=== PATIENT | female | born 1940 | race Two or more races ===

== ENCOUNTER 2020-01-27 15:11 | Inpatient (IN) | payer OTHER ==
[~2020-01-27] VITALS: Ht 157.5 cm; Wt 72.8 kg
[~2020-01-27 15:11] MED LIST: ASPI-231 PO; CITA10TA70 PO; DICY10CA12 PO; DIGO0.1262 PO; ERGO1CAP6 PO; FLUT50SP13; FURO40TA4 PO; METO5TAB2 PO; PANT1INJ3 PO; POTA10TA51 PO; RANI-226 PO; SUCR1TAB PO; TRAM50TA2 PO
[2020-01-27 16:44] LABS: Basophils # (auto) 0.1 10 ^3/uL (0-0.2); Basophils % (auto) 0.8 % (0.0-2.0); Eosinophils # (auto) 0.3 10 ^3/uL (0-0.8); Eosinophils % (auto) 4.3 % (0.0-7.0); Hematocrit 37.2 % (36.0-46.0); Hemoglobin 12.2 g/dL (12.2-16.2); Lymphocytes # (auto) 2.5 10 ^3/uL (0.4-5.4); Lymphocytes % (auto) 34.9 % (10.0-50.0); Mean Corpuscular Hemoglobin 30.5 pg (28.0-32.0); Mean Corpuscular Hgb Conc. 32.7 g/dL (32.0-36.0); Mean Corpuscular Volume 93.2 fL (80.0-100.0); Monocytes # (auto) 0.7 10 ^3/uL (0-1.3); Monocytes % (auto) 9.6 % (0.0-12.0); Neutrophils # (auto) 3.7 10 ^3/uL (1.6-8.6); Neutrophils % (auto) 50.4 % (37.0-80.0); Nucleated Red Blood Cells % 0.1 %; Platelet Count (auto) 233 10^3/uL (140-450); Red Blood Cells 3.99 10^6/uL (4.0-5.20); Red Cell Distribution Width 13.6 % (11.8-14.3); White Blood Cell 7.3 10^3/uL (4.4-10.8)
[2020-01-27 16:56] LABS: Partial Thromboplastin Time 24.8 sec (23.0-31.2)
[2020-01-27 17:01] LABS: Albumin 3.6 g/dL (3.4-5.0); Calcium 8.6 mg/dL (8.5-10.1)
[2020-01-27 17:05] LABS: BUN/Creatinine Ratio 20.5; Bilirubin, Total 0.5 mg/dL (0.2-1.0); Total Protein 6.6 g/dL (6.4-8.2)
[2020-01-27] MEDS ORDERED: PANTOPRAZOLE 40 MG/10 ML VIAL INJ IV ONE (17:45)
[2020-01-27] MEDS ORDERED: NITROGLYCERIN 0.4 MG SL TAB SL PRN (20:00)
[2020-01-27] MEDS ORDERED: MORPHINE SULF INJ 2 MG/ML SYRINGE 1ML IV PRN (20:00)
[2020-01-27] MEDS: SODIUM CHLORIDE 0.9% 1,000 ML IV SCH (21:08)
[2020-01-27] MEDS: ONDANSETRON HCL 4 MG/2 ML VIAL IV PRN (21:18)
[2020-01-27] MEDS: MORPHINE SULF INJ 2 MG/ML SYRINGE 1ML IV PRN (21:18)
[2020-01-27] MEDS: PANTOPRAZOLE 40 MG/10 ML VIAL INJ IV SCH (22:48)
[2020-01-27 23:00] VITALS: BP 102/61
[2020-01-28] MEDS: MORPHINE SULF INJ 2 MG/ML SYRINGE 1ML IV PRN ×4 (01:24→22:21)
[2020-01-28] MEDS ORDERED: CLOP75TA28 PO (02:19)
[2020-01-28] MEDS ORDERED: SERT-274 PO (02:19)
[2020-01-28 05:00] VITALS: BP 113/60
[2020-01-28 06:16] LABS: Basophils # (auto) 0 10 ^3/uL (0-0.2); Basophils % (auto) 0.7 % (0.0-2.0); Eosinophils # (auto) 0.3 10 ^3/uL (0-0.8); Eosinophils % (auto) 4.6 % (0.0-7.0); Hematocrit 36.4 % (36.0-46.0); Hemoglobin 12.2 g/dL (12.2-16.2); Mean Corpuscular Hemoglobin 31.2 pg (28.0-32.0); Mean Corpuscular Hgb Conc. 33.6 g/dL (32.0-36.0); Mean Corpuscular Volume 92.9 fL (80.0-100.0); Monocytes # (auto) 0.6 10 ^3/uL (0-1.3); Monocytes % (auto) 9.3 % (0.0-12.0); Neutrophils # (auto) 3.5 10 ^3/uL (1.6-8.6); Neutrophils % (auto) 54.4 % (37.0-80.0); Nucleated Red Blood Cells % 0.1 %; Platelet Count (auto) 209 10^3/uL (140-450); Red Blood Cells 3.92 10^6/uL (4.0-5.20); Red Cell Distribution Width 13.5 % (11.8-14.3); White Blood Cell 6.5 10^3/uL (4.4-10.8)
[2020-01-28] MEDS: SODIUM CHLORIDE 0.9% 1,000 ML IV SCH ×2 (06:18→15:56)
[2020-01-28 06:32] LABS: Potassium 4.1 mmol/L (3.5-5.1)
[2020-01-28 06:38] LABS: Albumin 3.1 g/dL (3.4-5.0); BUN/Creatinine Ratio 18.9; Bilirubin, Total 0.8 mg/dL (0.2-1.0); Calcium 8.1 mg/dL (8.5-10.1); Total Protein 5.6 g/dL (6.4-8.2)
[2020-01-28 08:00] VITALS: BP 122/60
[2020-01-28] MEDS: PANTOPRAZOLE 40 MG/10 ML VIAL INJ IV SCH ×2 (08:50→21:41)
[2020-01-28 09:00] VITALS: BP 122/60
[2020-01-28] MEDS: ONDANSETRON HCL 4 MG/2 ML VIAL IV PRN ×2 (09:03→15:56)
[2020-01-28 13:00] VITALS: BP 106/54
[2020-01-28 17:00] VITALS: BP 132/74
[2020-01-28] MEDS ORDERED: LISI-648 PO (19:55)
[2020-01-28] MEDS ORDERED: FURO20TA3 PO (19:55)
[2020-01-28] MEDS ORDERED: CHOL20006 PO (19:55)
[2020-01-28] MEDS ORDERED: ROSU1TAB12 PO (19:59)
[2020-01-28] MEDS ORDERED: SERTRALINE HCL 50 MG TAB PO SCH (20:15)
[2020-01-28] MEDS ORDERED: traMADol HCL 50 MG TAB PO PRN (20:15)
[2020-01-28] MEDS: LISINOPRIL 10 MG TAB PO SCH (20:24)
[2020-01-28] MEDS: FUROSEMIDE 20 MG TAB PO SCH (20:24)
[2020-01-28] MEDS: SERTRALINE HCL 50 MG TAB PO SCH (21:09)
[2020-01-28] MEDS: POTASSIUM CHL 10 Meq TABLET PO SCH (21:40)
[2020-01-28] MEDS: GABAPENTIN 100 MG CAP PO SCH (21:40)
[2020-01-28] MEDS: SUCRALFATE 1 GM/10 ML ORAL SUSP GT SCH (21:40)
[2020-01-28] MEDS: CHOLECALCIFEROL (VITD3) 2,000 UNIT CAP PO SCH (21:59)
[2020-01-28] MEDS ORDERED: ATORVASTATIN 20 MG TAB PO SCH (22:00)
[2020-01-28 22:08] VITALS: BP 100/54
[2020-01-29] MEDS: MORPHINE SULF INJ 2 MG/ML SYRINGE 1ML IV PRN (04:29)
[2020-01-29 04:41] VITALS: BP 113/54
[2020-01-29 05:59] LABS: Basophils # (auto) 0 10 ^3/uL (0-0.2); Basophils % (auto) 0.7 % (0.0-2.0); Eosinophils # (auto) 0.3 10 ^3/uL (0-0.8); Eosinophils % (auto) 5.7 % (0.0-7.0); Hematocrit 35.5 % (36.0-46.0); Hemoglobin 11.7 g/dL (12.2-16.2); Lymphocytes # (auto) 1.7 10 ^3/uL (0.4-5.4); Lymphocytes % (auto) 34.3 % (10.0-50.0); Mean Corpuscular Hemoglobin 30.9 pg (28.0-32.0); Mean Corpuscular Volume 93.7 fL (80.0-100.0); Monocytes # (auto) 0.4 10 ^3/uL (0-1.3); Monocytes % (auto) 8.7 % (0.0-12.0); Neutrophils # (auto) 2.5 10 ^3/uL (1.6-8.6); Neutrophils % (auto) 50.6 % (37.0-80.0); Platelet Count (auto) 194 10^3/uL (140-450); Red Blood Cells 3.78 10^6/uL (4.0-5.20); Red Cell Distribution Width 13.6 % (11.8-14.3); White Blood Cell 4.9 10^3/uL (4.4-10.8)
[2020-01-29 06:12] LABS: Partial Thromboplastin Time 26.5 sec (23.0-31.2)
[2020-01-29 06:18] LABS: Potassium 4.3 mmol/L (3.5-5.1)
[2020-01-29] MEDS: SUCRALFATE 1 GM/10 ML ORAL SUSP GT SCH ×3 (06:18→18:13)
[2020-01-29] MEDS: GABAPENTIN 100 MG CAP PO SCH ×2 (06:18→18:13)
[2020-01-29 06:30] LABS: Albumin 2.7 g/dL (3.4-5.0); BUN/Creatinine Ratio 12.8; Bilirubin, Total 0.6 mg/dL (0.2-1.0); Calcium 7.9 mg/dL (8.5-10.1); Total Protein 5.3 g/dL (6.4-8.2)
[2020-01-29 08:00] VITALS: BP 110/45
[2020-01-29] MEDS ORDERED: SODIUM CHLORIDE LOCK 10 ML ONE ×2 (08:43→08:45)
[2020-01-29] MEDS ORDERED: LIDOCAINE VISCOUS 2% 15ML UD ONE (08:43)
[2020-01-29] MEDS ORDERED: diphenhdrAMINE HCL 50 MG/1 ML VL ONE (08:44)
[2020-01-29] MEDS ORDERED: MIDAZOLAM HCL 5 MG/ML-1ML VIAL ONE (08:44)
[2020-01-29] MEDS ORDERED: fentaNYL CITRATE 100 MCG/2 ML VL ONE (08:44)
[2020-01-29 09:00] VITALS: BP 110/45
[2020-01-29] MEDS: CHOLECALCIFEROL (VITD3) 2,000 UNIT CAP PO SCH (10:00)
[2020-01-29] MEDS: LISINOPRIL 10 MG TAB PO SCH (10:00)
[2020-01-29] MEDS: SERTRALINE HCL 50 MG TAB PO SCH (10:00)
[2020-01-29] MEDS: PANTOPRAZOLE 40 MG/10 ML VIAL INJ IV SCH (10:15)
[2020-01-29] MEDS: POTASSIUM CHL 10 Meq TABLET PO SCH (10:15)
[2020-01-29] MEDS: FUROSEMIDE 20 MG TAB PO SCH (10:16)
[2020-01-29 11:44] VITALS: BP 116/59
[2020-01-29] MEDS ORDERED: ALPRAZolam 0.25 MG TAB PO ONE (13:45)
[2020-01-29] MEDS ORDERED: SERT25TA84 PO (15:54)
[2020-01-29] MEDS ORDERED: LISI-646 PO (15:54)
[2020-01-29 16:09] VITALS: BP 116/59
[2020-01-29 16:34] VITALS: BP 110/66
[2020-01-30 10:53] LABS: Hepatitis B Surface Antibody Positive
[2020-01-30 11:30] LABS: Hepatitis A Total Antibody Positive
[2020-01-30 13:26] LABS: Hepatitis B Core Total AB Negative; Hepatitis B Surface Antigen Negative (Negative); Hepatitis C Antibody Negative (Negative)
[2020-01-31] MEDS ORDERED: PANT1INJ3 PO (12:05)
== END 2020-01-29 18:50 | disposition home or self-care (01) | DRG 379 ==
LOC: ER 15:11 → TELE 15:12 → TELE-CENTR 22:10
PROVIDERS: ADMIT Nurse Practitioner Acute Care; ATTEND Internal Medicine
PROC: 0DB88ZX Excision of Small Intestine, Via Natural or Artificial Opening Endoscopic, Diagnostic (ICD-10-PCS; 2020-01-29)
PROC: 0DB68ZX Excision of Stomach, Via Natural or Artificial Opening Endoscopic, Diagnostic (ICD-10-PCS; principal; 2020-01-29 15:00)
DX: K27.4 Chronic or unspecified peptic ulcer, site unspecified, with hemorrhage (principal); K29.71 Gastritis, unspecified, with bleeding; K57.31 Diverticulosis of large intestine without perforation or abscess with bleeding; N18.30 Chronic kidney disease, stage 3 unspecified; E78.5 Hyperlipidemia, unspecified; F32.9 Major depressive disorder, single episode, unspecified; F41.9 Anxiety disorder, unspecified; I12.9 Hypertensive chronic kidney disease with stage 1 through stage 4 chronic kidney disease, or unspecified chronic kidney disease; I25.10 Atherosclerotic heart disease of native coronary artery without angina pectoris; I70.8 Atherosclerosis of other arteries; K44.9 Diaphragmatic hernia without obstruction or gangrene; M10.9 Gout, unspecified; Z82.49 Family history of ischemic heart disease and other diseases of the circulatory system; Z83.3 Family history of diabetes mellitus; Z90.49 Acquired absence of other specified parts of digestive tract; Z95.810 Presence of automatic (implantable) cardiac defibrillator; Z88.2 Allergy status to sulfonamides; Z87.11 Personal history of peptic ulcer disease; Z20.828 Contact with and (suspected) exposure to other viral communicable diseases; E11.42 Type 2 diabetes mellitus with diabetic polyneuropathy
CPT/HCPCS: 36415; 43239; 71045; 74176; 76705; 80053; 83690; 85025; 85610; 85730; 86704; 86706; 86708; 86803; 86850; 86900; 86901; 87340; C9113; G0378; J2250; J2405

== ENCOUNTER 2020-08-07 15:31 | Inpatient (IN) | payer OTHER ==
[~2020-08-07] VITALS: Ht 162.6 cm; Wt 69.5 kg
[~2020-08-07 15:31] MED LIST changes: -ASPI-231 PO; +CHOL20006 PO; -CITA10TA70 PO; -DICY10CA12 PO; -DIGO0.1262 PO; -ERGO1CAP6 PO; -FLUT50SP13; +FURO20TA3 PO; -FURO40TA4 PO; +LISI20TA28 PO; -METO5TAB2 PO; -RANI-226 PO; +ROSU1TAB12 PO; +SERT25TA84 PO; -SUCR1TAB PO
[2020-08-07] MEDS ORDERED: ASPirin 81 mg TAB PO ONE (16:15)
[2020-08-07] MEDS ORDERED: SODIUM CHLORIDE 0.9% 1,000 ML IV ONE (16:15)
[2020-08-07 16:38] LABS: Basophils # (auto) 0.1 10 ^3/uL (0-0.2); Basophils % (auto) 0.6 % (0.0-2.0); Eosinophils # (auto) 0.4 10 ^3/uL (0-0.8); Eosinophils % (auto) 4.6 % (0.0-7.0); Hematocrit 37.7 % (36.0-46.0); Hemoglobin 12.8 g/dL (12.2-16.2); Lymphocytes # (auto) 1.7 10 ^3/uL (0.4-5.4); Lymphocytes % (auto) 18.5 % (10.0-50.0); Mean Corpuscular Hemoglobin 31.2 pg (28.0-32.0); Mean Corpuscular Volume 91.8 fL (80.0-100.0); Monocytes # (auto) 0.9 10 ^3/uL (0-1.3); Monocytes % (auto) 9.3 % (0.0-12.0); Neutrophils # (auto) 6.3 10 ^3/uL (1.6-8.6); Nucleated Red Blood Cells % 0.1 %; Platelet Count (auto) 228 10^3/uL (140-450); Red Cell Distribution Width 13.7 % (11.8-14.3); White Blood Cell 9.4 10^3/uL (4.4-10.8)
[2020-08-07 16:52] LABS: INR 0.97 (0.9-1.15); Partial Thromboplastin Time 25.8 sec (23.0-31.2)
[2020-08-07 17:04] LABS: Albumin 3.4 g/dL (3.4-5.0); Calcium 8.3 mg/dL (8.5-10.1); Magnesium 2.5 mg/dL (1.6-2.6); Potassium 4.3 mmol/L (3.5-5.1)
[2020-08-07 17:10] LABS: BUN/Creatinine Ratio 18.4; Bilirubin, Total 0.4 mg/dL (0.2-1.0); Total Protein 6.8 g/dL (6.4-8.2)
[2020-08-07 19:06] LABS: Urine Bacteria FEW /hpf (None Seen); Urine Blood Negative /uL (Negative); Urine Mucus FEW (None Seen); Urine Specific Gravity 1.015 (1.001-1.035); Urine WBC 4 /hpf (0 - 5)
[2020-08-07] MEDS ORDERED: NITROGLYCERIN 0.4 MG SL TAB SL PRN (21:15)
[2020-08-07] MEDS ORDERED: ACETAMINOPHEN 325 MG TAB PO PRN (21:15)
[2020-08-07] MEDS ORDERED: MORPHINE SULF INJ 2 MG/ML SYRINGE 1ML IV PRN (21:15)
[2020-08-07] MEDS: ENOXAPARIN SOD 40 MG/0.4 ML SYRINGE SC SCH (21:38)
[2020-08-07] MEDS: ATORVASTATIN 20 MG TAB PO SCH (22:20)
[2020-08-07] MEDS ORDERED: ONDANSETRON HCL 4 MG/2 ML VIAL ONE (23:13)
[2020-08-07 23:27] VITALS: BP 148/82
[2020-08-07] MEDS: ONDANSETRON HCL 4 MG/2 ML VIAL IV PRN (23:30)
[2020-08-08] VITALS (7 sets, daily range): BP systolic 99–148; BP diastolic 44–82
[2020-08-08] MEDS: ONDANSETRON HCL 4 MG/2 ML VIAL IV PRN (00:03)
[2020-08-08] MEDS ORDERED: TEMAZEPAM 15 MG CAP ONE (02:07)
[2020-08-08] MEDS: TEMAZEPAM 15 MG CAP PO PRN ×2 (02:09→21:17)
[2020-08-08] MEDS ORDERED: LISI-275 PO (06:11)
[2020-08-08] MEDS ORDERED: OMEP20TA PO (06:14)
[2020-08-08] MEDS: ASPirin 81 mg TAB PO SCH (10:15)
[2020-08-08] MEDS: FUROSEMIDE 20 MG TAB PO SCH (10:15)
[2020-08-08] MEDS: FAMOTIDINE 20 MG TAB PO SCH (10:15)
[2020-08-08] MEDS ORDERED: cefTRIAXone 1GM/50ML D5W 50 ML IV ONE (11:30)
[2020-08-08] MEDS: HYDROcodone-ACET 5/325MG TAB PO PRN ×2 (11:49→16:18)
[2020-08-08] MEDS: PHENAZOPYRIDINE HCL 100 MG TAB PO SCH ×2 (16:00→18:18)
[2020-08-08] MEDS: guaiFENesin-DM 100/10mg/5ml SYR PO SCH ×3 (16:00→23:13)
[2020-08-08] MEDS: ENOXAPARIN SOD 40 MG/0.4 ML SYRINGE SC SCH (18:18)
[2020-08-08] MEDS: ATORVASTATIN 20 MG TAB PO SCH (21:17)
[2020-08-09 05:00] VITALS: BP 107/57
[2020-08-09] MEDS: guaiFENesin-DM 100/10mg/5ml SYR PO SCH ×2 (06:21→11:49)
[2020-08-09 08:00] VITALS: BP 130/78
[2020-08-09] MEDS: FAMOTIDINE 20 MG TAB PO SCH (08:49)
[2020-08-09] MEDS: PHENAZOPYRIDINE HCL 100 MG TAB PO SCH ×2 (08:51→11:49)
[2020-08-09] MEDS: FUROSEMIDE 20 MG TAB PO SCH (08:51)
[2020-08-09] MEDS: ASPirin 81 mg TAB PO SCH (08:51)
[2020-08-09 09:00] VITALS: BP_SYST 104; BP_SYST 150; BP_DIAS 48; BP_DIAS 74
[2020-08-09] MEDS ORDERED: cefTRIAXone 1GM/50ML D5W 50 ML IV SCH (09:00)
[2020-08-09] MEDS ORDERED: NITR-87 PO (11:46)
[2020-08-09] MEDS ORDERED: DEXT1SYP9 PO (11:46)
[2020-08-09] MEDS ORDERED: PHEN-1044 PO (11:46)
[2020-08-09 12:07] VITALS: BP 130/78
[2020-08-09 13:00] VITALS: BP_SYST 134; BP_SYST 86; BP_DIAS 56
== END 2020-08-09 14:43 | disposition home or self-care (01) | DRG 313 ==
LOC: EDUNIT# 15:31 → ER 15:31 → EDBD 15:31 → TELE-WESTW 21:06 → ER 22:37
PROVIDERS: ADMIT Nurse Practitioner; ATTEND Nurse Practitioner
DX: R07.89 Other chest pain (principal); N30.00 Acute cystitis without hematuria; E11.9 Type 2 diabetes mellitus without complications; I10 Essential (primary) hypertension; F32.9 Major depressive disorder, single episode, unspecified; Z20.822 Contact with and (suspected) exposure to COVID-19; M10.9 Gout, unspecified; I08.3 Combined rheumatic disorders of mitral, aortic and tricuspid valves; R10.9 Unspecified abdominal pain; M19.90 Unspecified osteoarthritis, unspecified site; I25.2 Old myocardial infarction; Z82.49 Family history of ischemic heart disease and other diseases of the circulatory system; Z83.3 Family history of diabetes mellitus; Z90.710 Acquired absence of both cervix and uterus; Z95.0 Presence of cardiac pacemaker; Z95.1 Presence of aortocoronary bypass graft; Z95.2 Presence of prosthetic heart valve; Z98.61 Coronary angioplasty status; Z88.2 Allergy status to sulfonamides
CPT/HCPCS: 36415; 71046; 80053; 81001; 83735; 84443; 84484; 85025; 85610; 85730; 87426; 93005; 93306; 96361; 96365; 96375; G0378; J0696; J2405

== ENCOUNTER 2020-09-27 | Emergency (ER) | payer OTHER ==
[~2020-09-27] VITALS: Ht 157.5 cm; Wt 61.2 kg
[~2020-09-27] MED LIST changes: +DEXT1SYP9 PO; -FURO20TA3 PO; +NITR-87 PO; +OMEP20TA PO; +PHEN-1044 PO; -POTA10TA51 PO; -ROSU1TAB12 PO; -SERT25TA84 PO; -TRAM50TA2 PO
[2020-09-27 01:52] LABS: Basophils # (auto) 0.1 10 ^3/uL (0-0.2); Basophils % (auto) 0.5 % (0.0-2.0); Eosinophils # (auto) 0.3 10 ^3/uL (0-0.8); Eosinophils % (auto) 1.8 % (0.0-7.0); Hematocrit 36.9 % (36.0-46.0); Hemoglobin 12.2 g/dL (12.2-16.2); Lymphocytes # (auto) 3.7 10 ^3/uL (0.4-5.4); Lymphocytes % (auto) 24.2 % (10.0-50.0); Mean Corpuscular Hemoglobin 30.5 pg (28.0-32.0); Mean Corpuscular Hgb Conc. 32.9 g/dL (32.0-36.0); Mean Corpuscular Volume 92.8 fL (80.0-100.0); Monocytes # (auto) 1.2 10 ^3/uL (0-1.3); Monocytes % (auto) 7.8 % (0.0-12.0); Neutrophils # (auto) 10.1 10 ^3/uL (1.6-8.6); Neutrophils % (auto) 65.7 % (37.0-80.0); Nucleated Red Blood Cells % 0.1 %; Platelet Count (auto) 223 10^3/uL (140-450); Red Blood Cells 3.98 10^6/uL (4.0-5.20); Red Cell Distribution Width 14.3 % (11.8-14.3); White Blood Cell 15.4 10^3/uL (4.4-10.8)
[2020-09-27] MEDS ORDERED: ALUM & MAG HYDROX-SIMETH LIQ(MAALOX) 30 ML PO ONE (02:00)
[2020-09-27] MEDS ORDERED: LIDOCAINE VISCOUS 2% 15ML UD PO ONE (02:00)
[2020-09-27 02:06] LABS: Albumin 3.4 g/dL (3.4-5.0); Calcium 8.2 mg/dL (8.5-10.1); Potassium 3.9 mmol/L (3.5-5.1)
[2020-09-27 02:10] LABS: BUN/Creatinine Ratio 22.8; Bilirubin, Total 0.4 mg/dL (0.2-1.0); Total Protein 6.4 g/dL (6.4-8.2)
[2020-09-27 02:26] LABS: Urine Bacteria NONE SEEN /hpf (None Seen); Urine Mucus FEW (None Seen); Urine WBC 343 /hpf (0 - 5); Urine WBC Clumps PRESENT /hpf (None Seen)
[2020-09-27 02:30] LABS: Urine Specific Gravity 1.015 (1.001-1.035)
[2020-09-27 02:31] LABS: Urine Blood 4+ /uL (Negative)
[2020-09-27] MEDS ORDERED: HYDROcodone-ACET 5/325MG TAB PO ONE (03:15)
[2020-09-27] MEDS ORDERED: CIPROFLOXACIN 400MG/200ML 200 ML IV ONE (04:00)
[2020-09-27 04:22] VITALS: BP 112/48
== END 2020-09-27 07:31 | disposition home or self-care (01) ==
LOC: ER → EDBD → ER 07:31
DX: N39.0 Urinary tract infection, site not specified (principal); I25.10 Atherosclerotic heart disease of native coronary artery without angina pectoris; I10 Essential (primary) hypertension; I25.2 Old myocardial infarction; K21.9 Gastro-esophageal reflux disease without esophagitis; Z95.1 Presence of aortocoronary bypass graft; Z95.0 Presence of cardiac pacemaker; Z90.710 Acquired absence of both cervix and uterus; Z79.899 Other long term (current) drug therapy; Z88.2 Allergy status to sulfonamides
CPT/HCPCS: 36415; 74176; 80053; 81001; 83690; 85025; 85049; 93005; 96365; 99285; J0744

== ENCOUNTER 2020-10-10 20:52 | Inpatient (IN) | payer OTHER ==
[~2020-10-10] VITALS: Ht 157.5 cm; Wt 71.5 kg
[2020-10-10 21:54] LABS: Basophils # (auto) 0.1 10 ^3/uL (0-0.2); Basophils % (auto) 0.6 % (0.0-2.0); Eosinophils # (auto) 0.5 10 ^3/uL (0-0.8); Eosinophils % (auto) 4.7 % (0.0-7.0); Hematocrit 40.5 % (36.0-46.0); Hemoglobin 13.4 g/dL (12.2-16.2); Lymphocytes % (auto) 26.9 % (10.0-50.0); Mean Corpuscular Hemoglobin 30.2 pg (28.0-32.0); Mean Corpuscular Hgb Conc. 33.1 g/dL (32.0-36.0); Mean Corpuscular Volume 91.2 fL (80.0-100.0); Monocytes % (auto) 8.7 % (0.0-12.0); Neutrophils # (auto) 6.5 10 ^3/uL (1.6-8.6); Neutrophils % (auto) 59.1 % (37.0-80.0); Red Blood Cells 4.44 10^6/uL (4.0-5.20)
[2020-10-10] MEDS ORDERED: ASPirin 81 mg TAB PO ONE (22:00)
[2020-10-10 22:10] LABS: INR 0.94 (0.9-1.15); Partial Thromboplastin Time 24.5 sec (23.0-31.2)
[2020-10-10 22:12] LABS: Albumin 3.7 g/dL (3.4-5.0); Anion Gap 6 (5-15); Blood Urea Nitrogen 29 mg/dL (7-18); Calcium 8.7 mg/dL (8.5-10.1); Carbon Dioxide 22 mmol/L (21-32); Chloride 108 mmol/L (98-107); Glucose 92 mg/dL (74-106); Magnesium 2.3 mg/dL (1.6-2.6); Potassium 4.3 mmol/L (3.5-5.1); Sodium 136 mmol/L (136-145)
[2020-10-10 22:14] LABS: Alanine Aminotransferase 24 U/L (13-56); Aspartate Aminotransferase 15 U/L (15-37); BUN/Creatinine Ratio 29.9; GFR African American 71 mL/min; GFR Non-African American 59 mL/min
[2020-10-10] MEDS ORDERED: ONDANSETRON HCL 4 MG/2 ML VIAL IV PRN (22:15)
[2020-10-10 22:18] LABS: Alkaline Phosphatase 77 U/L (45-117); Bilirubin, Total 0.3 mg/dL (0.2-1.0); Total Protein 7.4 g/dL (6.4-8.2)
[2020-10-10] MEDS ORDERED: MORPHINE SULFATE INJECTION 2 MG/ML SYRG IM ONE (23:00)
[2020-10-10] MEDS ORDERED: cloNIDine HCL 0.1 MG TAB PO ONE (23:00)
[2020-10-11] VITALS (7 sets, daily range): BP systolic 92–101; BP diastolic 39–55
[2020-10-11] MEDS ORDERED: MORPHINE SULFATE INJECTION 2 MG/ML SYRG IV PRN (00:30)
[2020-10-11] MEDS ORDERED: HYDROcodone-ACET 5/325MG TAB PO PRN (00:30)
[2020-10-11] MEDS ORDERED: NITROGLYCERIN 0.4 MG SL TAB SL PRN (00:30)
[2020-10-11] MEDS ORDERED: hydrALAZINE HCL 20 MG/ML VL IV PRN (00:30)
[2020-10-11] MEDS ORDERED: ONDANSETRON HCL 4 MG/2 ML VIAL IV PRN (00:30)
[2020-10-11 02:30] LABS: Urine Bacteria FEW /hpf (None Seen); Urine Blood Negative /uL (Negative); Urine Hyaline Cast FEW /lpf (0 - 2); Urine Mucus FEW (None Seen); Urine Specific Gravity 1.019 (1.001-1.035); Urine WBC 180 /hpf (0 - 5)
[2020-10-11 07:26] LABS: INR 0.99 (0.9-1.15); Partial Thromboplastin Time 25.2 sec (23.0-31.2)
[2020-10-11] MEDS: cefTRIAXone 1GM/50ML D5W 50 ML IV SCH (09:27)
[2020-10-11] MEDS: ZINC SULFATE 220mg CAP or TAB PO SCH (09:28)
[2020-10-11] MEDS: MULTIPLE VITAMIN TAB PO SCH (09:28)
[2020-10-11] MEDS: ASPirin 325 MG TAB PO SCH (09:28)
[2020-10-11] MEDS: FAMOTIDINE 20 MG TAB PO SCH (09:29)
[2020-10-11] MEDS: ASCORBIC ACID 500 MG TAB PO SCH ×2 (09:29→21:58)
[2020-10-11] MEDS: LISINOPRIL 20 MG TAB PO SCH (09:30)
[2020-10-11] MEDS: MORPHINE SULFATE 4 MG/ML SYR/VIAL IV PRN (09:32)
[2020-10-11] MEDS: DOCUSATE SOD 100 MG CAP PO PRN (21:58)
[2020-10-11] MEDS ORDERED: ATORVASTATIN 20 MG TAB PO SCH (22:00)
[2020-10-12] MEDS: ACETAMINOPHEN 325 MG TAB PO PRN (00:20)
[2020-10-12 05:00] VITALS: BP 91/44
[2020-10-12 05:31] LABS: Basophils # (auto) 0 10 ^3/uL (0-0.2); Basophils % (auto) 0.9 % (0.0-2.0); Eosinophils # (auto) 0.4 10 ^3/uL (0-0.8); Eosinophils % (auto) 6.9 % (0.0-7.0); Hematocrit 39.6 % (36.0-46.0); Lymphocytes # (auto) 1.9 10 ^3/uL (0.4-5.4); Lymphocytes % (auto) 33.5 % (10.0-50.0); Mean Corpuscular Hemoglobin 30.3 pg (28.0-32.0); Mean Corpuscular Hgb Conc. 32.9 g/dL (32.0-36.0); Mean Corpuscular Volume 92.1 fL (80.0-100.0); Monocytes # (auto) 0.5 10 ^3/uL (0-1.3); Monocytes % (auto) 9.4 % (0.0-12.0); Neutrophils # (auto) 2.8 10 ^3/uL (1.6-8.6); Neutrophils % (auto) 49.3 % (37.0-80.0); White Blood Cell 5.8 10^3/uL (4.4-10.8)
[2020-10-12 06:04] LABS: BUN/Creatinine Ratio 27.8; Calcium 8.2 mg/dL (8.5-10.1); Magnesium 2.4 mg/dL (1.6-2.6)
[2020-10-12 06:17] LABS: Bilirubin, Total 0.4 mg/dL (0.2-1.0); Total Protein 6.4 g/dL (6.4-8.2)
[2020-10-12 09:00] VITALS: BP 92/57
[2020-10-12] MEDS: ZINC SULFATE 220mg CAP or TAB PO SCH (09:13)
[2020-10-12] MEDS: ASCORBIC ACID 500 MG TAB PO SCH ×2 (09:13→21:40)
[2020-10-12] MEDS: ASPirin 325 MG TAB PO SCH (09:13)
[2020-10-12] MEDS: FAMOTIDINE 20 MG TAB PO SCH (09:13)
[2020-10-12] MEDS: MULTIPLE VITAMIN TAB PO SCH (09:14)
[2020-10-12] MEDS: DOCUSATE SOD 100 MG CAP PO PRN (09:14)
[2020-10-12] MEDS: cefTRIAXone 1GM/50ML D5W 50 ML IV SCH (09:16)
[2020-10-12] MEDS: LISINOPRIL 20 MG TAB PO SCH (10:00)
[2020-10-12] MEDS ORDERED: LACTULOSE 20Gm/30ML SOLN PO PRN (11:30)
[2020-10-12 13:00] VITALS: BP 102/66
[2020-10-12] MEDS ORDERED: FLUCONAZOLE 100 MG TAB PO ONE (13:45)
[2020-10-12] MEDS: metroNIDAZOLE 500 MG TAB PO SCH ×2 (14:02→21:40)
[2020-10-12] MEDS: MORPHINE SULFATE 4 MG/ML SYR/VIAL IV PRN ×2 (14:53→21:55)
[2020-10-12 17:00] VITALS: BP 154/71
[2020-10-12] MEDS: SENNA 8.6 MG TAB PO SCH (21:40)
[2020-10-12] MEDS: WITCH HAZEL-GLYCERIN PAD TOP PRN (21:41)
[2020-10-12 22:00] VITALS: BP 114/56
[2020-10-12] MEDS: TEMAZEPAM 15 MG CAP PO PRN (23:52)
[2020-10-13 05:00] VITALS: BP 99/51
[2020-10-13] MEDS: WITCH HAZEL-GLYCERIN PAD TOP PRN ×2 (05:24→15:30)
[2020-10-13] MEDS: metroNIDAZOLE 500 MG TAB PO SCH ×3 (05:24→21:49)
[2020-10-13 08:59] VITALS: BP 124/59
[2020-10-13] MEDS: ASPirin 325 MG TAB PO SCH (09:52)
[2020-10-13] MEDS: cefTRIAXone 1GM/50ML D5W 50 ML IV SCH (09:52)
[2020-10-13] MEDS: ZINC SULFATE 220mg CAP or TAB PO SCH (09:53)
[2020-10-13] MEDS: ASCORBIC ACID 500 MG TAB PO SCH ×2 (09:53→21:49)
[2020-10-13] MEDS: LISINOPRIL 20 MG TAB PO SCH (09:54)
[2020-10-13] MEDS: MULTIPLE VITAMIN TAB PO SCH (09:54)
[2020-10-13] MEDS: FLUCONAZOLE 100 MG TAB PO SCH (09:54)
[2020-10-13] MEDS: FAMOTIDINE 20 MG TAB PO SCH (09:54)
[2020-10-13] MEDS: MORPHINE SULFATE 4 MG/ML SYR/VIAL IV PRN (09:59)
[2020-10-13 12:27] LABS: Albumin 3.2 g/dL (3.4-5.0); Calcium 8.9 mg/dL (8.5-10.1); Potassium 4.9 mmol/L (3.5-5.1)
[2020-10-13 12:31] LABS: BUN/Creatinine Ratio 28.6; Bilirubin, Total 0.2 mg/dL (0.2-1.0); Total Protein 7.2 g/dL (6.4-8.2)
[2020-10-13 12:52] VITALS: BP 122/70
[2020-10-13 17:00] VITALS: BP 110/63
[2020-10-13 20:00] VITALS: BP 119/58
[2020-10-13] MEDS: TEMAZEPAM 15 MG CAP PO PRN (21:49)
[2020-10-13] MEDS: SENNA 8.6 MG TAB PO SCH (21:49)
[2020-10-13 22:00] VITALS: BP 119/58
[2020-10-14 05:00] VITALS: BP 94/45
[2020-10-14] MEDS: metroNIDAZOLE 500 MG TAB PO SCH ×3 (06:13→21:15)
[2020-10-14 06:54] VITALS: BP 130/61
[2020-10-14] MEDS: MORPHINE SULFATE 4 MG/ML SYR/VIAL IV PRN (06:55)
[2020-10-14 09:00] VITALS: BP 112/59
[2020-10-14] MEDS: ASPirin 325 MG TAB PO SCH (09:39)
[2020-10-14] MEDS: cefTRIAXone 1GM/50ML D5W 50 ML IV SCH (09:39)
[2020-10-14] MEDS: FLUCONAZOLE 100 MG TAB PO SCH (09:39)
[2020-10-14] MEDS: ZINC SULFATE 220mg CAP or TAB PO SCH (09:39)
[2020-10-14] MEDS: MULTIPLE VITAMIN TAB PO SCH (09:39)
[2020-10-14] MEDS: FAMOTIDINE 20 MG TAB PO SCH (09:40)
[2020-10-14] MEDS: ASCORBIC ACID 500 MG TAB PO SCH ×2 (09:40→21:15)
[2020-10-14] MEDS: LISINOPRIL 20 MG TAB PO SCH (09:41)
[2020-10-14 13:00] VITALS: BP 100/53
[2020-10-14] MEDS ORDERED: ERTAPENEM SOD INJ 1 GM in SODIUM CHL 0.9% 50 ML IV ONE (14:00)
[2020-10-14] MEDS: DOCUSATE SOD 100 MG CAP PO PRN (15:37)
[2020-10-14 17:00] VITALS: BP 101/38
[2020-10-14] MEDS: SENNA 8.6 MG TAB PO SCH (21:15)
[2020-10-14] MEDS: TEMAZEPAM 15 MG CAP PO PRN (21:16)
[2020-10-14] MEDS: ACETAMINOPHEN 325 MG TAB PO PRN (21:17)
[2020-10-14 22:00] VITALS: BP 127/51
[2020-10-15 05:00] VITALS: BP 98/56
[2020-10-15] MEDS: MORPHINE SULFATE 4 MG/ML SYR/VIAL IV PRN (05:27)
[2020-10-15] MEDS: metroNIDAZOLE 500 MG TAB PO SCH ×2 (05:28→13:35)
[2020-10-15 09:00] VITALS: BP 93/49
[2020-10-15] MEDS: ASPirin 325 MG TAB PO SCH (09:44)
[2020-10-15] MEDS: FAMOTIDINE 20 MG TAB PO SCH (09:44)
[2020-10-15] MEDS: MULTIPLE VITAMIN TAB PO SCH (09:44)
[2020-10-15] MEDS: ZINC SULFATE 220mg CAP or TAB PO SCH (09:44)
[2020-10-15] MEDS: FLUCONAZOLE 100 MG TAB PO SCH (09:45)
[2020-10-15] MEDS: ASCORBIC ACID 500 MG TAB PO SCH (09:45)
[2020-10-15] MEDS: LISINOPRIL 20 MG TAB PO SCH (09:45)
[2020-10-15] MEDS ORDERED: ERTAPENEM SOD INJ 1 GM in SODIUM CHL 0.9% 50 ML IV SCH (10:00)
[2020-10-15] MEDS ORDERED: HYDROcodone-ACET 5/325MG TAB PO PRN (13:30)
[2020-10-15 13:32] VITALS: BP 105/51
[2020-10-15 15:34] VITALS: BP 105/51
[2020-10-15 17:00] VITALS: BP 128/70
== END 2020-10-15 18:16 | disposition home health service (06) | DRG 758 ==
LOC: ER 20:56 → TELE 10-11 00:19 → TELE-CENTR 10-11 02:45
PROVIDERS: ADMIT Nurse Practitioner Family; ATTEND Internal Medicine
PROC: 05HB33Z Insertion of Infusion Device into Right Basilic Vein, Percutaneous Approach (ICD-10-PCS; principal; 2020-10-14)
PROC: B54MZZA Ultrasonography of Right Upper Extremity Veins, Guidance (ICD-10-PCS; 2020-10-14)
DX: N76.0 Acute vaginitis (principal); N39.0 Urinary tract infection, site not specified; I16.0 Hypertensive urgency; I48.91 Unspecified atrial fibrillation; I70.0 Atherosclerosis of aorta; K59.00 Constipation, unspecified; I11.0 Hypertensive heart disease with heart failure; I25.10 Atherosclerotic heart disease of native coronary artery without angina pectoris; F32.9 Major depressive disorder, single episode, unspecified; K21.9 Gastro-esophageal reflux disease without esophagitis; M19.90 Unspecified osteoarthritis, unspecified site; R74.01 Elevation of levels of liver transaminase levels; R79.89 Other specified abnormal findings of blood chemistry; R94.4 Abnormal results of kidney function studies; D72.829 Elevated white blood cell count, unspecified; I25.2 Old myocardial infarction; Z82.49 Family history of ischemic heart disease and other diseases of the circulatory system; Z83.3 Family history of diabetes mellitus; Z90.710 Acquired absence of both cervix and uterus; Z95.0 Presence of cardiac pacemaker; Z95.1 Presence of aortocoronary bypass graft; Z95.2 Presence of prosthetic heart valve; Z88.2 Allergy status to sulfonamides
CPT/HCPCS: 36415; 71045; 74176; 80053; 81001; 83735; 83880; 84443; 84484; 85025; 85610; 85730; 87070; 87081; 87086; 87088; 87186; 87426; 93005; 96365; 96372; 97110; 97116; 97163; 97530; G0378; J0696; J1335

== ENCOUNTER 2021-01-17 13:09 | Inpatient (IN) | payer OTHER ==
[~2021-01-17] VITALS: Ht 157.5 cm; Wt 68.0 kg
[2021-01-17 14:05] LABS: Basophils # (auto) 0 10 ^3/uL (0-0.2); Basophils % (auto) 0.7 % (0.0-2.0); Eosinophils # (auto) 0.2 10 ^3/uL (0-0.8); Eosinophils % (auto) 3.2 % (0.0-7.0); Hematocrit 36.9 % (36.0-46.0); Hemoglobin 12.2 g/dL (12.2-16.2); Lymphocytes # (auto) 2.1 10 ^3/uL (0.4-5.4); Lymphocytes % (auto) 36.4 % (10.0-50.0); Mean Corpuscular Hemoglobin 30.3 pg (28.0-32.0); Mean Corpuscular Volume 91.8 fL (80.0-100.0); Monocytes # (auto) 0.6 10 ^3/uL (0-1.3); Monocytes % (auto) 9.7 % (0.0-12.0); Neutrophils # (auto) 2.9 10 ^3/uL (1.6-8.6); Nucleated Red Blood Cells % 0.1 %; Red Blood Cells 4.03 10^6/uL (4.0-5.20); Red Cell Distribution Width 13.9 % (11.8-14.3); White Blood Cell 5.8 10^3/uL (4.4-10.8)
[2021-01-17] MEDS ORDERED: ONDANSETRON HCL 4 MG/2 ML VIAL IV ONE (14:15)
[2021-01-17] MEDS ORDERED: FAMOTIDINE 20 MG TAB PO ONE (14:15)
[2021-01-17 14:17] LABS: INR 1.01 (0.9-1.15); Partial Thromboplastin Time 25.8 sec (23.6-33.0)
[2021-01-17 14:18] LABS: Albumin 3.3 g/dL (3.4-5.0); Calcium 9.2 mg/dL (8.5-10.1); Potassium 3.8 mmol/L (3.5-5.1)
[2021-01-17 14:25] LABS: BUN/Creatinine Ratio 14.8; Bilirubin, Total 0.4 mg/dL (0.2-1.0); Total Protein 6.8 g/dL (6.4-8.2)
[2021-01-17] MEDS ORDERED: MORPHINE SULFATE INJECTION 2 MG/ML SYRG IV PRN (16:15)
[2021-01-17] MEDS ORDERED: NITROGLYCERIN 0.4 MG SL TAB SL PRN (16:15)
[2021-01-17] MEDS ORDERED: ONDANSETRON HCL 4 MG/2 ML VIAL IV PRN (16:15)
[2021-01-17 16:19] LABS: Urine Bacteria NONE SEEN /hpf (None Seen); Urine Blood Negative /uL (Negative); Urine Specific Gravity 1.007 (1.001-1.035); Urine WBC 1 /hpf (0 - 5)
[2021-01-17] MEDS: guaiFENesin-DM 100/10mg/5ml SYR PO SCH ×2 (18:46→23:36)
[2021-01-18] MEDS: guaiFENesin-DM 100/10mg/5ml SYR PO SCH ×4 (06:19→23:08)
[2021-01-18] MEDS ORDERED: ADENOSINE 53 MG in GIVE UN-DILUTED 0 ML IV STA (11:04)
[2021-01-18] MEDS: LISINOPRIL 20 MG TAB PO SCH (11:08)
[2021-01-18] MEDS: PANTOPRAZOLE 40 MG/10 ML VIAL INJ IV SCH (11:09)
[2021-01-18 12:57] VITALS: BP 103/66
[2021-01-18] MEDS ORDERED: DEXT1SYP9 GT (15:39)
[2021-01-18] MEDS ORDERED: CEPH250C28 PO (15:39)
[2021-01-18] MEDS ORDERED: ESTR0.1C5 VG (15:39)
[2021-01-18] MEDS ORDERED: CHOLTAB11 PO (15:39)
[2021-01-18] MEDS ORDERED: EST0625T VG (15:39)
[2021-01-18] MEDS ORDERED: TRAM50TA2 PO (15:39)
[2021-01-18] MEDS ORDERED: PHEN-1045 PO (15:39)
[2021-01-18] MEDS ORDERED: NITR0.4S29 SL (15:39)
[2021-01-18] MEDS ORDERED: ASPI-543 PO (15:39)
[2021-01-18] MEDS ORDERED: ALLO100T PO (15:39)
[2021-01-18] MEDS ORDERED: SERT25TA14 PO (15:39)
[2021-01-18 17:00] VITALS: BP 131/70
[2021-01-18] MEDS ORDERED: ACETAMINOPHEN 325 MG TAB PO PRN (20:00)
[2021-01-18] MEDS ORDERED: ZOLPIDEM TARTRATE 5 MG TAB PO PRN (20:00)
[2021-01-18 22:00] VITALS: BP 99/58
[2021-01-18] MEDS: traMADol HCL 50 MG TAB PO PRN (23:08)
[2021-01-19] MEDS: guaiFENesin-DM 100/10mg/5ml SYR PO SCH ×2 (06:10→12:11)
[2021-01-19] MEDS: traMADol HCL 50 MG TAB PO PRN (08:27)
[2021-01-19 09:00] VITALS: BP 92/55
[2021-01-19] MEDS: PANTOPRAZOLE 40 MG/10 ML VIAL INJ IV SCH (09:32)
[2021-01-19] MEDS: LISINOPRIL 20 MG TAB PO SCH (09:32)
[2021-01-19 13:00] VITALS: BP 148/88
[2021-01-19] MEDS ORDERED: OMEP20TA PO (15:37)
== END 2021-01-19 17:06 | disposition home or self-care (01) | DRG 392 ==
LOC: EDBD 13:09 → ER 13:09 → TELE 16:03 → TELE-CENTR 01-18 12:52
PROVIDERS: ADMIT Hospitalist; ATTEND Hospitalist
DX: K21.9 Gastro-esophageal reflux disease without esophagitis (principal); R07.89 Other chest pain; I25.10 Atherosclerotic heart disease of native coronary artery without angina pectoris; E66.9 Obesity, unspecified; E78.5 Hyperlipidemia, unspecified; I11.9 Hypertensive heart disease without heart failure; F32.A Depression, unspecified; Z20.822 Contact with and (suspected) exposure to COVID-19; M19.90 Unspecified osteoarthritis, unspecified site; R51.9 Headache, unspecified; R53.81 Other malaise; I25.2 Old myocardial infarction; Z68.25 Body mass index [BMI] 25.0-25.9, adult; Z95.1 Presence of aortocoronary bypass graft; Z95.2 Presence of prosthetic heart valve; Z83.3 Family history of diabetes mellitus; Z82.49 Family history of ischemic heart disease and other diseases of the circulatory system; Z90.710 Acquired absence of both cervix and uterus
CPT/HCPCS: 36415; 71045; 78452; 80053; 81001; 83880; 84484; 85025; 85379; 85610; 85730; 87426; 93005; 93017; 96374; 96375; 97163; C9113; G0378; J0153; J2405

== ENCOUNTER 2021-02-03 20:42 | Emergency (ER) | payer OTHER ==
[~2021-02-03] VITALS: Ht 165.1 cm; Wt 63.5 kg
[~2021-02-03 20:42] MED LIST changes: +ALLO100T PO; +ASPI-543 PO; +CEPH250C28 PO; -CHOL20006 PO; +CHOLTAB11 PO; +DEXT1SYP9 GT; -DEXT1SYP9 PO; +EST0625T VG; +ESTR0.1C5 VG; -NITR-87 PO; +NITR0.4S29 SL; -PANT1INJ3 PO; -PHEN-1044 PO; +PHEN-1045 PO; +SERT25TA14 PO; +TRAM50TA2 PO
[2021-02-04 00:59] VITALS: BP 115/78
[2021-02-04] MEDS ORDERED: ONDANSETRON ODT 4 MG TAB PO ONE (01:00)
[2021-02-04] MEDS ORDERED: HYDROcodone-ACET 5/325MG TAB PO ONE (01:00)
== END 2021-02-04 02:28 | disposition home or self-care (01) ==
LOC: EDBD 20:42 → EDUNIT# 20:42 → ER 20:45
DX: S02.5XXA Fracture of tooth (traumatic), initial encounter for closed fracture (principal); S13.4XXA Sprain of ligaments of cervical spine, initial encounter; M25.562 Pain in left knee; M25.552 Pain in left hip; R51.9 Headache, unspecified; I10 Essential (primary) hypertension; I25.2 Old myocardial infarction; I25.10 Atherosclerotic heart disease of native coronary artery without angina pectoris; K21.9 Gastro-esophageal reflux disease without esophagitis; Z95.1 Presence of aortocoronary bypass graft; Z90.710 Acquired absence of both cervix and uterus; Z95.0 Presence of cardiac pacemaker; Z79.82 Long term (current) use of aspirin; Z79.899 Other long term (current) drug therapy; Z88.2 Allergy status to sulfonamides; W18.39XA Other fall on same level, initial encounter; Y93.89 Activity, other specified; Y92.89 Other specified places as the place of occurrence of the external cause; Y99.8 Other external cause status
CPT/HCPCS: 70450; 70486; 72125; 72170; 73552; 73562; 99284; Q0162; 93005

== ENCOUNTER 2022-01-14 13:29 | Inpatient (IN) | payer BC, OTHER ==
[~2022-01-14] VITALS: Ht 157.5 cm; Wt 66.1 kg
[2022-01-14] MEDS ORDERED: MORPHINE SULFATE INJ 2 MG/ml SYRG IV ONE (13:45)
[2022-01-14] MEDS ORDERED: ONDANSETRON HCL 4 MG/2 ML VIAL IV ONE (13:45)
[2022-01-14] MEDS ORDERED: ASPirin 325 MG TAB PO ONE (13:45)
[2022-01-14 14:11] LABS: Basophils # (auto) 0.1 10 ^3/uL (0-0.2); Basophils % (auto) 0.7 % (0.0-2.0); Eosinophils # (auto) 0.1 10 ^3/uL (0-0.8); Eosinophils % (auto) 1.9 % (0.0-7.0); Hemoglobin 13.3 g/dL (12.2-16.2); Lymphocytes # (auto) 2.3 10 ^3/uL (0.4-5.4); Lymphocytes % (auto) 31.5 % (10.0-50.0); Mean Corpuscular Hemoglobin 29.2 pg (28.0-32.0); Mean Corpuscular Hgb Conc. 31.5 g/dL (32.0-36.0); Mean Corpuscular Volume 92.5 fL (80.0-100.0); Monocytes # (auto) 0.5 10 ^3/uL (0-1.3); Monocytes % (auto) 7.6 % (0.0-12.0); Neutrophils # (auto) 4.2 10 ^3/uL (1.6-8.6); Neutrophils % (auto) 58.3 % (37.0-80.0); Red Blood Cells 4.54 10^6/uL (4.0-5.20); Red Cell Distribution Width 14.1 % (11.8-14.3); White Blood Cell 7.2 10^3/uL (4.4-10.8)
[2022-01-14 14:27] LABS: INR 1.01 (0.9-1.15); Partial Thromboplastin Time 25.1 sec (24.6-33.4)
[2022-01-14 14:29] LABS: Albumin 3.4 g/dL (3.4-5.0); Potassium 4.8 mmol/L (3.5-5.1)
[2022-01-14 14:32] LABS: BUN/Creatinine Ratio 21.4; Bilirubin, Total 0.5 mg/dL (0.2-1.0); Total Protein 6.6 g/dL (6.4-8.2)
[2022-01-14] MEDS ORDERED: ENOXAPARIN SOD 80 MG/0.8ML SYRINGE SC ONE (15:00)
[2022-01-14] MEDS ORDERED: ALUM & MAG HYDROX-SIMETH LIQ(MAALOX) 30 ML PO ONE (18:15)
[2022-01-14] MEDS ORDERED: LIDOCAINE VISCOUS 2% 15ML UD PO ONE (18:15)
[2022-01-14] MEDS ORDERED: NITROGLYCERIN 0.4 MG SL TAB SL PRN (19:30)
[2022-01-14] MEDS ORDERED: DOCUSATE SOD 100 MG CAP PO PRN (19:30)
[2022-01-14] MEDS ORDERED: ONDANSETRON HCL 4 MG/2 ML VIAL IV PRN (19:30)
[2022-01-14] MEDS ORDERED: MORPHINE SULFATE INJ 2 MG/ml SYRG IV PRN (19:30)
[2022-01-14 20:16] LABS: Urine Bacteria NONE SEEN /hpf (None Seen); Urine Blood Negative /uL (Negative); Urine Hyaline Cast FEW /lpf (0 - 2); Urine Specific Gravity 1.014 (1.001-1.035); Urine WBC 12 /hpf (0 - 5)
[2022-01-14] MEDS ORDERED: DEXTROSE (50%) 50ML SYRG IV PRN (21:15)
[2022-01-15] VITALS (7 sets, daily range): BP systolic 98–117; BP diastolic 46–64
[2022-01-15] MEDS: ACCU-CHEK COMFORT CURVE STRIP VI SCH ×5 (00:32→21:50)
[2022-01-15] MEDS: InsuLIN REG 1unit/0.01ml Soln (100units/ml) SC SCH ×5 (00:32→21:49)
[2022-01-15 07:06] LABS: Calcium 8.5 mg/dL (8.5-10.1); Potassium 4.5 mmol/L (3.5-5.1)
[2022-01-15 07:12] LABS: BUN/Creatinine Ratio 21.2; Basophils # (auto) 0 10 ^3/uL (0-0.2); Basophils % (auto) 0.5 % (0.0-2.0); Eosinophils # (auto) 0.3 10 ^3/uL (0-0.8); Eosinophils % (auto) 3.8 % (0.0-7.0); Hematocrit 40.8 % (36.0-46.0); Lymphocytes # (auto) 2.7 10 ^3/uL (0.4-5.4); Lymphocytes % (auto) 41.6 % (10.0-50.0); Mean Corpuscular Hemoglobin 29.4 pg (28.0-32.0); Mean Corpuscular Hgb Conc. 31.8 g/dL (32.0-36.0); Mean Corpuscular Volume 92.5 fL (80.0-100.0); Monocytes # (auto) 0.7 10 ^3/uL (0-1.3); Monocytes % (auto) 11.4 % (0.0-12.0); Neutrophils # (auto) 2.8 10 ^3/uL (1.6-8.6); Neutrophils % (auto) 42.7 % (37.0-80.0); Nucleated Red Blood Cells % 0.2 %; Red Blood Cells 4.41 10^6/uL (4.0-5.20); White Blood Cell 6.6 10^3/uL (4.4-10.8)
[2022-01-15] MEDS ORDERED: SODIUM CHLORIDE 0.9% 1,000 ML IV ONE ×2 (08:45→16:00)
[2022-01-15] MEDS: ASPirin 81 mg TAB PO SCH (08:59)
[2022-01-15] MEDS: ENOXAPARIN SOD 40 MG/0.4 ML SYRINGE SC SCH (08:59)
[2022-01-15] MEDS: SERTRALINE HCL 50 MG TAB PO SCH (08:59)
[2022-01-15] MEDS: HYDROcodone-ACET 5/325MG TAB PO PRN ×2 (14:30→21:49)
[2022-01-15 15:22] LABS: BUN/Creatinine Ratio 24.1; Potassium 4.6 mmol/L (3.5-5.1)
[2022-01-15] MEDS ORDERED: IOHEXOL 350 MG/ML 100ML IJ ONE (15:53)
[2022-01-15] MEDS ORDERED: ATORVASTATIN 20 MG TAB PO SCH (22:00)
[2022-01-16 05:00] VITALS: BP 114/54
[2022-01-16] MEDS: HYDROcodone-ACET 5/325MG TAB PO PRN ×3 (05:38→16:24)
[2022-01-16 05:50] LABS: Calcium 8.1 mg/dL (8.5-10.1); Potassium 4.4 mmol/L (3.5-5.1)
[2022-01-16 05:52] LABS: BUN/Creatinine Ratio 23.2
[2022-01-16] MEDS: InsuLIN REG 1unit/0.01ml Soln (100units/ml) SC SCH ×3 (06:22→17:00)
[2022-01-16] MEDS: ACCU-CHEK COMFORT CURVE STRIP VI SCH ×3 (06:22→17:00)
[2022-01-16 09:15] VITALS: BP 133/67
[2022-01-16] MEDS: ENOXAPARIN SOD 40 MG/0.4 ML SYRINGE SC SCH (09:25)
[2022-01-16] MEDS: ASPirin 81 mg TAB PO SCH (09:25)
[2022-01-16] MEDS: SERTRALINE HCL 50 MG TAB PO SCH (09:25)
[2022-01-16 12:34] VITALS: BP 132/55
[2022-01-16] MEDS ORDERED: ATORVASTATIN 20 MG TAB PO ONE (16:30)
[2022-01-16 16:34] LABS: Urine Bacteria NONE SEEN /hpf (None Seen); Urine Blood Negative /uL (Negative); Urine Specific Gravity 1.013 (1.001-1.035); Urine WBC 1 /hpf (0 - 5)
[2022-01-16 16:54] VITALS: BP 118/55
[2022-01-16 18:48] VITALS: BP 118/55
== END 2022-01-16 20:35 | disposition home health service (06) | DRG 313 ==
LOC: EDBD 13:29 → ER 13:33 → TELE 19:31 → TELE-WESTW 22:53
PROVIDERS: ADMIT Nurse Practitioner Family; ATTEND Nurse Practitioner Family
DX: R07.9 Chest pain, unspecified (principal); N17.9 Acute kidney failure, unspecified; E11.9 Type 2 diabetes mellitus without complications; E78.5 Hyperlipidemia, unspecified; F32.9 Major depressive disorder, single episode, unspecified; I10 Essential (primary) hypertension; I25.10 Atherosclerotic heart disease of native coronary artery without angina pectoris; F41.9 Anxiety disorder, unspecified; Z20.822 Contact with and (suspected) exposure to COVID-19; J44.9 Chronic obstructive pulmonary disease, unspecified; K21.9 Gastro-esophageal reflux disease without esophagitis; Z79.82 Long term (current) use of aspirin; Z79.899 Other long term (current) drug therapy; Z88.2 Allergy status to sulfonamides; Z80.3 Family history of malignant neoplasm of breast; Z82.49 Family history of ischemic heart disease and other diseases of the circulatory system; Z83.3 Family history of diabetes mellitus; Z86.73 Personal history of transient ischemic attack (TIA), and cerebral infarction without residual deficits; Z88.8 Allergy status to other drugs, medicaments and biological substances; Z90.710 Acquired absence of both cervix and uterus; Z95.1 Presence of aortocoronary bypass graft; Z95.2 Presence of prosthetic heart valve; I25.2 Old myocardial infarction
CPT/HCPCS: 36415; 71045; 71275; 80048; 80053; 80061; 81001; 82962; 83880; 84484; 85025; 85379; 85610; 85730; 87426; 93005; 93306; 93970; 96361; 96372; 96374; 96375; G0378; J2405

== ENCOUNTER 2022-03-18 16:16 | Inpatient (IN) | payer BC ==
[~2022-03-18] VITALS: Ht 160 cm; Wt 63.9 kg
[~2022-03-18 16:16] MED LIST changes: -CEPH250C28 PO; -DEXT1SYP9 GT
[2022-03-18 17:25] LABS: Basophils # (auto) 0 10 ^3/uL (0-0.2); Basophils % (auto) 0.7 % (0.0-2.0); Eosinophils # (auto) 0.1 10 ^3/uL (0-0.8); Eosinophils % (auto) 0.8 % (0.0-7.0); Hematocrit 38.2 % (36.0-46.0); Hemoglobin 12.8 g/dL (12.2-16.2); Lymphocytes # (auto) 0.9 10 ^3/uL (0.4-5.4); Lymphocytes % (auto) 12.8 % (10.0-50.0); Mean Corpuscular Hemoglobin 30.6 pg (28.0-32.0); Mean Corpuscular Hgb Conc. 33.6 g/dL (32.0-36.0); Mean Corpuscular Volume 91.1 fL (80.0-100.0); Monocytes # (auto) 1.2 10 ^3/uL (0-1.3); Monocytes % (auto) 16.6 % (0.0-12.0); Neutrophils # (auto) 4.8 10 ^3/uL (1.6-8.6); Neutrophils % (auto) 69.1 % (37.0-80.0); Nucleated Red Blood Cells % 0.1 %; Red Blood Cells 4.19 10^6/uL (4.0-5.20); Red Cell Distribution Width 14.2 % (11.8-14.3)
[2022-03-18 17:40] LABS: Albumin 3.3 g/dL (3.4-5.0); Calcium 9.1 mg/dL (8.5-10.1); Potassium 3.9 mmol/L (3.5-5.1)
[2022-03-18 17:41] LABS: BUN/Creatinine Ratio 16.3
[2022-03-18 17:44] LABS: Bilirubin, Total 0.3 mg/dL (0.2-1.0); Total Protein 6.7 g/dL (6.4-8.2)
[2022-03-18 20:07] LABS: Urine Bacteria FEW /hpf (None Seen); Urine Blood Negative /uL (Negative); Urine Mucus FEW (None Seen); Urine Specific Gravity 1.014 (1.001-1.035); Urine WBC 1 /hpf (0 - 5)
[2022-03-18] MEDS ORDERED: NITROGLYCERIN 0.4 MG SL TAB SL ONE (21:15)
[2022-03-19] VITALS (7 sets, daily range): BP systolic 90–133; BP diastolic 35–99
[2022-03-19] MEDS ORDERED: ACETAMINOPHEN 500 MG TAB PO PRN (00:45)
[2022-03-19] MEDS ORDERED: ALUM & MAG HYDROX-SIMETH LIQ(MAALOX) 30 ML PO PRN (00:45)
[2022-03-19] MEDS ORDERED: ONDANSETRON HCL 4 MG/2 ML VIAL IV PRN (00:45)
[2022-03-19] MEDS ORDERED: DOCUSATE SOD 100 MG CAP PO PRN (00:45)
[2022-03-19] MEDS ORDERED: ALBUTEROL SULF HFA 90MCG INH 200DOSE IN PRN (00:45)
[2022-03-19] MEDS: SODIUM CHLORIDE 0.9% 1,000 ML IV SCH ×2 (01:27→17:25)
[2022-03-19] MEDS ORDERED: AZITHROMYCIN 500MG/ 250ML 250 ML IV SCH (01:30)
[2022-03-19] MEDS: ENOXAPARIN SOD 60 MG/0.6 ML SYRINGE SC SCH ×2 (02:10→14:03)
[2022-03-19] MEDS: DexAMETHasone SOD PHOS 10MG/1ML VIAL INJ IV SCH ×2 (02:10→09:54)
[2022-03-19] MEDS: traMADol HCL 50 MG TAB PO PRN ×2 (03:33→14:03)
[2022-03-19] MEDS: ZOLPIDEM TARTRATE 5 MG TAB PO PRN ×2 (03:54→22:25)
[2022-03-19] MEDS: DOXYCYCLINE 100MG/250ML 250 ML IV SCH ×2 (04:50→14:03)
[2022-03-19 06:21] LABS: Potassium 3.9 mmol/L (3.5-5.1)
[2022-03-19 06:26] LABS: BUN/Creatinine Ratio 18.2; Calcium 8.8 mg/dL (8.5-10.1)
[2022-03-19 07:21] LABS: Basophils # (auto) 0 10 ^3/uL (0-0.2); Basophils % (auto) 0.6 % (0.0-2.0); Eosinophils # (auto) 0 10 ^3/uL (0-0.8); Eosinophils % (auto) 0.1 % (0.0-7.0); Hemoglobin 12.7 g/dL (12.2-16.2); Lymphocytes # (auto) 0.8 10 ^3/uL (0.4-5.4); Lymphocytes % (auto) 15.5 % (10.0-50.0); Mean Corpuscular Hemoglobin 30.9 pg (28.0-32.0); Mean Corpuscular Hgb Conc. 33.3 g/dL (32.0-36.0); Mean Corpuscular Volume 92.8 fL (80.0-100.0); Monocytes # (auto) 0.4 10 ^3/uL (0-1.3); Monocytes % (auto) 6.7 % (0.0-12.0); Neutrophils # (auto) 4.2 10 ^3/uL (1.6-8.6); Neutrophils % (auto) 77.1 % (37.0-80.0); Red Cell Distribution Width 14.3 % (11.8-14.3); White Blood Cell 5.4 10^3/uL (4.4-10.8)
[2022-03-19] MEDS: CLOPIDOGREL BISULFATE 75 MG TAB PO SCH (09:55)
[2022-03-19] MEDS: PANTOPRAZOLE 40 MG TAB PO SCH (09:55)
[2022-03-19] MEDS: ASCORBIC ACID 1,000 MG TAB PO SCH (09:55)
[2022-03-19] MEDS: ZINC SULFATE 220mg CAP or TAB PO SCH (09:56)
[2022-03-19] MEDS: ASPirin-EC 81 mg tab PO SCH (09:56)
[2022-03-19] MEDS: CHOLECALCIFEROL (VITD3) 2,000 UNIT CAP/TAB PO SCH (09:56)
[2022-03-19] MEDS: SERTRALINE HCL 50 MG TAB PO SCH (09:56)
[2022-03-19] MEDS: CARVEDILOL 3.125 MG TAB PO SCH ×2 (09:57→22:19)
[2022-03-19] MEDS: LISINOPRIL 20 MG TAB PO SCH (09:58)
[2022-03-19] MEDS: CONJ ESTROGENS 0.625MG/GM VAG CRM 30GM PV SCH (10:00)
[2022-03-19] MEDS: ACETAMINOPHEN 325 MG TAB PO PRN ×2 (10:09→22:24)
[2022-03-19] MEDS: ATORVASTATIN 20 MG TAB PO SCH (22:19)
[2022-03-19] MEDS: AMOXICILLIN TRIHYDRATE 250 MG CAP PO SCH (22:19)
[2022-03-20] MEDS: ENOXAPARIN SOD 60 MG/0.6 ML SYRINGE SC SCH (02:00)
[2022-03-20 05:00] VITALS: BP 115/60
[2022-03-20] MEDS: AMOXICILLIN TRIHYDRATE 250 MG CAP PO SCH ×3 (06:00→22:39)
[2022-03-20 09:00] VITALS: BP 105/51
[2022-03-20] MEDS: CHOLECALCIFEROL (VITD3) 2,000 UNIT CAP/TAB PO SCH (09:57)
[2022-03-20] MEDS: SERTRALINE HCL 50 MG TAB PO SCH (09:57)
[2022-03-20] MEDS: ASPirin-EC 81 mg tab PO SCH (09:57)
[2022-03-20] MEDS: ASCORBIC ACID 1,000 MG TAB PO SCH (09:57)
[2022-03-20] MEDS: CLOPIDOGREL BISULFATE 75 MG TAB PO SCH (09:57)
[2022-03-20] MEDS: PANTOPRAZOLE 40 MG TAB PO SCH ×3 (09:57→22:40)
[2022-03-20] MEDS: ZINC SULFATE 220mg CAP or TAB PO SCH (09:58)
[2022-03-20] MEDS: CONJ ESTROGENS 0.625MG/GM VAG CRM 30GM PV SCH (10:00)
[2022-03-20] MEDS: DexAMETHasone SOD PHOS 10MG/1ML VIAL INJ IV SCH (10:00)
[2022-03-20] MEDS: CARVEDILOL 3.125 MG TAB PO SCH ×2 (10:00→22:00)
[2022-03-20] MEDS: LISINOPRIL 20 MG TAB PO SCH (10:00)
[2022-03-20] MEDS: SODIUM CHLORIDE 0.9% 1,000 ML IV SCH (10:05)
[2022-03-20 13:00] VITALS: BP 138/69
[2022-03-20 17:00] VITALS: BP 124/75
[2022-03-20] MEDS: traMADol HCL 50 MG TAB PO PRN (19:17)
[2022-03-20 22:00] VITALS: BP 107/31
[2022-03-20] MEDS: ATORVASTATIN 20 MG TAB PO SCH (22:40)
[2022-03-20] MEDS: ZOLPIDEM TARTRATE 5 MG TAB PO PRN (22:40)
[2022-03-21] MEDS: SODIUM CHLORIDE 0.9% 1,000 ML IV SCH (02:45)
[2022-03-21 05:00] VITALS: BP 102/55
[2022-03-21] MEDS: AMOXICILLIN TRIHYDRATE 250 MG CAP PO SCH ×2 (06:50→14:28)
[2022-03-21] MEDS: DexAMETHasone SOD PHOS 10MG/1ML VIAL INJ IV SCH (08:28)
[2022-03-21] MEDS: ASPirin-EC 81 mg tab PO SCH (08:28)
[2022-03-21] MEDS: ZINC SULFATE 220mg CAP or TAB PO SCH (08:29)
[2022-03-21] MEDS: SERTRALINE HCL 50 MG TAB PO SCH (08:29)
[2022-03-21] MEDS: PANTOPRAZOLE 40 MG TAB PO SCH ×2 (08:29→10:00)
[2022-03-21] MEDS: CLOPIDOGREL BISULFATE 75 MG TAB PO SCH (08:29)
[2022-03-21] MEDS: ASCORBIC ACID 1,000 MG TAB PO SCH (08:29)
[2022-03-21] MEDS: CHOLECALCIFEROL (VITD3) 2,000 UNIT CAP/TAB PO SCH (08:30)
[2022-03-21] MEDS: CARVEDILOL 3.125 MG TAB PO SCH (08:31)
[2022-03-21] MEDS: LISINOPRIL 20 MG TAB PO SCH (08:31)
[2022-03-21 09:27] VITALS: BP 106/50
[2022-03-21] MEDS ORDERED: ENOXAPARIN SOD 40 MG/0.4 ML SYRINGE SC SCH (10:00)
[2022-03-21] MEDS: CONJ ESTROGENS 0.625MG/GM VAG CRM 30GM PV SCH (10:00)
[2022-03-21 12:43] VITALS: BP 136/69
[2022-03-21] MEDS ORDERED: CAR3125T PO (13:37)
[2022-03-21] MEDS ORDERED: CLOP75TA70 PO (13:37)
[2022-03-21] MEDS ORDERED: ATOR20TA50 PO (13:37)
[2022-03-21] MEDS ORDERED: PANT40T PO (13:40)
[2022-03-21 14:42] VITALS: BP 136/69
[2022-03-21] MEDS ORDERED: AMOX250C3 PO (16:02)
[2022-03-21 16:21] VITALS: BP 110/54
== END 2022-03-21 17:14 | disposition home health service (06) | DRG 177 ==
LOC: EDBD 16:16 → ER 16:21 → EAST 03-19 00:51 → TELE-EAST 03-19 11:52
PROVIDERS: ADMIT Hospitalist; ATTEND Internal Medicine
DX: U07.1 COVID-19 (principal); I21.4 Non-ST elevation (NSTEMI) myocardial infarction; J12.82 Pneumonia due to coronavirus disease 2019; N39.0 Urinary tract infection, site not specified; F41.9 Anxiety disorder, unspecified; I11.0 Hypertensive heart disease with heart failure; I50.9 Heart failure, unspecified; I25.10 Atherosclerotic heart disease of native coronary artery without angina pectoris; Z88.2 Allergy status to sulfonamides; Z80.3 Family history of malignant neoplasm of breast; Z82.49 Family history of ischemic heart disease and other diseases of the circulatory system; Z83.3 Family history of diabetes mellitus; Z90.710 Acquired absence of both cervix and uterus; Z95.0 Presence of cardiac pacemaker; Z95.1 Presence of aortocoronary bypass graft; Z98.61 Coronary angioplasty status
CPT/HCPCS: 36415; 71045; 80048; 80053; 81001; 83615; 84484; 85025; 87426; 87804; 93005; 94640; 96365; 96367; G0378; J1100; J3490

== ENCOUNTER 2022-07-02 03:23 | Inpatient (IN) | payer BC ==
[~2022-07-02] VITALS: Ht 157.5 cm; Wt 66.0 kg
[~2022-07-02 03:23] MED LIST changes: +AMOX250C3 PO; +ATOR20TA50 PO; +CAR3125T PO; +CLOP75TA70 PO; +PANT40T PO
[2022-07-02 04:11] LABS: Basophils # (auto) 0 10 ^3/uL (0-0.2); Basophils % (auto) 0.6 % (0.0-2.0); Eosinophils # (auto) 0.4 10 ^3/uL (0-0.8); Eosinophils % (auto) 6.3 % (0.0-7.0); Hematocrit 36.3 % (36.0-46.0); Hemoglobin 12.2 g/dL (12.2-16.2); Lymphocytes # (auto) 2.8 10 ^3/uL (0.4-5.4); Lymphocytes % (auto) 45.4 % (10.0-50.0); Mean Corpuscular Hemoglobin 30.5 pg (28.0-32.0); Mean Corpuscular Hgb Conc. 33.7 g/dL (32.0-36.0); Mean Corpuscular Volume 90.5 fL (80.0-100.0); Monocytes # (auto) 0.6 10 ^3/uL (0-1.3); Neutrophils # (auto) 2.3 10 ^3/uL (1.6-8.6); Neutrophils % (auto) 37.7 % (37.0-80.0); Red Blood Cells 4.01 10^6/uL (4.0-5.20); Red Cell Distribution Width 13.6 % (11.8-14.3); White Blood Cell 6.2 10^3/uL (4.4-10.8)
[2022-07-02 04:30] LABS: Albumin 3.2 g/dL (3.4-5.0); Calcium 8.9 mg/dL (8.5-10.1)
[2022-07-02 04:32] LABS: BUN/Creatinine Ratio 24.1 (10.0-20.0)
[2022-07-02 04:45] LABS: Bilirubin, Total 0.3 mg/dL (0.2-1.0); Total Protein 6.4 g/dL (6.4-8.2)
[2022-07-02] MEDS ORDERED: ENOXAPARIN SOD 80 MG/0.8ML SYRINGE SC ONE (07:30)
[2022-07-02] MEDS ORDERED: ONDANSETRON HCL 4 MG/2 ML VIAL IV PRN (15:45)
[2022-07-02] MEDS ORDERED: NITROGLYCERIN 0.4 MG SL TAB SL PRN (15:45)
[2022-07-02] MEDS ORDERED: MORPHINE SULFATE INJ 2 MG/ml SYRG IV PRN (15:45)
[2022-07-02] MEDS: ACETAMINOPHEN 325 MG TAB PO PRN (21:25)
[2022-07-03] VITALS: BP 105/45
[2022-07-03 00:37] VITALS: BP 105/45
[2022-07-03] MEDS ORDERED: OMEP20TA PO (01:25)
[2022-07-03] MEDS ORDERED: LORA-622 PO (01:42)
[2022-07-03] MEDS: ACETAMINOPHEN 325 MG TAB PO PRN (01:43)
[2022-07-03 05:26] VITALS: BP 131/61
[2022-07-03 08:20] VITALS: BP 138/50
[2022-07-03] MEDS ORDERED: ASPirin-EC 81 mg tab PO SCH (10:00)
[2022-07-03] MEDS ORDERED: PANTOPRAZOLE 40 MG TAB PO SCH (10:00)
[2022-07-03] MEDS ORDERED: LORATADINE 10 MG TAB PO SCH (10:00)
[2022-07-03] MEDS ORDERED: LISINOPRIL 20 MG TAB PO SCH (10:00)
[2022-07-03 13:23] VITALS: BP 139/56
[2022-07-03] MEDS ORDERED: ATORVASTATIN 20 MG TAB PO SCH (22:00)
[2022-07-04 12:01] LABS: Hepatitis C Antibody Negative (Negative)
== END 2022-07-03 17:20 | disposition home health service (06) | DRG 392 ==
LOC: ER 03:23 → EDBD 03:23 → TELE 15:34 → TELE-WESTW 23:26
PROVIDERS: ADMIT Internal Medicine; ATTEND Internal Medicine
DX: K21.9 Gastro-esophageal reflux disease without esophagitis (principal); I50.22 Chronic systolic (congestive) heart failure; I25.10 Atherosclerotic heart disease of native coronary artery without angina pectoris; I27.21 Secondary pulmonary arterial hypertension; E78.5 Hyperlipidemia, unspecified; F32.9 Major depressive disorder, single episode, unspecified; Z20.822 Contact with and (suspected) exposure to COVID-19; I11.0 Hypertensive heart disease with heart failure; F32.A Depression, unspecified; Z80.3 Family history of malignant neoplasm of breast; Z82.49 Family history of ischemic heart disease and other diseases of the circulatory system; Z83.3 Family history of diabetes mellitus; Z90.49 Acquired absence of other specified parts of digestive tract; Z90.710 Acquired absence of both cervix and uterus; Z95.0 Presence of cardiac pacemaker; Z95.1 Presence of aortocoronary bypass graft; Z88.1 Allergy status to other antibiotic agents; Z88.2 Allergy status to sulfonamides
CPT/HCPCS: 36415; 71045; 80053; 83690; 84484; 85025; 86803; 87340; 87426; 93005; 93306; G0378

== ENCOUNTER 2022-08-12 15:09 | Inpatient (IN) | payer BC ==
[~2022-08-12] VITALS: Ht 157.5 cm; Wt 65.2 kg
[~2022-08-12 15:09] MED LIST changes: -ALLO100T PO; -AMOX250C3 PO; -CAR3125T PO; -CHOLTAB11 PO; -CLOP75TA70 PO; -EST0625T VG; -ESTR0.1C5 VG; -LISI20TA28 PO; +LISI20TA56 PO; +LORA-622 PO; -NITR0.4S29 SL; -PANT40T PO; -PHEN-1045 PO; -SERT25TA14 PO; +SERT25TA28 PO; -TRAM50TA2 PO
[2022-08-12 17:34] VITALS: BP 110/62
[2022-08-12 22:00] VITALS: BP 103/56
[2022-08-12] MEDS ORDERED: MORPHINE SULFATE INJ 2 MG/ml SYRG IV PRN (22:00)
[2022-08-12] MEDS ORDERED: ONDANSETRON HCL 4 MG/2 ML VIAL IV PRN (22:00)
[2022-08-12] MEDS ORDERED: NITROGLYCERIN 0.4 MG SL TAB SL PRN (22:00)
[2022-08-12] MEDS: ATORVASTATIN 20 MG TAB PO SCH (22:53)
[2022-08-13 05:00] VITALS: BP 98/53
[2022-08-13 06:45] LABS: Basophils # (auto) 0 10 ^3/uL (0-0.2); Basophils % (auto) 0.8 % (0.0-2.0); Eosinophils # (auto) 0.2 10 ^3/uL (0-0.8); Eosinophils % (auto) 5.8 % (0.0-7.0); Hematocrit 37.5 % (36.0-46.0); Hemoglobin 12.7 g/dL (12.2-16.2); Lymphocytes # (auto) 1.7 10 ^3/uL (0.4-5.4); Mean Corpuscular Hemoglobin 31.1 pg (28.0-32.0); Mean Corpuscular Hgb Conc. 33.8 g/dL (32.0-36.0); Monocytes # (auto) 0.5 10 ^3/uL (0-1.3); Monocytes % (auto) 11.7 % (0.0-12.0); Neutrophils # (auto) 1.8 10 ^3/uL (1.6-8.6); Neutrophils % (auto) 41.7 % (37.0-80.0); Nucleated Red Blood Cells % 0.3 %; Red Blood Cells 4.08 10^6/uL (4.0-5.20); Red Cell Distribution Width 13.3 % (11.8-14.3); White Blood Cell 4.2 10^3/uL (4.4-10.8)
[2022-08-13 07:39] LABS: Potassium 4.3 mmol/L (3.5-5.1)
[2022-08-13 07:47] LABS: BUN/Creatinine Ratio 22.2 (10.0-20.0); Calcium 8.4 mg/dL (8.5-10.1)
[2022-08-13 08:43] VITALS: BP 143/60
[2022-08-13] MEDS: ASPirin-EC 81 mg tab PO SCH (09:12)
[2022-08-13] MEDS: PANTOPRAZOLE 40 MG/10 ML VIAL INJ IV SCH (09:12)
[2022-08-13] MEDS: HYDROcodone-ACET 5/325MG TAB PO PRN (12:16)
[2022-08-13 13:00] VITALS: BP 121/57
[2022-08-13] MEDS: ACETAMINOPHEN 325 MG TAB PO PRN (16:24)
[2022-08-13] MEDS ORDERED: FUROSEMIDE 20 MG/2 ML VIAL IV ONE (16:30)
[2022-08-13] MEDS ORDERED: IOHEXOL 350 MG/ML 100ML IJ ONE (16:54)
[2022-08-13 17:00] VITALS: BP 107/54
[2022-08-13] MEDS: SERTRALINE HCL 50 MG TAB PO SCH (17:59)
[2022-08-13] MEDS: RANOLAZINE ER 500 MG TAB PO SCH (21:48)
[2022-08-13] MEDS: ATORVASTATIN 20 MG TAB PO SCH (21:48)
[2022-08-13] MEDS: CARVEDILOL 3.125 MG TAB PO SCH (21:48)
[2022-08-13] MEDS: ENOXAPARIN SOD 80 MG/0.8ML SYRINGE SC SCH (21:49)
[2022-08-13 22:00] VITALS: BP 113/57
[2022-08-13] MEDS ORDERED: ENOXAPARIN SOD 80 MG/0.8ML SYRINGE SC SCH (22:00)
[2022-08-14] MEDS: HYDROcodone-ACET 5/325MG TAB PO PRN ×3 (00:29→21:53)
[2022-08-14] MEDS: ACETAMINOPHEN 325 MG TAB PO PRN (02:48)
[2022-08-14 04:48] VITALS: BP 144/60
[2022-08-14 06:59] LABS: BUN/Creatinine Ratio 20.2 (10.0-20.0)
[2022-08-14 07:29] LABS: Basophils # (auto) 0 10 ^3/uL (0-0.2); Basophils % (auto) 0.5 % (0.0-2.0); Eosinophils # (auto) 0.3 10 ^3/uL (0-0.8); Eosinophils % (auto) 4.5 % (0.0-7.0); Hematocrit 38.5 % (36.0-46.0); Hemoglobin 12.8 g/dL (12.2-16.2); Lymphocytes # (auto) 2.8 10 ^3/uL (0.4-5.4); Lymphocytes % (auto) 44.4 % (10.0-50.0); Mean Corpuscular Hemoglobin 30.8 pg (28.0-32.0); Mean Corpuscular Hgb Conc. 33.3 g/dL (32.0-36.0); Mean Corpuscular Volume 92.5 fL (80.0-100.0); Monocytes # (auto) 0.5 10 ^3/uL (0-1.3); Monocytes % (auto) 7.3 % (0.0-12.0); Neutrophils # (auto) 2.8 10 ^3/uL (1.6-8.6); Neutrophils % (auto) 43.3 % (37.0-80.0); Nucleated Red Blood Cells % 0.2 %; Red Blood Cells 4.17 10^6/uL (4.0-5.20); Red Cell Distribution Width 13.3 % (11.8-14.3); White Blood Cell 6.4 10^3/uL (4.4-10.8)
[2022-08-14 09:00] VITALS: BP 122/42
[2022-08-14] MEDS ORDERED: PATIENTS OWN MEDICATION (Omeprazole (Gnp Omeprazole) 20 MG) PO SCH (10:00)
[2022-08-14] MEDS: CARVEDILOL 3.125 MG TAB PO SCH ×2 (11:05→21:46)
[2022-08-14] MEDS: LORATADINE 10 MG TAB PO SCH (11:05)
[2022-08-14] MEDS: RANOLAZINE ER 500 MG TAB PO SCH ×2 (11:05→21:45)
[2022-08-14] MEDS: PANTOPRAZOLE 40 MG/10 ML VIAL INJ IV SCH (11:06)
[2022-08-14] MEDS: ASPirin-EC 81 mg tab PO SCH (11:06)
[2022-08-14] MEDS: ENOXAPARIN SOD 80 MG/0.8ML SYRINGE SC SCH (11:06)
[2022-08-14 13:00] VITALS: BP 118/70
[2022-08-14 17:00] VITALS: BP 132/67
[2022-08-14] MEDS: FUROSEMIDE 20 MG TAB PO SCH (17:50)
[2022-08-14] MEDS: SERTRALINE HCL 50 MG TAB PO SCH (17:51)
[2022-08-14] MEDS: ATORVASTATIN 20 MG TAB PO SCH (21:45)
[2022-08-14 22:00] VITALS: BP 142/78
[2022-08-15 05:00] VITALS: BP 126/63
[2022-08-15 05:28] LABS: Basophils # (auto) 0.1 10 ^3/uL (0-0.2); Basophils % (auto) 0.9 % (0.0-2.0); Eosinophils # (auto) 0.3 10 ^3/uL (0-0.8); Eosinophils % (auto) 5.1 % (0.0-7.0); Hematocrit 39.7 % (36.0-46.0); Hemoglobin 13.3 g/dL (12.2-16.2); Lymphocytes % (auto) 47.2 % (10.0-50.0); Mean Corpuscular Hemoglobin 30.8 pg (28.0-32.0); Mean Corpuscular Hgb Conc. 33.4 g/dL (32.0-36.0); Mean Corpuscular Volume 92.3 fL (80.0-100.0); Monocytes # (auto) 0.7 10 ^3/uL (0-1.3); Monocytes % (auto) 11.3 % (0.0-12.0); Neutrophils # (auto) 2.2 10 ^3/uL (1.6-8.6); Neutrophils % (auto) 35.5 % (37.0-80.0); Nucleated Red Blood Cells % 0.1 %; Red Cell Distribution Width 13.2 % (11.8-14.3); White Blood Cell 6.3 10^3/uL (4.4-10.8)
[2022-08-15 05:42] LABS: BUN/Creatinine Ratio 18.7 (10.0-20.0); Calcium 9.2 mg/dL (8.5-10.1); Potassium 4.2 mmol/L (3.5-5.1)
[2022-08-15] MEDS: FUROSEMIDE 20 MG TAB PO SCH (07:05)
[2022-08-15 09:00] VITALS: BP 115/82
[2022-08-15] MEDS: RANOLAZINE ER 500 MG TAB PO SCH (10:23)
[2022-08-15] MEDS: CARVEDILOL 3.125 MG TAB PO SCH (10:23)
[2022-08-15] MEDS: LORATADINE 10 MG TAB PO SCH (10:23)
[2022-08-15] MEDS: ASPirin-EC 81 mg tab PO SCH (10:24)
[2022-08-15] MEDS ORDERED: ISOSORBIDE MONONITRATE ER 60 MG TAB PO ONE (11:00)
[2022-08-15] MEDS ORDERED: ISOS1TAB28 PO (11:51)
[2022-08-15] MEDS ORDERED: POTA8TAB15 PO (11:51)
[2022-08-15] MEDS ORDERED: RANO500T PO (11:51)
[2022-08-15] MEDS ORDERED: CAR3125T PO (11:51)
[2022-08-15] MEDS ORDERED: FURO40TA4 PO (11:51)
[2022-08-15 12:14] VITALS: BP 120/79
[2022-08-15 14:36] VITALS: BP 115/82
[2022-08-15] MEDS ORDERED: CARVEDILOL 3.125 MG TAB PO SCH (22:00)
[2022-08-16] MEDS ORDERED: ISOSORBIDE MONONITRATE ER 60 MG TAB PO SCH (10:00)
== END 2022-08-15 16:29 | disposition home or self-care (01) | DRG 311 ==
LOC: TELE-EAST 17:01
PROVIDERS: ADMIT Internal Medicine; ATTEND Internal Medicine
DX: I24.9 Acute ischemic heart disease, unspecified (principal); I69.354 Hemiplegia and hemiparesis following cerebral infarction affecting left non-dominant side; J98.11 Atelectasis; I25.10 Atherosclerotic heart disease of native coronary artery without angina pectoris; R79.89 Other specified abnormal findings of blood chemistry; E78.5 Hyperlipidemia, unspecified; R09.89 Other specified symptoms and signs involving the circulatory and respiratory systems; R73.03 Prediabetes; I11.9 Hypertensive heart disease without heart failure; F41.9 Anxiety disorder, unspecified; J44.9 Chronic obstructive pulmonary disease, unspecified; K21.9 Gastro-esophageal reflux disease without esophagitis; Z80.3 Family history of malignant neoplasm of breast; Z82.49 Family history of ischemic heart disease and other diseases of the circulatory system; Z83.3 Family history of diabetes mellitus; Z95.1 Presence of aortocoronary bypass graft; Z95.0 Presence of cardiac pacemaker; Z79.82 Long term (current) use of aspirin; I25.2 Old myocardial infarction; Z95.3 Presence of xenogenic heart valve; Z95.5 Presence of coronary angioplasty implant and graft; Z88.2 Allergy status to sulfonamides
CPT/HCPCS: 36415; 71045; 71275; 80048; 80061; 83036; 83880; 84443; 84484; 85025; 85379; 93005; 97110; 97163; 97530; C9113; G0378

== ENCOUNTER 2023-02-28 14:32 | Inpatient (IN) | payer OTHER, BC ==
[~2023-02-28] VITALS: Ht 157.5 cm; Wt 65.4 kg
[~2023-02-28 14:32] MED LIST changes: +CAR3125T PO; +FURO40TA4 PO; +ISOS1TAB28 PO; -LISI20TA56 PO; +POTA8TAB15 PO; +RANO500T PO
[2023-02-28 16:08] LABS: Basophils # (auto) 0.1 10 ^3/uL (0-0.2); Basophils % (auto) 0.7 % (0.0-2.0); Eosinophils # (auto) 0.2 10 ^3/uL (0-0.8); Eosinophils % (auto) 2.3 % (0.0-7.0); Hematocrit 41.4 % (36.0-46.0); Hemoglobin 13.5 g/dL (12.2-16.2); Lymphocytes # (auto) 2.8 10 ^3/uL (0.4-5.4); Lymphocytes % (auto) 38.5 % (10.0-50.0); Mean Corpuscular Hemoglobin 29.7 pg (28.0-32.0); Mean Corpuscular Hgb Conc. 32.6 g/dL (32.0-36.0); Mean Corpuscular Volume 91.3 fL (80.0-100.0); Monocytes # (auto) 0.5 10 ^3/uL (0-1.3); Monocytes % (auto) 7.4 % (0.0-12.0); Neutrophils # (auto) 3.7 10 ^3/uL (1.6-8.6); Neutrophils % (auto) 51.1 % (37.0-80.0); Nucleated Red Blood Cells % 0.1 %; Red Blood Cells 4.53 10^6/uL (4.0-5.20); White Blood Cell 7.3 10^3/uL (4.4-10.8)
[2023-02-28 16:31] LABS: Alanine Aminotransferase 16 U/L (7-40); Alkaline Phosphatase 55 U/L (46-116); Anion Gap 7 (5-15); Aspartate Aminotransferase 18 U/L (13-40); BUN/Creatinine Ratio 14.6 (10.0-20.0); Bilirubin, Total 0.5 mg/dL (0.2-1.0); Blood Urea Nitrogen 13 mg/dL (9-23); Carbon Dioxide 26 mmol/L (20-30); Chloride 107 mmol/L (98-107); Glucose 95 mg/dL (74-106); Potassium 4.4 mmol/L (3.5-5.1); Sodium 140 mmol/L (136-145); Total Protein 6.3 g/dL (5.7-8.2)
[2023-02-28 16:53] LABS: Partial Thromboplastin Time 26.5 SEC (24.5-34.5); Prothrombin Time 10.5 sec (9.3-11.8)
[2023-02-28] MEDS ORDERED: ACETAMINOPHEN 500 MG TAB PO ONE (17:00)
[2023-02-28] MEDS ORDERED: IOHEXOL 350 MG/ML 100ML IJ ONE (17:07)
[2023-02-28 18:18] LABS: Urine Bacteria NONE SEEN /hpf (None Seen); Urine Blood Negative /uL (Negative); Urine Clarity Clear (Clear); Urine Color Yellow (Yellow); Urine Protein, UAD Negative (Negative); Urine Specific Gravity 1.015 (1.001-1.035); Urine Urobilinogen Normal (Negative); Urine WBC 4 /hpf (0 - 5)
[2023-02-28] MEDS ORDERED: CEPHALEXIN 250 MG CAP PO ONE (19:45)
[2023-02-28 19:56] VITALS: PULSE 73; RESP 20; O2SAT 97
[2023-02-28] MEDS ORDERED: hydrALAZINE HCL 10 MG TAB PO PRN (20:15)
[2023-02-28] MEDS ORDERED: MORPHINE SULFATE INJ 2 MG/ml SYRG IV PRN (20:15)
[2023-02-28] MEDS ORDERED: ACETAMINOPHEN 325 MG TAB PO PRN (20:15)
[2023-02-28] MEDS ORDERED: ONDANSETRON HCL 4 MG/2 ML VIAL IV PRN (20:15)
[2023-03-01] VITALS (9 sets, daily range): BP systolic 116–156; BP diastolic 61–80; PULSE 68–76; RESP 16–20; TEMP 97.7–98.4; O2SAT 94–100
[2023-03-01] MEDS ORDERED: FAMOTIDINE 20 MG TAB PO ONE (02:00)
[2023-03-01] MEDS: ENOXAPARIN SOD 60 MG/0.6 ML SYRINGE SC SCH ×3 (02:29→22:02)
[2023-03-01] MEDS: ATORVASTATIN 20 MG TAB PO SCH ×2 (02:30→22:02)
[2023-03-01] MEDS: HYDROcodone-ACET 5/325MG TAB PO PRN ×3 (02:56→17:53)
[2023-03-01] MEDS: FAMOTIDINE 20 MG TAB PO SCH (08:51)
[2023-03-01 08:56] LABS: Chloride 109 mmol/L (98-107); Potassium 3.9 mmol/L (3.5-5.1); Sodium 140 mmol/L (136-145)
[2023-03-01 08:57] LABS: Anion Gap 5 (5-15); Calcium 9.4 mg/dL (8.5-10.1); Carbon Dioxide 26 mmol/L (20-30)
[2023-03-01 09:02] LABS: BUN/Creatinine Ratio 12.7 (10.0-20.0); Blood Urea Nitrogen 10 mg/dL (9-23); Glucose 97 mg/dL (74-106); Triglycerides 207 mg/dL (< 150)
[2023-03-01 09:03] LABS: LDL Cholesterol 150 mg/dL (< 100)
[2023-03-01 09:04] LABS: Cholesterol 222 mg/dL (< 200); HDL Cholesterol 43 mg/dL (40-59)
[2023-03-01] MEDS ORDERED: cefTRIAXone 1GM/50ML D5W 50 ML IV SCH (10:00)
[2023-03-01] MEDS ORDERED: DOCUSATE SOD 100 MG CAP PO PRN (16:45)
[2023-03-01] MEDS ORDERED: MELATONIN 5 MG TAB PO ONE (22:00)
[2023-03-02] VITALS (7 sets, daily range): BP systolic 97–168; BP diastolic 36–82; PULSE 70–75; RESP 18–73; TEMP 97.5–98.6; O2SAT 94–100
[2023-03-02] MEDS: NITROGLYCERIN 0.4 MG SL TAB SL PRN ×3 (05:23→05:33)
[2023-03-02] MEDS: ENOXAPARIN SOD 60 MG/0.6 ML SYRINGE SC SCH ×2 (10:36→21:51)
[2023-03-02] MEDS: FAMOTIDINE 20 MG TAB PO SCH (10:36)
[2023-03-02] MEDS: HYDROcodone-ACET 5/325MG TAB PO PRN (10:44)
[2023-03-02] MEDS ORDERED: ASPI-123 PO (11:02)
[2023-03-02] MEDS ORDERED: SERT-376 PO (11:03)
[2023-03-02] MEDS ORDERED: CETI10TA2 PO (11:04)
[2023-03-02] MEDS ORDERED: NITR0.4S29 SL (11:11)
[2023-03-02] MEDS ORDERED: [UNRECOGNIZED DRUG - CODE] EX (11:11)
[2023-03-02] MEDS ORDERED: HYDR-4902 PO (11:11)
[2023-03-02] MEDS ORDERED: TRAZ-227 PO (11:11)
[2023-03-02] MEDS ORDERED: DOCU-94 PO (11:11)
[2023-03-02] MEDS ORDERED: LORA-1105 PO (11:11)
[2023-03-02] MEDS ORDERED: LIDO4PAD EX (11:17)
[2023-03-02] MEDS ORDERED: LORazepam 0.5 MG TAB PO PRN (13:00)
[2023-03-02] MEDS: NITROGLYCERIN 2% OINT 1GM PKG TD SCH ×2 (16:22→21:47)
[2023-03-02] MEDS: ATORVASTATIN 20 MG TAB PO SCH (21:49)
[2023-03-02 23:43] LABS: Basophils # (auto) 0 10 ^3/uL (0-0.2); Basophils % (auto) 0.7 % (0.0-2.0); Eosinophils # (auto) 0.2 10 ^3/uL (0-0.8); Eosinophils % (auto) 2.7 % (0.0-7.0); Hematocrit 40.2 % (36.0-46.0); Hemoglobin 13.1 g/dL (12.2-16.2); Lymphocytes # (auto) 2.6 10 ^3/uL (0.4-5.4); Lymphocytes % (auto) 41.1 % (10.0-50.0); Mean Corpuscular Hemoglobin 29.8 pg (28.0-32.0); Mean Corpuscular Hgb Conc. 32.6 g/dL (32.0-36.0); Mean Corpuscular Volume 91.6 fL (80.0-100.0); Monocytes # (auto) 0.5 10 ^3/uL (0-1.3); Monocytes % (auto) 8.8 % (0.0-12.0); Neutrophils # (auto) 2.9 10 ^3/uL (1.6-8.6); Neutrophils % (auto) 46.7 % (37.0-80.0); Nucleated Red Blood Cells % 0.1 %; Red Blood Cells 4.39 10^6/uL (4.0-5.20); Red Cell Distribution Width 14.3 % (11.8-14.3); White Blood Cell 6.2 10^3/uL (4.4-10.8)
[2023-03-02 23:53] LABS: Chloride 107 mmol/L (98-107); Potassium 3.7 mmol/L (3.5-5.1); Sodium 140 mmol/L (136-145)
[2023-03-02 23:54] LABS: Anion Gap 5 (5-15); Calcium 8.9 mg/dL (8.7-10.4); Carbon Dioxide 28 mmol/L (20-30)
[2023-03-03] VITALS (12 sets, daily range): BP systolic 110–159; BP diastolic 67–89; PULSE 68–79; RESP 12–18; TEMP 97.4–99.1; O2SAT 93–99
[2023-03-03] LABS: BUN/Creatinine Ratio 10.7 (10.0-20.0); Blood Urea Nitrogen 11 mg/dL (9-23); Glucose 125 mg/dL (74-106)
[2023-03-03 04:37] LABS: INR 1.05 (0.9-1.15)
[2023-03-03] MEDS: NITROGLYCERIN 2% OINT 1GM PKG TD SCH ×2 (06:08→14:00)
[2023-03-03] MEDS: FAMOTIDINE 20 MG TAB PO SCH (09:38)
[2023-03-03] MEDS: ENOXAPARIN SOD 60 MG/0.6 ML SYRINGE SC SCH (09:39)
[2023-03-03] MEDS ORDERED: HEPARIN SODIUM (PORCINE) 5000 UNITS/ML 1ML VIAL ONE (14:28)
[2023-03-03] MEDS ORDERED: ANGIOMAX 250 MG VIAL IV ONE (14:28)
[2023-03-03] MEDS ORDERED: SODIUM CHL 0.9% 0 ML ONE (14:29)
[2023-03-03] MEDS ORDERED: LIDOCAINE 2%HCL (LOCAL ANESTH.) INJ 20ML MDV ONE (14:29)
[2023-03-03] MEDS ORDERED: fentaNYL CITRATE 100 MCG/2 ML VL ONE (14:29)
[2023-03-03] MEDS ORDERED: IODIXANOL 320MG/ML 100ML BTL IV ONE (14:29)
[2023-03-03] MEDS ORDERED: MIDAZOLAM HCL 2MG/2ML 2ml VIAL (1mg/ml) ONE (14:29)
[2023-03-03] MEDS ORDERED: VERAPAMIL 2.5MG/ML INJ 2ML VIAL IV ONE (14:29)
[2023-03-03] MEDS ORDERED: ASPI-325 PO (18:23)
[2023-03-03] MEDS ORDERED: ATOR40TA52 PO (18:23)
[2023-03-03] MEDS ORDERED: RANO500T3 PO (18:36)
[2023-03-03] MEDS ORDERED: APIX5TAB PO (18:36)
== END 2023-03-03 20:19 | disposition hospice, home (50) | DRG 287 ==
LOC: EDBD 14:32 → ER 14:32 → TELE 20:15 → TELE-EAST 03-01 01:51
PROVIDERS: ADMIT Family Medicine; ATTEND Family Medicine
PROC: 4A023N7 Measurement of Cardiac Sampling and Pressure, Left Heart, Percutaneous Approach (ICD-10-PCS; principal; 2023-03-03)
PROC: B211YZZ Fluoroscopy of Multiple Coronary Arteries using Other Contrast (ICD-10-PCS; 2023-03-03)
PROC: B215YZZ Fluoroscopy of Left Heart using Other Contrast (ICD-10-PCS; 2023-03-03)
PROC: B21FYZZ Fluoroscopy of Other Bypass Graft using Other Contrast (ICD-10-PCS; 2023-03-03)
PROC: B218YZZ Fluoroscopy of Left Internal Mammary Bypass Graft using Other Contrast (ICD-10-PCS; 2023-03-03)
DX: I25.119 Atherosclerotic heart disease of native coronary artery with unspecified angina pectoris (principal); N39.0 Urinary tract infection, site not specified; F03.94 Unspecified dementia, unspecified severity, with anxiety; I82.412 Acute embolism and thrombosis of left femoral vein; I50.22 Chronic systolic (congestive) heart failure; I08.2 Rheumatic disorders of both aortic and tricuspid valves; F41.0 Panic disorder [episodic paroxysmal anxiety]; I11.0 Hypertensive heart disease with heart failure; J44.9 Chronic obstructive pulmonary disease, unspecified; K21.9 Gastro-esophageal reflux disease without esophagitis; K59.00 Constipation, unspecified; I25.2 Old myocardial infarction; Z95.1 Presence of aortocoronary bypass graft; Z86.73 Personal history of transient ischemic attack (TIA), and cerebral infarction without residual deficits; Z95.0 Presence of cardiac pacemaker; Z98.61 Coronary angioplasty status
CPT/HCPCS: 36415; 70450; 71045; 71275; 80048; 80053; 80061; 81001; 83690; 83880; 84484; 85025; 85379; 85610; 85730; 87040; 93005; 93306; 93459; 93970; 97110; 97116; 97163; 97530; 99152; 99153; G0378; J0696; J2250; Q9967

== ENCOUNTER 2023-11-04 16:26 | Inpatient (IN) | payer OTHER, MEDICAID ==
[~2023-11-04] VITALS: Ht 162.6 cm; Wt 65.1 kg
[~2023-11-04 16:26] MED LIST changes: +APIX5TAB PO; +ASPI-325 PO; -ASPI-543 PO; -ATOR20TA50 PO; +ATOR40TA52 PO; -CAR3125T PO; +CARV-214 PO; +CETI10TA2 PO; +DOCU-94 PO; +HYDR-4902 PO; +LIDO4PAD EX; +LORA-1105 PO; -LORA-622 PO; +NITR-52 PO; +NITR0.4S29 SL; -RANO500T PO; +RANO500T3 PO; +SERT-376 PO; -SERT25TA28 PO; +TRAZ-227 PO
[2023-11-04 17:00] VITALS: PULSE 70; RESP 10; O2SAT 92
[2023-11-04] MEDS: ONDANSETRON HCL 4 MG/2 ML VIAL IV ONE (17:00)
[2023-11-04] MEDS: SODIUM CHLORIDE 0.9% 500 ML IVB ONE (17:18)
[2023-11-04] MEDS: HYDROmorphone HCL 2 MG/ML VL/or syr IV ONE (17:22)
[2023-11-04 17:27] LABS: Basophils # (auto) 0 10 ^3/uL (0-0.2); Basophils % (auto) 0.3 % (0.0-2.0); Eosinophils # (auto) 0.3 10 ^3/uL (0-0.8); Eosinophils % (auto) 2.6 % (0.0-7.0); Hematocrit 40.3 % (36.0-46.0); Hemoglobin 13.2 g/dL (12.2-16.2); Lymphocytes # (auto) 2.2 10 ^3/uL (0.4-5.4); Lymphocytes % (auto) 21.6 % (10.0-50.0); Mean Corpuscular Hemoglobin 29.7 pg (28.0-32.0); Mean Corpuscular Hgb Conc. 32.7 g/dL (32.0-36.0); Mean Corpuscular Volume 90.9 fL (80.0-100.0); Monocytes % (auto) 9.5 % (0.0-12.0); Neutrophils # (auto) 6.8 10 ^3/uL (1.6-8.6); Nucleated Red Blood Cells % 0.1 %; Red Blood Cells 4.43 10^6/uL (4.0-5.20); Red Cell Distribution Width 14.3 % (11.8-14.3); White Blood Cell 10.3 10^3/uL (4.4-10.8)
[2023-11-04 17:48] LABS: Alanine Aminotransferase 14 U/L (7-40); Albumin 3.9 g/dL (3.2-4.8); Alkaline Phosphatase 83 U/L (46-116); Anion Gap 6 (5-15); Aspartate Aminotransferase 13 U/L (13-40); BUN/Creatinine Ratio 15.3 (10.0-20.0); Bilirubin, Total 0.5 mg/dL (0.2-1.0); Blood Urea Nitrogen 18 mg/dL (9-23); Calcium 9.1 mg/dL (8.7-10.4); Carbon Dioxide 27 mmol/L (20-30); Chloride 108 mmol/L (98-107); Glucose 100 mg/dL (74-106); Lipase 19 U/L (12-53); Potassium 4.4 mmol/L (3.5-5.1); Sodium 141 mmol/L (136-145)
[2023-11-04 17:49] LABS: Total Protein 6.5 g/dL (5.7-8.2)
[2023-11-04 17:57] LABS: Urine Bacteria FEW /hpf (None Seen); Urine Blood 1+ /uL (Negative); Urine Clarity Turbid (Clear); Urine Color Dark-Yellow (Yellow); Urine Hyaline Cast MANY /lpf (0 - 2); Urine Protein, UAD 1+ (Negative); Urine Specific Gravity 1.007 (1.001-1.035); Urine Urobilinogen Normal (Negative); Urine WBC 662 /hpf (0 - 5); Urine WBC Clumps PRESENT /hpf (None Seen); Urine pH 5.5 (5.0-9.0)
[2023-11-04] MEDS: SODIUM CHLORIDE 0.9% 1,000 ML IV ONE (18:30)
[2023-11-04] MEDS: PHENAZOPYRIDINE HCL 100 MG TAB PO ONE (18:41)
[2023-11-04] MEDS: NITROFURANTOIN 100 mg CAP PO ONE (18:41)
[2023-11-04] MEDS: cefTRIAXone 1GM/50ML D5W 50 ML IV ONE (18:41)
[2023-11-04] MEDS ORDERED: DOCUSATE SOD 100 MG CAP PO PRN (18:45)
[2023-11-04] MEDS: LACTATED RINGER'S 1,000 ML IV ONE (19:00)
[2023-11-04 19:40] VITALS: O2SAT 95
[2023-11-04] MEDS ORDERED: hydrALAZINE HCL 20 MG/ML VL IV PRN (19:45)
[2023-11-04] MEDS: HYDROcodone-ACET 5/325MG TAB PO PRN (21:07)
[2023-11-04] MEDS: SODIUM CHLOR 0.9% PF (SALINE LOCK) 10ML VIAL/SYR IV SCH (22:08)
[2023-11-04 22:58] VITALS: BP 142/79; PULSE 79; RESP 18; TEMP 97.6; O2SAT 98
[2023-11-04 23:06] VITALS: BP 142/79; PULSE 78; RESP 18; TEMP 97.6; O2SAT 98
[2023-11-05] VITALS (9 sets, daily range): BP systolic 93–129; BP diastolic 45–69; PULSE 64–80; RESP 16–20; TEMP 97.5–99; O2SAT 94–99
[2023-11-05] MEDS: ACETAMINOPHEN 325 MG TAB PO PRN (10:19)
[2023-11-05] MEDS: cefTRIAXone 1GM/50ML D5W 50 ML IV SCH (10:22)
[2023-11-05] MEDS: ENOXAPARIN SOD 40 MG/0.4 ML SYRINGE SC SCH (10:22)
[2023-11-05] MEDS: ASPirin 81 mg TAB PO ONE (13:36)
[2023-11-05] MEDS: RANOLAZINE ER 500 MG TAB PO SCH (21:21)
[2023-11-05] MEDS: ATORVASTATIN 20 MG TAB PO SCH (21:22)
[2023-11-05] MEDS: CARVEDILOL 3.125 MG TAB PO SCH (21:23)
[2023-11-05] MEDS: MELATONIN 5 MG TAB PO ONE (22:26)
[2023-11-06] VITALS (9 sets, daily range): BP systolic 95–147; BP diastolic 49–68; PULSE 66–79; RESP 18–20; TEMP 96.6–98.5; O2SAT 96–100
[2023-11-06] MEDS: ASPirin 81 mg TAB PO SCH (10:25)
[2023-11-06] MEDS: LORazepam 0.5 MG TAB PO SCH (12:45)
[2023-11-06] MEDS: ONDANSETRON HCL 4 MG/2 ML VIAL IV PRN (21:52)
[2023-11-06] MEDS ORDERED: MELATONIN 5 MG TAB PO ONE (22:00)
[2023-11-07] VITALS (12 sets, daily range): BP systolic 100–151; BP diastolic 49–79; PULSE 68–78; RESP 16–20; TEMP 36.8; O2SAT 97–100
[2023-11-07] MEDS ORDERED: CALCIUM CARB 500 MG CHEW TAB PO PRN (00:45)
[2023-11-07 09:51] LABS: COVID19 ANTIGEN SOFIA FIA NEGATIVE (NEGATIVE)
[2023-11-07 11:14] LABS: Basophils # (auto) 0 10 ^3/uL (0-0.2); Basophils % (auto) 0.4 % (0.0-2.0); Eosinophils # (auto) 0.2 10 ^3/uL (0-0.8); Eosinophils % (auto) 1.8 % (0.0-7.0); Hematocrit 36.7 % (36.0-46.0); Hemoglobin 12.2 g/dL (12.2-16.2); Lymphocytes # (auto) 1.9 10 ^3/uL (0.4-5.4); Mean Corpuscular Hemoglobin 30.3 pg (28.0-32.0); Mean Corpuscular Hgb Conc. 33.3 g/dL (32.0-36.0); Monocytes # (auto) 0.7 10 ^3/uL (0-1.3); Neutrophils # (auto) 6.3 10 ^3/uL (1.6-8.6); Neutrophils % (auto) 68.8 % (37.0-80.0); Nucleated Red Blood Cells % 0.2 %; Red Blood Cells 4.03 10^6/uL (4.0-5.20); Red Cell Distribution Width 14.2 % (11.8-14.3); White Blood Cell 9.2 10^3/uL (4.4-10.8)
[2023-11-07 11:21] LABS: Anion Gap 2 (5-15); Carbon Dioxide 31 mmol/L (20-30); Chloride 107 mmol/L (98-107); Potassium 4.1 mmol/L (3.5-5.1); Sodium 140 mmol/L (136-145)
[2023-11-07 11:27] LABS: BUN/Creatinine Ratio 14.3 (10.0-20.0); Blood Urea Nitrogen 12 mg/dL (9-23); Glucose 103 mg/dL (74-106)
[2023-11-08 01:00] VITALS: BP 141/71; PULSE 64; RESP 17; TEMP 97.8; O2SAT 97
[2023-11-08 05:00] VITALS: BP 122/62; PULSE 70; RESP 17; TEMP 97.6; O2SAT 98
[2023-11-08 07:30] VITALS: PULSE 70; RESP 16; O2SAT 100
[2023-11-08 08:00] VITALS: PULSE 70
[2023-11-08 08:50] VITALS: BP 127/57; PULSE 70; RESP 20; TEMP 97.6; O2SAT 98
[2023-11-08 12:52] VITALS: BP 125/62; PULSE 70; RESP 20; TEMP 97.9; O2SAT 93
== END 2023-11-08 19:10 | DRG 871 ==
LOC: EDBD 16:26 → ER 16:26 → OVERFLOW 18:39 → EAST 22:52 → TELE-EAST 23:34 → TELE-WESTW 11-07 03:50
PROVIDERS: ADMIT Internal Medicine; ATTEND Family Medicine
DX: A41.9 Sepsis, unspecified organism (principal); I21.A1 Myocardial infarction type 2; I50.23 Acute on chronic systolic (congestive) heart failure; N30.00 Acute cystitis without hematuria; I13.0 Hypertensive heart and chronic kidney disease with heart failure and stage 1 through stage 4 chronic kidney disease, or unspecified chronic kidney disease; Z20.822 Contact with and (suspected) exposure to COVID-19; E86.0 Dehydration; E78.00 Pure hypercholesterolemia, unspecified; K21.9 Gastro-esophageal reflux disease without esophagitis; I25.10 Atherosclerotic heart disease of native coronary artery without angina pectoris; N18.9 Chronic kidney disease, unspecified; Z86.73 Personal history of transient ischemic attack (TIA), and cerebral infarction without residual deficits; Z98.61 Coronary angioplasty status; Z95.1 Presence of aortocoronary bypass graft; Z90.49 Acquired absence of other specified parts of digestive tract; Z95.2 Presence of prosthetic heart valve; Z95.0 Presence of cardiac pacemaker; Z90.710 Acquired absence of both cervix and uterus; Z83.3 Family history of diabetes mellitus; Z82.49 Family history of ischemic heart disease and other diseases of the circulatory system; Z80.3 Family history of malignant neoplasm of breast; Z86.718 Personal history of other venous thrombosis and embolism
CPT/HCPCS: 36415; 70450; 71045; 80048; 80053; 81001; 83605; 83690; 83735; 84484; 85025; 87040; 87086; 87088; 87186; 87426; 93005; 93306; 97110; 97163; G0378; J2405

== ENCOUNTER 2023-12-30 11:58 | Inpatient (IN) | payer MEDICAID, OTHER ==
[~2023-12-30] VITALS: Ht 160 cm; Wt 63.9 kg
[~2023-12-30 11:58] MED LIST changes: +FENT25DI2 TD; +LORA2CON PO; +MIRT1TAB38 PO; +OMEP1CAP70 PO; +POTA8TAB38 PO
[2023-12-30 12:15] VITALS: PULSE 97; RESP 14; O2SAT 98
[2023-12-30 13:18] LABS: Basophils # (auto) 0 10 ^3/uL (0-0.2); Basophils % (auto) 0.5 % (0.0-2.0); Eosinophils # (auto) 0.2 10 ^3/uL (0-0.8); Eosinophils % (auto) 3.3 % (0.0-7.0); Hematocrit 35.8 % (36.0-46.0); Hemoglobin 12.2 g/dL (12.2-16.2); Lymphocytes # (auto) 1.9 10 ^3/uL (0.4-5.4); Lymphocytes % (auto) 34.3 % (10.0-50.0); Mean Corpuscular Hemoglobin 30.7 pg (28.0-32.0); Mean Corpuscular Hgb Conc. 33.9 g/dL (32.0-36.0); Mean Corpuscular Volume 90.4 fL (80.0-100.0); Monocytes # (auto) 0.5 10 ^3/uL (0-1.3); Monocytes % (auto) 8.1 % (0.0-12.0); Neutrophils % (auto) 53.8 % (37.0-80.0); Nucleated Red Blood Cells % 0.1 %; Platelet Count (auto) 261 10^3/uL (140-450); Red Blood Cells 3.96 10^6/uL (4.0-5.20); Red Cell Distribution Width 14.3 % (11.8-14.3); White Blood Cell 5.6 10^3/uL (4.4-10.8)
[2023-12-30 13:27] LABS: Chloride 109 mmol/L (98-107); Potassium 4.2 mmol/L (3.5-5.1); Sodium 140 mmol/L (136-145)
[2023-12-30 13:28] LABS: Anion Gap 7 (5-15); Carbon Dioxide 24 mmol/L (20-31)
[2023-12-30 13:33] LABS: BUN/Creatinine Ratio 16.7 (10.0-20.0); Blood Urea Nitrogen 17 mg/dL (9-23); Glucose 118 mg/dL (74-106)
[2023-12-30 16:30] LABS: Urine Bacteria None Seen /hpf (None Seen)
[2023-12-30 16:54] LABS: Urine Blood Negative /uL (Negative); Urine Clarity Clear (Clear); Urine Color Light-Yellow (Yellow); Urine Hyaline Cast MOD /lpf (0 - 2); Urine Protein, UAD Negative (Negative); Urine Specific Gravity 1.009 (1.001-1.035); Urine Urobilinogen Normal (Negative); Urine WBC <1 /hpf (0 - 5); Urine pH 5.5 (5.0-9.0)
[2023-12-30] MEDS ORDERED: ONDANSETRON HCL 4 MG/2 ML VIAL IV PRN (17:15)
[2023-12-30 18:12] LABS: COVID19 ANTIGEN SOFIA FIA NEGATIVE (NEGATIVE)
[2023-12-30] MEDS: HYDROcodone-ACET 5/325MG TAB PO PRN (18:36)
[2023-12-30 19:53] VITALS: PULSE 90
[2023-12-30 20:03] VITALS: BP 136/56; PULSE 70; RESP 17; TEMP 97.7; O2SAT 100
[2023-12-30 20:51] VITALS: BP 136/56; PULSE 70; RESP 17; TEMP 97.7; O2SAT 100
[2023-12-30] MEDS: NITROGLYCERIN 0.4 MG SL TAB SL PRN (21:41)
[2023-12-30 22:00] VITALS: BP 102/65; PULSE 70; RESP 17; TEMP 98; O2SAT 100
[2023-12-30] MEDS ORDERED: traZODone HCL 50 MG TAB PO PRN (22:00)
[2023-12-30] MEDS: ATORVASTATIN 20 MG TAB PO SCH (22:26)
[2023-12-30] MEDS: CARVEDILOL 3.125 MG TAB PO SCH (22:31)
[2023-12-31] VITALS (8 sets, daily range): BP systolic 95–148; BP diastolic 52–77; PULSE 64–80; RESP 16–18; TEMP 97.3–98.1; O2SAT 94–100
[2023-12-31 08:01] LABS: Basophils # (auto) 0 10 ^3/uL (0-0.2); Basophils % (auto) 0.7 % (0.0-2.0); Eosinophils # (auto) 0.3 10 ^3/uL (0-0.8); Eosinophils % (auto) 5.1 % (0.0-7.0); Hematocrit 36.8 % (36.0-46.0); Hemoglobin 12.3 g/dL (12.2-16.2); Lymphocytes # (auto) 2.1 10 ^3/uL (0.4-5.4); Lymphocytes % (auto) 34.4 % (10.0-50.0); Mean Corpuscular Hemoglobin 30.4 pg (28.0-32.0); Mean Corpuscular Hgb Conc. 33.4 g/dL (32.0-36.0); Mean Corpuscular Volume 91.1 fL (80.0-100.0); Monocytes # (auto) 0.7 10 ^3/uL (0-1.3); Monocytes % (auto) 11.8 % (0.0-12.0); Neutrophils # (auto) 2.9 10 ^3/uL (1.6-8.6); Nucleated Red Blood Cells % 0.1 %; Platelet Count (auto) 244 10^3/uL (140-450); Red Blood Cells 4.04 10^6/uL (4.0-5.20); Red Cell Distribution Width 14.4 % (11.8-14.3)
[2023-12-31 08:42] LABS: Chloride 108 mmol/L (98-107); Potassium 3.9 mmol/L (3.5-5.1); Sodium 140 mmol/L (136-145)
[2023-12-31 08:44] LABS: Anion Gap 7 (5-15); Carbon Dioxide 25 mmol/L (20-31)
[2023-12-31 08:49] LABS: BUN/Creatinine Ratio 14.6 (10.0-20.0); Blood Urea Nitrogen 14 mg/dL (9-23); Glucose 104 mg/dL (74-106)
[2023-12-31 09:03] LABS: Magnesium 1.9 mg/dL (1.6-2.6)
[2023-12-31] MEDS: SERTRALINE HCL 50 MG TAB PO SCH (10:23)
[2023-12-31] MEDS: ASPirin-EC 81 mg tab PO SCH (10:23)
[2024-01-01] VITALS (8 sets, daily range): BP systolic 93–131; BP diastolic 49–74; PULSE 55–81; RESP 16–18; TEMP 97.6–98; O2SAT 93–100
[2024-01-01 09:05] LABS: Hepatitis B Surface Antigen Negative (Negative)
[2024-01-01 09:27] LABS: Hepatitis C Antibody Negative (Negative)
[2024-01-01 12:55] LABS: Rapid Influenza A Negative (Negative); Rapid Influenza B Negative (Negative)
[2024-01-01] MEDS: MORPHINE SULFATE INJ 2 MG/ml SYRG IV PRN (12:59)
[2024-01-01] MEDS: ZINC SULFATE 220mg CAP or TAB PO ONE (16:32)
[2024-01-01] MEDS: CHOLECALCIFEROL (VITD3) 1,000UNIT=25mCg TAB PO ONE (16:32)
[2024-01-02] VITALS (8 sets, daily range): BP systolic 112–128; BP diastolic 60–74; PULSE 70–82; RESP 16–18; TEMP 97.8–98.8; O2SAT 96–97
[2024-01-02] MEDS: ASCORBIC ACID 500 MG TAB PO SCH (00:14)
[2024-01-02] MEDS: CHOLECALCIFEROL (VITD3) 1,000UNIT=25mCg TAB PO SCH (09:53)
[2024-01-02] MEDS: ZINC SULFATE 220mg CAP or TAB PO SCH (09:54)
[2024-01-02] MEDS: PANTOPRAZOLE 40 MG/10 ML VIAL INJ IV ONE (14:29)
[2024-01-02] MEDS: PANTOPRAZOLE 40 MG/10 ML VIAL INJ IV SCH (21:11)
[2024-01-03 01:00] VITALS: BP 147/62; PULSE 68; RESP 16; TEMP 97.6; O2SAT 98
[2024-01-03 05:00] VITALS: BP 112/58; PULSE 68; RESP 20; TEMP 97.2; O2SAT 96
[2024-01-03 08:00] VITALS: PULSE 72; PULSE 76; RESP 17; O2SAT 96
[2024-01-03 09:30] VITALS: BP 129/60; PULSE 72; RESP 17; TEMP 97.3; O2SAT 96
[2024-01-03 13:00] VITALS: BP 128/61; PULSE 75; RESP 16; TEMP 97.4; O2SAT 98
== END 2024-01-03 15:42 | disposition hospice, home (50) | DRG 291 ==
LOC: EDBD 11:58 → ER 12:07 → OVERFLOW 17:35 → TELE 18:06 → TELE-WESTW 19:53
PROVIDERS: ADMIT Registered Nurse General Practice; ATTEND Family Medicine
DX: I11.0 Hypertensive heart disease with heart failure (principal); I50.21 Acute systolic (congestive) heart failure; J96.21 Acute and chronic respiratory failure with hypoxia; J44.1 Chronic obstructive pulmonary disease with (acute) exacerbation; F32.A Depression, unspecified; K21.9 Gastro-esophageal reflux disease without esophagitis; F41.9 Anxiety disorder, unspecified; I36.1 Nonrheumatic tricuspid (valve) insufficiency; I16.0 Hypertensive urgency; Z66 Do not resuscitate; I25.10 Atherosclerotic heart disease of native coronary artery without angina pectoris; E86.0 Dehydration; Z20.822 Contact with and (suspected) exposure to COVID-19; I45.10 Unspecified right bundle-branch block; E78.00 Pure hypercholesterolemia, unspecified; Z99.81 Dependence on supplemental oxygen; Z51.5 Encounter for palliative care; Z95.1 Presence of aortocoronary bypass graft; Z79.01 Long term (current) use of anticoagulants; I25.2 Old myocardial infarction; Z88.2 Allergy status to sulfonamides; Z79.899 Other long term (current) drug therapy; Z90.710 Acquired absence of both cervix and uterus; Z86.73 Personal history of transient ischemic attack (TIA), and cerebral infarction without residual deficits; Z90.49 Acquired absence of other specified parts of digestive tract; Z80.3 Family history of malignant neoplasm of breast; Z82.49 Family history of ischemic heart disease and other diseases of the circulatory system; Z83.3 Family history of diabetes mellitus; Z86.718 Personal history of other venous thrombosis and embolism; Z95.2 Presence of prosthetic heart valve; Z95.0 Presence of cardiac pacemaker; Z86.16 Personal history of COVID-19
CPT/HCPCS: 36415; 71045; 73030; 80048; 80061; 81001; 83036; 83735; 84443; 84484; 85025; 86803; 87340; 87426; 87804; 93005; 97110; 97116; 97163; 97530; 99291; G0378; J2470

== ENCOUNTER 2024-05-26 06:51 | Emergency (ER) | payer OTHER, MEDICAID ==
[~2024-05-26] VITALS: Ht 154.9 cm; Wt 72.7 kg
[~2024-05-26 06:51] MED LIST changes: -LORA-1105 PO; -NITR-52 PO; -OMEP20TA PO; -POTA8TAB15 PO
--- NOTE | 2024-05-26 07:03 | ECG ---
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
[2024-05-26 07:42] VITALS: PULSE 71; RESP 18; TEMP 98.8; O2SAT 97
--- NOTE | 2024-05-26 08:02 | ED.PDOC ---
History of Present Illness HPI Comments 83-year-old female brought in by EMS presents with a chief complaint of chest wall pain x 3 days. Patient reports that she was out shopping 3 days ago when she had a ground level fall and landed face down on the cement. Patient denies LOC, denies head or neck pain, denies N/V, reports chest wall pain increases on palpation. Chief Complaint: Chest Wall Injury Time Seen by MD: 07:48 Primary Care Provider: DENIES Reviewed Notes: Medications, Allergies Allergies: Coded Allergies: Sulfa Antibiotics (Verified Allergy, Unknown, 09/27/20) Home Meds Active Scripts Apixaban Base (ELIQUIS) 5 Mg Tab, 5 MG PO BID, #60 TAB 0 Refills Prov:XENIA DIALLO MD 03/03/23 Atorvastatin Calcium (ATORVASTATIN CALCIUM) 40 Mg Tab, 1 TAB PO DAILY, #30 TAB 1 Refill Prov:XENIA DIALLO MD 03/03/23 Aspirin (Aspirin Low Dose) 81 Mg Tab, 81 MG PO DAILY, #30 TAB 1 Refill Prov:XENIA DIALLO MD 03/03/23 Furosemide (Furosemide) 40 Mg Tab, 1 TAB PO DAILY, #90 TAB 3 Refills Prov:SOPHY LOWRY MD 08/15/22 Isosorbide Mononitrate (Isosorbide Mononitrate Er) 30 Mg Tab, 1 TAB PO DAILY, #90 TAB 1 Refill Prov:SOPHY LOWRY MD 08/15/22 Carvedilol (COREG) 3.125 Mg Tab, 3.125 MG PO BID, #90 TAB Prov:SOPHY LOWRY MD 08/15/22 Reported Medications Ranolazine (Ranolazine ER) 500 Mg Tab, 1 TAB PO BID for 30 Days, #60 01/01/24 Fentanyl (Fentanyl) 25 Mcg/Hr Dis, 1 PATCH TD Q72HR for 15 Days, #5 01/01/24 Lorazepam (Lorazepam Intensol) 2 Mg/Ml Con, 0.25 ML PO Q6HR PRN for ANXIETY for 15 Days, #15 01/01/24 Mirtazapine (Mirtazapine Oral Disintegrating Tablet) 15 Mg Tab, 1 TAB PO DAILY PRN for POOR APPETITE for 30 Days, #30 10/7/24 Potassium Chloride (Klor-Con 8) 8 Meq Tab, 1 TAB PO BID for 30 Days, #60 01/01/24 Omeprazole (Omeprazole Dr) 20 Mg Cap, 1 CAP PO DAILY for 60 Days, #60 01/01/24 Lidocaine (Lidocaine) 4 % Pad, 4 % EX Q12H, PAD 03/02/23 Trazodone Hcl (Trazodone Hcl) 50 Mg Tab, 50 MG PO BIDPRN, MG 03/02/23 Nitroglycerin (NTROSTAT SUBLINGUAL) 0.4 Mg Sl, 0.4 MG SL PRN for CHEST PAIN, TAB *MAY REPEAT EVERY 5 MINUTES X 3 TOTAL IF NO RELIEF, INITIATE ANALGESIC THERAPY. NOTIFY PHYSICIAN *Do not crush. 03/02/23 Hydrocodone-Acetaminophen (Hydrocodone Bitartrate/AC 5-325 mg) 1 Tab Tab, 1 TAB PO Q6H PRN for PAIN, TAB 03/02/23 Docusate Sodium (Colace) 100 Mg Cap, 100 MG PO DAILY, CAP 03/02/23 Cetirizine Hcl (Kls Aller-Aditya) 10 Mg Tab, 10 MG PO DAILY, TAB 03/02/23 Sertraline HCl (Sertraline Hydrochloride) 50 Mg Tab, 50 MG PO DAILY, TAB 03/02/23 Information Source: Patient Mode of Arrival: Ambulatory Severity: Moderate Timing: Days Duration: Since onset Prehospital treatment: None Past Medical History PAST MEDICAL HISTORY: Arthritis, CAD, CVA, Depression, GERD, HTN, GA, UTI'S Surgical History: CABG, Cholecystectomy, Hysterectomy, Pacemaker, PTCA 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 SPOT WASHER History: No Pertinent OIL SPOT WASHER History Family History Family History: Reviewed,noncontributory to illness Social History Smoker: Non-Smoker Alcohol: Denies ETOH Use Drugs: Denies Drug Use Lives In: Home Constitutional: denies: chills, diaphoresis, fatigue, fever, malaise, sweats, weakness, others EENTM: denies: blurred vision, double vision, ear bleeding, ear discharge, ear drainage, ear pain, ear ringing, eye pain, eye redness, hearing loss, mouth pain, mouth swelling, nasal discharge, nose bleeding, nose congestion, nose pain, photophobia, tearing, throat pain, throat swelling, voice changes, others Respiratory: denies: cough, hemoptysis, orthopnea, SOB at rest, shortness of breath, SOB with excertion, stridor, wheezing, others Cardiovascular: denies: chest pain, dizzy spells, diaphoresis, Dyspnea on exertion, edema, irregular heart beat, left arm pain, lightheadedness, palpitations, PND, syncope, others Gastrointestinal: denies: abdomen distended, abdominal pain, blood streaked bowels, constipated, diarrhea, dysphagia, difficulty swallowing, hematemesis, melena, nausea, poor appetite, poor fluid intake, rectal bleeding, rectal pain, vomiting, others Genitourinary: denies: abnormal vagina bleeding, burning, dyspareunia, dysuria, flank pain, frequency, hematuria, incontinence, pain, , vagina discharge, urgency, others Neurological: denies: dizziness, fainting, headache, left sided numbness, left sided weakness, numbness, paresthesia, pre-existing deficit, right sided numbnes s, right sided weakness, seizure, speech problems, tingling, tremors, weakness, others Musculoskeletal: reports: muscle pain; denies: back pain, gout, joint pain, joint swelling, muscle stiffness, neck pain, others Integumetry: reports: bruises; denies: change in color, change in hair/nails, dryness, laceration, lesions, lumps, rash, wounds, others Allergic/Immunocompromised: denies: Difficulty Healing, Frequent Infections, Hives, Itching, others Hematologic/Lymphatic: denies: anemia, blood clots, easy bleeding, easy bruising, swollen glands, others Endocrine: denies: excessive hunger, excessive sweating, excessive thirst, excessive urination, flushing, intolerance to cold, intolerance to heat, unexplained weight gain, unexplained weight loss, others Psychiatric: denies: anxiety, bipolar disorder, depression, hopeless, panic disorder, schizophrenia, sleepless, suicidal, others All Other Systems: Reviewed and Negative Physical Exam General Appearance: Mild Distress, Normal HEENT: Normal ENT Inspection, Pharynx Normal, TMs Normal Neck: Full Range of Motion, Non-Tender, Normal, Normal Inspection Respiratory: Chest Non-Tender, Lungs Clear, No Accessory Muscle Use, No Respiratory Distress, Normal Breath Sounds Cardiovascular: No Edema, No JVD, No Murmur, No Gallop, Normal Peripheral Pulses, Regular Rate/Rhythm, Other (Patient has ecchymosis to the left lower breast, and tenderness to palpation to the lower rib shabazz anteriorly) Breast Exam: Deferred Gastrointestinal: No Organomegaly, Non Tender, No Pulsatile Mass, Normal Bowel Sounds, Soft Genitalia: Deferred Pelvic: Deferred Rectal: Deferred Extremities: No calf tenderness, Normal capillary refill, Normal inspection, Normal range of motion, No pedal edema, Tender (Nontender CT and L-spine) Musculoskeletal : Apperance: Normal Neurologic: Alert, Normal Affect, Normal Mood, No Sensory Deficits, Other (LEFT SIDED CVA DEFICITS) Cerebellar Function: Normal Reflexes: Normal Skin: Bruises (LEFT BREAST), Dry, Warm Lymphatic: No Adenopathy Was a procedure done? Was a procedure done?: No Differential Dx Considerations may include: RIB FRACTURES, RIB CONTUSION, SKIN BRUISING, INTRACRANIAL HEMORRHAGE, SPINAL FRACTURES, NECK FRACTURE, HIP FRACTURES X-Ray, Labs, Meds, VS Vital Signs Date Time Temp Pulse Resp B/P (MAP) Pulse Ox O2 Delivery O2 Flow Rate FiO2 05/26/24 07:42 71 18 97 Room Air* 0 21 05/26/24 07:42 98.8 71 18 120/66 (84) 97 98.8 05/26/24 07:39 70 05/26/24 06:55 83 05/26/24 06:53 98.9 103 16 150/89 (109) [address] [place] [address] Ph: [phone] DIAGNOSTIC IMAGING Diagnostic Imaging Report : [id number] Signed PATIENT: SHARA RAMIREZ ACCT: [id number] UNIT: [id number] : 1940 LOC: ER ROOM / BED: / AGE / SEX: 83 / F ADM STATUS: REG ER SERVICE [id number] ORDERING PHYSICIAN: AKIKO DREW MD PROCEDURE(s): HWOCT - HEAD WITHOUT CONTRAST REASON: ro head bleed ORDER NUMBER(s): [id number], ACCESSION NUMBER(s): [id number] EXAM: CT HEAD WITHOUT CONTRAST HISTORY: ro head bleed COMPARISON: CT STROKE CTH on DOS: 11/06/23, CT HEAD WITHOUT CONTRAST on DOS: 05/14/23, CT HEAD WITHOUT CONTRAST on DOS: 02/28/23 TECHNIQUE: Noncontrast axial CT images of the head were performed. Sagittal and coronal reformatted images were obtained. This CT exam was performed using 1 or more of the following dose reduction techniques: Automated exposure control, adjustment of the mA and/or kv according to patient size, or the use of iterative reconstruction techniques. Radiation Dose : Head: CT Dose: CTDI volume is 52.29 mGy. Dose-length product is 1030.66 mGy*cm FINDINGS: There is mild global brain atrophy. There is moderate to severe decreased attenuation in the periventricular and bicerebral white matter. There is an old splinter shaped infarct of the right cerebellum. There is an old lacunar infarct of the left thalamus. No intracranial hemorrhage, mass, midline shift, hy drocephalus, or evidence of acute large vessel infarct. There is near complete opacification of the right sphenoid sinus, with surrounding bony remodeling. There is mild mucosal thickening of the right maxillary sinus. There are postoperative changes of partial left mastoidectomy. There is a small amount of fluid in the right mastoid air cells. The bilateral middle ear spaces are clear. There are postoperative changes of Left cataract extraction surgery. No cranial fracture or scalp edema. IMPRESSION: 1. Global brain atrophy and chronic ischemic changes without evidence of acute intracranial process. 2. Chronic severe right sphenoid sinus disease; mild right maxillary sinus disease. 3. Postoperative changes of partial left mastoidectomy and left cataract extraction. 4. Fluid in the right mastoid air cells may be due to sterile fluid or mastoiditis. ATED BY: SARAI YAP MD DICTATED DATE/TIME: 05/26/24825 SIGNED BY: SARAI YAP MD SIGNED DATE/TIME: 05/26/24825 CC: [place] [id number] Ph: [phone] DIAGNOSTIC IMAGING Diagnostic Imaging Report : [id number] Signed PATIENT: SHARA RAMIREZ ACCT: [id number] UNIT: [id number] : 1940 LOC: ER ROOM / BED: / AGE / SEX: 83 / F ADM STATUS: REG ER SERVICE [id number] ORDERING PHYSICIAN: AKIKO DREW MD PROCEDURE(s): CXR2 - CHEST TWO VIEWS ROUTINE REASON: ro rib fracture ORDER NUMBER(s): [id number], ACCESSION NUMBER(s): [id number] EXAM: XY CHEST TWO VIEWS ROUTINE HISTORY: ro rib fracture COMPARISON: None TECHNIQUE: Frontal and lateral views of the chest were performed. FINDINGS: No pneumothorax, pulmonary edema, pleural effusions, or consolidative infiltrates. The heart is not enlarged. Postoperative changes of median sternotomy and left chest pacemaker are re-identified. There is likely a moderate sized retrocardiac hiatal hernia. There is a midthoracic chronic appearing compression fracture. IMPRESSION: 1. No acute intrathoracic process. 2. Postoperative changes of the heart. 3. Probable moderate size hiatal hernia. ATED BY: SARAI YAP MD DICTATED DATE/TIME: 05/26/24827 SIGNED BY: SARAI YAP MD SIGNED DATE/TIME: 05/26/24827 CC: 83-year-old female presents here status post fall. Patient states she was walking target the concrete was uneven and she fell forward onto her chest and hit the front of her head. No evidence of trauma visually on her face. She does have evidence of ecchymosis to her left breast and she has some tenderness to the right ribs. Chest x-ray has been done with no evidence of rib fracture, no hemothorax no pneumothorax, no clavicular or sternal fractures. It does demonstrate probable moderate-sized hiatal hernia. I did perform a CT scan of the brain given her head trauma and she is on Eliquis. No evidence of intracranial hemorrhage. At this time I will be discharging her home. Advised her to follow up with the PCP in 2-3 days and return to the ER if symptoms worsen or persist. Time of 1ST Reevaluation: 08:18 Reevaluation 1ST: Unchanged Patient Education/Counseling: Diagnosis, Treatment, Prognosis Family Education/Counseling: Diagnosis, Treatment, Prognosis Departure 1 Departure Time of Disposition: 08:41 Impression: Primary Impression: Chest wall contusion Qualified Codes: S20.212A - Contusion of left front wall of thorax, initial encounter Additional Impressions: Blunt head trauma Qualified Codes: S09.8XXA - Other specified injuries of head, initial encounter Anticoagulated Disposition: HOME / SELF CARE / HOMELESS Condition: Fair Additional Instructions: Follow up with the primary care physician in 2-3 days. Return to the ER if symptoms worsen or persist. Discharged With: Self Critical Care Note Critical Care Time?: No Stability Stability form required: No Heart Score Heart Score: Heart Score Response (Comments) Value History N/A 0 EKG N/A 0 Age N/A 0 Risk Factors N/A 0 Troponin N/A 0 Total 0 I personally scribed for AKIKO DREW MD ([email or web address]) on 05/26/24 at 08:02. Electronically submitted by Steve Perdomo ([email or web address]). I personally scribed for AKIKO DREW MD ([email or web address]) on 05/26/24 at 08:43. Electronically submitted by Steve Perdomo ([email or web address]). AKIKO DREW MD May 26, 2024 08:02
--- NOTE | 2024-05-26 08:28 | DVH ---
EXAM: CT HEAD WITHOUT CONTRAST HISTORY: ro head bleed COMPARISON: CT STROKE CTH on DOS: 11/06/23, CT HEAD WITHOUT CONTRAST on DOS: 05/14/23, CT HEAD WITHOUT CONTRAST on DOS: 02/28/23 TECHNIQUE: Noncontrast axial CT images of the head were performed. Sagittal and coronal reformatted images were obtained. This CT exam was performed using 1 or more of the following dose reduction techniques: Au tomated exposure control, adjustment of the mA and/or kv according to patient size, or the use of ite rative reconstruction techniques. Radiation Dose : Head: CT Dose: CTDI volume is 52.29 mGy. Dose-length product is 1030.66 mGy*cm FINDINGS: There is mild global brain atrophy. There is moderate to severe decreased attenuation in the perivent ricular and bicerebral white matter. There is an old splinter shaped infarct of the right cerebellum. There is an old lacunar infarct of the left thalamus. No intracranial hemorrhage, mass, midline shif t, hydrocephalus, or evidence of acute large vessel infarct. There is near complete opacification of the right sphenoid sinus, with surrounding bony remodeling. There is mild mucosal thickening of the right maxillary sinus. There are postoperative changes of partial left mastoidectomy. There is a sm all amount of fluid in the right mastoid air cells. The bilateral middle ear spaces are clear. There are postoperative changes of Left cataract extraction surgery. No cranial fracture or scalp edema. IMPRESSION: 1. Global brain atrophy and chronic ischemic changes without evidence of acute intracranial process. 2. Chronic severe right sphenoid sinus disease; mild right maxillary sinus disease. 3. Postoperative changes of partial left mastoidectomy and left cataract extraction. 4. Fluid in the right mastoid air cells may be due to sterile fluid or mastoiditis.
--- NOTE | 2024-05-26 08:31 | DVH ---
EXAM: XY CHEST TWO VIEWS ROUTINE HISTORY: ro rib fracture COMPARISON: None TECHNIQUE: Frontal and lateral views of the chest were performed. FINDINGS: No pneumothorax, pulmonary edema, pleural effusions, or consolidative infiltrates. The heart is not enlarged. Postoperative changes of median sternotomy and left chest pacemaker are re-identified. Ther e is likely a moderate sized retrocardiac hiatal hernia. There is a midthoracic chronic appearing com pression fracture. IMPRESSION: 1. No acute intrathoracic process. 2. Postoperative changes of the heart. 3. Probable moderate size hiatal hernia.
[2024-05-26 09:00] VITALS: BP 102/69; PULSE 63; RESP 18; O2SAT 97
--- NOTE | 2024-05-26 18:38 | ECG ---
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
== END 2024-05-26 09:11 | disposition home or self-care (01) ==
LOC: EDBD 06:51 → ER 06:51
DX: S20.212A Contusion of left front wall of thorax, initial encounter (principal); S09.8XXA Other specified injuries of head, initial encounter; I10 Essential (primary) hypertension; F32.A Depression, unspecified; I25.10 Atherosclerotic heart disease of native coronary artery without angina pectoris; K21.9 Gastro-esophageal reflux disease without esophagitis; M19.90 Unspecified osteoarthritis, unspecified site; Z79.82 Long term (current) use of aspirin; Z79.899 Other long term (current) drug therapy; Z87.440 Personal history of urinary (tract) infections; Z90.49 Acquired absence of other specified parts of digestive tract; Z90.710 Acquired absence of both cervix and uterus; Z95.0 Presence of cardiac pacemaker; Z95.1 Presence of aortocoronary bypass graft; Z88.2 Allergy status to sulfonamides; W18.39XA Other fall on same level, initial encounter; Y93.01 Activity, walking, marching and hiking; Y92.89 Other specified places as the place of occurrence of the external cause; Y99.8 Other external cause status
CPT/HCPCS: 70450; 71046; 93005

== ENCOUNTER 2024-06-28 17:23 | Emergency (ER) | payer MEDICAID ==
[~2024-06-28] VITALS: Ht 160 cm; Wt 59.0 kg
[2024-06-28] MEDS: LIDOCAINE 1% HCL (LOCAL ANESTH.) INJ 20ML MDV ONE (17:35)
[2024-06-28] MEDS: LIDOCAINE 1% HCL (LOCAL ANESTH.) INJ 20ML MDV ID ONE (17:45)
[2024-06-28] MEDS: HYDROcodone-ACET 5/325MG TAB PO ONE (18:26)
--- NOTE | 2024-06-28 19:11 | ED.PDOC ---
Kayode. trauma (HPI) HPI Comments 83y F who presents to the ED via EMS for chief complaint of fall injury. Pt states she had mechanical trip and fall. Pt states she did not lose consciousness but states she had a small laceration to the L eyelid after fall with noted bleeding after fall. Pt called EMS who arrived on scene and noted pt has stable vitals with noted laceration and applied bandage to wound and brought pt to the ED. Pt in the ED,is otherwise alert and oriented x 4 and able to answer all questions. Pt otherwise not on blood thinners at this time. Pt otherwise denies any other symptoms at this time. Chief Complaint: Fall Injury Time Seen by MD: 19:09 Primary Care Provider: DENIES Reviewed notes: Nurses Notes, Machine Package Sealer Notes, Medications, Allergies Allergies: Coded Allergies: Sulfa Antibiotics (Verified Allergy, Unknown, 09/27/20) Home Meds Active Scripts Apixaban Base (ELIQUIS) 5 Mg Tab, 5 MG PO BID, #60 TAB 0 Refills Prov:XENIA DIALLO MD 03/03/23 Atorvastatin Calcium (ATORVASTATIN CALCIUM) 40 Mg Tab, 1 TAB PO DAILY, #30 TAB 1 Refill Prov:XENIA DIALLO MD 03/03/23 Aspirin (Aspirin Low Dose) 81 Mg Tab, 81 MG PO DAILY, #30 TAB 1 Refill Prov:XENIA DIALLO MD 03/03/23 Furosemide (Furosemide) 40 Mg Tab, 1 TAB PO DAILY, #90 TAB 3 Refills Prov:SOPHY LOWRY MD 08/15/22 Isosorbide Mononitrate (Isosorbide Mononitrate Er) 30 Mg Tab, 1 TAB PO DAILY, #90 TAB 1 Refill Prov:SOPHY LOWRY MD 08/15/22 Carvedilol (COREG) 3.125 Mg Tab, 3.125 MG PO BID, #90 TAB Prov:SOPHY LOWRY MD 08/15/22 Reported Medications Ranolazine (Ranolazine ER) 500 Mg Tab, 1 TAB PO BID for 30 Days, #60 01/01/24 Fentanyl (Fentanyl) 25 Mcg/Hr Dis, 1 PATCH TD Q72HR for 15 Days, #5 01/01/24 Lorazepam (Lorazepam Intensol) 2 Mg/Ml Con, 0.25 ML PO Q6HR PRN for ANXIETY for 15 Days, #15 01/01/24 Mirtazapine (Mirtazapine Oral Disintegrating Tablet) 15 Mg Tab, 1 TAB PO DAILY PRN for POOR APPETITE for 30 Days, #30 01/01/24 Potassium Chloride (Klor-Con 8) 8 Meq Tab, 1 TAB PO BID for 30 Days, #60 01/01/24 Omeprazole (Omeprazole Dr) 20 Mg Cap, 1 CAP PO DAILY for 60 Days, #60 01/01/24 Lidocaine (Lidocaine) 4 % Pad, 4 % EX Q12H, PAD 03/02/23 Trazodone Hcl (Trazodone Hcl) 50 Mg Tab, 50 MG PO BIDPRN, MG 03/02/23 Nitroglycerin (NTROSTAT SUBLINGUAL) 0.4 Mg Sl, 0.4 MG SL PRN for CHEST PAIN, TAB *MAY REPEAT EVERY 5 MINUTES X 3 TOTAL IF NO RELIEF, INITIATE ANALGESIC THERAPY. NOTIFY PHYSICIAN *Do not crush. 03/02/23 Hydrocodone-Acetaminophen (Hydrocodone Bitartrate/AC 5-325 mg) 1 Tab Tab, 1 TAB PO Q6H PRN for PAIN, TAB 03/02/23 Docusate Sodium (Colace) 100 Mg Cap, 100 MG PO DAILY, CAP 03/02/23 Cetirizine Hcl (Kls Aller-Aditya) 10 Mg Tab, 10 MG PO DAILY, TAB 03/02/23 Sertraline HCl (Sertraline Hydrochloride) 50 Mg Tab, 50 MG PO DAILY, TAB 03/02/23 Information Source: Patient, Emergency Med Personnel Mode of Arrival: EMS Severity: Moderate Timing: Minutes Duration: Since onset Prehospital treatment: None Location: Head Location of laceration: Face Mechanism: Blunt trauma, Fall Associated signs and symtoms: Headache Past Medical History PAST MEDICAL HISTORY: Arthritis, CAD, CVA, Depression, GERD, HTN, MT, UTI'S Surgical History: CABG, Cholecystectomy, Hysterectomy, Pacemaker, 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 Family History Family History: Reviewed,noncontributory to illness Social History Smoker: Non-Smoker Alcohol: Denies ETOH Use Drugs: Denies Drug Use Lives In: Home Constitutional: denies: chills, diaphoresis, fatigue, fever, malaise, sweats, weakness, others EENTM: reports: others (Generalized frontal head pain); denies: blurred vision, double vision, ear bleeding, ear discharge, ear drainage, ear pain, ear ringing, eye pain, eye redness, hearing loss, mouth pain, mouth swelling, nasal discharge, nose bleeding, nose congestion, nose pain, photophobia, tearing, throat pain, throat swelling, voice changes Respiratory: denies: cough, hemoptysis, orthopnea, SOB at rest, shortness of breath, SOB with excertion, stridor, wheezing, others Cardiovascular: denies: chest pain, dizzy spells, diaphoresis, Dyspnea on exertion, edema, irregular heart beat, left arm pain, lightheadedness, pa lpitations, PND, syncope, others Gastrointestinal: denies: abdomen distended, abdominal pain, blood streaked bowels, constipated, diarrhea, dysphagia, difficulty swallowing, hematemesis, melena, nausea, poor appetite, poor fluid intake, rectal bleeding, rectal pain, vomiting, others Genitourinary: denies: abnormal vagina bleeding, burning, dyspareunia, dysuria, flank pain, frequency, hematuria, incontinence, pain, , vagina discharge, urgency, others Neurological: denies: dizziness, fainting, headache, left sided numbness, left sided weakness, numbness, paresthesia, pre-existing deficit, right sided numbness, right sided weakness, seizure, speech problems, tingling, tremors, weakness, others Musculoskeletal: denies: back pain, gout, joint pain, joint swelling, muscle pain, muscle stiffness, neck pain, others Integumetry: reports: laceration (L eyebrow); denies: bruises, change in color, change in hair/nails, dryness, lesions, lumps, rash, wounds, others Allergic/Immunocompromised: denies: Difficulty Healing, Frequent Infections, Hives, Itching, others Hematologic/Lymphatic: denies: anemia, blood clots, easy bleeding, easy bruising, swollen glands, others Endocrine: denies: excessive hunger, excessive sweating, excessive thirst, excessive urination, flushing, intolerance to cold, intolerance to heat, unexplained weight gain, unexplained weight loss, others Psychiatric: denies: anxiety, bipolar disorder, depression, hopeless, panic disorder, schizophrenia, sleepless, suicidal, others All Other Systems: Reviewed and Negative Physical Exam General Appearance: Moderate Distress (Amof-lo-dgtllzmu distress due to anxiety more than pain related concerns.), Normal HEENT: Pharynx Normal, TMs Normal, Other (Patient displays a 3 cm horizontal laceration to the superior aspect of the left eyebrow. No skull depressions or deformities. Active bleed or appreciated. Patient has some ecchymosis that has developed underneath the left lower eyelid.) Neck: Full Range of Motion, Non-Tender, Normal, Normal Inspection Respiratory: Chest Non-Tender, Lungs Clear, No Accessory Muscle Use, No Respiratory Distress, Normal Breath Sounds Cardiovascular: No Edema, No JVD, No Murmur, No Gallop, Normal Peripheral Pulses, Regular Rate/Rhythm Breast Exam: Deferred Gastrointestinal: No Organomegaly, Non Tender, No Pulsatile Mass, Normal Bowel Sounds, Soft Genitalia: Deferred Pelvic: Deferred Rectal: Deferred Extremities: No calf tenderness, Normal capillary refill, Normal inspection, Normal range of motion, Non-tender, No pedal edema Neurologic: Alert, No Motor Deficits, Normal Affect, Normal Mood, No Sensory Deficits Cerebellar Function: NOT DONE Reflexes: NOT DONE Skin: Normal Color, Warm Lymphatic: No Adenopathy Was a procedure done? Was a procedure done?: Yes Sedation Sedation?: No Other Procedure Notes 4 cc of 1% lidocaine was utilized for local anesthesia of the superior left eyebrow laceration that is approximately 3 cm. Sterile field was placed. Copious irrigation performed. Six 5-0 Ethilon sutures were placed in a simple interrupted fashion to close the wound. Minimal blood loss. Patient tolerated procedure well. Clean dressing applied. Differential Diagnosis Multiple Trauma: Closed Head Injury, Abrasions, Contusion, Hematoma, Laceration Neck Injury: Cervical Sprain, Cervical Strain X-Ray, Labs, Meds, VS Vital Signs Date Time Temp Pulse Resp B/P (MAP) Pulse Ox O2 Delivery O2 Flow Rate FiO2 06/28/24 18:29 Room Air* 0 21 06/28/24 17:30 98.9 100 22 165/95 (118) 95 98.9 06/28/24 17:23 82 Current Medications Medications (Trade) Dose Ordered Sig/Adrian Route Start Time Stop Time Status Last Admin Acetaminophen/ Hydrocodone Bitart ([place] 5/325MG Tab) 1 tab ONCE ONCE PO 06/28/24 18:00 06/28/24 18:01 DC 06/28/24 18:[address] [address] Ph: [phone] DIAGNOSTIC IMAGING Diagnostic Imaging Report : [id number] Signed PATIENT: SHARA RAMIREZ ACCT: [id number] UNIT: [id number] : 1940 LOC: ER ROOM / BED: / AGE / SEX: 83 / F ADM STATUS: REG ER SERVICE 55 ORDERING PHYSICIAN: RAZ MCDANIEL PAC PROCEDURE(s): HWOCT - HEAD WITHOUT CONTRAST REASON: Left-sided frontal trauma ORDER NUMBER(s): [id number], ACCESSION NUMBER(s): [id number] CT HEAD WITHOUT CONTRAST INDICATION: Left-sided frontal trauma EXAM DATE: 06/28/2024 06:47 PM COMPARISON: CT HEAD WITHOUT CONTRAST on DOS: 05/26/24, CT STROKE CTH on DOS: , CT HEAD WITHOUT CONTRAST on DOS: 05/14/23 RADIATION DOSE: CTDIvol: mGy, DLP: mGy*cm PROCEDURE: CT scans of the head were obtained from the vertex to the skull base. Sagittal and coronal reconstructions were provided. All CT scans at this medical facility are performed using dose modulation techniques as appropriate to a performed exam including the following: Automated exposure control was utilized; adjustment of the MA and/or KV according to patient size; and use of iterative reconstruction technique. FINDINGS: There is soft tissue hematoma adjacent to the left nasal bone and left frontal bone. No fractures are appreciated. There is sinus disease involving the right sphenoid air cell. The mastoid air cells are very poorly developed in this patient patient May have right mastoid sinus disease. Internal auditory canals and middle ears are unremarkable. Orbits appear to be intact visualized calvarium is intact there are calcifications in the vertebral arteries bilaterally. Is very mild cortical atro phy and there is white matter disease which is accentuated in the anterior and posterior watershed bilaterally but is also distributed through the centrum semiovale bilaterally. There is a slight midline shift to the right having of approximately 2.7 mm involving the posterior septum pellucidum Midline structures are generally unremarkable hippocampal structures are symmetric. The atrophic changes are most pronounced in the cerebellum. . IMPRESSION: Mild atrophic changes which are more pronounced in the cerebellum there is generalized white matter disease that is accentuated in the anterior and posterior watershed. No acute stroke or old stroke are appreciated I would recommend a follow-up MRI examination.There is a subcutaneous hematoma adjacent 2 the left frontal bone. No fractures are seen There may be right mastoid sinus disease and there is right sphenoid sinus disease Follow-up MRI examination is suggested ATED BY: JAMAL DAVIES MD DICTATED DATE/TIME: 06/28/241912 SIGNED BY: JAMAL DAVIES MD SIGNED DATE/TIME: 06/28/241912 CC: X-Ray, Labs, Meds, VS Comment All studies performed the ED were evaluated by me personally. CT of the head was unremarkable for any acute intracranial process. No subarachnoid hemorrhage or subdural hematoma. No skull fracture. There was some white matter changes that may require additional evaluation. Advised patient to follow up with the primary care provider for discussions related to a possible MRI to evaluate those concerns. Advise utilizing antibiotics as directed until completion. Patient will return to ED or primary care provider in eight days for re- evaluation and probable suture removal. Time of 1ST Reevaluation: 19:30 Reevaluation 1ST: Improved Consultation: PCP Patient Education/Counseling: Diagnosis, Treatment Family Education/Counseling: Diagnosis, Treatment, No Family Present Departure 1 Departure Time of Disposition: 19:30 Impression: Primary Impression: Fall from ground level Additional Impressions: Head trauma Facial laceration Disposition: HOME / SELF CARE / HOMELESS Condition: Stable Additional Instructions: Advised patient utilize antibiotics as directed until completion as well as pain medication as needed. Patient should return to ED or primary care provider in approximately eight days for re-evaluation and probable suture removal. e-Prescriptions Acetaminophen (Acetaminophen) 500 Mg Tab 500 MG PO Q4HP PRN, #30 TAB Prov: RAZ MCDANIEL PAC 06/28/24 Ibuprofen Micronized (Ibuprofen) 600 Mg Tab 600 MG PO Q6HP PRN, #20 TAB Prov: RAZ MCDANIEL PAC 06/28/24 Cephalexin (KEFLEX CAPSULE) 250 Mg Cp 1 CAP PO QID for 7 Days, #28 CAP Prov: RAZ MCDANIEL PAC 06/28/24 Discharged With: Self, Relative Critical Care Note Critical Care Time?: No Stability Stability form required: No Heart Score Heart Score: Heart Score Response (Comments) Value History N/A 0 EKG N/A 0 Age N/A 0 Risk Factors N/A 0 Troponin N/A 0 Total 0 I personally scribed for RAZ MCDANIEL PAC ([email or web address]) on 06/28/24 at 19:11. Electronically submitted by Terry Waters ([email or web address]). I personally scribed for RAZ MCDANIEL PAC (Wavii) on 06/28/24 at 19:22. Electronically submitted by Terry Waters ([email or web address]). RAZ MCDANIEL PAC Jun 28, 2024 19:11
--- NOTE | 2024-06-28 19:15 | DVH ---
CT HEAD WITHOUT CONTRAST INDICATION: Left-sided frontal trauma EXAM DATE: 06/28/2024 06:47 PM COMPARISON: CT HEAD WITHOUT CONTRAST on DOS: 05/26/24, CT STROKE CTH on DOS: 11/06/23, CT HEAD WITHOUT C ONTRAST on DOS: 05/14/23 RADIATION DOSE: CTDIvol: mGy, DLP: mGy*cm PROCEDURE: CT scans of the head were obtained from the vertex to the skull base. Sagittal and coronal reconstructions were provided. All CT scans at this medical facility are performed using dose modulation techniques as appropriate t o a performed exam including the following: Automated exposure control was utilized; adjustment of th e MA and/or KV according to patient size; and use of iterative reconstruction technique. FINDINGS: There is soft tissue hematoma adjacent to the left nasal bone and left frontal bone. No fra ctures are appreciated. There is sinus disease involving the right sphenoid air cell. The mastoid air cells are very poorly developed in this patient patient May have right mastoid sinus disease. Internal auditory canals and middle ears are unremarkable. Orbits appear to be intact visualized calvarium is intact there are calcifications in the vertebral a rteries bilaterally. Is very mild cortical atrophy and there is white matter disease which is accentu ated in the anterior and posterior watershed bilaterally but is also distributed through the centrum semiovale bilaterally. There is a slight midline shift to the right having of approximately 2.7 mm in volving the posterior septum pellucidum Midline structures are generally unremarkable hippocampal structures are symmetric. The atrophic preciado ges are most pronounced in the cerebellum. . IMPRESSION: Mild atrophic changes which are more pronounced in the cerebellum there is generalized white matter d isease that is accentuated in the anterior and posterior watershed. No acute stroke or old stroke ar e appreciated I would recommend a follow-up MRI examination.There is a subcutaneous hematoma adjacent 2 the left frontal bone. No fractures are seen There may be right mastoid sinus disease and there i s right sphenoid sinus disease Follow-up MRI examination is suggested
[2024-06-28] MEDS ORDERED: IBUP1TAB5 PO (19:32)
[2024-06-28] MEDS ORDERED: CEPH250C PO (19:32)
[2024-06-28] MEDS ORDERED: ACET500T58 PO (19:32)
[2024-06-28 20:35] VITALS: BP 121/74; PULSE 78; RESP 16; TEMP 98.1; O2SAT 96
--- NOTE | 2024-07-01 07:18 | ECG ---
[facility] Test Date: 2024-06-28 Test Time: 17:23:01 Pat Name: SHARA RAMIREZ Department: ED Room: Gender: F Clothing Man: tanya : 1940 Requested By: KEVIN VARGAS Order Number: [id number] Reading MD: Measurements Intervals [place] Rate: 82 P: -46 OK: 164 QRS: -73 QRSD: 161 T: 78 QT: 435 QTc: 508 Interpretive Statements Sinus or ectopic atrial rhythm RBBB and LAFB Probable left ventricular hypertrophy Abnormal T, consider ischemia, lateral leads Please click the below link to view image of tracing.
== END 2024-06-28 20:36 | disposition home or self-care (01) ==
LOC: EDBD 17:23 → ER 17:25
DX: S01.112A Laceration without foreign body of left eyelid and periocular area, initial encounter (principal); I10 Essential (primary) hypertension; F32.A Depression, unspecified; I25.10 Atherosclerotic heart disease of native coronary artery without angina pectoris; R51.9 Headache, unspecified; Z79.82 Long term (current) use of aspirin; Z79.899 Other long term (current) drug therapy; Z87.440 Personal history of urinary (tract) infections; Z90.49 Acquired absence of other specified parts of digestive tract; Z90.710 Acquired absence of both cervix and uterus; Z95.0 Presence of cardiac pacemaker; Z95.1 Presence of aortocoronary bypass graft; Z88.2 Allergy status to sulfonamides; W01.0XXA Fall on same level from slipping, tripping and stumbling without subsequent striking against object, initial encounter; Y93.89 Activity, other specified; Y92.89 Other specified places as the place of occurrence of the external cause; Y99.8 Other external cause status
CPT/HCPCS: 12013; 70450; 93005; 99284; J2003

== ENCOUNTER → 2024-11-12 | Outpatient (CLI) | payer MEDICAID ==
[~2024-11-12] MED LIST changes: +ACET500T58 PO; +CEPH250C PO; +IBUP1TAB5 PO
[2024-11-12 11:37] LABS: Hematocrit 37.3 % (36.0-46.0); Hemoglobin 12.5 g/dL (12.2-16.2); Mean Corpuscular Hemoglobin 29.6 pg (28.0-32.0); Mean Corpuscular Volume 88.4 fL (80.0-100.0); Nucleated Red Blood Cells % 0.0 %
[2024-11-12 11:39] LABS: Alanine Aminotransferase 21 U/L (7-40); Albumin 4.3 g/dL (3.2-4.8); Alkaline Phosphatase 94 U/L (46-116); Calcium 9.2 mg/dL (8.7-10.4); Carbon Dioxide 28 mmol/L (20-31); Chloride 105 mmol/L (98-107); Glucose 89 mg/dL (74-106); Potassium 3.9 mmol/L (3.5-5.1); Sodium 143 mmol/L (136-145)
[2024-11-12 11:40] LABS: Anion Gap 10 (5-15); BUN/Creatinine Ratio 7.2 (10.0-20.0); Bilirubin, Direct < 0.1 mg/dL (<0.3); Bilirubin, Total 0.4 mg/dL (0.2-1.0); Blood Urea Nitrogen 8 mg/dL (9-23); Cholesterol 267 mg/dL (< 200); HDL Cholesterol 54 mg/dL (40-59); Total Protein 6.7 g/dL (5.7-8.2); Triglycerides 191 mg/dL (< 150)
== END | disposition home or self-care (01) ==
LOC: LAB 10:46
PROVIDERS: ATTEND Specialist
DX: I11.0 Hypertensive heart disease with heart failure (principal); E11.9 Type 2 diabetes mellitus without complications; E03.9 Hypothyroidism, unspecified; E78.5 Hyperlipidemia, unspecified; D64.9 Anemia, unspecified; R68.89 Other general symptoms and signs; I50.9 Heart failure, unspecified
CPT/HCPCS: 36415; 80053; 80061; 82248; 84443; 85025

== ENCOUNTER 2024-11-17 15:15 | Inpatient (IN) | payer MEDICAID ==
[~2024-11-17] VITALS: Ht 165.1 cm; Wt 61.1 kg
--- NOTE | 2024-11-17 16:22 | ED.PDOC ---
History of Present Illness HPI Comments 83 y.o female with PMHx of [place], CVA, CAD, GERD, CHF, and depression, presents to the ED via EMS for a chief complaint of generalized weakness. Per triage nurse, patient became lethargic today with a blood pressure in the 80's systolic in field. Per son on scene, he suspected patient might have taken too much of her Morphine prescription at home today causing her to be lethargic and hypotensive. Patient is alert and oriented x 3 and denies any pain. IV fluids are currently running with a BP of 90/50's. Upon ED arrival, BP did increae to 115 systolic. Chief Complaint: General Weakness Time Seen by MD: 16:11 Primary Care Provider: DENIES Reviewed Notes: Nurses Notes, Box Puller Notes, Medications, Allergies Allergies: Coded Allergies: Sulfa Antibiotics (Verified Allergy, Unknown, 09/27/20) Home Meds Active Scripts Acetaminophen (Acetaminophen) 500 Mg Tab, 500 MG PO Q4HP PRN, #30 TAB Prov:RAZ MCDANIEL PAC 06/28/24 Ibuprofen Micronized (Ibuprofen) 600 Mg Tab, 600 MG PO Q6HP PRN, #20 TAB Prov:RAZ MCDANIEL PAC 06/28/24 Cephalexin (KEFLEX CAPSULE) 250 Mg Cp, 1 CAP PO QID for 7 Days, #28 CAP Prov:RAZ MCDANIEL PAC 06/28/24 Apixaban Base (ELIQUIS) 5 Mg Tab, 5 MG PO BID, #60 TAB 0 Refills Prov:XENIA DIALLO MD 03/03/23 Atorvastatin Calcium (ATORVASTATIN CALCIUM) 40 Mg Tab, 1 TAB PO DAILY, #30 TAB 1 Refill Prov:XENIA DIALLO MD 03/03/23 Aspirin (Aspirin Low Dose) 81 Mg Tab, 81 MG PO DAILY, #30 TAB 1 Refill Prov:XENIA DIALLO MD 03/03/23 Furosemide (Furosemide) 40 Mg Tab, 1 TAB PO DAILY, #90 TAB 3 Refills Prov:SOPHY LOWRY MD 08/15/22 Isosorbide Mononitrate (Isosorbide Mononitrate Er) 30 Mg Tab, 1 TAB PO DAILY, #90 TAB 1 Refill Prov:SOPHY LOWRY MD 08/15/22 Carvedilol (COREG) 3.125 Mg Tab, 3.125 MG PO BID, #90 TAB Prov:SOPHY LOWRY MD 08/15/22 Reported Medications Ranolazine (Ranolazine ER) 500 Mg Tab, 1 TAB PO BID for 30 Days, #60 01/01/24 Fentanyl (Fentanyl) 25 Mcg/Hr Dis, 1 PATCH TD Q72HR for 15 Days, #5 01/01/24 Lorazepam (Lorazepam Intensol) 2 Mg/Ml Con, 0.25 ML PO Q6HR PRN for ANXIETY for 15 Days, #15 01/01/24 Mirtazapine (Mirtazapine Oral Disintegrating Tablet) 15 Mg Tab, 1 TAB PO DAILY PRN for POOR APPETITE for 30 Days, #30 01/01/24 Potassium Chloride (Klor-Con 8) 8 Meq Tab, 1 TAB PO BID for 30 Days, #60 01/01/24 Omeprazole (Omeprazole Dr) 20 Mg Cap, 1 CAP PO DAILY for 60 Days, #60 01/01/24 Lidocaine (Lidocaine) 4 % Pad, 4 % EX Q12H, PAD 03/02/23 Trazodone Hcl (Trazodone Hcl) 50 Mg Tab, 50 MG PO BIDPRN, MG 03/02/23 Nitroglycerin (NTROSTAT SUBLINGUAL) 0.4 Mg Sl, 0.4 MG SL PRN for CHEST PAIN, TAB *MAY REPEAT EVERY 5 MINUTES X 3 TOTAL IF NO RELIEF, INITIATE ANALGESIC THERAPY. NOTIFY PHYSICIAN *Do not crush. 03/02/23 Hydrocodone-Acetaminophen (Hydrocodone Bitartrate/AC 5-325 mg) 1 Tab Tab, 1 TAB PO Q6H PRN for PAIN, TAB 03/02/23 Docusate Sodium (Colace) 100 Mg Cap, 100 MG PO DAILY, CAP 03/02/23 Cetirizine Hcl (Kls Aller-Aditya) 10 Mg Tab, 10 MG PO DAILY, TAB 03/02/23 Sertraline HCl (Sertraline Hydrochloride) 50 Mg Tab, 50 MG PO DAILY, TAB 03/02/23 Information Source: Patient, Emergency Med Personnel Mode of Arrival: EMS Severity: Moderate Timing: Hours Duration: Since onset Past Medical History PAST MEDICAL HISTORY: Arthritis, CAD, CVA, Depression, GERD, HTN, [place], UTI'S Surgical History: CABG, Cholecystectomy, Hysterectomy, Pacemaker, PTCA CENTRAL SUPPLY MANAGER History: No Pertinent CENTRAL SUPPLY MANAGER History Family History Family History: Reviewed,noncontributory to illness Social History Smoker: Non-Smoker Alcohol: Denies ETOH Use Drugs: Denies Drug Use Lives In: Home Constitutional: reports: weakness; denies: chills, diaphoresis, fatigue, fever, malaise, sweats, others EENTM: denies: blurred vision, double vision, ear bleeding, ear discharge, ear drainage, ear pain, ear ringing, eye pain, eye redness, hearing loss, mouth pain, mouth swelling, nasal discharge, nose bleeding, nose congestion, nose pain, photophobia, tearing, throat pain, throat swelling, voice changes, others Respiratory: denies: cough, hemoptysis, orthopnea, SOB at rest, shortness of breath, SOB with excertion, stridor, wheezing, others Cardiovascular: denies: chest pain, dizzy spells, diaphoresis, Dyspnea on ex ertion, edema, irregular heart beat, left arm pain, lightheadedness, palpitations, PND, syncope, others Gastrointestinal: denies: abdomen distended, abdominal pain, blood streaked bowels, constipated, diarrhea, dysphagia, difficulty swallowing, hematemesis, melena, nausea, poor appetite, poor fluid intake, rectal bleeding, rectal pain, vomiting, others Genitourinary: denies: abnormal vagina bleeding, burning, dyspareunia, dysuria, flank pain, frequency, hematuria, incontinence, pain, , vagina discharge, urgency, others Neurological: denies: dizziness, fainting, headache, left sided numbness, left sided weakness, numbness, paresthesia, pre-existing deficit, right sided numbness, right sided weakness, seizure, speech problems, tingling, tremors, weakness, others Musculoskeletal: denies: back pain, gout, joint pain, joint swelling, muscle pain, muscle stiffness, neck pain, others Integumetry: denies: bruises, change in color, change in hair/nails, dryness, laceration, lesions, lumps, rash, wounds, others Allergic/Immunocompromised: denies: Difficulty Healing, Frequent Infections, Hives, Itching, others Hematologic/Lymphatic: denies: anemia, blood clots, easy bleeding, easy bruising, swollen glands, others Endocrine: denies: excessive hunger, excessive sweating, excessive thirst, excessive urination, flushing, intolerance to cold, intolerance to heat, unexplained weight gain, unexplained weight loss, others Psychiatric: denies: anxiety, bipolar disorder, depression, hopeless, panic disorder, schizophrenia, sleepless, suicidal, others All Other Systems: Reviewed and Negative Physical Exam General Appearance: Other (lethargic appearing ) HEENT: Normal ENT Inspection Neck: Normal Inspection Respiratory: No Accessory Muscle Use, No Respiratory Distress Cardiovascular: Normal Peripheral Pulses, Regular Rate/Rhythm Breast Exam: Deferred Gastrointestinal: NOT DONE Genitalia: Deferred Pelvic: Deferred Rectal: Deferred Extremities: Normal inspection Musculoskeletal : Apperance: Normal Neurologic: Alert (alert and oriented x 3- lethargic ) Cerebellar Function: Unable to Test Reflexes: NOT DONE Skin: Dry Lymphatic: NOT DONE Was a procedure done? Was a procedure done?: No Differential Dx Considerations may include: Accidental medication overdose, Dehydration, Hypotension, Viral syndrome, electrolyte imbalance X-Ray, Labs, Meds, VS Vital Signs Date Time Temp Pulse Resp B/P (MAP) Pulse Ox O2 Delivery O2 Flow Rate FiO2 11/17/24 15:49 98.9 103 15 117/74 98 98.9 11/17/24 15:18 87 Lab Test 11/17/24 16:45 Range/Units White Blood Count 13.8 #H 4.4-10.8 10^3/uL Red Blood Count 3.41 L 4.0-5.20 10^6/uL Hemoglobin 10.0 #L 12.2-16.2 g/dL Hematocrit 30.2 #L 36.0-46.0 % Mean Corpuscular Volume 88.5 80.0-100.0 fL Mean Corpuscular Hemoglobin 29.2 28.0-32.0 pg Mean Corpuscular Hemoglobin Concent 33.0 32.0-36.0 g/dL Red Cell Distribution Width 16.2 H 11.8-14.3 % Platelet Count 262 140-450 10^3/uL Mean Platelet Volume 8.5 6.9-10.8 fL Neutrophils (%) (Auto) 78.9 37.0-80.0 % Lymphocytes (%) (Auto) 13.9 10.0-50.0 % Monocytes (%) (Auto) 6.3 0.0-12.0 % Eosinophils (%) (Auto) 0.7 0.0-7.0 % Basophils (%) (Auto) 0.2 0.0-2.0 % Neutrophils # (Auto) 10.9 H 1.6-8.6 10 ^3/uL Lymphocytes # (Auto) 1.9 0.4-5.4 10 ^3/uL Monocytes # (Auto) 0.9 0-1.3 10 ^3/uL Eosinophils # (Auto) 0.1 0-0.8 10 ^3/uL Basophils # (Auto) 0 0-0.2 10 ^3/uL Nucleated Red Blood Cells 0.0 % Prothrombin Time 11.4 9.3-11.8 sec Prothrombin Time INR 1.08 0.9-1.15 Activated Partial Thromboplast Time 29.7 24.5-34.5 SEC D-Dimer, Quantitative 1.80 H 0.0-0.49 mg/L FEU Sodium Level 145 136-145 mmol/L Potassium Level 3.7 3.5-5.1 mmol/L Chloride Level 112 H 98-107 mmol/L Carbon Dioxide Level 23 20-31 mmol/L Anion Gap 10 5-15 Blood Urea Nitrogen 12 9-23 mg/dL Creatinine 1.00 0.550-1.02 mg/dL Glomerular Filtration Rate Calc 55 >90 mL/min BUN/Creatinine Ratio 12.0 10.0-20.0 Serum Glucose 114 H 74-106 mg/dL Calcium Level 7.6 L 8.7-10.4 mg/dL Magnesium Level 1.8 1.6-2.6 mg/dL Total Bilirubin 0.4 0.2-1.0 mg/dL Aspartate Amino Transferase (AST) 12 L 13-40 U/L Alanine Aminotransferase (ALT) 11 7-40 U/L Alkaline Phosphatase 59 46-116 U/L Troponin I High Sensitivity 48 *H </=34 ng/L Total Protein 4.9 L 5.7-8.2 g/dL Albumin 3.2 3.2-4.8 g/dL X-Ray, Labs, Meds, VS Comment This 83-year-old female presents to emergency room secondary to weakness. Per family, she became increasingly sedated after taking her home narcotics for her chronic pain. Here, however, she had had multiple abnormalities including an elevated troponin and elevated D-dimer. Unfortunately, GFR is 55. As such, CT angio was not were. V/Q scan was ordered. She is asked to provided with a spirin pending admission. I am concerned the patient may have a life- threatening cardiac or pulmonary ailment. Time of 1ST Reevaluation: 16:19 Reevaluation 1ST: Unchanged Time of 2ND Reevaluation: 17:36 Reevaluation 2ND: Unchanged Patient Education/Counseling: Diagnosis, Treatment, Prognosis Family Education/Counseling: No Family Present SEPSIS Sepsis Screen Date sepsis recognized/suspect: Nov 17, 2024 Time Sepsis recognized/suspect: 1520 Recent Procedure: No On Antibiotic Therapy: No Respiratory Rate >20: No Heart Rate >90: No Temp<36 C (96.8 F) or >38.3 C: No SBP <90 or MAP <65 mmHG: No New Acute Mental Status Change: No Is the patient on CPAP, BIPAP,: No Physician Orders Electrocardigram (11/17/24 15:29) Urinalysis (11/17/24 16:34) Sodium Chloride 0.9% (11/17/24 16:45) Troponin-I Hs (11/17/24 17:34) Vital Signs Date Time Temp Pulse Resp B/P (MAP) Pulse Ox O2 Delivery O2 Flow Rate FiO2 11/17/24 15:49 98.9 103 15 117/74 98 98.9 11/17/24 15:18 87 Laboratory Tests Test 11/17/24 16:45 White Blood Count 13.8 10^3/uL (4.4-10.8) #H Departure 1 Departure Time of Disposition: 17:34 Impression: Primary Impression: ACS (acute coronary syndrome) Additional Impressions: NSTEMI (non-ST elevated myocardial infarction) Elevated d-dimer Disposition: 09 ADMITTED INPATIENT Admit to: Tele Condition: Serious Critical Care Note Critical Care Time?: Yes (35 min-critical care time only) Stability Stability form required: No I personally scribed for MONTSE COLEMAN MD ([email or web address]) on 11/17/24 at 16:22. Electronically submitted by Radha Shafer ([email or web address]). I personally scribed for MONTSE COLEMAN MD ([email or web address]) on 11/17/24 at 16:24. Electronically submitted by Radha Shafer ([email or web address]). MONTSE COLEMAN MD Nov 17, 2024 16:22
[2024-11-17] MEDS: SODIUM CHLORIDE 0.9% 500 ML IV ONE (16:45)
[2024-11-17 16:58] LABS: Hematocrit 30.2 % (36.0-46.0); Hemoglobin 10.0 g/dL (12.2-16.2); Mean Corpuscular Hemoglobin 29.2 pg (28.0-32.0); Mean Corpuscular Volume 88.5 fL (80.0-100.0); Nucleated Red Blood Cells % 0.0 %
[2024-11-17 17:08] LABS: Alanine Aminotransferase 11 U/L (7-40); Albumin 3.2 g/dL (3.2-4.8); Alkaline Phosphatase 59 U/L (46-116); Anion Gap 10 (5-15); BUN/Creatinine Ratio 12.0 (10.0-20.0); Blood Urea Nitrogen 12 mg/dL (9-23); Carbon Dioxide 23 mmol/L (20-31); Magnesium 1.8 mg/dL (1.6-2.6); Potassium 3.7 mmol/L (3.5-5.1); Sodium 145 mmol/L (136-145)
[2024-11-17 17:09] LABS: Bilirubin, Total 0.4 mg/dL (0.2-1.0)
[2024-11-17 17:13] LABS: INR 1.08 (0.9-1.15); Partial Thromboplastin Time 29.7 SEC (24.5-34.5); Prothrombin Time 11.4 sec (9.3-11.8)
[2024-11-17 17:17] LABS: Calcium 7.6 mg/dL (8.7-10.4); Chloride 112 mmol/L (98-107); Glucose 114 mg/dL (74-106); Total Protein 4.9 g/dL (5.7-8.2)
--- NOTE | 2024-11-17 19:30 | DVHHP2 ---
Admitting Diagnosis: Generalized weakness History of Present Illness 83 y.o female with PMHx of [place], CVA, CAD, GERD, CHF, and depression, presents to the ED via EMS for a chief complaint of generalized weakness. Per triage nurse, patient became lethargic today with a blood pressure in the 80's systolic in field. Per son on scene, he suspected patient might have taken too much of her Morphine prescription at home today causing her to be lethargic and hypotensive. Patient is alert and oriented x 3 and denies any pain. IV fluids are currently running with a BP of 90/50's. Upon ED arrival, BP did increae to 115 systolic. PAST MEDICAL HISTORY: Arthritis, CAD, CVA, Depression, GERD, HTN, [place], UTI'S Surgical History: CABG, Cholecystectomy, Hysterectomy, Pacemaker, PTCA POLE CUTTER History: No Pertinent POLE CUTTER History Family History Family History: Reviewed,noncontributory to illness Social History Smoker: Non-Smoker Alcohol: Denies ETOH Use Drugs: Denies Drug Use Lives In: Home Patient Family History: FH: arthritis G8 MOTHER FH: breast cancer 19 CHILD FH: cancer G8 MOTHER Family history: Cardiovascular disease G8 MOTHER G8 SISTER Family history: Diabetes mellitus G8 MOTHER G8 SISTER Family history: Hypertension G8 MOTHER GI bleeding G8 FATHER Tumor 19 CHILD Allergies: Coded Allergies: Sulfa Antibiotics (Verified Allergy, Unknown, 09/27/20) Home Meds Active Scripts Acetaminophen (Acetaminophen) 500 Mg Tab, 500 MG PO Q4HP PRN, #30 TAB Prov:RAZ MCDANIEL PAC 06/28/24 Ibuprofen Micronized (Ibuprofen) 600 Mg Tab, 600 MG PO Q6HP PRN, #20 TAB Prov:RAZ MCDANIEL PAC 06/28/24 Cephalexin (KEFLEX CAPSULE) 250 Mg Cp, 1 CAP PO QID for 7 Days, #28 CAP Prov:RAZ MCDANIEL PAC 06/28/24 Apixaban Base (ELIQUIS) 5 Mg Tab, 5 MG PO BID, #60 TAB 0 Refills Prov:XENIA DIALLO MD 03/03/23 Atorvastatin Calcium (ATORVASTATIN CALCIUM) 40 Mg Tab, 1 TAB PO DAILY, #30 TAB 1 Refill Prov:XENIA DIALLO MD 03/03/23 Aspirin (Aspirin Low Dose) 81 Mg Tab, 81 MG PO DAILY, #30 TAB 1 Refill Prov:XENIA DIALLO MD 03/03/23 Furosemide (Furosemide) 40 Mg Tab, 1 TAB PO DAILY, #90 TAB 3 Refills Prov:SOPHY LOWRY MD 08/15/22 Isosorbide Mononitrate (Isosorbide Mononitrate Er) 30 Mg Tab, 1 TAB PO DAILY, #90 TAB 1 Refill Prov:SOPHY LOWRY MD 08/15/22 Carvedilol (COREG) 3.125 Mg Tab, 3.125 MG PO BID, #90 TAB Prov:SOPHY LOWRY MD 08/15/22 Reported Medications Ranolazine (Ranolazine ER) 500 Mg Tab, 1 TAB PO BID for 30 Days, #60 01/01/24 Fentanyl (Fentanyl) 25 Mcg/Hr Dis, 1 PATCH TD Q72HR for 15 Days, #5 01/01/24 Lorazepam (Lorazepam Intensol) 2 Mg/Ml Con, 0.25 ML PO Q6HR PRN for ANXIETY for 15 Days, #15 01/01/24 Mirtazapine (Mirtazapine Oral Disintegrating Tablet) 15 Mg Tab, 1 TAB PO DAILY PRN for POOR APPETITE for 30 Days, #30 01/01/24 Potassium Chloride (Klor-Con 8) 8 Meq Tab, 1 TAB PO BID for 30 Days, #60 01/01/24 Omeprazole (Omeprazole Dr) 20 Mg Cap, 1 CAP PO DAILY for 60 Days, #60 01/01/24 Lidocaine (Lidocaine) 4 % Pad, 4 % EX Q12H, PAD 03/02/23 Trazodone Hcl (Trazodone Hcl) 50 Mg Tab, 50 MG PO BIDPRN, MG 03/02/23 Nitroglycerin (NTROSTAT SUBLINGUAL) 0.4 Mg Sl, 0.4 MG SL PRN for CHEST PAIN, TAB *MAY REPEAT EVERY 5 MINUTES X 3 TOTAL IF NO RELIEF, INITIATE ANALGESIC THERAPY. NOTIFY PHYSICIAN *Do not crush. 03/02/23 Hydrocodone-Acetaminophen (Hydrocodone Bitartrate/AC 5-325 mg) 1 Tab Tab, 1 TAB PO Q6H PRN for PAIN, TAB 03/02/23 Docusate Sodium (Colace) 100 Mg Cap, 100 MG PO DAILY, CAP 03/02/23 Cetirizine Hcl (Kls Aller-Aditya) 10 Mg Tab, 10 MG PO DAILY, TAB 03/02/23 Sertraline HCl (Sertraline Hydrochloride) 50 Mg Tab, 50 MG PO DAILY, TAB 03/02/23 Current Medications Current Medications Medications (Trade) Dose Ordered Sig/Adrian Route PRN Reason Start Time Stop Time Status Last Admin Ceftriaxone Sodium 50 ml @ 100 mls/hr DAILY@09 IV 11/17/24 21:15 UNV Azithromycin 250 ml @ 125 mls/hr DAILY IV 11/17/24 21:15 UNV Sodium Chloride (Saline Lock Ns) 10 ml Q8HR IV 11/17/24 22:00 UNV Docusate Sodium (Colace Capsule) 100 mg BIDPRN PRN PO FOR CONSTIPATION 11/17/24 21:15 UNV Acetaminophen (Tylenol Tablet) 650 mg Q6HP PRN PO PAIN SCALE 1-3 OR TEMP>100.4 11/17/24 21:15 UNV Acetaminophen/ Hydrocodone Bitart ([place] 5/325MG Tab) 1 tab Q4HP PRN PO MODERATE PAIN (4-6 PAIN SCALE) 11/17/24 21:15 UNV Hydromorphone HCl (Dilaudid Injection) 0.5 mg Q4HP PRN IV SEVERE PAIN (7-10 PAIN SCALE) 11/17/24 21:15 UNV Ondansetron HCl (Zofran) 4 mg Q4HP PRN IV NAUSEA / VOMITING 11/17/24 21:15 UNV Enoxaparin Sodium (Lovenox) 40 mg DAILY SC 11/18/24 10:00 UNV Vital Signs Vital Signs Date Time Temp Pulse Resp B/P (MAP) Pulse Ox O2 Delivery O2 Flow Rate FiO2 11/17/24 19:30 70 12 118/80 (93) 93 11/17/24 17:30 98.4 98.4 Physical Exam Generally-83 years old woman, well nourished well developed. No apparent distress HEENT-atraumatic and normocephalic Heart-regular rate and rhythm Lungs decreased breath sounds Abdomen soft nontender nondistended Musculoskeletal-no edema cyanosis Neuro-awake alert, follow commands, no focal deficits SEPSIS Sepsis Screen Date sepsis recognized/suspect: Nov 17, 2024 Time Sepsis recognized/suspect: 1519 Recent Procedure: No On Antibiotic Therapy: No Respiratory Rate >20: No Heart Rate >90: No Temp<36 C (96.8 F) or >38.3 C: No SBP <90 or MAP <65 mmHG: No New Acute Mental Status Change: No Is the patient on CPAP, BIPAP,: No Physician Orders Electrocardigram (11/17/24 15:29) Nm Vq Scan (11/17/24 17:36) Ct Angio Chest Contrast (11/17/24 21:07) Ceftriaxone 1gm/50ml D5w (Rocephin) (11/17/24 21:15) Azithromycin 500mg/ 250ml (Zithromax 50 (11/17/24 21:15) Respiratory Culture W/ Gs (11/17/24 21:07) C-Reactive Protein (11/17/24 21:07) Erythrocyte Sedimentation Rate (11/17/24 21:07) Echo 2d Mode Cardiac Dop (11/17/24 21:07) * Cardiology Consult (11/17/24 21:07) Review Orders With Adm.Md (11/17/24 21:07) Encourage Activity As Tolerate (11/17/24 21:07) Sodium Chloride Lock (Saline Lock Ns) (11/17/24 22:00) Docusate Sodium Capsule (Colace Capsule) (11/17/24 21:15) Acetaminophen Tablet (Tylenol Tablet) (11/17/24 21:15) Notify Md Of Changes From Base (11/17/24 21:07) Advance Directive (11/17/24 21:07) Patient Condition (11/17/24 21:07) Allergies (11/17/24 21:07) Hydrocodone-Acet 5/325mg Tab ([place] 5/32 (11/17/24 21:15) Hydromorphone Injection (Dilaudid Inject (11/17/24 21:15) Ondansetron Hcl (Zofran) (11/17/24 21:15) Enoxaparin Sodium (Lovenox) (11/18/24 10:00) Sodium Chloride 0.9% (11/17/24 21:15) Admit (11/17/24 21:07) Code Status (11/17/24 21:07) Vital Signs .PER UNIT PROTOCOL (11/17/24 21:07) Apixaban (Eliquis) (11/17/24 22:00) Aspirin Enteric Coated Tablet (Ecotrin E (11/18/24 10:00) Carvedilol Tablet (Coreg Tablet) (11/17/24 22:00) Docusate Sodium Capsule (Colace Capsule) (11/18/24 10:00) Furosemide Tablet (Lasix Tablet) (11/18/24 10:00) Ranolazine (Ranexa Er) (11/17/24 22:00) Sertraline Hcl (Zoloft) (11/18/24 10:00) Trazodone Hcl (Desyrel) (11/17/24 22:00) (Nf) Atorvastatin Calcium (11/18/24 10:00) (Nf) Isosorbide Mononitrate (Isosorbide (11/18/24 10:00) (Nf) Mirtazapine (Mirtazapine Oral Disin (11/17/24 21:15) Vital Signs Date Time Temp Pulse Resp B/P (MAP) Pulse Ox O2 Delivery O2 Flow Rate FiO2 11/17/24 19:30 70 12 118/80 (93) 93 11/17/24 17:30 98.4 70 19 121/64 (83) 96 98.4 11/17/24 15:49 98.9 103 15 117/74 98 98.9 11/17/24 15:18 87 Laboratory Tests Test 11/17/24 16:45 White Blood Count 13.8 10^3/uL (4.4-10.8) #H Results Labs Test 11/17/24 20:24 11/17/24 17:38 11/17/24 16:45 Range/Units Urine Color Yellow Yellow Urine Clarity Clear Clear Urine pH 5.5 5.0-9.0 Urine Specific [place] 1.010 1.001-1.035 Urine Protein Negative Negative Urine Ketones Negative Negative Urine Blood Negative Negative /uL Urine Nitrite Negative Negative Urine Bilirubin Negative Negative Urine Urobilinogen Normal Negative mg/dL Urine Leukocyte Esterase 1+ Negative /uL Urine RBC 1 0 - 4 /hpf Urine Microscopic WBC 8 H 0-5 /HPF Urine Squamous Epithelial Cells Few <5 /hpf Urine Bacteria Few H None Seen /hpf Urine Glucose Normal Normal mg/dL Troponin I High Sensitivity 50 *H </=34 ng/L White Blood Count 13.8 #H 4.4-10.8 10^3/uL Red Blood Count 3.41 L 4.0-5.20 10^6/uL Hemoglobin 10.0 #L 12.2-16.2 g/dL Hematocrit 30.2 #L 36.0-46.0 % Mean Corpuscular Volume 88.5 80.0-100.0 fL Mean Corpuscular Hemoglobin 29.2 28.0-32.0 pg Mean Corpuscular Hemoglobin Concent 33.0 32.0-36.0 g/dL Red Cell Distribution Width 16.2 H 11.8-14.3 % Platelet Count 262 140-450 10^3/uL Mean Platelet Volume 8.5 6.9-10.8 fL Neutrophils (%) (Auto) 78.9 37.0-80.0 % Lymphocytes (%) (Auto) 13.9 10.0-50.0 % Monocytes (%) (Auto) 6.3 0.0-12.0 % Eosinophils (%) (Auto) 0.7 0.0-7.0 % Basophils (%) (Auto) 0.2 0.0-2.0 % Neutrophils # (Auto) 10.9 H 1.6-8.6 10 ^3/uL Lymphocytes # (Auto) 1.9 0.4-5.4 10 ^3/uL Monocytes # (Auto) 0.9 0-1.3 10 ^3/uL Eosinophils # (Auto) 0.1 0-0.8 10 ^3/uL Basophils # (Auto) 0 0-0.2 10 ^3/uL Nucleated Red Blood Cells 0.0 % Prothrombin Time 11.4 9.3-11.8 sec Prothrombin Time INR 1.08 0.9-1.15 Activated Partial Thromboplast Time 29.7 24.5-34.5 SEC D-Dimer, Quantitative 1.80 H 0.0-0.49 mg/L FEU Sodium Level 145 136-145 mmol/L Potassium Level 3.7 3.5-5.1 mmol/L Chloride Level 112 H 98-107 mmol/L Carbon Dioxide Level 23 20-31 mmol/L Anion Gap 10 5-15 Blood Urea Nitrogen 12 9-23 mg/dL Creatinine 1.00 0.550-1.02 mg/dL Glomerular Filtration Rate Calc 55 >90 mL/min BUN/Creatinine Ratio 12.0 10.0-20.0 Serum Glucose 114 H 74-106 mg/dL Calcium Level 7.6 L 8.7-10.4 mg/dL Magnesium Level 1.8 1.6-2.6 mg/dL Total Bilirubin 0.4 0.2-1.0 mg/dL Aspartate Amino Transferase (AST) 12 L 13-40 U/L Alanine Aminotransferase (ALT) 11 7-40 U/L Alkaline Phosphatase 59 46-116 U/L Total Protein 4.9 L 5.7-8.2 g/dL Albumin 3.2 3.2-4.8 g/dL Primary Diagnosis Elevated troponin rule out ACS Elevated WBC rule out infection Plan Elevated WBC check UA and chest x-ray for possible sepsis Check lactic acid Elevated D-dimer CTA chest to rule out PE Ceftriaxone, azithromycin for possible pneumonia Check blood culture and sputum culture Elevated troponin. Check echocardiogram of the heart rule out ACS Cardiology consult Cardiac diet Resume home meds Full code Eliquis for DVT prophylaxis No GI prophylaxis needed Plan discussed with: Patient Problems List: (1) Elevated troponin (2) Elevated d-dimer Status: Acute Date of Service: Nov 17, 2024 Billing Provider: REANNA LÓPEZ MD Common Visit Codes: [id number] INP/OBS CARE (HIGH) REANNA LÓPEZ MD Nov 17, 2024 19:30
[2024-11-17 20:35] LABS: Urine Protein, UAD Negative (Negative)
[2024-11-17] MEDS ORDERED: ONDANSETRON HCL 4 MG/2 ML VIAL IV PRN (21:15)
[2024-11-17] MEDS ORDERED: DOCUSATE SOD 100 MG CAP PO PRN (21:15)
[2024-11-17] MEDS ORDERED: HYDROmorphone HCL 2 MG/ML VL/or syr IV PRN (21:15)
[2024-11-17] MEDS ORDERED: MIRTAZAPINE PO PRN (21:15)
[2024-11-17] MEDS: IOHEXOL 350 MG/ML 100ML IJ ONE (21:19)
--- NOTE | 2024-11-17 21:56 | DVH ---
Procedure: CT CT ANGIO CHEST CONTRAST Study Date and Requested Time: 10/26 09:13 PM History: elevated d-dimer r/o PE Comparison: XY CHEST TWO VIEWS ROUTINE on DOS: 05/26/24, XY CHEST PORTABLE on DOS: 12/30/23, XY CHEST PO RTABLE on DOS: 11/04/23 Dose: CTDI: 15.33 mGy DLP: 439.62 mGycm Technique: Multiplanar images of the chest are obtained with contrast. 3-D MIP image postprocessing w as performed and images were used for interpretation and reporting. Findings: Thyroid gland is unremarkable. Left-sided approach dual lead pacemaker terminating within right atriu m and right ventricle. No evidence of filling defect within the pulmonary arteries to suggest pulmonary embolism. No evidenc e of aortic aneurysm or dissection. Vitf-[id number] atherosclerotic calcification of the aorta. Ground-glass opacities of the right upper lobe. Bilateral lower lobe , lingula and right middle lobe atelectasis Moderate cardiomegaly. Reflux of contrast into the IVC and hepatic veins. Mediastinal lymphadenopathy. Minimal body wall edema. 1.6 cm right renal cysts. Status post cholecystectomy. Significant distention of the stomach. Otherw ise, Partial view of the upper abdomen is unremarkable. Moderate chronic appearing loss of inferior v ertebral body height of T8 Impression: No evidence of pulmonary embolism, aortic aneurysm, or dissection. Ground-glass opacities of the right upper lobe represent infectious/ inflammatory process. Mediastinal lymphadenopathy which may be reactive/neoplastic. Moderate cardiomegaly with reflux of contrast into the IVC and hepatic veins consistent with right he art dysfunction.
[2024-11-17] MEDS: SODIUM CHLORIDE 0.9% 1,000 ML IV ONE (22:00)
--- NOTE | 2024-11-17 22:03 | DVH ---
EXAM: CT HEAD WITHOUT CONTRAST INDICATION: DROOPING LEFT EYE / UNEVEN SMILE TECHNIQUE: CT of the head without intravenous contrast. Radiation Dose Information: CT Dose: CTDI volume is 51.78 mGy. Dose-length product is 830.22 mGy*cm The dose indicators for CT are the volume Computed Tomography (CT) Dose Index (CTDIvol) and the Dose Length Product (DLP), and are measured in units of mGy and mGy-cm, respectively. These indicators are not patient dose, but values generated from the CT scanner acquisition factors. The report includes radiation exposure data for exposures received during this examination. COMPARISON: CT HEAD WITHOUT CONTRAST on DOS: 06/28/24, CT HEAD WITHOUT CONTRAST on DOS: 05/26/24, CT STRO KE CTH on DOS: 11/06/23 FINDINGS: There is no evidence of acute intracranial hemorrhage, extra-axial collection, mass effect, midline s hift, herniation or hydrocephalus. The ventricles, sulci and cisterns are age appropriate. The villalpando-white differentiation is intact. Patchy periventricular and subcortical white matter hypoattenuation is nonspecific but may be related to small vessel ischemic disease. The visualized paranasal sinuses and mastoid air cells are clear. The surrounding soft tissues and osseous structures are unremarkable. IMPRESSION: 1. No acute intracranial abnormality.
[2024-11-17] MEDS: SODIUM CHLOR 0.9% PF (SALINE LOCK) 10ML VIAL/SYR IV SCH (22:17)
[2024-11-17] MEDS: CARVEDILOL 3.125 MG TAB PO SCH (22:32)
[2024-11-17] MEDS: APIXABAN 5 MG TAB PO SCH (22:33)
[2024-11-17] MEDS: RANOLAZINE ER 500 MG TAB PO SCH (22:33)
[2024-11-17] MEDS: AZITHROMYCIN 500MG/ 250ML 250 ML IV ONE (22:53)
[2024-11-17 22:55] VITALS: PULSE 82; RESP 18; O2SAT 96
[2024-11-18] VITALS (9 sets, daily range): BP systolic 101–136; BP diastolic 50–80; PULSE 70–97; RESP 16–18; TEMP 97.8–98.4; O2SAT 92–96
[2024-11-18 06:28] LABS: Hematocrit 30.1 % (36.0-46.0); Hemoglobin 10.0 g/dL (12.2-16.2); Mean Corpuscular Hemoglobin 29.5 pg (28.0-32.0); Mean Corpuscular Volume 88.7 fL (80.0-100.0); Nucleated Red Blood Cells % 0.1 %
[2024-11-18 06:47] LABS: Albumin 3.3 g/dL (3.2-4.8); Alkaline Phosphatase 59 U/L (46-116); Anion Gap 9 (5-15); BUN/Creatinine Ratio 11.5 (10.0-20.0); Blood Urea Nitrogen 10 mg/dL (9-23); Carbon Dioxide 24 mmol/L (20-31); Potassium 3.6 mmol/L (3.5-5.1); Sodium 142 mmol/L (136-145)
[2024-11-18 06:49] LABS: Alanine Aminotransferase < 9 U/L (7-40); Bilirubin, Total 0.2 mg/dL (0.2-1.0); Calcium 7.7 mg/dL (8.7-10.4); Chloride 109 mmol/L (98-107); Glucose 73 mg/dL (74-106); Total Protein 5.1 g/dL (5.7-8.2)
[2024-11-18] MEDS: DOCUSATE SOD 100 MG CAP PO SCH (08:50)
[2024-11-18] MEDS: ATORVASTATIN 20 MG TAB PO SCH (08:51)
[2024-11-18] MEDS: ASPirin-EC 81 mg tab PO SCH (08:51)
[2024-11-18] MEDS: SERTRALINE HCL 50 MG TAB PO SCH (08:53)
[2024-11-18] MEDS: FUROSEMIDE 40 MG TAB PO SCH (08:53)
[2024-11-18] MEDS: ISOSORBIDE MONONITRATE ER 60 MG TAB PO SCH (08:54)
--- NOTE | 2024-11-18 09:17 | ECG ---
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
[2024-11-18] MEDS ORDERED: ENOXAPARIN SOD 40 MG/0.4 ML SYRINGE SC SCH ×2 (10:00)
--- NOTE | 2024-11-18 11:59 | DVHPN2 ---
Subjective The patient seen and examined at bedside. The patient has stress test today. Reviewed: Care Plan, H&P, Labs, Medications, Previous Orders, Radiology Changes from previous H/P or p: No Changes Objective Vitals Vital Signs Date Time Temp Pulse Resp B/P (MAP) Pulse Ox O2 Delivery O2 Flow Rate FiO2 11/18/24 09:54 74 128/77 11/18/24 09:00 98.1 16 96 98.1 11/18/24 08:00 Room Air* 0 21 Intake/Output Intake and Output 11/18/24 07:00 Intake Total 250 ml Balance 250 ml Intake Oral 0 ml IV Total 250 ml General Appearance: Alert, Oriented X3, Cooperative, No acute distress HEENT: Atraumatic, PERRLA, EOMI, Mucous membr. moist/pink Neck: Supple Lungs: Clear to auscultation, Normal air movement Cardiovascular: Regular rate, Normal S1, Normal S2, No murmurs, Gallops, Rubs Abdomen: Normal bowel sounds, Soft, No tenderness Neuro: Cranial nerves 3-12 NL Psych/Mental Status: Mental status NL Medications Current Medications Medications Dose Ordered Sig/Adrian Route Start Time Stop Time Status Last Admin Dose Admin Ceftriaxone Sodium 50 ml @ 100 mls/hr DAILY@09 IV 11/17/24 21:15 11/18/24 08:50 100 MLS/HR Azithromycin 250 ml @ 125 mls/hr Q24H IV 11/19/24 21:00 Sodium Chloride 10 ml Q8HR IV 11/17/24 22:00 11/18/24 06:11 10 ML Docusate Sodium 100 mg BIDPRN PRN PO 11/17/24 21:15 Acetaminophen 650 mg Q6HP PRN PO 11/17/24 21:15 Acetaminophen/ Hydrocodone Bitart 1 tab Q4HP PRN PO 11/17/24 21:15 Hydromorphone HCl 0.5 mg Q4HP PRN IV 11/17/24 21:15 Ondansetron HCl 4 mg Q4HP PRN IV 11/17/24 21:15 Apixaban 5 mg BID PO 11/17/24 22:00 11/18/24 08:51 5 MG Aspirin 81 mg DAILY PO 11/18/24 10:00 11/18/24 08:51 81 MG Carvedilol 3.125 mg BID PO 11/17/24 22:00 11/18/24 08:54 3.125 MG Docusate Sodium 100 mg DAILY PO 11/18/24 10:00 11/18/24 08:50 100 MG Furosemide 40 mg DAILY PO 11/18/24 10:00 11/18/24 08:53 40 MG Ranolazine 500 mg BID PO 11/17/24 22:00 11/18/24 08:52 500 MG Sertraline HCl 50 mg DAILY PO 11/18/24 10:00 11/18/24 08:53 50 MG Trazodone HCl 50 mg BIDPRN PO 11/17/24 22:00 11/17/24 22:33 50 MG Atorvastatin Calcium 40 mg DAILY PO 11/18/24 10:00 11/18/24 08:51 40 MG Isosorbide Mononitrate 30 mg DAILY PO 11/18/24 10:00 11/18/24 08:54 30 MG Patient Own Medication 1 tab DAILY PRN PO 11/17/24 21:15 Enoxaparin Sodium 40 mg DAILY SC 11/18/24 10:00 Hold Laboratory Results Laboratory Tests 11/18/24 04:52 Chemistry Test 11/17/24 16:45 11/18/24 04:52 Albumin 3.2 g/dL (3.2-4.8) 3.3 g/dL (3.2-4.8) Calcium Level 7.6 mg/dL (8.7-10.4) L 7.7 mg/dL (8.7-10.4) L Magnesium Level 1.8 mg/dL (1.6-2.6) Total Protein 4.9 g/dL (5.7-8.2) L 5.1 g/dL (5.7-8.2) L Coagulation Test 11/17/24 16:45 Prothrombin Time 11.4 sec (9.3-11.8) Prothrombin Time INR 1.08 (0.9-1.15) Activated Partial Thromboplast Time 29.7 SEC (24.5-34.5) D-Dimer, Quantitative 1.80 mg/L FEU (0.0-0.49) H LFT Test 11/17/24 16:45 11/18/24 04:52 Alanine Aminotransferase (ALT) 11 U/L (7-40) < 9 U/L (7-40) Alkaline Phosphatase 59 U/L (46-116) 59 U/L (46-116) Aspartate Amino Transferase (AST) 12 U/L (13-40) L 13 U/L (13-40) Total Bilirubin 0.4 mg/dL (0.2-1.0) 0.2 mg/dL (0.2-1.0) Urinalysis Test 11/17/24 20:24 Urine Color Yellow (Yellow) Urine Clarity Clear (Clear) Urine pH 5.5 (5.0-9.0) Urine Specific [place] 1.010 (1.001-1.035) Urine Protein Negative (Negative) Urine Ketones Negative (Negative) Urine Blood Negative /uL (Negative) Urine Nitrite Negative (Negative) Urine Bilirubin Negative (Negative) Urine Urobilinogen Normal mg/dL (Negative) Urine Leukocyte Esterase 1+ /uL (Negative) Urine RBC 1 /hpf (0 - 4) Urine Microscopic WBC 8 /HPF (0-5) H Urine Squamous Epithelial Cells Few /hpf (<5) Urine Bacteria Few /hpf (None Seen) H Urine Glucose Normal mg/dL (Normal) Labs and/or images reviewed: Labs reviewed by me Assessment/Plan Assessment/Plan History of [place], CVA, CAD, GERD, CHF, Depression, Elevated troponin rule out ACS Elevated WBC rule out infection Plan Continue current management. Continue with Aspirin Continue with lasix Continue IV antibiotic waiting for Web Editor to see the patient. Full code Eliquis for DVT prophylaxis Plan discussed with: Patient Date of Service: Nov 18, 2024 Billing Provider: RUT MAZARIEGOS MD Common Visit Codes: [id number] INP/OBS CARE(HIGH) RUT MAZARIEGOS MD Nov 18, 2024 11:59
[2024-11-18] MEDS: HYDROcodone-ACET 5/325MG TAB PO PRN (18:04)
--- NOTE | 2024-11-18 18:53 | DVHINCON2 ---
Date of service: Nov 18, 2024 History of Present Illness HPI Patient is a 83-year-old female was brought to the hospital for generalized weakness/lethargic feeling. It seems that blood pressure in the field was 80s. There is question if patient took too much medications. Patient herself is poor historian and did not know where she is. As per son (at bedside) there is question about if the patient took too much of morphine and antihypertensive medications. Cardiology is involved for cardiac aspects of care. Patient is known to our practice from outside and before. Patient does have history of noncompliance with followups. Last visit in the office was in July 2024 which itself was a follow-up after few years of missing followups. Home Meds Active Scripts Acetaminophen (Acetaminophen) 500 Mg Tab, 500 MG PO Q4HP PRN, #30 TAB Prov:RAZ MCDANIEL PAC 06/28/24 Ibuprofen Micronized (Ibuprofen) 600 Mg Tab, 600 MG PO Q6HP PRN, #20 TAB Prov:RAZ MCDANIEL PAC 06/28/24 Cephalexin (KEFLEX CAPSULE) 250 Mg Cp, 1 CAP PO QID for 7 Days, #28 CAP Prov:RAZ MCDANIEL PAC 06/28/24 Apixaban Base (ELIQUIS) 5 Mg Tab, 5 MG PO BID, #60 TAB 0 Refills Prov:XENIA DIALOL MD 03/03/23 Atorvastatin Calcium (ATORVASTATIN CALCIUM) 40 Mg Tab, 1 TAB PO DAILY, #30 TAB 1 Refill Prov:XENIA DIALLO MD 03/03/23 Aspirin (Aspirin Low Dose) 81 Mg Tab, 81 MG PO DAILY, #30 TAB 1 Refill Prov:XENIA DIALLO MD 03/03/23 Furosemide (Furosemide) 40 Mg Tab, 1 TAB PO DAILY, #90 TAB 3 Refills Prov:SOPHY LOWRY MD 08/15/22 Isosorbide Mononitrate (Isosorbide Mononitrate Er) 30 Mg Tab, 1 TAB PO DAILY, #90 TAB 1 Refill Prov:SOPHY LOWRY MD 08/15/22 Carvedilol (COREG) 3.125 Mg Tab, 3.125 MG PO BID, #90 TAB Prov:SOPHY LOWRY MD 08/15/22 Reported Medications Ranolazine (Ranolazine ER) 500 Mg Tab, 1 TAB PO BID for 30 Days, #60 01/01/24 Fentanyl (Fentanyl) 25 Mcg/Hr Dis, 1 PATCH TD Q72HR for 15 Days, #5 01/01/24 Lorazepam (Lorazepam Intensol) 2 Mg/Ml Con, 0.25 ML PO Q6HR PRN for ANXIETY for 15 Days, #15 01/01/24 Mirtazapine (Mirtazapine Oral Disintegrating Tablet) 15 Mg Tab, 1 TAB PO DAILY PRN for POOR APPETITE for 30 Days, #30 01/01/24 Potassium Chloride (Klor-Con 8) 8 Meq Tab, 1 TAB PO BID for 30 Days, #60 01/01/24 Omeprazole (Omeprazole Dr) 20 Mg Cap, 1 CAP PO DAILY for 60 Days, #60 01/01/24 Lidocaine (Lidocaine) 4 % Pad, 4 % EX Q12H, PAD 03/02/23 Trazodone Hcl (Trazodone Hcl) 50 Mg Tab, 50 MG PO BIDPRN, MG 03/02/23 Nitroglycerin (NTROSTAT SUBLINGUAL) 0.4 Mg Sl, 0.4 MG SL PRN for CHEST PAIN, TAB *MAY REPEAT EVERY 5 MINUTES X 3 TOTAL IF NO RELIEF, INITIATE ANALGESIC THERAPY. NOTIFY PHYSICIAN *Do not crush. 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 She is known to have chronically elevated troponin. She is noncompliant with followups. Pacemaker (Medtronic) is slowly running out of battery. In July 2024 there was 6 months battery life left. Patient Family History: FH: arthritis G8 MOTHER FH: breast cancer 19 CHILD FH: cancer G8 MOTHER Family history: Cardiovascular disease G8 MOTHER G8 SISTER Family history: Diabetes mellitus G8 MOTHER G8 SISTER Family history: Hypertension G8 MOTHER GI bleeding G8 FATHER Tumor 19 CHILD Smoker: No Hx (Negative) Lives with: With family Review of Systems Constitutional: Weakness Ears, Nose, & Throat: No symptom reported All Other Systems Fourteen point review of system was performed. Relevant findings as per above and as per HPI. Otherwise negative H&P Exam Vital Signs Vital Signs Date Time Temp Pulse Resp B/P (MAP) Pulse Ox O2 Delivery O2 Flow Rate FiO2 11/18/24 17:00 98.0 73 16 135/69 (91) 96 98.0 11/18/24 08:00 Room Air* 0 21 General Appeara: Cachetic Head Exam: Normal inspection Eye Exam: bilateral eye PERRL Mouth: Normal Inspection Pulmonary/Respiratory: Rhonci Cardiovascular/Chest: Normal inspection, Regular rate, Systolic murmur Peripheral Pulses: 2+ carotid (R), 2+ carotid (L) Abdominal Exam: Normal bowel sounds, Soft Labs/Xrays Labs Test 11/18/24 04:52 11/17/24 20:24 11/17/24 17:38 11/17/24 16:45 Range/Units White Blood Count 10.1 # 4.4-10.8 10^3/uL Red Blood Count 3.39 L 4.0-5.20 10^6/uL Hemoglobin 10.0 L 12.2-16.2 g/dL Hematocrit 30.1 L 36.0-46.0 % Mean Corpuscular Volume 88.7 80.0-100.0 fL Mean Corpuscular Hemoglobin 29.5 28.0-32.0 pg Mean Corpuscular Hemoglobin Concent 33.2 32.0-36.0 g/dL Red Cell Distribution Width 16.4 H 11.8-14.3 % Platelet Count 250 140-450 10^3/uL Mean Platelet Volume 9.0 6.9-10.8 fL Neutrophils (%) (Auto) 61.3 37.0-80.0 % Lymphocytes (%) (Auto) 25.7 10.0-50.0 % Monocytes (%) (Auto) 9.3 0.0-12.0 % Eosinophils (%) (Auto) 3.4 0.0-7.0 % Basophils (%) (Auto) 0.3 0.0-2.0 % Neutrophils # (Auto) 6.2 1.6-8.6 10 ^3/uL Lymphocytes # (Auto) 2.6 0.4-5.4 10 ^3/uL Monocytes # (Auto) 0.9 0-1.3 10 ^3/uL Eosinophils # (Auto) 0.3 0-0.8 10 ^3/uL Basophils # (Auto) 0 0-0.2 10 ^3/uL Nucleated Red Blood Cells 0.1 % Sodium Level 142 136-145 mmol/L Potassium Level 3.6 3.5-5.1 mmol/L Chloride Level 109 H 98-107 mmol/L Carbon Dioxide Level 24 20-31 mmol/L Anion Gap 9 5-15 Blood Urea Nitrogen 10 9-23 mg/dL Creatinine 0.87 0.550-1.02 mg/dL Glomerular Filtration Rate Calc 65 >90 mL/min BUN/Creatinine Ratio 11.5 10.0-20.0 Serum Glucose 73 L 74-106 mg/dL Calcium Level 7.7 L 8.7-10.4 mg/dL Total Bilirubin 0.2 0.2-1.0 mg/dL Aspartate Amino Transferase (AST) 13 13-40 U/L Alanine Aminotransferase (ALT) < 9 7-40 U/L Alkaline Phosphatase 59 46-116 U/L Total Protein 5.1 L 5.7-8.2 g/dL Albumin 3.3 3.2-4.8 g/dL Urine Color Yellow Yellow Urine Clarity Clear Clear Urine pH 5.5 5.0-9.0 Urine Specific [place] 1.010 1.001-1.035 Urine Protein Negative Negative Urine Ketones Negative Negative Urine Blood Negative Negative /uL Urine Nitrite Negative Negative Urine Bilirubin Negative Negative Urine Urobilinogen Normal Negative mg/dL Urine Leukocyte Esterase 1+ Negative /uL Urine RBC 1 0 - 4 /hpf Urine Microscopic WBC 8 H 0-5 /HPF Urine Squamous Epithelial Cells Few <5 /hpf Urine Bacteria Few H None Seen /hpf Urine Glucose Normal Normal mg/dL Troponin I High Sensitivity 50 *H </=34 ng/L C-Reactive Protein High Sensitivity 7.54 H <1.0 mg/dL Erythrocyte Sedimentation Rate 8 0-20 mm/hr Prothrombin Time 11.4 9.3-11.8 sec Prothrombin Time INR 1.08 0.9-1.15 Activated Partial Thromboplast Time 29.7 24.5-34.5 SEC D-Dimer, Quantitative 1.80 H 0.0-0.49 mg/L FEU Magnesium Level 1.8 1.6-2.6 mg/dL Assessment/Plan Plan Patient is a 83-year-old female was brought to the hospital for generalized weak ness/lethargic feeling. It seems that blood pressure in the field was 80s. There is question if patient took too much medications. Patient herself is poor historian and did not know where she is. As per son (at bedside) there is question about if the patient took too much of morphine and antihypertensive medications. Cardiology is involved for cardiac aspects of care. Patient is known to our practice from outside and before. Patient does have history of noncompliance with followups. Last visit in the office was in July 2024 which itself was a follow-up after few years of missing followups. Not in acute distress. Somewhat confused. No JVD. Mucosa is pink and wet. No carotid bruit. Lungs are clear to auscultation. Cardiac: Regular, no thrill/gallop. Abdomen is soft. Extremities do not reveal edema. 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 She is known to have chronically elevated troponin. She is noncompliant with followups. Pacemaker (Medtronic) is slowly running out of battery. In July 2024 there was 6 months battery life left. Echocardiogram of November 14, 2024 revealed ejection fraction of 60%, mild concentric left ventricular hypertrophy and moderate pulmonary insufficiency. Nuclear stress test of April 2022 did not reveal any ischemia/scar Left heart catheterization of February 2023 revealed [employer] of left main, patent SVG to LAD, ostial LCX with 80% lesion and patent PERALES to obtuse marginal territory WBC: 13.8 - 10.1 Hemoglobin: 10.0 - 10.0 D-dimer: 1.8 Creatinine: 1.0 - 0.87 Potassium: 3.7 - 3.6 Troponin (high sensitive): 48 - 50 CRP: 7.54 CT angio of the lungs: Impression: No evidence of pulmonary embolism, aortic aneurysm, or dissection. Ground-glass opacities of the right upper lobe represent infectious/ inflammatory process. Mediastinal lymphadenopathy which may be reactive/neoplastic. Moderate cardiomegaly with reflux of contrast into the IVC and hepatic veins consistent with right heart dysfunction. CT of the head revealed: IMPRESSION: 1. No acute intracranial abnormality. Tele reveals sinus rhythm Patient is a 83-year-old female who presented with generalized weakness and hypotension. There is question if the patient received too much medication and presentation could have been secondary to over medication. She did have leukocytosis on admission and component of pneumonia/UTI/sepsis could have contributed to the clinical picture. D-dimer was elevated but pulmonary emboli was ruled out. She is found to have mediastinal lymphadenopathy. She does have minimally/flat elevated troponin. She is known to have chronic elevated troponin. Presentation is not considered ACS. Increased troponin is considered to reflect demand physiology. Hypotension Encephalopathy, possibly metabolic versus septic Sepsis Rule out pneumonia UTI Hypotension Polypharmacy Mediastinal lymphadenopathy Abnormal D-dimer Coronary artery disease, status post CABG History of CVA with left hemiparesis Depression/anxiety Dementia Valvular heart disease and status post TAVR Cardiac suggestion for management: Managed on telemetry Follow-up electrolytes and kidney function tests and correct abnormalities Keep potassium above 4 and magnesium above 2 Request for interrogation of the pacemaker (Medtronic) Request/consider pulmonary consultation for the findings of the CT scan (mediastinal lymphadenopathy/pneumonia) Avoid polypharmacy Management of sepsis/pneumonia/UTI as per primary team Patient was counseled to be compliant with medications and followups Further evaluation and management depends on the above and clinical course Thank you for consultation A total of 75 minutes was spent reviewing the patient record, examining the patient, making a diagnostic and therapeutic plan, discussing this plan with medical personnel, following up on diagnostic studies and following the patient for clinical stability excluding any and all procedures. At least 50% of this time was spent in direct, [id number] contact. Thank you for allowing me to participate in this patient's care. Further recommendations will depend on patient's clinical course. Please do not hesitate to contact me if you have any questions or concerns. This medical document was created using electronic medical record system with [employer] computerized dictation system. Although this document has been carefully reviewed, there may still be some phonetic and typographical errors. These areas are purely typographical due to the imperfection of the software programs, and do not reflect any compromise in the patient's medical care. Plan discussed with: Patient, Son (at bedside), Other (nurse) RAZ WONG MD Nov 18, 2024 18:53
[2024-11-19] VITALS (8 sets, daily range): BP systolic 104–151; BP diastolic 44–81; PULSE 68–79; RESP 16–18; TEMP 97.7–98.3; O2SAT 93–96
[2024-11-19 06:08] LABS: Hematocrit 31.1 % (36.0-46.0); Hemoglobin 10.5 g/dL (12.2-16.2); Mean Corpuscular Hemoglobin 29.6 pg (28.0-32.0); Mean Corpuscular Volume 87.6 fL (80.0-100.0); Nucleated Red Blood Cells % 0.0 %
[2024-11-19 06:32] LABS: Alkaline Phosphatase 62 U/L (46-116); Anion Gap 10 (5-15); BUN/Creatinine Ratio 9.6 (10.0-20.0); Carbon Dioxide 24 mmol/L (20-31); Chloride 106 mmol/L (98-107); Potassium 3.5 mmol/L (3.5-5.1); Sodium 140 mmol/L (136-145)
[2024-11-19 06:33] LABS: Albumin 3.4 g/dL (3.2-4.8); Bilirubin, Total 0.5 mg/dL (0.2-1.0)
[2024-11-19 06:34] LABS: Blood Urea Nitrogen 8 mg/dL (9-23); Glucose 111 mg/dL (74-106)
[2024-11-19 06:35] LABS: Alanine Aminotransferase < 9 U/L (7-40); Calcium 8.2 mg/dL (8.7-10.4); Total Protein 5.4 g/dL (5.7-8.2)
--- NOTE | 2024-11-19 07:48 | DVHPN2 ---
Progress Note - Dictate Date Seen: Nov 19, 2024 Medical Necessity Reason Pt with a Central, PICC or Fol: No vital signs Vital Sign Date Time Temp Pulse Resp B/P (MAP) Pulse Ox O2 Delivery O2 Flow Rate FiO2 11/19/24 05:00 97.7 70 18 112/44 (66) 95 97.7 11/18/24 20:00 Room Air* 0 21 Total Intake and Output 11/18/24 11/18/24 11/19/24 15:00 23:00 07:00 Intake Total 50 ml 550 ml 820 ml Balance 50 ml 550 ml 820 ml medications Current Medications Medications Dose Ordered Sig/Adrian Route Start Time Stop Time Status Last Admin Dose Admin Ceftriaxone Sodium 50 ml @ 100 mls/hr DAILY@09 IV 11/17/24 21:15 11/18/24 08:50 100 MLS/HR Azithromycin 250 ml @ 125 mls/hr Q24H IV 11/19/24 21:00 Sodium Chloride 10 ml Q8HR IV 11/17/24 22:00 11/19/24 06:39 10 ML Docusate Sodium 100 mg BIDPRN PRN PO 11/17/24 21:15 Acetaminophen 650 mg Q6HP PRN PO 11/17/24 21:15 Acetaminophen/ Hydrocodone Bitart 1 tab Q4HP PRN PO 11/17/24 21:15 11/18/24 18:04 1 TAB Hydromorphone HCl 0.5 mg Q4HP PRN IV 11/17/24 21:15 Ondansetron HCl 4 mg Q4HP PRN IV 11/17/24 21:15 Apixaban 5 mg BID PO 11/17/24 22:00 11/18/24 21:24 5 MG Aspirin 81 mg DAILY PO 11/18/24 10:00 11/18/24 08:51 81 MG Carvedilol 3.125 mg BID PO 11/17/24 22:00 11/18/24 21:26 3.125 MG Docusate Sodium 100 mg DAILY PO 11/18/24 10:00 11/18/24 08:50 100 MG Furosemide 40 mg DAILY PO 11/18/24 10:00 11/18/24 08:53 40 MG Ranolazine 500 mg BID PO 11/17/24 22:00 11/18/24 21:25 500 MG Sertraline HCl 50 mg DAILY PO 11/18/24 10:00 11/18/24 08:53 50 MG Trazodone HCl 50 mg BIDPRN PO 11/17/24 22:00 11/18/24 21:24 50 MG Atorvastatin Calcium 40 mg DAILY PO 11/18/24 10:00 11/18/24 08:51 40 MG Isosorbide Mononitrate 30 mg DAILY PO 11/18/24 10:00 11/18/24 08:54 30 MG Patient Own Medication 1 tab DAILY PRN PO 11/17/24 21:15 Enoxaparin Sodium 40 mg DAILY SC 11/18/24 10:00 Hold laboratory and microbiology Laboratory Tests 11/19/24 05:14 Test 11/19/24 05:14 Range/Units Serum Glucose 111 H 74-106 mg/dL Assessment/Plan Patient is a 83-year-old female was brought to the hospital for generalized weakness/lethargic feeling. It seems that blood pressure in the field was 80s. There is question if patient took too much medications. Patient herself is poor historian and did not know where she is. As per son (at bedside) there is question about if the patient took too much of morphine and antihypertensive medications. Cardiology is involved for cardiac aspects of care. Patient is known to our practice from outside and before. Patient does have history of noncompliance with followups. Last visit in the office was in July 2024 which itself was a follow-up after few years of missing followups. Not in acute distress. Somewhat confused. No JVD. Mucosa is pink and wet. No carotid bruit. Lungs are clear to auscultation. Cardiac: Regular, no thrill/gallop. Abdomen is soft. Extremities do not reveal edema. 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 She is known to have chronically elevated troponin. She is noncompliant with followups. Pacemaker (Medtronic) is slowly running out of battery. In July 2024 there was 6 months battery life left. Echocardiogram of November 14, 2024 revealed ejection fraction of 60%, mild concentric left ventricular hypertrophy and moderate pulmonary insufficiency. Nuclear stress test of April 2022 did not reveal any ischemia/scar Left heart catheterization of February 2023 revealed [employer] SAL[employer] CONSULTANT of left main, patent SVG to LAD, ostial LCX with 80% lesion and patent PERALES to obtuse marginal territory WBC: 13.8 - 10.1 - 10.6 Hemoglobin: 10.0 - 10.0 - 10.5 D-dimer: 1.8 Creatinine: 1.0 - 0.87 - 0.83 Potassium: 3.7 - 3.6 - 3.5 Troponin (high sensitive): 48 - 50 CRP: 7.54 CT angio of the lungs: Impression: No evidence of pulmonary embolism, aortic aneurysm, or dissection. Ground-glass opacities of the right upper lobe represent infectious/ inflammatory process. Mediastinal lymphadenopathy which may be reactive/neoplastic. Moderate cardiomegaly with reflux of contrast into the IVC and hepatic veins consistent with right heart dysfunction. CT of the head revealed: IMPRESSION: 1. No acute intracranial abnormality. Tele reveals sinus rhythm Patient is a 83-year-old female who presented with generalized weakness and hypotension. There is question if the patient received too much medication and presentation could have been secondary to over medication. She did have leukocytosis on admission and component of pneumonia/UTI/sepsis could have contributed to the clinical picture. D-dimer was elevated but pulmonary emboli was ruled out. She is found to have mediastinal lymphadenopathy. She does have minimally/flat elevated troponin. She is known to have chronic elevated troponin. Presentation is not considered ACS. Increased troponin is considered to reflect demand physiology. Hypotension Encephalopathy, possibly metabolic versus septic Sepsis Rule out pneumonia UTI Hypotension Polypharmacy Mediastinal lymphadenopathy Abnormal D-dimer Coronary artery disease, status post CABG History of CVA with left hemiparesis Depression/anxiety Dementia Valvular heart disease and status post TAVR Cardiac suggestion for management: Manage on telemetry Follow-up electrolytes and kidney function tests and correct abnormalities Keep potassium above 4 and magnesium above 2 Awaiting interrogation of the pacemaker (Medtronic) Request/consider pulmonary consultation for the findings of the CT scan (mediastinal lymphadenopathy/pneumonia) Avoid polypharmacy Management of sepsis/pneumonia/UTI as per primary team Patient was counseled to be compliant with medications and followups Further evaluation and management depends on the above and clinical course A total of 55 minutes was spent reviewing the patient record, examining the patient, making a diagnostic and therapeutic plan, discussing this plan with medical personnel, following up on diagnostic studies and following the patient for clinical stability excluding any and all procedures. At least 50% of this time was spent in direct, [id number] contact. Thank you for allowing me to participate in this patient's care. Further recommendations will depend on patient's clinical course. Please do not hesitate to contact me if you have any questions or concerns. This medical document was created using electronic medical record system with [employer] computerized dictation system. Although this document has been carefully reviewed, there may still be some phonetic and typographical errors. These areas are purely typographical due to the imperfection of the software programs, and do not reflect any compromise in the patient's medical care. Plan discussed with: Patient, Other (nurse) RAZ WONG MD Nov 19, 2024 07:48
[2024-11-19] MEDS: PANTOPRAZOLE 40 MG/10 ML VIAL INJ IV SCH (08:40)
--- NOTE | 2024-11-19 11:49 | DVHPN2 ---
Subjective The patient seen and examined at bedside. The patientstress done and negative for ischemia. Reviewed: Care Plan, H&P, Labs, Medications, Previous Orders, Radiology Changes from previous H/P or p: No Changes Objective Vitals Vital Signs Date Time Temp Pulse Resp B/P (MAP) Pulse Ox O2 Delivery O2 Flow Rate FiO2 11/19/24 09:42 70 132/74 11/19/24 09:00 98.3 16 94 98.3 11/19/24 08:00 Room Air* 0 21 Intake/Output Intake and Output 11/19/24 07:00 Intake Total 1420 ml Balance 1420 ml Intake Oral 1370 ml IV Total 50 ml # Voids 5 General Appearance: Alert, Oriented X3, Cooperative, No acute distress HEENT: Atraumatic, PERRLA, EOMI, Mucous membr. moist/pink Neck: Supple Lungs: Clear to auscultation, Normal air movement Cardiovascular: Regular rate, Normal S1, Normal S2, No murmurs, Gallops, Rubs Abdomen: Normal bowel sounds, Soft, No tenderness Neuro: Cranial nerves 3-12 NL Psych/Mental Status: Mental status NL Medications Current Medications Medications Dose Ordered Sig/Adrian Route Start Time Stop Time Status Last Admin Dose Admin Ceftriaxone Sodium 50 ml @ 100 mls/hr DAILY@09 IV 11/17/24 21:15 11/19/24 08:40 100 MLS/HR Azithromycin 250 ml @ 125 mls/hr Q24H IV 11/19/24 21:00 Sodium Chloride 10 ml Q8HR IV 11/17/24 22:00 11/19/24 06:39 10 ML Docusate Sodium 100 mg BIDPRN PRN PO 11/17/24 21:15 Acetaminophen 650 mg Q6HP PRN PO 11/17/24 21:15 Acetaminophen/ Hydrocodone Bitart 1 tab Q4HP PRN PO 11/17/24 21:15 11/19/24 08:42 1 TAB Hydromorphone HCl 0.5 mg Q4HP PRN IV 11/17/24 21:15 Ondansetron HCl 4 mg Q4HP PRN IV 11/17/24 21:15 Apixaban 5 mg BID PO 11/17/24 22:00 11/19/24 08:41 5 MG Aspirin 81 mg DAILY PO 11/18/24 10:00 11/19/24 08:40 81 MG Carvedilol 3.125 mg BID PO 11/17/24 22:00 11/19/24 08:42 3.125 MG Docusate Sodium 100 mg DAILY PO 11/18/24 10:00 11/19/24 08:40 100 MG Furosemide 40 mg DAILY PO 11/18/24 10:00 11/19/24 08:41 40 MG Ranolazine 500 mg BID PO 11/17/24 22:00 11/19/24 08:40 500 MG Sertraline HCl 50 mg DAILY PO 11/18/24 10:00 11/19/24 08:41 50 MG Trazodone HCl 50 mg BIDPRN PO 11/17/24 22:00 11/19/24 08:40 50 MG Atorvastatin Calcium 40 mg DAILY PO 11/18/24 10:00 11/19/24 08:42 40 MG Isosorbide Mononitrate 30 mg DAILY PO 11/18/24 10:00 11/19/24 08:41 30 MG Patient Own Medication 1 tab DAILY PRN PO 11/17/24 21:15 Enoxaparin Sodium 40 mg DAILY SC 11/18/24 10:00 Hold Pantoprazole Sodium 40 mg DAILY IV 11/19/24 10:00 11/19/24 08:40 40 MG Laboratory Results Laboratory Tests 11/19/24 05:14 Chemistry Test 11/19/24 05:14 Albumin 3.4 g/dL (3.2-4.8) Calcium Level 8.2 mg/dL (8.7-10.4) L Total Protein 5.4 g/dL (5.7-8.2) L LFT Test 11/19/24 05:14 Alanine Aminotransferase (ALT) < 9 U/L (7-40) Alkaline Phosphatase 62 U/L (46-116) Aspartate Amino Transferase (AST) 12 U/L (13-40) L Total Bilirubin 0.5 mg/dL (0.2-1.0) Urinalysis Test 11/17/24 20:24 Urine Color Yellow (Yellow) Urine Clarity Clear (Clear) Urine pH 5.5 (5.0-9.0) Urine Specific [place] 1.010 (1.001-1.035) Urine Protein Negative (Negative) Urine Ketones Negative (Negative) Urine Blood Negative /uL (Negative) Urine Nitrite Negative (Negative) Urine Bilirubin Negative (Negative) Urine Urobilinogen Normal mg/dL (Negative) Urine Leukocyte Esterase 1+ /uL (Negative) Urine RBC 1 /hpf (0 - 4) Urine Microscopic WBC 8 /HPF (0-5) H Urine Squamous Epithelial Cells Few /hpf (<5) Urine Bacteria Few /hpf (None Seen) H Urine Glucose Normal mg/dL (Normal) Microbiology Microbiology Date/Time Source Procedure Growth Status 11/17/24 21:33 Blood Blood Culture - Preliminary NO GROWTH AFTER 24 HOURS OF INCUBATION. Resulted Labs and/or images reviewed: Labs reviewed by me Assessment/Plan Assessment/Plan COPD exacerbation History of [place], CVA, CAD, GERD, CHF, Depression, Elevated troponin rule out ACS Elevated WBC rule out infection Plan Continue current management. Continue with Aspirin Continue with lasix Continue IV antibiotic waiting for Customer Service Engineer to see the patient. Full code Eliquis for DVT prophylaxis Plan discussed with: Patient My Orders Orders - RUT MAZARIEGOS MD Procedure Category Date Status Time Pantoprazole PHA 11/19/24 In Process (Protonix) 10:00 Date of Service: Nov 19, 2024 Billing Provider: RUT MAZARIEGOS MD Common Visit Codes: [id number] INP/OBS CARE(HIGH) RUT MAZARIEGOS MD Nov 19, 2024 11:49
[2024-11-19] MEDS: APIXABAN 2.5 MG TAB PO SCH (21:33)
[2024-11-19] MEDS: AZITHROMYCIN 500MG/ 250ML 250 ML IV SCH (21:33)
[2024-11-20] VITALS (8 sets, daily range): BP systolic 97–148; BP diastolic 51–81; PULSE 70–83; RESP 18–19; TEMP 97.2–98.2; O2SAT 95–98
[2024-11-20 06:00] LABS: Hematocrit 31.3 % (36.0-46.0); Hemoglobin 10.6 g/dL (12.2-16.2); Mean Corpuscular Hemoglobin 29.3 pg (28.0-32.0); Mean Corpuscular Volume 86.7 fL (80.0-100.0); Nucleated Red Blood Cells % 0.0 %
[2024-11-20 06:16] LABS: Albumin 3.3 g/dL (3.2-4.8); Alkaline Phosphatase 63 U/L (46-116); Anion Gap 9 (5-15); BUN/Creatinine Ratio 11.8 (10.0-20.0); Blood Urea Nitrogen 10 mg/dL (9-23); Carbon Dioxide 26 mmol/L (20-31); Chloride 106 mmol/L (98-107); Glucose 100 mg/dL (74-106); Potassium 3.7 mmol/L (3.5-5.1); Sodium 141 mmol/L (136-145)
[2024-11-20 06:17] LABS: Bilirubin, Total 0.4 mg/dL (0.2-1.0)
[2024-11-20 06:18] LABS: Alanine Aminotransferase 9 U/L (7-40); Calcium 8.3 mg/dL (8.7-10.4); Total Protein 5.7 g/dL (5.7-8.2)
--- NOTE | 2024-11-20 08:41 | DVHPN2 ---
Progress Note - Dictate Date Seen: Nov 20, 2024 Medical Necessity Reason Pt with a Central, PICC or Fol: No vital signs Vital Sign Date Time Temp Pulse Resp B/P (MAP) Pulse Ox O2 Delivery O2 Flow Rate FiO2 11/20/24 05:00 97.7 72 18 142/81 (101) 96 97.7 11/19/24 20:00 Room Air* 0 21 Total Intake and Output 11/19/24 11/19/24 11/20/24 15:00 23:00 07:00 Intake Total 50 ml 450 ml 750 ml Balance 50 ml 450 ml 750 ml medications Current Medications Medications Dose Ordered Sig/Adrian Route Start Time Stop Time Status Last Admin Dose Admin Ceftriaxone Sodium 50 ml @ 100 mls/hr DAILY@09 IV 11/17/24 21:15 11/19/24 08:40 100 MLS/HR Azithromycin 250 ml @ 125 mls/hr Q24H IV 11/19/24 21:00 11/19/24 21:33 125 MLS/HR Sodium Chloride 10 ml Q8HR IV 11/17/24 22:00 11/20/24 06:11 10 ML Docusate Sodium 100 mg BIDPRN PRN PO 11/17/24 21:15 Acetaminophen 650 mg Q6HP PRN PO 11/17/24 21:15 Acetaminophen/ Hydrocodone Bitart 1 tab Q4HP PRN PO 11/17/24 21:15 11/19/24 23:52 1 TAB Hydromorphone HCl 0.5 mg Q4HP PRN IV 11/17/24 21:15 Ondansetron HCl 4 mg Q4HP PRN IV 11/17/24 21:15 Aspirin 81 mg DAILY PO 11/18/24 10:00 11/19/24 08:40 81 MG Carvedilol 3.125 mg BID PO 11/17/24 22:00 11/19/24 08:42 3.125 MG Docusate Sodium 100 mg DAILY PO 11/18/24 10:00 11/19/24 08:40 100 MG Furosemide 40 mg DAILY PO 11/18/24 10:00 11/19/24 08:41 40 MG Ranolazine 500 mg BID PO 11/17/24 22:00 11/19/24 21:33 500 MG Sertraline HCl 50 mg DAILY PO 11/18/24 10:00 11/19/24 08:41 50 MG Trazodone HCl 50 mg BIDPRN PO 11/17/24 22:00 11/19/24 21:33 50 MG Atorvastatin Calcium 40 mg DAILY PO 11/18/24 10:00 11/19/24 08:42 40 MG Isosorbide Mononitrate 30 mg DAILY PO 11/18/24 10:00 11/19/24 08:41 30 MG Patient Own Medication 1 tab DAILY PRN PO 11/17/24 21:15 Enoxaparin Sodium 40 mg DAILY SC 11/18/24 10:00 Hold Pantoprazole Sodium 40 mg DAILY IV 11/19/24 10:00 11/19/24 08:40 40 MG Apixaban 2.5 mg BID PO 11/19/24 22:00 11/19/24 21:33 2.5 MG laboratory and microbiology Laboratory Tests 11/20/24 05:33 Test 11/20/24 05:33 Range/Units Serum Glucose 100 74-106 mg/dL Assessment/Plan Patient is a 83-year-old female was brought to the hospital for generalized weakness/lethargic feeling. It seems that blood pressure in the field was 80s. There is question if patient took too much medications. Patient herself is poor historian and did not know where she is. As per son (at bedside) there is question about if the patient took too much of morphine and antihypertensive medications. Cardiology is involved for cardiac aspects of care. Patient is known to our practice from outside and before. Patient does have history of noncompliance with followups. Last visit in the office was in July 2024 which itself was a follow-up after few years of missing followups. Not in acute distress. Somewhat confused. No JVD. Mucosa is pink and wet. No carotid bruit. Lungs are clear to auscultation. Cardiac: Regular, no thrill/gallop. Abdomen is soft. Extremities do not reveal edema. 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 She is known to have chronically elevated troponin. She is noncompliant with followups. Pacemaker (Medtronic) is slowly running out of battery. In July 2024 there was 6 months battery life left. Echocardiogram of November 14, 2024 revealed ejection fraction of 60%, mild concentric left ventricular hypertrophy and moderate pulmonary insufficiency. Nuclear stress test of April 2022 did not reveal any ischemia/scar Left heart catheterization of February 2023 revealed DIVING JUDGE of left main, patent SVG to LAD, ostial LCX with 80% lesion and patent PERALES to obtuse marginal territory WBC: 13.8 - 10.1 - 10.6 - 8.8 Hemoglobin: 10.0 - 10.0 - 10.5 - 10.6 D-dimer: 1.8 Creatinine: 1.0 - 0.87 - 0.83 - 0.85 Potassium: 3.7 - 3.6 - 3.5 - 3.7 Troponin (high sensitive): 48 - 50 CRP: 7.54 CT angio of the lungs: Impression: No evidence of pulmonary embolism, aortic aneurysm, or dissection. Ground-glass opacities of the right upper lobe represent infectious/ inflammatory process. Mediastinal lymphadenopathy which may be reactive/neoplastic. Moderate cardiomegaly with reflux of contrast into the IVC and hepatic veins consistent with right heart dysfunction. CT of the head revealed: IMPRESSION: 1. No acute intracranial abnormality. Tele reveals sinus rhythm Medtronic pacemaker interrogation: Battery voltage: 2.85 volts; Remaining longevity: 3 months; AAIR/DDDR: 70/120; Lead impedance: Atrial 380/RV 361 Ohms; Sensitivity: Atrial 0.3/RV 0.9 mV; AT/AF: 0%; /VS: 9.1%; AP/VS: 90.8%; Normal functioning pacemaker Patient is a 83-year-old female who presented with generalized weakness and hypotension. There is question if the patient received too much medication and presentation could have been secondary to over medication. She did have leukocytosis on admission and component of pneumonia/UTI/sepsis could have contributed to the clinical picture. D-dimer was elevated but pulmonary emboli was ruled out. She is found to have mediastinal lymphadenopathy. She does have minimally/flat elevated troponin. She is known to have chronic elevated troponin. Presentation is not considered ACS. Increased troponin is considered to reflect demand physiology. Hypotension Encephalopathy, possibly metabolic versus septic Sepsis Rule out pneumonia UTI Hypotension Polypharmacy Mediastinal lymphadenopathy Abnormal D-dimer Coronary artery disease, status post CABG History of CVA with left hemiparesis Depression/anxiety Dementia Valvular heart disease and status post TAVR Cardiac suggestion for management: Manage on telemetry Follow-up electrolytes and kidney function tests and correct abnormalities Keep potassium above 4 and magnesium above 2 Request/consider pulmonary consultation for the findings of the CT scan (mediastinal lymphadenopathy/pneumonia) Avoid polypharmacy Management of sepsis/pneumonia/UTI as per primary team Patient was counseled to be compliant with medications and followups Cardiac herrera, is stable and can be followed as outpatient Further evaluation and management depends on the above and clinical course A total of 55 minutes was spent reviewing the patient record, examining the patient, making a diagnostic and therapeutic plan, discussing this plan with medical personnel, following up on diagnostic studies and following the patient for clinical stability excluding any and all procedures. At least 50% of this time was spent in direct, [id number] contact. Thank you for allowing me to participate in this patient's care. Further recommendations will depend on patient's clinical course. Please do not hesitate to contact me if you have any questions or concerns. This medical document was created using electronic medical record system with [employer] computerized dictation system. Although this document has been carefully reviewed, there may still be some phonetic and typographical errors. These areas are purely typographical due to the imperfection of the software programs, and do not reflect any compromise in the patient's medical care. Plan discussed with: Other (nurse) RAZ WONG MD Nov 20, 2024 08:41
--- NOTE | 2024-11-20 09:16 | DVHNC2 ---
Procedure - Medtronic pacemaker interrogation: Battery voltage: 2.85 volts Remaining longevity: 3 months AAIR/DDDR: 70/120 Lead impedance: Atrial 380/RV 361 Ohms Sensitivity: Atrial 0.3/RV 0.9 mV AT/AF: 0% /VS: 9.1% AP/VS: 90.8% Normal functioning pacemaker RAZ WONG MD Nov 20, 2024 09:16
--- NOTE | 2024-11-20 12:02 | DVHPN2 ---
Subjective The patient seen and examined at bedside. Reviewed: Care Plan, H&P, Labs, Medications, Previous Orders, Radiology Changes from previous H/P or p: No Changes Objective Vitals Vital Signs Date Time Temp Pulse Resp B/P (MAP) Pulse Ox O2 Delivery O2 Flow Rate FiO2 11/20/24 10:00 73 124/69 11/20/24 09:00 98.2 18 96 98.2 11/20/24 08:00 Room Air* 0 21 Intake/Output Intake and Output 11/20/24 07:00 Intake Total 1250 ml Balance 1250 ml Intake Oral 950 ml IV Total 300 ml # Voids 4 # Bowel Movements 1 General Appearance: Alert, Oriented X3, Cooperative, No acute distress HEENT: Atraumatic, PERRLA, EOMI, Mucous membr. moist/pink Neck: Supple Lungs: Clear to auscultation, Normal air movement Cardiovascular: Regular rate, Normal S1, Normal S2, No murmurs, Gallops, Rubs Abdomen: Normal bowel sounds, Soft, No tenderness Neuro: Cranial nerves 3-12 NL Psych/Mental Status: Mental status NL Medications Current Medications Medications Dose Ordered Sig/Adrian Route Start Time Stop Time Status Last Admin Dose Admin Ceftriaxone Sodium 50 ml @ 100 mls/hr DAILY@09 IV 11/17/24 21:15 11/20/24 09:15 100 MLS/HR Azithromycin 250 ml @ 125 mls/hr Q24H IV 11/19/24 21:00 11/19/24 21:33 125 MLS/HR Sodium Chloride 10 ml Q8HR IV 11/17/24 22:00 11/20/24 06:11 10 ML Docusate Sodium 100 mg BIDPRN PRN PO 11/17/24 21:15 Acetaminophen 650 mg Q6HP PRN PO 11/17/24 21:15 Acetaminophen/ Hydrocodone Bitart 1 tab Q4HP PRN PO 11/17/24 21:15 11/19/24 23:52 1 TAB Hydromorphone HCl 0.5 mg Q4HP PRN IV 11/17/24 21:15 Ondansetron HCl 4 mg Q4HP PRN IV 11/17/24 21:15 Aspirin 81 mg DAILY PO 11/18/24 10:00 11/20/24 09:32 81 MG Carvedilol 3.125 mg BID PO 11/17/24 22:00 11/20/24 10:00 3.125 MG Docusate Sodium 100 mg DAILY PO 11/18/24 10:00 11/20/24 09:30 100 MG Furosemide 40 mg DAILY PO 11/18/24 10:00 11/20/24 09:34 40 MG Ranolazine 500 mg BID PO 11/17/24 22:00 11/20/24 09:28 500 MG Sertraline HCl 50 mg DAILY PO 11/18/24 10:00 11/20/24 09:33 50 MG Trazodone HCl 50 mg BIDPRN PO 11/17/24 22:00 11/20/24 09:33 50 MG Atorvastatin Calcium 40 mg DAILY PO 11/18/24 10:00 11/20/24 09:32 40 MG Isosorbide Mononitrate 30 mg DAILY PO 11/18/24 10:00 11/20/24 09:30 30 MG Patient Own Medication 1 tab DAILY PRN PO 11/17/24 21:15 Enoxaparin Sodium 40 mg DAILY SC 11/18/24 10:00 Hold Pantoprazole Sodium 40 mg DAILY IV 11/19/24 10:00 11/20/24 09:19 40 MG Apixaban 2.5 mg BID PO 11/19/24 22:00 11/20/24 09:33 2.5 MG Laboratory Results Laboratory Tests 11/20/24 05:33 Chemistry Test 11/20/24 05:33 Albumin 3.3 g/dL (3.2-4.8) Calcium Level 8.3 mg/dL (8.7-10.4) L Total Protein 5.7 g/dL (5.7-8.2) LFT Test 11/20/24 05:33 Alanine Aminotransferase (ALT) 9 U/L (7-40) Alkaline Phosphatase 63 U/L (46-116) Aspartate Amino Transferase (AST) 10 U/L (13-40) L Total Bilirubin 0.4 mg/dL (0.2-1.0) Urinalysis Test 11/17/24 20:24 Urine Color Yellow (Yellow) Urine Clarity Clear (Clear) Urine pH 5.5 (5.0-9.0) Urine Specific [place] 1.010 (1.001-1.035) Urine Protein Negative (Negative) Urine Ketones Negative (Negative) Urine Blood Negative /uL (Negative) Urine Nitrite Negative (Negative) Urine Bilirubin Negative (Negative) Urine Urobilinogen Normal mg/dL (Negative) Urine Leukocyte Esterase 1+ /uL (Negative) Urine RBC 1 /hpf (0 - 4) Urine Microscopic WBC 8 /HPF (0-5) H Urine Squamous Epithelial Cells Few /hpf (<5) Urine Bacteria Few /hpf (None Seen) H Urine Glucose Normal mg/dL (Normal) Microbiology Microbiology Date/Time Source Procedure Growth Status 11/17/24 21:33 Blood Blood Culture - Preliminary NO GROWTH AFTER 48 HOURS OF INCUBATION. Resulted Labs and/or images reviewed: Labs reviewed by me Assessment/Plan Assessment/Plan COPD exacerbation History of [place], CVA, CAD, GERD, CHF, Depression, Elevated troponin rule out ACS Elevated WBC rule out infection Plan Continue current management. Continue with Aspirin Continue with lasix Continue IV antibiotic Pacemaker interrogation is normal. Full code Eliquis for DVT prophylaxis *Clarify note: the patient only has pacemaker interrogation. No cardiac cath. Plan discussed with: Patient Date of Service: Nov 20, 2024 Billing Provider: RUT MAZARIEGOS MD Common Visit Codes: [id number] INP/OBS CARE(HIGH) RUT MAZARIEGOS MD Nov 20, 2024 12:02
[2024-11-20] MEDS: ACETAMINOPHEN 325 MG TAB PO PRN (15:26)
[2024-11-21] VITALS (7 sets, daily range): BP systolic 116–168; BP diastolic 51–80; PULSE 71–78; RESP 16–18; TEMP 97.9–98.8; O2SAT 94–97
[2024-11-21 06:59] LABS: Hematocrit 31.3 % (36.0-46.0); Hemoglobin 10.6 g/dL (12.2-16.2); Mean Corpuscular Hemoglobin 29.4 pg (28.0-32.0); Mean Corpuscular Volume 87.0 fL (80.0-100.0); Nucleated Red Blood Cells % 0.1 %
[2024-11-21 07:17] LABS: Albumin 3.4 g/dL (3.2-4.8); Alkaline Phosphatase 63 U/L (46-116); Anion Gap 8 (5-15); BUN/Creatinine Ratio 11.5 (10.0-20.0); Bilirubin, Total 0.3 mg/dL (0.2-1.0); Blood Urea Nitrogen 10 mg/dL (9-23); Carbon Dioxide 26 mmol/L (20-31); Glucose 97 mg/dL (74-106); Potassium 3.7 mmol/L (3.5-5.1); Sodium 141 mmol/L (136-145); Total Protein 5.8 g/dL (5.7-8.2)
[2024-11-21 07:18] LABS: Alanine Aminotransferase < 9 U/L (7-40); Calcium 8.5 mg/dL (8.7-10.4); Chloride 107 mmol/L (98-107)
--- NOTE | 2024-11-21 08:03 | DVHPN2 ---
Progress Note - Dictate Date Seen: Nov 21, 2024 Medical Necessity Reason Pt with a Central, PICC or Fol: No vital signs Vital Sign Date Time Temp Pulse Resp B/P (MAP) Pulse Ox O2 Delivery O2 Flow Rate FiO2 11/21/24 01:00 98.0 72 18 116/54 (74) 94 98.0 11/20/24 20:00 Room Air* 0 21 Total Intake and Output 11/20/24 11/20/24 11/21/24 15:00 23:00 07:00 Intake Total 50 ml 550 ml 550 ml Balance 50 ml 550 ml 550 ml medications Current Medications Medications Dose Ordered Sig/Adrian Route Start Time Stop Time Status Last Admin Dose Admin Ceftriaxone Sodium 50 ml @ 100 mls/hr DAILY@09 IV 11/17/24 21:15 11/20/24 09:15 100 MLS/HR Azithromycin 250 ml @ 125 mls/hr Q24H IV 11/19/24 21:00 11/20/24 21:46 125 MLS/HR Sodium Chloride 10 ml Q8HR IV 11/17/24 22:00 11/21/24 06:35 10 ML Docusate Sodium 100 mg BIDPRN PRN PO 11/17/24 21:15 Acetaminophen 650 mg Q6HP PRN PO 11/17/24 21:15 11/20/24 22:51 650 MG Acetaminophen/ Hydrocodone Bitart 1 tab Q4HP PRN PO 11/17/24 21:15 11/21/24 01:02 1 TAB Hydromorphone HCl 0.5 mg Q4HP PRN IV 11/17/24 21:15 Ondansetron HCl 4 mg Q4HP PRN IV 11/17/24 21:15 Aspirin 81 mg DAILY PO 11/18/24 10:00 11/20/24 09:32 81 MG Carvedilol 3.125 mg BID PO 11/17/24 22:00 11/20/24 21:46 3.125 MG Docusate Sodium 100 mg DAILY PO 11/18/24 10:00 11/20/24 09:30 100 MG Furosemide 40 mg DAILY PO 11/18/24 10:00 11/20/24 09:34 40 MG Ranolazine 500 mg BID PO 11/17/24 22:00 11/20/24 21:45 500 MG Sertraline HCl 50 mg DAILY PO 11/18/24 10:00 11/20/24 09:33 50 MG Trazodone HCl 50 mg BIDPRN PO 11/17/24 22:00 11/20/24 21:45 50 MG Atorvastatin Calcium 40 mg DAILY PO 11/18/24 10:00 11/20/24 09:32 40 MG Isosorbide Mononitrate 30 mg DAILY PO 11/18/24 10:00 11/20/24 09:30 30 MG Patient Own Medication 1 tab DAILY PRN PO 11/17/24 21:15 Enoxaparin Sodium 40 mg DAILY SC 11/18/24 10:00 Hold Pantoprazole Sodium 40 mg DAILY IV 11/19/24 10:00 11/20/24 09:19 40 MG Apixaban 2.5 mg BID PO 11/19/24 22:00 11/20/24 21:45 2.5 MG laboratory and microbiology Laboratory Tests 11/21/24 05:49 Test 11/21/24 05:49 Range/Units Serum Glucose 97 74-106 mg/dL Assessment/Plan Patient is a 83-year-old female was brought to the hospital for generalized weakness/lethargic feeling. It seems that blood pressure in the field was 80s. There is question if patient took too much medications. Patient herself is poor historian and did not know where she is. As per son (at bedside) there is question about if the patient took too much of morphine and antihypertensive medications. Cardiology is involved for cardiac aspects of care. Patient is known to our practice from outside and before. Patient does have history of noncompliance with followups. Last visit in the office was in July 2024 which itself was a follow-up after few years of missing followups. Not in acute distress. Somewhat confused. No JVD. Mucosa is pink and wet. No carotid bruit. Lungs are clear to auscultation. Cardiac: Regular, no thrill/gallop. Abdomen is soft. Extremities do not reveal edema. 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 She is known to have chronically elevated troponin. She is noncompliant with followups. Pacemaker (Medtronic) is slowly running out of battery. In July 2024 there was 6 months battery life left. Echocardiogram of November 14, 2024 revealed ejection fraction of 60%, mild concentric left ventricular hypertrophy and moderate pulmonary insufficiency. Nuclear stress test of April 2022 did not reveal any ischemia/scar Left heart catheterization of February 2023 revealed PALLIATIVE SENIOR NP of left main, patent SVG to LAD, ostial LCX with 80% lesion and patent PERALES to obtuse marginal territory WBC: 13.8 - 10.1 - 10.6 - 8.8 - 6.7 Hemoglobin: 10.0 - 10.0 - 10.5 - 10.6 - 10.6 D-dimer: 1.8 Creatinine: 1.0 - 0.87 - 0.83 - 0.85 - 0.85 Potassium: 3.7 - 3.6 - 3.5 - 3.7 - 3.7 Troponin (high sensitive): 48 - 50 CRP: 7.54 CT angio of the lungs: Impression: No evidence of pulmonary embolism, aortic aneurysm, or dissection. Ground-glass opacities of the right upper lobe represent infectious/ inflammatory process. Mediastinal lymphadenopathy which may be reactive/neoplastic. Moderate cardiomegaly with reflux of contrast into the IVC and hepatic veins consistent with right heart dysfunction. CT of the head revealed: IMPRESSION: 1. No acute intracranial abnormality. Tele reveals sinus rhythm Medtronic pacemaker interrogation: Battery voltage: 2.85 volts; Remaining longevity: 3 months; AAIR/DDDR: 70/120; Lead impedance: Atrial 380/RV 361 Ohms; Sensitivity: Atrial 0.3/RV 0.9 mV; AT/AF: 0%; /VS: 9.1%; AP/VS: 90.8%; Normal functioning pacemaker Patient is a 83-year-old female who presented with generalized weakness and hypotension. There is question if the patient received too much medication and presentation could have been secondary to over medication. She did have leukocytosis on admission and component of pneumonia/UTI/sepsis could have contributed to the clinical picture. D-dimer was elevated but pulmonary emboli was ruled out. She is found to have mediastinal lymphadenopathy. She does have minimally/flat elevated troponin. She is known to have chronic elevated troponin. Presentation is not considered ACS. Increased troponin is considered to reflect demand physiology. Hypotension Encephalopathy, possibly metabolic versus septic Sepsis Rule out pneumonia UTI Hypotension Polypharmacy Mediastinal lymphadenopathy Abnormal D-dimer Coronary artery disease, status post CABG History of CVA with left hemiparesis Depression/anxiety Dementia Valvular heart disease and status post TAVR Cardiac suggestion for management: Manage on telemetry Follow-up electrolytes and kidney function tests and correct abnormalities Keep potassium above 4 and magnesium above 2 Request/consider pulmonary consultation for the findings of the CT scan (mediastinal lymphadenopathy/pneumonia) Avoid polypharmacy Management of sepsis/pneumonia/UTI as per primary team Patient was counseled to be compliant with medications and followups Cardiac herrera, is stable and can be followed as outpatient Further evaluation and management depends on the above and clinical course A total of 55 minutes was spent reviewing the patient record, examining the patient, making a diagnostic and therapeutic plan, discussing this plan with medical personnel, following up on diagnostic studies and following the patient for clinical stability excluding any and all procedures. At least 50% of this time was spent in direct, [id number] contact. Thank you for allowing me to participate in this patient's care. Further recommendations will depend on patient's clinical course. Please do not hesitate to contact me if you have any questions or concerns. This medical document was created using electronic medical record system with [employer] computerized dictation system. Although this document has been carefully reviewed, there may still be some phonetic and typographical errors. These areas are purely typographical due to the imperfection of the software programs, and do not reflect any compromise in the patient's medical care. Plan discussed with: Other (nurse) RAZ WONG MD Nov 21, 2024 08:03
--- NOTE | 2024-11-21 12:54 | DVHPN2 ---
Subjective The patient seen and examined at bedside. The patient complained of dizziness and having trouble get out of bed. Reviewed: Care Plan, H&P, Labs, Medications, Previous Orders, Radiology Changes from previous H/P or p: No Changes Objective Vitals Vital Signs Date Time Temp Pulse Resp B/P (MAP) Pulse Ox O2 Delivery O2 Flow Rate FiO2 11/21/24 09:07 161/81 11/21/24 09:06 74 11/21/24 09:00 97.9 16 97 97.9 11/21/24 08:00 Room Air* 0 21 Intake/Output Intake and Output 11/21/24 07:00 Intake Total 1150 ml Balance 1150 ml Intake Oral 850 ml IV Total 300 ml # Voids 4 General Appearance: Alert, Oriented X3, Cooperative, No acute distress HEENT: Atraumatic, PERRLA, EOMI, Mucous membr. moist/pink Neck: Supple Lungs: Clear to auscultation, Normal air movement Cardiovascular: Regular rate, Normal S1, Normal S2, No murmurs, Gallops, Rubs Abdomen: Normal bowel sounds, Soft, No tenderness Neuro: Cranial nerves 3-12 NL Psych/Mental Status: Mental status NL Medications Current Medications Medications Dose Ordered Sig/Adrian Route Start Time Stop Time Status Last Admin Dose Admin Ceftriaxone Sodium 50 ml @ 100 mls/hr DAILY@09 IV 11/17/24 21:15 11/21/24 08:58 100 MLS/HR Azithromycin 250 ml @ 125 mls/hr Q24H IV 11/19/24 21:00 11/20/24 21:46 125 MLS/HR Sodium Chloride 10 ml Q8HR IV 11/17/24 22:00 11/21/24 06:35 10 ML Docusate Sodium 100 mg BIDPRN PRN PO 11/17/24 21:15 Acetaminophen 650 mg Q6HP PRN PO 11/17/24 21:15 11/20/24 22:51 650 MG Acetaminophen/ Hydrocodone Bitart 1 tab Q4HP PRN PO 11/17/24 21:15 11/21/24 01:02 1 TAB Hydromorphone HCl 0.5 mg Q4HP PRN IV 11/17/24 21:15 Ondansetron HCl 4 mg Q4HP PRN IV 11/17/24 21:15 Aspirin 81 mg DAILY PO 11/18/24 10:00 11/21/24 09:03 81 MG Carvedilol 3.125 mg BID PO 11/17/24 22:00 11/21/24 09:06 3.125 MG Docusate Sodium 100 mg DAILY PO 11/18/24 10:00 11/21/24 08:59 100 MG Furosemide 40 mg DAILY PO 11/18/24 10:00 11/21/24 09:07 40 MG Ranolazine 500 mg BID PO 11/17/24 22:00 11/21/24 08:58 500 MG Sertraline HCl 50 mg DAILY PO 11/18/24 10:00 11/21/24 09:05 50 MG Trazodone HCl 50 mg BIDPRN PO 11/17/24 22:00 11/21/24 09:05 50 MG Atorvastatin Calcium 40 mg DAILY PO 11/18/24 10:00 11/21/24 09:05 40 MG Isosorbide Mononitrate 30 mg DAILY PO 11/18/24 10:00 11/21/24 09:03 30 MG Patient Own Medication 1 tab DAILY PRN PO 11/17/24 21:15 Enoxaparin Sodium 40 mg DAILY SC 11/18/24 10:00 Hold Pantoprazole Sodium 40 mg DAILY IV 11/19/24 10:00 11/21/24 09:16 40 MG Apixaban 2.5 mg BID PO 11/19/24 22:00 11/21/24 09:06 2.5 MG Laboratory Results Laboratory Tests 11/21/24 05:49 Chemistry Test 11/21/24 05:49 Albumin 3.4 g/dL (3.2-4.8) Calcium Level 8.5 mg/dL (8.7-10.4) L Total Protein 5.8 g/dL (5.7-8.2) LFT Test 11/21/24 05:49 Alanine Aminotransferase (ALT) < 9 U/L (7-40) Alkaline Phosphatase 63 U/L (46-116) Aspartate Amino Transferase (AST) 12 U/L (13-40) L Total Bilirubin 0.3 mg/dL (0.2-1.0) Urinalysis Test 11/17/24 20:24 Urine Color Yellow (Yellow) Urine Clarity Clear (Clear) Urine pH 5.5 (5.0-9.0) Urine Specific [place] 1.010 (1.001-1.035) Urine Protein Negative (Negative) Urine Ketones Negative (Negative) Urine Blood Negative /uL (Negative) Urine Nitrite Negative (Negative) Urine Bilirubin Negative (Negative) Urine Urobilinogen Normal mg/dL (Negative) Urine Leukocyte Esterase 1+ /uL (Negative) Urine RBC 1 /hpf (0 - 4) Urine Microscopic WBC 8 /HPF (0-5) H Urine Squamous Epithelial Cells Few /hpf (<5) Urine Bacteria Few /hpf (None Seen) H Urine Glucose Normal mg/dL (Normal) Microbiology Microbiology Date/Time Source Procedure Growth Status 11/17/24 21:33 Blood Blood Culture - Preliminary NO GROWTH AFTER 72 HOURS OF INCUBATION. Resulted Labs and/or images reviewed: Labs reviewed by me Assessment/Plan Assessment/Plan COPD exacerbation History of [place], CVA, CAD, GERD, CHF, Depression, Elevated troponin rule out ACS Elevated WBC rule out infection Plan Continue current management. Continue with Aspirin Continue with lasix Continue IV antibiotic Pacemaker interrogation is normal. Full code Eliquis for DVT prophylaxis Encouraged the patient to be out of bed and ambulate. Discharge planning *Clarify note: the patient only has pacemaker interrogation. No cardiac cath. Plan discussed with: Patient Date of Service: Nov 21, 2024 Billing Provider: RUT MAZARIEGOS MD Common Visit Codes: [id number] INP/OBS CARE(HIGH) RUT MAZARIEGOS MD Nov 21, 2024 12:54
[2024-11-22 01:00] VITALS: BP 121/67; PULSE 75; RESP 18; O2SAT 98
[2024-11-22 05:00] VITALS: BP 138/58; PULSE 71; RESP 18; O2SAT 96
[2024-11-22 06:58] LABS: Albumin 3.6 g/dL (3.2-4.8); Alkaline Phosphatase 66 U/L (46-116); Anion Gap 9 (5-15); BUN/Creatinine Ratio 12.0 (10.0-20.0); Blood Urea Nitrogen 11 mg/dL (9-23); Calcium 8.9 mg/dL (8.7-10.4); Carbon Dioxide 27 mmol/L (20-31); Chloride 105 mmol/L (98-107); Glucose 103 mg/dL (74-106); Hematocrit 32.1 % (36.0-46.0); Hemoglobin 10.9 g/dL (12.2-16.2); Mean Corpuscular Hemoglobin 29.3 pg (28.0-32.0); Mean Corpuscular Volume 86.4 fL (80.0-100.0); Nucleated Red Blood Cells % 0.0 %; Potassium 4.1 mmol/L (3.5-5.1); Sodium 141 mmol/L (136-145); Total Protein 6.1 g/dL (5.7-8.2)
[2024-11-22 07:08] LABS: Alanine Aminotransferase 9 U/L (7-40); Bilirubin, Total 0.3 mg/dL (0.2-1.0)
--- NOTE | 2024-11-22 07:56 | DVHPN2 ---
Progress Note - Dictate Date Seen: Nov 22, 2024 Medical Necessity Reason Pt with a Central, PICC or Fol: No vital signs Vital Sign Date Time Temp Pulse Resp B/P (MAP) Pulse Ox O2 Delivery O2 Flow Rate FiO2 11/22/24 05:00 71 18 138/58 (84) 96 11/21/24 20:00 Room Air* 0 21 11/21/24 17:00 98.8 98.8 Total Intake and Output 11/21/24 11/21/24 11/22/24 15:00 23:00 07:00 Intake Total 50 ml 770 ml 300 ml Balance 50 ml 770 ml 300 ml medications Current Medications Medications Dose Ordered Sig/Adrian Route Start Time Stop Time Status Last Admin Dose Admin Ceftriaxone Sodium 50 ml @ 100 mls/hr DAILY@09 IV 11/17/24 21:15 11/21/24 08:58 100 MLS/HR Azithromycin 250 ml @ 125 mls/hr Q24H IV 11/19/24 21:00 11/21/24 20:47 125 MLS/HR Sodium Chloride 10 ml Q8HR IV 11/17/24 22:00 11/22/24 05:32 10 ML Docusate Sodium 100 mg BIDPRN PRN PO 11/17/24 21:15 Acetaminophen 650 mg Q6HP PRN PO 11/17/24 21:15 11/20/24 22:51 650 MG Acetaminophen/ Hydrocodone Bitart 1 tab Q4HP PRN PO 11/17/24 21:15 11/21/24 20:45 1 TAB Hydromorphone HCl 0.5 mg Q4HP PRN IV 11/17/24 21:15 Ondansetron HCl 4 mg Q4HP PRN IV 11/17/24 21:15 Aspirin 81 mg DAILY PO 11/18/24 10:00 11/21/24 09:03 81 MG Carvedilol 3.125 mg BID PO 11/17/24 22:00 11/21/24 22:00 3.125 MG Docusate Sodium 100 mg DAILY PO 11/18/24 10:00 11/21/24 08:59 100 MG Furosemide 40 mg DAILY PO 11/18/24 10:00 11/21/24 09:07 40 MG Ranolazine 500 mg BID PO 11/17/24 22:00 11/21/24 22:00 500 MG Sertraline HCl 50 mg DAILY PO 11/18/24 10:00 11/21/24 09:05 50 MG Trazodone HCl 50 mg BIDPRN PO 11/17/24 22:00 11/21/24 22:00 50 MG Atorvastatin Calcium 40 mg DAILY PO 11/18/24 10:00 11/21/24 09:05 40 MG Isosorbide Mononitrate 30 mg DAILY PO 11/18/24 10:00 11/21/24 09:03 30 MG Patient Own Medication 1 tab DAILY PRN PO 11/17/24 21:15 Enoxaparin Sodium 40 mg DAILY SC 11/18/24 10:00 Hold Pantoprazole Sodium 40 mg DAILY IV 11/19/24 10:00 11/21/24 09:16 40 MG Apixaban 2.5 mg BID PO 11/19/24 22:00 11/21/24 22:00 2.5 MG laboratory and microbiology Laboratory Tests 11/22/24 06:02 Test 11/22/24 06:02 Range/Units Serum Glucose 103 74-106 mg/dL Assessment/Plan Patient is a 83-year-old female was brought to the hospital for generalized weakness/lethargic feeling. It seems that blood pressure in the field was 80s. There is question if patient took too much medications. Patient herself is poor historian and did not know where she is. As per son (at bedside) there is question about if the patient took too much of morphine and antihypertensive medications. Cardiology is involved for cardiac aspects of care. Patient is known to our practice from outside and before. Patient does have history of noncompliance with followups. Last visit in the office was in July 2024 which itself was a follow-up after few years of missing followups. Not in acute distress. Somewhat confused. No JVD. Mucosa is pink and wet. No carotid bruit. Lungs are clear to auscultation. Cardiac: Regular, no thrill/gallop. Abdomen is soft. Extremities do not reveal edema. 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 She is known to have chronically elevated troponin. She is noncompliant with followups. Pacemaker (Medtronic) is slowly running out of battery. In July 2024 there was 6 months battery life left. Echocardiogram of November 14, 2024 revealed ejection fraction of 60%, mild concentric left ventricular hypertrophy and moderate pulmonary insufficiency. Nuclear stress test of April 2022 did not reveal any ischemia/scar Left heart catheterization of February 2023 revealed COMPUTING ARCHITECT of left main, patent SVG to LAD, ostial LCX with 80% lesion and patent PERALES to obtuse marginal territory WBC: 13.8 - 10.1 - 10.6 - 8.8 - 6.7 - 5.7 Hemoglobin: 10.0 - 10.0 - 10.5 - 10.6 - 10.6 - 10.9 D-dimer: 1.8 Creatinine: 1.0 - 0.87 - 0.83 - 0.85 - 0.87 - 0.92 Potassium: 3.7 - 3.6 - 3.5 - 3.7 - 3.7 - 4.1 Troponin (high sensitive): 48 - 50 CRP: 7.54 CT angio of the lungs: Impression: No evidence of pulmonary embolism, aortic aneurysm, or dissection. Ground-glass opacities of the right upper lobe represent infectious/ inflammatory process. Mediastinal lymphadenopathy which may be reactive/neoplastic. Moderate cardiomegaly with reflux of contrast into the IVC and hepatic veins consistent with right heart dysfunction. CT of the head revealed: IMPRESSION: 1. No acute intracranial abnormality. Tele reveals sinus rhythm Medtronic pacemaker interrogation: Battery voltage: 2.85 volts; Remaining longevity: 3 months; AAIR/DDDR: 70/120; Lead impedance: Atrial 380/RV 361 Ohms; Sensitivity: Atrial 0.3/RV 0.9 mV; AT/AF: 0%; /VS: 9.1%; AP/VS: 90.8%; Normal functioning pacemaker Patient is a 83-year-old female who presented with generalized weakness and hypotension. There is question if the patient received too much medication and presentation could have been secondary to over medication. She did have leukocytosis on admission and component of pneumonia/UTI/sepsis could have contributed to the clinical picture. D-dimer was elevated but pulmonary emboli was ruled out. She is found to have mediastinal lymphadenopathy. She does have minimally/flat elevated troponin. She is known to have chronic elevated troponin. Presentation is not considered ACS. Increased troponin is considered to reflect demand physiology. Hypotension Encephalopathy, possibly metabolic versus septic Sepsis Rule out pneumonia UTI Hypotension Polypharmacy Mediastinal lymphadenopathy Abnormal D-dimer Coronary artery disease, status post CABG History of CVA with left hemiparesis Depression/anxiety Dementia Valvular heart disease and status post TAVR Cardiac suggestion for management: Manage on telemetry Follow-up electrolytes and kidney function tests and correct abnormalities Keep potassium above 4 and magnesium above 2 Request/consider pulmonary consultation for the findings of the CT scan (mediastinal lymphadenopathy/pneumonia) Avoid polypharmacy Management of sepsis/pneumonia/UTI as per primary team Patient was counseled to be compliant with medications and followups Cardiac herrera, is stable and can be followed as outpatient Further evaluation and management depends on the above and clinical course A total of 55 minutes was spent reviewing the patient record, examining the patient, making a diagnostic and therapeutic plan, discussing this plan with medical personnel, following up on diagnostic studies and following the patient for clinical stability excluding any and all procedures. At least 50% of this time was spent in direct, [id number] contact. Thank you for allowing me to participate in this patient's care. Further recommendations will depend on patient's clinical course. Please do not hesitate to contact me if you have any questions or concerns. This medical document was created using electronic medical record system with [employer] computerized dictation system. Although this document has been carefully reviewed, there may still be some phonetic and typographical errors. These areas are purely typographical due to the imperfection of the software programs, and do not reflect any compromise in the patient's medical care. Plan discussed with: Other (nurse) RAZ WONG MD Nov 22, 2024 07:56
[2024-11-22 08:00] VITALS: PULSE 70
[2024-11-22 08:30] VITALS: BP 165/71; PULSE 69; RESP 16; O2SAT 96
--- NOTE | 2024-11-22 12:24 | DVHPN2 ---
Subjective The patient seen and examined at bedside. The patient complained of dizziness and having trouble get out of bed. Reviewed: Care Plan, H&P, Labs, Medications, Previous Orders, Radiology Objective Vitals Vital Signs Date Time Temp Pulse Resp B/P (MAP) Pulse Ox O2 Delivery O2 Flow Rate FiO2 11/22/24 09:18 165/71 11/22/24 09:17 70 11/22/24 08:00 Room Air* 0 21 11/22/24 05:00 18 96 11/21/24 17:00 98.8 98.8 Intake/Output Intake and Output 11/22/24 07:00 Intake Total 1120 ml Balance 1120 ml Intake Oral 820 ml IV Total 300 ml # Voids 3 General Appearance: Alert, Oriented X3, Cooperative, No acute distress HEENT: Atraumatic, PERRLA, EOMI, Mucous membr. moist/pink Neck: Supple Lungs: Clear to auscultation, Normal air movement Cardiovascular: Regular rate, Normal S1, Normal S2, No murmurs, Gallops, Rubs Abdomen: Normal bowel sounds, Soft, No tenderness Neuro: Cranial nerves 3-12 NL Psych/Mental Status: Mental status NL Medications Current Medications Medications Dose Ordered Sig/Adrian Route Start Time Stop Time Status Last Admin Dose Admin Ceftriaxone Sodium 50 ml @ 100 mls/hr DAILY@09 IV 11/17/24 21:15 11/22/24 09:09 100 MLS/HR Azithromycin 250 ml @ 125 mls/hr Q24H IV 11/19/24 21:00 11/21/24 20:47 125 MLS/HR Sodium Chloride 10 ml Q8HR IV 11/17/24 22:00 11/22/24 05:32 10 ML Docusate Sodium 100 mg BIDPRN PRN PO 11/17/24 21:15 Acetaminophen 650 mg Q6HP PRN PO 11/17/24 21:15 11/20/24 22:51 650 MG Acetaminophen/ Hydrocodone Bitart 1 tab Q4HP PRN PO 11/17/24 21:15 11/22/24 09:16 1 TAB Hydromorphone HCl 0.5 mg Q4HP PRN IV 11/17/24 21:15 Ondansetron HCl 4 mg Q4HP PRN IV 11/17/24 21:15 Aspirin 81 mg DAILY PO 11/18/24 10:00 11/22/24 09:18 81 MG Carvedilol 3.125 mg BID PO 11/17/24 22:00 11/22/24 09:17 3.125 MG Docusate Sodium 100 mg DAILY PO 11/18/24 10:00 11/22/24 09:18 100 MG Furosemide 40 mg DAILY PO 11/18/24 10:00 11/22/24 09:18 40 MG Ranolazine 500 mg BID PO 11/17/24 22:00 11/22/24 09:18 500 MG Sertraline HCl 50 mg DAILY PO 11/18/24 10:00 11/22/24 09:16 50 MG Trazodone HCl 50 mg BIDPRN PO 11/17/24 22:00 11/22/24 09:15 50 MG Atorvastatin Calcium 40 mg DAILY PO 11/18/24 10:00 11/22/24 09:10 40 MG Isosorbide Mononitrate 30 mg DAILY PO 11/18/24 10:00 11/22/24 09:15 30 MG Patient Own Medication 1 tab DAILY PRN PO 11/17/24 21:15 Enoxaparin Sodium 40 mg DAILY SC 11/18/24 10:00 Hold Pantoprazole Sodium 40 mg DAILY IV 11/19/24 10:00 11/22/24 09:09 40 MG Apixaban 2.5 mg BID PO 11/19/24 22:00 11/22/24 09:17 2.5 MG Laboratory Results Laboratory Tests 11/22/24 06:02 Chemistry Test 11/22/24 06:02 Albumin 3.6 g/dL (3.2-4.8) Calcium Level 8.9 mg/dL (8.7-10.4) Total Protein 6.1 g/dL (5.7-8.2) LFT Test 11/22/24 06:02 Alanine Aminotransferase (ALT) 9 U/L (7-40) Alkaline Phosphatase 66 U/L (46-116) Aspartate Amino Transferase (AST) 13 U/L (13-40) Total Bilirubin 0.3 mg/dL (0.2-1.0) Urinalysis Test 11/17/24 20:24 Urine Color Yellow (Yellow) Urine Clarity Clear (Clear) Urine pH 5.5 (5.0-9.0) Urine Specific [place] 1.010 (1.001-1.035) Urine Protein Negative (Negative) Urine Ketones Negative (Negative) Urine Blood Negative /uL (Negative) Urine Nitrite Negative (Negative) Urine Bilirubin Negative (Negative) Urine Urobilinogen Normal mg/dL (Negative) Urine Leukocyte Esterase 1+ /uL (Negative) Urine RBC 1 /hpf (0 - 4) Urine Microscopic WBC 8 /HPF (0-5) H Urine Squamous Epithelial Cells Few /hpf (<5) Urine Bacteria Few /hpf (None Seen) H Urine Glucose Normal mg/dL (Normal) Microbiology Microbiology Date/Time Source Procedure Growth Status 11/17/24 21:33 Blood Blood Culture - Preliminary NO GROWTH AFTER 72 HOURS OF INCUBATION. Resulted Assessment/Plan Assessment/Plan COPD exacerbation History of [place], CVA, CAD, GERD, CHF, Depression, Elevated troponin rule out ACS Elevated WBC rule out infection Plan Continue current management. Continue with Aspirin Continue with lasix Continue IV antibiotic Pacemaker interrogation is normal. Full code Eliquis for DVT prophylaxis Encouraged the patient to be out of bed and ambulate. Discharge planning *Clarify note: the patient only has pacemaker interrogation. No cardiac cath. My Orders Orders - RUT MAZARIEGOS MD Procedure Category Date Status Time Electrocardigram EKG 11/21/24 Logged 20:05 RUT MAZARIEGOS MD Nov 22, 2024 12:24
[2024-11-22 12:30] VITALS: BP 114/54; PULSE 66; RESP 14; O2SAT 96
--- NOTE | 2024-11-22 14:44 | DVHDS2 ---
Discharge Summary Date of Admission Nov 17, 2024 at 21:07 Date of Discharge: Nov 22, 2024 Admitting Diagnosis COPD exacerbation History of NH, CVA, CAD, GERD, CHF, Depression, Elevated troponin rule out ACS Elevated WBC rule out infection Labs/Diagnostic Data: Laboratory Results Test 11/22/24 06:02 11/17/24 20:24 11/17/24 17:38 11/17/24 16:45 White Blood Count 5.7 10^3/uL (4.4-10.8) Red Blood Count 3.71 10^6/uL (4.0-5.20) Hemoglobin 10.9 g/dL (12.2-16.2) Hematocrit 32.1 % (36.0-46.0) Mean Corpuscular Volume 86.4 fL (80.0-100.0) Mean Corpuscular Hemoglobin 29.3 pg (28.0-32.0) Mean Corpuscular Hemoglobin Concent 33.9 g/dL (32.0-36.0) Red Cell Distribution Width 15.9 % (11.8-14.3) Platelet Count 331 10^3/uL (140-450) Mean Platelet Volume 9.0 fL (6.9-10.8) Neutrophils (%) (Auto) 46.3 % (37.0-80.0) Lymphocytes (%) (Auto) 32.1 % (10.0-50.0) Monocytes (%) (Auto) 11.5 % (0.0-12.0) Eosinophils (%) (Auto) 9.3 % (0.0-7.0) Basophils (%) (Auto) 0.8 % (0.0-2.0) Neutrophils # (Auto) 2.7 10 ^3/uL (1.6-8.6) Lymphocytes # (Auto) 1.8 10 ^3/uL (0.4-5.4) Monocytes # (Auto) 0.7 10 ^3/uL (0-1.3) Eosinophils # (Auto) 0.5 10 ^3/uL (0-0.8) Basophils # (Auto) 0 10 ^3/uL (0-0.2) Nucleated Red Blood Cells 0.0 % Sodium Level 141 mmol/L (136-145) Potassium Level 4.1 mmol/L (3.5-5.1) Chloride Level 105 mmol/L (98-107) Carbon Dioxide Level 27 mmol/L (20-31) Anion Gap 9 (5-15) Blood Urea Nitrogen 11 mg/dL (9-23) Creatinine 0.92 mg/dL (0.550-1.02) Glomerular Filtration Rate Calc 61 mL/min (>90) BUN/Creatinine Ratio 12.0 (10.0-20.0) Serum Glucose 103 mg/dL (74-106) Calcium Level 8.9 mg/dL (8.7-10.4) Total Bilirubin 0.3 mg/dL (0.2-1.0) Aspartate Amino Transferase (AST) 13 U/L (13-40) Alanine Aminotransferase (ALT) 9 U/L (7-40) Alkaline Phosphatase 66 U/L (46-116) Total Protein 6.1 g/dL (5.7-8.2) Albumin 3.6 g/dL (3.2-4.8) Urine Color Yellow (Yellow) Urine Clarity Clear (Clear) Urine pH 5.5 (5.0-9.0) Urine Specific [place] 1.010 (1.001-1.035) Urine Protein Negative (Negative) Urine Ketones Negative (Negative) Urine Blood Negative /uL (Negative) Urine Nitrite Negative (Negative) Urine Bilirubin Negative (Negative) Urine Urobilinogen Normal mg/dL (Negative) Urine Leukocyte Esterase 1+ /uL (Negative) Urine RBC 1 /hpf (0 - 4) Urine Microscopic WBC 8 /HPF (0-5) Urine Squamous Epithelial Cells Few /hpf (<5) Urine Bacteria Few /hpf (None Seen) Urine Glucose Normal mg/dL (Normal) Troponin I High Sensitivity 50 ng/L (</=34) C-Reactive Protein High Sensitivity 7.54 mg/dL (<1.0) Erythrocyte Sedimentation Rate 8 mm/hr (0-20) Prothrombin Time 11.4 sec (9.3-11.8) Prothrombin Time INR 1.08 (0.9-1.15) Activated Partial Thromboplast Time 29.7 SEC (24.5-34.5) D-Dimer, Quantitative 1.80 mg/L FEU (0.0-0.49) Magnesium Level 1.8 mg/dL (1.6-2.6) Other Laboratory Tests 11/22/24 06:02 Brief Hx & Hospital Course: 83 y.o female with PMHx of NH, CVA, CAD, GERD, CHF, and depression, presents to the ED via EMS for a chief complaint of generalized weakness. Per triage nurse, patient became lethargic today with a blood pressure in the 80's systolic in field. Per son on scene, he suspected patient might have taken too much of her Morphine prescription at home today causing her to be lethargic and hypotensive. Patient is alert and oriented x 3 and denies any pain. IV fluids are currently running with a BP of 90/50's. Upon ED arrival, BP did increae to 115 systolic. The patient was admitted. Special Warfare Boat Operator was consulted. Recommend outpatient follow up. Recommended to keep her electrolytes stable with potassium above 4. The patient's chest x-ray showed lymphadenopathy probable reactive due to pneumonia. The patient was put on IV antibiotic with Rocephin and Zithromax. The patient subsequently doing better. Patient worked with physical therapy. Still complaint of dizziness on and off but no fever or chill. Blood pressure stable. I am going to discharge the patient home. Advised the patient to follow up with primary care physician 1-2 weeks. Follow up with rn lpn cna per schedule. Activity as tolerated. Diet per home diet. Recommend follow up CT scan of the chest in six months regarding to the lymphadenopathy to see if his a reactive lymphadenopathy versus other. Physical exam: HEENT: Normocephalic atraumatic pupils equal react to light and accommodation. Extraocular muscles intact, conjunctiva pink, oropharynx moist, no thrush, no exudate. Lymphatic: No lymphadenopathy Cardiovascular exam: S1, S2 was heard. No murmurs, rubs, gallops Lung: Clear on auscultation bilaterally, no wheeze, rale, rhonchi. GI: Abdominal soft, nondistended, nontenderness, positive bowel sounds. Extremity: No crepitus, cyanosis, edema. Pedal pulses present bilateral. Full range of motion. Skin: Normal turgor, no rash. Psych: Alert, oriented x3. Neurology: No focal deficits, cranial nerve II to XII grossly intact. This medical document was created using an electronic medical record system with [employer] direct computerized dictation system. Although this document has been carefully reviewed, there may still be some phonetic and typographical errors. These areas are purely typographical due to imperfections of the software programs, and do not reflect any compromise in the patient's medical care. Condition at Discharge: Stable Final Diagnosis/Problems List COPD exacerbation History of NH, CVA, CAD, GERD, CHF, Depression, Elevated troponin rule out ACS Elevated WBC rule out infection Discharge Disposition: Home Discharge Instruct/Medications Scheduled Apixaban Base (Eliquis), 5 MG PO BID Aspirin (Aspirin Low Dose), 81 MG PO DAILY Atorvastatin Calcium (Atorvastatin Calcium), 1 TAB PO DAILY Azithromycin (Zithromax Tablet), 250 MG PO DAILY Carvedilol (Coreg), 3.125 MG PO BID Cetirizine Hcl (Kls Aller-Aditya), 10 MG PO DAILY, (Reported) Docusate Sodium (Colace), 100 MG PO DAILY, (Reported) Fentanyl (Fentanyl), 1 PATCH TD Q72HR, (Reported) Furosemide (Furosemide), 1 TAB PO DAILY Isosorbide Mononitrate (Isosorbide Mononitrate Er), 1 TAB PO DAILY Lidocaine (Lidocaine), 4 % EX Q12H, (Reported) Nitroglycerin (Ntrostat Sublingual), 0.4 MG SL PRN, (Reported) Omeprazole (Omeprazole Dr), 1 CAP PO DAILY, (Reported) Potassium Chloride (Klor-Con 8), 1 TAB PO BID, (Reported) Ranolazine (Ranolazine ER), 1 TAB PO BID, (Reported) Sertraline HCl (Sertraline Hydrochloride), 50 MG PO DAILY, (Reported) Trazodone Hcl (Trazodone Hcl), 50 MG PO BIDPRN, (Reported) Scheduled PRN Acetaminophen (Acetaminophen), 500 MG PO Q4HP PRN Hydrocodone-Acetaminophen (Hydrocodone Bitartrate/AC 5-325 mg), 1 TAB PO Q6H PRN for PAIN, (Reported) Ibuprofen Micronized (Ibuprofen), 600 MG PO Q6HP PRN Lorazepam (Lorazepam Intensol), 0.25 ML PO Q6HR PRN for ANXIETY, (Reported) Mirtazapine (Mirtazapine Oral Disintegrating Tablet), 1 TAB PO DAILY PRN for POOR APPETITE, (Reported) Discontinued Medications Cephalexin (Keflex Capsule), 1 CAP PO QID Discharge Statement: "Patient was advised to return to the ER or call 911 if any headaches, dizziness, shortness of breath, chest pain, abdominal pain, bleeding, fevers, or worsening of medical condition. Patient was counseled about treatment plan, medications, possible side effects, patientverbalized understanding. All questions were answered to the best of my ability. This discharge took greater then 30 minutes in planning, reviewing documentation, counseling the patient, and discussing with other team members." ASSESSMENT ASSESSMENT Assessment Date of Service: Nov 22, 2024 Billing Provider: RUT MAZARIEGOS MD Common Visit Codes: 16391-CYW/OBS DISCH DAY >30min RUT MAZARIEGOS MD Nov 22, 2024 14:44
[2024-11-22] MEDS ORDERED: AZIT-185 PO (14:48)
[2024-11-22 15:50] VITALS: BP 152/75; PULSE 70; RESP 17; TEMP 37.1; O2SAT 97
== END 2024-11-22 19:05 | disposition home or self-care (01) | DRG 640 ==
LOC: EDBD 15:15 → ER 15:15 → OVERFLOW 21:07 → TELE-WESTW 23:42
PROVIDERS: ADMIT Internal Medicine; ATTEND Internal Medicine
PROC: 4B02XSZ Measurement of Cardiac Pacemaker, External Approach (ICD-10-PCS; principal; 2024-11-20)
DX: E86.0 Dehydration (principal); G92.9 Unspecified toxic encephalopathy; I69.354 Hemiplegia and hemiparesis following cerebral infarction affecting left non-dominant side; N39.0 Urinary tract infection, site not specified; J44.1 Chronic obstructive pulmonary disease with (acute) exacerbation; J44.0 Chronic obstructive pulmonary disease with (acute) lower respiratory infection; I25.10 Atherosclerotic heart disease of native coronary artery without angina pectoris; F03.90 Unspecified dementia, unspecified severity, without behavioral disturbance, psychotic disturbance, mood disturbance, and anxiety; F32.A Depression, unspecified; F41.9 Anxiety disorder, unspecified; I11.0 Hypertensive heart disease with heart failure; I50.9 Heart failure, unspecified; K21.9 Gastro-esophageal reflux disease without esophagitis; M81.0 Age-related osteoporosis without current pathological fracture; E78.5 Hyperlipidemia, unspecified; R59.1 Generalized enlarged lymph nodes; Z88.2 Allergy status to sulfonamides; Z95.0 Presence of cardiac pacemaker; Z95.1 Presence of aortocoronary bypass graft; Z90.49 Acquired absence of other specified parts of digestive tract; Z90.710 Acquired absence of both cervix and uterus; Z80.3 Family history of malignant neoplasm of breast; Z82.49 Family history of ischemic heart disease and other diseases of the circulatory system; Z83.3 Family history of diabetes mellitus; Z91.199 Patient's noncompliance with other medical treatment and regimen due to unspecified reason; Z79.01 Long term (current) use of anticoagulants; Z79.899 Other long term (current) drug therapy; Z95.2 Presence of prosthetic heart valve
CPT/HCPCS: 36415; 70450; 71275; 80053; 81001; 83735; 84484; 85025; 85379; 85610; 85652; 85730; 86141; 87040; 93005; 96365; 97110; 97116; 97530; 99291; G0378; J2470

== ENCOUNTER 2024-12-18 14:40 | Inpatient (IN) | payer MEDICAID ==
[~2024-12-18] VITALS: Ht 162.6 cm; Wt 61.6 kg
[~2024-12-18 14:40] MED LIST changes: +AZIT-185 PO; -CEPH250C PO
--- NOTE | 2024-12-18 15:03 | ED.PDOC ---
SOB-HPI HPI Comments Discharge diagnosis from 11/22/2024 COPD exacerbation History of FL, CVA, CAD, GERD, CHF, Depression, Elevated troponin rule out ACS Elevated WBC rule out infection HPI: 83 year old female presents to the ED via EMS with a chief complaint of shortness of breath onset today (12/18/24). Per EMS, patient was ambulatory on scene with cane, with no respiratory distress, O2 sat was 96% on RA. Patient states she began experiencing shortness of breath, as well as dizziness, states she needs "breathing medication." Denies chest pain, fever, chills, cough, con gestion, nausea, vomiting, diarrhea, headache. No other symptoms or modifying factors present at this time. Initial Vitals BP: 105/68 HR: 81 RR: 22 O2 Sat: 96% Temp: 98.4 F Past Medical history: arthritis, CAD, CVA, Depression, GERD, HTN, FL, frequent U TI's Past Surgical history: CABG, cholecystectomy, hysterectomy, pacemaker, PTCA Medications: Plavix, Lasix Social History: Denies smoking, ETOH, and drug use. Allergies: NKDA HPI: Poor Historian. REVIEW OF SYSTEMS: CONSTITUTIONAL: Denies acute: fever, diaphoresis, chills, generalized weakness. HEAD: Denies acute: headache, photophobia Eyes: Denies acute: Double vision, vision loss, eye pain, eye discharge. EARS: Denies acute: tinnitus, hearing loss, ear discharge, ear pain, THROAT: Denies acute: sore throat, swelling, difficulty swallowing , pain with swallowing, change in voice. NECK: Denies acute: neck pain, neck swelling, stiff neck. HEART: Denies acute : chest pain, palpitations, LUNGS: Denies acute: wheezing, cough, hemoptysis ABDOMEN: Denies acute: abdominal pain, Nausea, Vomiting, diarrhea, melena , hematemesis, hematochezia SKIN: Denies acute: rash, redness, lesions, itchiness. EXTREMITIES: Denies acute: calf pain, numbness, tingling, weakness, denies pain in extremity. Denies acute: Low back pain. Neuro: Denies acute: focal neurological deficit, motor or sensory focal neurological deficit, tremors, seizure like activity, confusion, change in mental status, loss of bowel or bladder function, cauda equina like symptoms. : Denies acute: dysuria, hematuria, flank pain, increase in urinary frequency. PSYCH: Denies acute: hallucination, suicidal ideation, homicidal ideation. FEMALE: Denies acute: abnormal vaginal bleeding, foul odor, unusual discharge. PHYSICAL EXAM: General: -----mild---acute distress, awake and alert. Head: normocephalic, atraumatic. Neck: supple, trachea is midline, no swelling. Throat: Normal phonation. Eyes:, no erythema, no purulent discharge, no proptosis, no icterus. Heart: regular rate, regular rhythm, no significant murmur appreciated. Lungs: no apparent respiratory distress, Able to speak in full sentences. No wheezing, no rhonchi, no crackles. No stridors Clear to auscultation bilaterally. Abdomen: non tender to palpation, non distended, soft, no guarding, no rebound, + bowel sounds. Neuro: Awake, Alert, oriented to name, self, situation, follows commands GCS=15. Speech is normal. Skin: no petechia, no purpura, no cyanosis, non-pale, not jaundice. Lower extremities: --no - Pitting edema no deformity, no focal swelling, no calf TTP. Makes eye contact. moves all four extremities. Face: no apparent facial droop. Ambulating in the ED with a cane. ED COURSE: DISCLAIMER: This medical document was created using an electronic medical record system with voice recognition software and computerized dictation system. Although this document has been carefully reviewed, there might still be some phonetic and typographical errors. Occasional wrong-word or "sound-alike" substitutions may have occurred due to the inherent limitations of voice recognition software. These areas are purely typographical due to imperfections of the software programs and do not reflect any compromise in the patient's medical care. Please read the chart carefully and recognize, using context, where these substitutions have occurred. 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 Was a procedure done?: No X-Ray, Labs, Meds, VS Vital Signs Date Time Temp Pulse Resp B/P (MAP) Pulse Ox O2 Delivery O2 Flow Rate FiO2 12/18/24 17:59 70 18 98 Room Air* 0 12/18/24 17:43 98.2 70 18 147/93 (111) 98 98.2 12/18/24 17:43 147/93 12/18/24 15:51 94 Room Air* 0 12/18/24 15:51 18 95 Room Air* 0 12/18/24 14:48 81 12/18/24 14:40 98.4 81 22 105/68 96 98.4 Lab Test 12/18/24 16:27 12/18/24 15:29 12/18/24 15:28 Range/Units Troponin I High Sensitivity 110 *H 114 *H </=34 ng/L Blood Gas Specimen Type Arterial Blood Gas Sample Site Right radial Blood Gas Patient Temperature 37.0 Arterial Blood Date Drawn [id number] Arterial Blood pH 7.447 7.350-7.450 Arterial Blood Partial Pressure CO2 30.6 L 32.0-45.0 mmHg Arterial Blood Partial Pressure O2 82.2 L 83.0-108.0 mmHg Arterial Blood HCO3 20.6 L 21.0-28.0 mmol/L Arterial Blood Oxygen Saturation 96.4 94.0-98.0 % Arterial Blood Base Excess -2.3 L -2.0-3.0 mmol/L Arterial Blood Oxyhemoglobin 95.9 94.0-98.0 % Arterial Blood Carboxyhemoglobin 0.2 L 0.5-1.5 % Arterial Blood Methemoglobin 0.3 0.0-1.5 % Antonio Test Modified Blood Gas Total Hemoglobin 13.40 12.0-16.0 g/dL Blood Gas Modality Room air FiO2 % 21.0 White Blood Count 8.4 4.4-10.8 10^3/uL Red Blood Count 4.38 4.0-5.20 10^6/uL Hemoglobin 12.6 12.2-16.2 g/dL Hematocrit 38.5 36.0-46.0 % Mean Corpuscular Volume 88.0 80.0-100.0 fL Mean Corpuscular Hemoglobin 28.8 28.0-32.0 pg Mean Corpuscular Hemoglobin Concent 32.7 32.0-36.0 g/dL Red Cell Distribution Width 15.5 H 11.8-14.3 % Platelet Count 301 140-450 10^3/uL Mean Platelet Volume 8.9 6.9-10.8 fL Neutrophils (%) (Auto) 48.5 37.0-80.0 % Lymphocytes (%) (Auto) 37.0 10.0-50.0 % Monocytes (%) (Auto) 10.7 0.0-12.0 % Eosinophils (%) (Auto) 3.1 0.0-7.0 % Basophils (%) (Auto) 0.7 0.0-2.0 % Neutrophils # (Auto) 4.1 1.6-8.6 10 ^3/uL Lymphocytes # (Auto) 3.1 0.4-5.4 10 ^3/uL Monocytes # (Auto) 0.9 0-1.3 10 ^3/uL Eosinophils # (Auto) 0.3 0-0.8 10 ^3/uL Basophils # (Auto) 0.1 0-0.2 10 ^3/uL Nucleated Red Blood Cells 0.0 % D-Dimer, Quantitative 1.12 H 0.0-0.49 mg/L FEU Sodium Level 140 136-145 mmol/L Potassium Level 4.2 3.5-5.1 mmol/L Chloride Level 105 98-107 mmol/L Carbon Dioxide Level 24 20-31 mmol/L Anion Gap 11 5-15 Blood Urea Nitrogen 9 9-23 mg/dL Creatinine 1.12 H 0.550-1.02 mg/dL Glomerular Filtration Rate Calc 48 >90 mL/min BUN/Creatinine Ratio 8.0 L 10.0-20.0 Serum Glucose 107 H 74-106 mg/dL Calcium Level 8.9 8.7-10.4 mg/dL B-Type Natriuretic Peptide 104.37 0-100 pg/mL Current Medications Medications (Trade) Dose Ordered Sig/Adrian Route Start Time Stop Time Status Last Admin Albuterol (Ventolin Medneb) 2.5 mg ONCE ONCE NEB 12/18/24 15:45 12/18/24 15:46 DC 12/18/24 15:55 Ipratropium Meraux (Atrovent Medneb) 1 mg ONCE ONCE NEB 12/18/24 15:45 12/18/24 15:46 DC 12/18/24 15:54 Methylprednisolone Sodium Succinate (Solu Medrol) 125 mg ONCE ONCE IV 12/18/24 15:45 12/18/24 15:46 DC 12/18/24 17:34 Furosemide (Lasix Injection) 40 mg ONCE ONCE IV 12/18/24 15:45 12/18/24 15:46 DC 12/18/24 17:43 Aspirin (Ecotrin Enteric Coated Tablet) 325 mg ONCE ONCE PO 12/18/24 16:30 12/18/24 16:48 DC 12/18/24 17:34 [place] [address] Ph: [phone] DIAGNOSTIC IMAGING Diagnostic Imaging Report : [id number] Signed PATIENT: SHARA RAMIREZ ACCT: [id number] UNIT: [id number] : 1940 LOC: ER ROOM / BED: / AGE / SEX: 83 / F ADM STATUS: REG ER SERVICE 1457 ORDERING PHYSICIAN: BARBIE MORENO DO PROCEDURE(s): CXRP - CHEST PORTABLE REASON: SOB ORDER NUMBER(s): [id number], ACCESSION NUMBER(s): [id number] XY CHEST PORTABLE, HISTORY: SOB COMPARISON: CT CT ANGIO CHEST CONTRAST on DOS: 11/17/24, XY CHEST TWO VIEWS ROUTINE on DOS: 05/26/24, XY CHEST PORTABLE on DOS: 12/30/[address] ANGIO CHEST CONTRAST on DOS: 11/17/24, XY CHEST TWO VIEWS ROUTINE on DOS: 05/26/24, XY CHEST PORTABLE on DOS: 12/30/23 TECHNICAL DATA: 1 view of the chest was obtained. FINDINGS: Lines and tubes: A cardiac pacer is noted. Cardiomediastinal silhouette: normal Pulmonary vasculature: normal Lung expansion: low Lung airspace: normal Lung interstitium: normal Pleura: normal Pneumothorax: no Bones: Unremarkable Other: no IMPRESSION: No acute intrathoracic abnormality. ATED BY: BENJAMIN SNYDER MD DICTATED DATE/TIME: 12/18/24 1531 SIGNED BY: BENJAMIN SNYDER MD SIGNED DATE/TIME: 12/18/24 153 CC: Time of 1ST Reevaluation: 15:30 Reevaluation 1ST: Unchanged Patient Education/Counseling: Diagnosis, Treatment Family Education/Counseling: No Family Present Departure 1 Departure Time of Disposition: 15:31 Impression: Primary Impression: Dyspnea Additional Impressions: Dizziness Elevated troponin Disposition: ADMITTED INPATIENT Admit to: [facility] Condition: Guarded Discharged With: Self Critical Care Note Critical Care Time?: No I personally scribed for BARBIE MORENO DO ([email or web address]) on 12/18/24 at 15:03. Electronically submitted by Jacqueline Vasquez ([email or web address]). I personally scribed for BARBIE MORENO DO ([email or web address]) on 12/18/24 at 15:28. Electronically submitted by Jacqueline Vasquez ([email or web address]). I personally scribed for BARBIE MORENO DO ([email or web address]) on 12/18/24 at 15:36. Jenelle ctronically submitted by Jacqueline Vasquez ([email or web address]). BARBIE MORENO DO Dec 18, 2024 15:03
--- NOTE | 2024-12-18 15:16 | ECG ---
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
--- NOTE | 2024-12-18 15:34 | DVH ---
XY CHEST PORTABLE, HISTORY: SOB COMPARISON: CT CT ANGIO CHEST CONTRAST on DOS: 11/17/24, XY CHEST TWO VIEWS ROUTINE on DOS: 05/26/24, XY CHEST PORTABLE on DOS: 12/30/[address] ANGIO CHEST CONTRAST on DOS: 11/17/24, XY CHEST TWO VIEWS ROUTINE on DOS: 05/26/24, XY CHEST FERNANDO BLE on DOS: 12/30/23 TECHNICAL DATA: 1 view of the chest was obtained. FINDINGS: Lines and tubes: A cardiac pacer is noted. Cardiomediastinal silhouette: normal Pulmonary vasculature: normal Lung expansion: low Lung airspace: normal Lung interstitium: normal Pleura: normal Pneumothorax: no Bones: Unremarkable Other: no IMPRESSION: No acute intrathoracic abnormality.
[2024-12-18 15:43] LABS: Hematocrit 38.5 % (36.0-46.0); Hemoglobin 12.6 g/dL (12.2-16.2); Mean Corpuscular Hemoglobin 28.8 pg (28.0-32.0); Mean Corpuscular Volume 88.0 fL (80.0-100.0); Nucleated Red Blood Cells % 0.0 %
[2024-12-18 15:49] LABS: Base Excess -2.3 mmol/L (-2.0-3.0)
[2024-12-18 15:50] LABS: Chloride 105 mmol/L (98-107); Potassium 4.2 mmol/L (3.5-5.1); Sodium 140 mmol/L (136-145)
[2024-12-18 15:51] LABS: Anion Gap 11 (5-15); Calcium 8.9 mg/dL (8.7-10.4); Carbon Dioxide 24 mmol/L (20-31)
[2024-12-18] MEDS: IPRATROPIUM BROM 0.5 MG/2.5ML INH SOL NEB ONE (15:54)
[2024-12-18] MEDS: ALBUTEROL SULF 2.5 MG/0.5ML(0.5%) NEB SOLN NEB ONE (15:55)
[2024-12-18 15:56] LABS: BUN/Creatinine Ratio 8.0 (10.0-20.0); Blood Urea Nitrogen 9 mg/dL (9-23)
[2024-12-18 16:08] LABS: Glucose 107 mg/dL (74-106)
[2024-12-18] MEDS: methylPREDNISolone SOD SUCC 125 MG/2 ML VL IV ONE (17:34)
[2024-12-18] MEDS: ASPirin-EC 325mg tab PO ONE (17:34)
[2024-12-18] MEDS: FUROSEMIDE 40 MG/4 ML VIAL IV ONE (17:43)
[2024-12-18 17:59] VITALS: PULSE 70; RESP 18; O2SAT 98
[2024-12-18 21:10] VITALS: PULSE 75
[2024-12-18 23:33] LABS: Magnesium 2.2 mg/dL (1.6-2.6); Triglycerides 362.0 mg/dL (< 150)
[2024-12-18 23:33] LABS: INR 1.0 (0.9-1.15); Partial Thromboplastin Time 25.9 SEC (24.5-34.5); Prothrombin Time 10.6 sec (9.3-11.8)
[2024-12-18 23:34] LABS: HDL Cholesterol 47.0 mg/dL (40-59)
[2024-12-18 23:35] LABS: Cholesterol 259.0 mg/dL (< 200)
[2024-12-18 23:46] LABS: Lipase 36.0 U/L (12-53)
[2024-12-19] VITALS (16 sets, daily range): BP systolic 113–155; BP diastolic 54–86; PULSE 70–87; RESP 16–19; TEMP 96.5–98.1; O2SAT 95–100
[2024-12-19] MEDS ORDERED: NITROGLYCERIN 0.4 MG SL TAB SL PRN (00:30)
[2024-12-19] MEDS ORDERED: MORPHINE SULFATE INJ 2 MG/ml SYRG IV PRN ×2 (00:30)
[2024-12-19] MEDS ORDERED: ONDANSETRON HCL 4 MG/2 ML VIAL IV PRN (00:30)
[2024-12-19 00:40] LABS: Urine Protein, UAD Negative (Negative)
[2024-12-19] MEDS: SODIUM CHLORIDE 0.9% 1,000 ML IV SCH (00:53)
--- NOTE | 2024-12-19 01:11 | DVHHPRES ---
History of Present Illness Resident Creating Document: LUH SANDOVAL RESIDENT History of Present Illness This is in 83-year-old female with past medical history of hypertension, diabetes, open heart surgery (unsure about the surgical procedure), stroke, presented to the ER with chief complain of chest pain and dizziness. Pain is pressure-like, retrosternal, rating 8/10, radiating to the back, worsens with exertion. Her pain is associated with shortness of breath since 1 week which also worsens with exertion. She is also complaining of dizziness, which started 2 months back, dizziness is described as feeling of everything around her spinning, worsens with changing positions. She also has multiple other complaints including abdominal pain, nausea, vomiting, constipation, pain in her right arm and shoulder. Her right arm and shoulder pain has been worsening since last 1 week, pain is reproducible with palpation. Her abdominal pain has been intermittent for the past few months, burning, associated with nausea. She also complained of burning micturition and dysuria, since last 1 week. Reports recently being treated for UTI with Cephalexin 250 mg for 7 days. Previous hospitalization: 5 months ago for chest pain PMHx: Hypertension, diabetes mellitus, stroke (20 years ago); previous records indicate [place] with CABG, stent, history of pacemaker implantation, CHF, COPD PSHx: Open heart surgery (unsure about the procedure) Social history: Denies smoking, alcohol, recreational drug use. Lives in house with son. Full code. Next of kin son, daughter Home medication: Unsure about her home medications Allergic history: Sulfa antibiotics Patient was examined at bedside today. She has multiple complaints. Labs show elevated troponins and D-dimer, she is admitted for further evaluation and management. Review of Systems Constitutional: Yes: Chills, Weakness, Malaise Eyes: Vision change ENT: Throat pain Respiratory: Shortness of breath, SOB with excertion, Pleuritic Pain Cardiovascular: Chest Pain, Lt Headedness Gastrointestinal: Nausea, Vomiting, Abdominal Pain, Constipation Genitourinary: Dysuria, Incontinence Musculoskeletal: neck pain, shoulder pain, arm pain, back pain Neurological: Weakness Allergies: Coded Allergies: Sulfa Antibiotics (Verified Allergy, Unknown, 09/27/20) Exam Vital Signs Vital Signs Date Time Temp Pulse Resp B/P (MAP) Pulse Ox O2 Delivery O2 Flow Rate FiO2 12/18/24 22:55 70 14 110/47 (68) 95 12/18/24 21:10 97.9 97.9 12/18/24 17:59 Room Air* 0 21 Exam General: Patient alert and oriented in person, place and time. Patient following commands. HEENT: Bilateral cataract. Normocephalic, atraumatic, moist mucous membranes Respiratory/pulmonary: Clear lungs bilaterally, vesicular murmurs present in almost all lung chery, no associated crackles or wheezes. Cardiovascular: S1, S2 heard without murmur. Abdomen: Tenderness in epigastrium and lower abdomen on deep palpation. Extremities: There is no peripheral edema present at the lower extremities. Skin: No rashes or pruritus, there is no sacral edema present at this time. Neurological: Intact cranial nerves with no focal neurologic deficits Labs/Xrays Labs Test 12/19/24 00:00 12/18/24 19:05 12/18/24 16:27 12/18/24 15:29 Range/Units Urine Color Light-yellow Yellow Urine Clarity Clear Clear Urine pH 5.5 5.0-9.0 Urine Specific [place] 1.010 1.001-1.035 Urine Protein Negative Negative Urine Ketones Negative Negative Urine Blood Negative Negative /uL Urine Nitrite Negative Negative Urine Bilirubin Negative Negative Urine Urobilinogen Normal Negative mg/dL Urine Leukocyte Esterase Negative Negative /uL Urine RBC None seen 0 - 4 /hpf Urine Microscopic WBC < 1 0-5 /HPF Urine Squamous Epithelial Cells None seen <5 /hpf Urine Bacteria None seen None Seen /hpf Urine Hyaline Casts Few 0 - 2 /lpf Urine Mucus Few None Seen Urine Glucose Normal Normal mg/dL Prothrombin Time 10.6 9.3-11.8 sec Prothrombin Time INR 1.00 0.9-1.15 Activated Partial Thromboplast Time 25.9 24.5-34.5 SEC Hemoglobin A1c 5.5 <5.7 % A1C Troponin I High Sensitivity 106 *H </=34 ng/L Vitamin B12 Level 497 211-911 pg/mL Vitamin D 25-Hydroxy 34.7 30.0-100 ng/mL Phosphorus Level 3.4 2.4-5.1 mg/dL Magnesium Level 2.2 1.6-2.6 mg/dL C-Reactive Protein High Sensitivity 0.32 <1.0 mg/dL Triglycerides Level 362 H < 150 mg/dL Cholesterol Level 259 H < 200 mg/dL LDL Cholesterol 170 H < 100 mg/dL HDL Cholesterol 47 40-59 mg/dL Lipase 36 12-53 U/L Blood Gas Specimen Type Arterial Blood Gas Sample Site Right radial Blood Gas Patient Temperature 37.0 Arterial Blood Date Drawn [id number] Arterial Blood pH 7.447 7.350-7.450 Arterial Blood Partial Pressure CO2 30.6 L 32.0-45.0 mmHg Arterial Blood Partial Pressure O2 82.2 L 83.0-108.0 mmHg Arterial Blood HCO3 20.6 L 21.0-28.0 mmol/L Arterial Blood Oxygen Saturation 96.4 94.0-98.0 % Arterial Blood Base Excess -2.3 L -2.0-3.0 mmol/L Arterial Blood Oxyhemoglobin 95.9 94.0-98.0 % Arterial Blood Carboxyhemoglobin 0.2 L 0.5-1.5 % Arterial Blood Methemoglobin 0.3 0.0-1.5 % Antonio Test Modified Blood Gas Total Hemoglobin 13.40 12.0-16.0 g/dL Blood Gas Modality Room air FiO2 % 21.0 Test 12/18/24 15:28 Range/Units White Blood Count 8.4 4.4-10.8 10^3/uL Red Blood Count 4.38 4.0-5.20 10^6/uL Hemoglobin 12.6 12.2-16.2 g/dL Hematocrit 38.5 36.0-46.0 % Mean Corpuscular Volume 88.0 80.0-100.0 fL Mean Corpuscular Hemoglobin 28.8 28.0-32.0 pg Mean Corpuscular Hemoglobin Concent 32.7 32.0-36.0 g/dL Red Cell Distribution Width 15.5 H 11.8-14.3 % Platelet Count 301 140-450 10^3/uL Mean Platelet Volume 8.9 6.9-10.8 fL Neutrophils (%) (Auto) 48.5 37.0-80.0 % Lymphocytes (%) (Auto) 37.0 10.0-50.0 % Monocytes (%) (Auto) 10.7 0.0-12.0 % Eosinophils (%) (Auto) 3.1 0.0-7.0 % Basophils (%) (Auto) 0.7 0.0-2.0 % Neutrophils # (Auto) 4.1 1.6-8.6 10 ^3/uL Lymphocytes # (Auto) 3.1 0.4-5.4 10 ^3/uL Monocytes # (Auto) 0.9 0-1.3 10 ^3/uL Eosinophils # (Auto) 0.3 0-0.8 10 ^3/uL Basophils # (Auto) 0.1 0-0.2 10 ^3/uL Nucleated Red Blood Cells 0.0 % D-Dimer, Quantitative 1.12 H 0.0-0.49 mg/L FEU Sodium Level 140 136-145 mmol/L Potassium Level 4.2 3.5-5.1 mmol/L Chloride Level 105 98-107 mmol/L Carbon Dioxide Level 24 20-31 mmol/L Anion Gap 11 5-15 Blood Urea Nitrogen 9 9-23 mg/dL Creatinine 1.12 H 0.550-1.02 mg/dL Glomerular Filtration Rate Calc 48 >90 mL/min BUN/Creatinine Ratio 8.0 L 10.0-20.0 Serum Glucose 107 H 74-106 mg/dL Calcium Level 8.9 8.7-10.4 mg/dL B-Type Natriuretic Peptide 104.37 0-100 pg/mL Thyroid Stimulating Hormone (TSH) 3.04 0.55-4.78 uIU/mL SEPSIS Sepsis Screen Date sepsis recognized/suspect: Dec 18, 2024 Time Sepsis recognized/suspect: 2109 Recent Procedure: No On Antibiotic Therapy: No Respiratory Rate >20: No Heart Rate >90: No Temp<36 C (96.8 F) or >38.3 C: No SBP <90 or MAP <65 mmHG: No New Acute Mental Status Change: No Is the patient on CPAP, BIPAP,: No Physician Orders Drug Screen (12/18/24 22:56) Allergies (12/19/24 00:28) Code Status (12/19/24 00:28) Sodium Chloride 0.9% (12/19/24 00:30) Acetaminophen Tablet (Tylenol Tablet) (12/19/24 00:30) Ondansetron Hcl (Zofran) (12/19/24 00:30) Condition: Serious (12/19/24 00:28) Morphine Sulfate Injection (12/19/24 00:30) Nitroglycerin Sublingual (Ntrostat Subli (12/19/24 00:30) Morphine Sulfate Injection (12/19/24 00:30) Oxygen By Nasal Cannula (12/19/24 00:28) Notify Md Of Changes From Base (12/19/24 00:) Respiratory Technician For 24 Hours (12/19/24 00:28) Emergency Dysrhythmia Protocol (12/19/24 00:) Rhythm Strips Once Every Shift (12/19/24 00:28) Stat Ekg For Chest Pain (12/19/24:) Admit (12/19/24:) Oxygen By Nasal Cannula (12/19/24:) Stat Ekg For Chest Pain (12/19/24:) Notify Md Of Changes From Base (12/19/24) Respiratory Technician For 24 Hours (12/19/24:) Emergency Dysrhythmia Protocol (12/19/24:) Rhythm Strips Once Every Shift (12/19/24 00:28) Bilat Lower Dvt (12/19/24 00:45) Ct Angio Chest Contrast (12/19/24 00:45) Npo (Nothing By Mouth) Diet (12/19/24 Breakfast) Enoxaparin Sodium (Lovenox) (12/19/24 01:00) Enoxaparin Sodium (Lovenox) (12/20/24 10:00) Vital Signs Date Time Temp Pulse Resp B/P (MAP) Pulse Ox O2 Delivery O2 Flow Rate FiO2 12/18/24 22:55 70 14 110/47 (68) 95 12/18/24 21:10 75 12/18/24 21:10 97.9 75 12 130/71 (90) 95 97.9 12/18/24 20:00 75 12/18/24 19:58 98.6 78 16 137/98 (111) 96 98.6 12/18/24 17:59 70 18 98 Room Air* 0 21 12/18/24 17:43 98.2 70 18 147/93 (111) 98 98.2 12/18/24 17:43 147/93 Laboratory Tests Test 12/18/24 15:28 White Blood Count 8.4 10^3/uL (4.4-10.8) Medications Medications Dose Ordered Sig/Adrian Route Start Time Stop Time Status Last Admin Dose Admin Albuterol 2.5 mg ONCE ONCE NEB 12/18/24 15:45 12/18/24 15:46 DC 12/18/24 15:55 2.5 MG Aspirin 325 mg ONCE ONCE PO 12/18/24 16:30 12/18/24 16:48 DC 12/18/24 17:34 325 MG Furosemide 40 mg ONCE ONCE IV 12/18/24 15:45 12/18/24 15:46 DC 12/18/24 17:43 40 MG Ipratropium [place] 1 mg ONCE ONCE NEB 12/18/24 15:45 12/18/24 15:46 DC 12/18/24 15:54 1 MG Methylprednisolone Sodium Succinate 125 mg ONCE ONCE IV 12/18/24 15:45 12/18/24 15:46 DC 12/18/24 17:34 125 MG Assessment/Plan Assessment/Plan Chest pain, rule out ACS NSTEMI probable type II Presyncope Pacemaker in place History of CAD with [place] S/p CABG and coronary stenting EKG shows left bundle branch block, LVH with IVCD, prolonged QTC Monitor EKG, serial troponin Monitor on telemetry for life-threatening arrhythmias Pain Management with morphine, nitroglycerin as needed P.o. aspirin 81 mg daily, atorvastatin 40 mg COPD exacerbation Medneb with Ipratropium, albuterol IV prednisone 40 mg daily IV ceftriaxone 1gm, Azithromycin 500 mg daily UTI, possible Symptomatic for UTI; U/A negative likely d/t recent Antibiotic use IV ceftriaxone 1 gm daily Rule out pulmonary embolism Rule out DVT Elevated D-dimer Ordered CT angiography chest, Doppler bilateral lower limbs Gastritis, possible GERD without alarm features Hiatal hernia Pantoprazole 40 mg p.o. daily Avoid food related triggers like alcohol, caffeine, fatty /spicy foods, smoking Elevate head end of the bed, avoid late-night meals Follow with GI as outpatient History of stroke (20 years ago) without residual deficit History of depression DIET: NPO DVT PROPHYLAXIS: Lovenox GI PROPHYLAXIS: Protonix CODE STATUS: Goals of care discussed with patient at bedside for more than 37 minutes. Full code DISPOSITION: Telemetry Patient's status and plan discussed with the patient. Case discussed with Dr. Martin. Plan discussed with: Patient, Other (nurses) My Orders Orders - LUH SANDOVAL RESIDENT Procedure Category Date Status Time Drug Screen LAB 12/18/24 In Process 22:56 Allergies OMAR 9/25/25 In Process 00:28 Code Status CODE 12/19/24 Transmitted 00:28 Sodium Chloride 0.9% PHA 12/19/24 In Process 00:30 Acetaminophen Tablet PHA 12/19/24 In Process (Tylenol Tablet) 00:30 Ondansetron Hcl PHA 12/19/24 In Process (Zofran) 00:30 Condition: Serious OMAR 12/19/24 In Process 00:28 Morphine Sulfate PHA 12/19/24 In Process Injection 00:30 Nitroglycerin PHA 12/19/24 In Process Sublingual (Ntrostat 00:30 Morphine Sulfate PHA 12/19/24 In Process Injection 00:30 Oxygen By Nasal RT 12/19/24 Transmitted Cannula 00:28 Notify Md Of Changes OMAR 12/19/24 In Process From Base 00:28 Respiratory Technician For OMAR 12/19/24 In Process 24 Hours 00:28 Emergency Dysrhythmia OMAR 12/19/24 In Process Protocol 00:28 Rhythm Strips Once OMAR 12/19/24 In Process Every Shift 00:28 Stat Ekg For Chest OMAR 12/19/24 In Process Pain 00:28 Admit ADMIT 12/19/24 Transmitted 00:28 Oxygen By Nasal RT 12/19/24 Transmitted Cannula 00:28 Stat Ekg For Chest OMAR 12/19/24 In Process Pain 00:28 Notify Md Of Changes OMAR 12/19/24 In Process From Base 00:28 Respiratory Technician For OMAR 12/19/24 In Process 24 Hours 00:28 Emergency Dysrhythmia OMAR 12/19/24 In Process Protocol 00:28 Rhythm Strips Once OMAR 12/19/24 In Process Every Shift 00:28 Bilat Lower Dvt US 12/19/24 Logged 00:[address] 12/19/24 Logged Contrast 00:45 Npo (Nothing By DIET 12/19/24 Transmitted Mouth) Diet Breakfast Enoxaparin Sodium PHA 12/19/24 In Process (Lovenox) 01:00 Enoxaparin Sodium PHA 12/20/24 In Process (Lovenox) 10:00 Date of Service: Dec 19, 2024 Billing Provider: JOCELYNN MARTIN MD Common Visit Codes: 96403-[id number] INP/OBS CARE (HIGH) Secondary Visit Codes: [id number] CARE PLAN 30 MINUTES LUH SANDOVAL RESIDENT Dec 19, 2024 01:11 UCHE HEATH RESIDENT Dec 19, 2024 08:21
--- NOTE | 2024-12-19 01:36 | DVH ---
CTA Chest with intravenous contrast INDICATION: Shortness of breaths COMPARISON: XY CHEST PORTABLE on DOS: 12/18/24, CT CT ANGIO CHEST CONTRAST on DOS: 11/17/24, XY CHEST T WO VIEWS ROUTINE on DOS: 05/26/24, XY CHEST PORTABLE on DOS: 12/30/23, XY CHEST PORTABLE on DOS: 11/04/23 TECHNIQUE: Multidetector spiral CTA of the chest was performed of the chest with intravenous contrast . PULMONARY ANGIOGRAPHY PROTOCOL was utilized using a bolus-tracking technique centered on the main p ulmonary artery. Axial, coronal and sagittal multiplanar and MIP reformats were performed. Radiation dose : 1. Chest: CTDI volume is 5.92 mGy. Dose-length product is 378.07 mGy*cm The dose indicators for CT are the volume computed tomography (CT) dose index (CTDIvol) and the dose length product (DLP), and are measured in units of mGy and mGy-cm, respectively. These indicators are not patient dose, but values generated from the CT scanner acquisition factors. The report includes radiation exposure data for exposures received during this examination. Findings: Pulmonary artery: No pulmonary embolism Lower neck: Normal thyroid. Lungs: No focal consolidation, pleural effusion or pneumothorax. Heart/Vascular Structures: Heart appears mildly enlarged No pericardial effusion. Coronary calcificat ions. Lymph Nodes: No adenopathy Pleura: No pleural effusion or significant pneumothorax. Musculoskeletal: No acute osseous abnormality. Soft tissues: Normal. Upper abdomen: Moderate hiatal hernia. IMPRESSION: No pulmonary embolism. No acute thoracic finding.
--- NOTE | 2024-12-19 01:52 | DVH ---
Bilateral lower extremity venous duplex Clinical History: Shortness of breaths Comparison: US BILAT LOWER DVT on DOS: 03/13/23, US BILAT LOWER DVT on DOS: 03/01/23, BI LOWER DVT on DOS: 01/15/22, BLDVT on DOS: 01/15/22 Technique: Duplex Doppler evaluation of the deep venous systems of both lower extremities from the common femora l veins to the popliteal veins including color Doppler and spectral/pulsed waveform analysis was perf ormed. Findings: RIGHT SIDE: The common femoral vein demonstrates appropriate compressibility and waveform variability. There is compressibility/patency of the great saphenous vein at the proximal thigh. The femoral vein demonstrates appropriate compressibility and waveform variability. The deep femoral vein demonstrates appropriate compressibility and waveform variability. The popliteal vein demonstrates appropriate compressibility and waveform variability. There is normal compressibility at the tibioperoneal trunk. LEFT SIDE: The common femoral vein demonstrates appropriate compressibility and waveform variability. There is compressibility/patency of the great saphenous vein at the proximal thigh. The femoral vein demonstrates appropriate compressibility and waveform variability. The deep femoral vein demonstrates appropriate compressibility and waveform variability. The popliteal vein demonstrates appropriate compressibility and waveform variability. There is normal compressibility at the tibioperoneal trunk. Impression: 1. No right or left femoropopliteal venous thrombosis.
[2024-12-19 02:17] LABS: Benzodiazephine Screen, Urine Neg (NEGATIVE)
[2024-12-19 02:18] LABS: Amphetamine Screen, Urine Neg (NEGATIVE); Barbiturate Scree,Urine Neg (NEGATIVE); Cannabinoid Screen, Urine Neg (NEGATIVE); Cocaine Screen, Urine Neg (NEGATIVE); Opiate Scree,Urine Neg (NEGATIVE); Phencyclidine Screen, Urine Neg (NEGATIVE)
[2024-12-19] MEDS: methylPREDNISolone SOD SUCC 40 MG/ML VL IV ONE (04:11)
[2024-12-19] MEDS: ATORVASTATIN 20 MG TAB PO ONE (04:12)
[2024-12-19] MEDS: AZITHROMYCIN 250 MG TAB PO ONE (04:12)
[2024-12-19] MEDS: ENOXAPARIN SOD 40 MG/0.4 ML SYRINGE SC ONE (04:12)
[2024-12-19] MEDS: PANTOPRAZOLE 40 MG TAB PO SCH (06:00)
[2024-12-19 07:04] LABS: Hematocrit 34.2 % (36.0-46.0); Hemoglobin 11.3 g/dL (12.2-16.2); Mean Corpuscular Hemoglobin 29.0 pg (28.0-32.0); Mean Corpuscular Volume 87.4 fL (80.0-100.0); Nucleated Red Blood Cells % 0.1 %
[2024-12-19 07:25] LABS: Alanine Aminotransferase 10 U/L (7-40); Albumin 4.1 g/dL (3.2-4.8); Alkaline Phosphatase 75 U/L (46-116); Anion Gap 11 (5-15); BUN/Creatinine Ratio 10.5 (10.0-20.0); Blood Urea Nitrogen 11 mg/dL (9-23); Calcium 8.7 mg/dL (8.7-10.4); Carbon Dioxide 23 mmol/L (20-31)
[2024-12-19] MEDS: LEVALBUTEROL HCL 1.25 MG/3 ML NEB NEB SCH (07:27)
[2024-12-19] MEDS: IPRATROPIUM BROM 0.5 MG/2.5ML INH SOL NEB SCH (07:27)
[2024-12-19 07:28] LABS: Total Protein 6.9 g/dL (5.7-8.2)
[2024-12-19 07:30] LABS: Bilirubin, Total 0.3 mg/dL (0.2-1.0); Chloride 106 mmol/L (98-107); Glucose 138 mg/dL (74-106); Potassium 4.2 mmol/L (3.5-5.1); Sodium 140 mmol/L (136-145)
[2024-12-19 07:31] LABS: Bilirubin, Direct < 0.1 mg/dL (<0.3)
--- NOTE | 2024-12-19 14:12 | DVHPNRES ---
Progress Note Date Seen: Dec 19, 2024 Resident Creating Document: JARRELL OLVERA RESIDENT Medical Necessity Reason Pt with a Central, PICC or Fol: No Subjective Review of Systems This is in 83-year-old female with past medical history of hypertension, diabetes, open heart surgery (unsure about the surgical procedure), stroke, presented to the ER with chief complain of chest pain and dizziness. Pain is pressure-like, retrosternal, rating 8/10, radiating to the back, worsens with exertion. Her pain is associated with shortness of breath since 1 week which also worsens with exertion. She is also complaining of dizziness, which started 2 months back, dizziness is described as feeling of everything around her spinning, worsens with changing positions. She also has multiple other complaints including abdominal pain, nausea, vomiting, constipation, pain in her right arm and shoulder. Her right arm and shoulder pain has been worsening since last 1 week, pain is reproducible with palpation. Her abdominal pain has been intermittent for the past few months, burning, associated with nausea. She also complained of burning micturition and dysuria, since last 1 week. Reports recently being treated for UTI with Cephalexin 250 mg for 7 days. Previous hospitalization: 5 months ago for chest pain PMHx: Hypertension, diabetes mellitus, stroke (20 years ago); previous records indicate [place] with CABG, stent, history of pacemaker implantation, CHF, COPD PSHx: Open heart surgery (unsure about the procedure) Social history: Denies smoking, alcohol, recreational drug use. Lives in house with son. Full code. Next of kin son, daughter Home medication: Unsure about her home medications Allergic history: Sulfa antibiotics Objective vital signs Vital Sign Date Time Temp Pulse Resp B/P (MAP) Pulse Ox O2 Delivery O2 Flow Rate FiO2 12/19/24 13:00 96.5 87 18 155/86 (109) 100 96.5 12/19/24 11:51 Room Air 0.0 12/19/24 11:51 21 Total Intake and Output 12/18/24 12/18/24 12/19/24 15:00 23:00 07:00 Intake Total 0 ml Output Total 350 ml Balance -350 ml medications Current Medications Medications Dose Ordered Sig/Adrian Route Start Time Stop Time Status Last Admin Dose Admin Sodium Chloride 1,000 ml @ 120 mls/hr Q8H20M IV 12/19/24 00:30 12/19/24 00:53 120 MLS/HR Acetaminophen 325 mg Q4HP PRN PO 12/19/24 00:30 Ondansetron HCl 4 mg Q4HP PRN IV 12/19/24 00:30 Morphine Sulfate 2 mg Q4HPRN PRN IV 12/19/24 00:30 Enoxaparin Sodium 40 mg DAILY SC 12/20/24 10:00 Nitroglycerin 0.4 mg Q5MINP PRN SL 12/19/24 00:30 Morphine Sulfate 2 mg Q30M PRN IV 12/19/24 00:30 Pantoprazole Sodium 40 mg DAILY@0600 PO 12/19/24 06:00 Aspirin 81 mg DAILY PO 12/19/24 10:00 12/19/24 10:09 81 MG Atorvastatin Calcium 40 mg HS PO 12/19/24 22:00 Ipratropium Oto 0.5 mg Q6HR NEB 12/19/24 06:00 12/19/24 11:51 0.5 MG Levalbuterol HCl 0.625 mg Q6HR NEB 12/19/24 06:00 12/19/24 11:52 0.625 MG Examination General: Alert, oriented HEENT: Bilateral cataract. Normocephalic, atraumatic, moist mucous membranes Respiratory/pulmonary: CTAB, no wheezing or rhonchi Cardiovascular: S1, S2 heard without murmur. Abdomen: No tenderness, bowel sounds positive,. Extremities: No leg edema Skin: No rashes or pruritus, there is no sacral edema present at this time. Neurological: Intact cranial nerves with no focal neurologic deficits laboratory and microbiology Laboratory Tests 12/19/24 06:12 Test 12/19/24 06:12 Range/Units Serum Glucose 138 H 74-106 mg/dL Problem List/Assessment/Plan Problem List/Assessment/Plan Assessment and plan #Chest pain likely due to costochondral, rule out ACS # costochondritis #NSTEMI probable type II Presyncope #Pacemaker in place #History of CAD with [place] S/p CABG and coronary stenting #Valvular heart disease and status post TAVR # hyperlipidemia EKG shows left bundle branch block, LVH with IVCD, prolonged QTC -mildly elevated troponin I 114> 110> 106 -aspirin 81 mg po daily, -ordered cardiology consult for further evaluation and care -ordered pacemaker interrogation #COPD exacerbation -continue nebulization as patient #Dysuria UTI -urinalysis negative for UTI #Rule out pulmonary embolism #Rule out DVT -Elevated D-dimer - CT angiography chest-negative for pulmonary embolism - Doppler bilateral lower limbs-negative for DVT #GERD without alarm features #Hiatal hernia -Pantoprazole 40 mg p.o. daily -Avoid food related triggers like alcohol, caffeine, fatty /spicy foods, smoking -Elevate head end of the bed, avoid late-night meals -Follow with GI as outpatient #History of stroke (20 years ago) without residual deficit -continue current conservative management #History of depression -continue current home meds Goals of care, Code status full code ; discussed with >15 minutes PUD prophylaxis: Pantoprazole DVT prophylaxis: Lovenox Plan discussed with Dr. Boyce , nursing staff, Total time spent on patient evaluation, chart review, assessment and plan, discussion discussion >35 minutes Plan discussed with: Patient, Son, Other (RN) My Orders My Orders Orders - JARRELL OLVERA Procedure Category Date Status Time Cardiac DIET 12/19/24 Transmitted Diet-2gna,Lofat,Lochol Lunch Discontinue Thacker OMAR 12/19/24 In Process Catheter 11:07 JARRELL OLVERA Dec 19, 2024 14:12
[2024-12-19] MEDS: ACETAMINOPHEN 325 MG TAB PO PRN (20:45)
[2024-12-19] MEDS: ATORVASTATIN 20 MG TAB PO SCH (21:04)
[2024-12-19] MEDS: MORPHINE SULFATE INJ 2 MG/ml SYRG IV PRN (23:34)
[2024-12-20] VITALS (10 sets, daily range): BP systolic 130–151; BP diastolic 62–87; PULSE 72–82; RESP 16–18; TEMP 97.4–97.9; O2SAT 94–100
--- NOTE | 2024-12-20 07:26 | DVHINCON2 ---
Date of service: Dec 20, 2024 History of Present Illness HPI Patient is a 83-year-old female who presented with 1 day of shortness of breaths/cough/pleuritic chest pain. She is poor historian. She also mentions dizziness/vertigo for around 2 months. She also had some dysuria for 1 week. She denies any angina type of chest discomfort. Cardiology is involved for cardiac aspects of care. Patient is known to our practice from outside and before. Home Meds Active Scripts Azithromycin (ZITHROMAX TABLET) 250 Mg Tb, 250 MG PO DAILY, #6 TAB take 2 tabs the first day, then 1 tab PO daily until finish Prov:RUT MAZARIEGOS MD 11/22/24 Acetaminophen (Acetaminophen) 500 Mg Tab, 500 MG PO Q4HP PRN, #30 TAB Prov:RAZ MCDANIEL PAC 06/28/24 Ibuprofen Micronized (Ibuprofen) 600 Mg Tab, 600 MG PO Q6HP PRN, #20 TAB Prov:RAZ MCDANIEL PAC 06/28/24 Apixaban Base (ELIQUIS) 5 Mg Tab, 5 MG PO BID, #60 TAB 0 Refills Prov:XENIA DIALLO MD 03/03/23 Atorvastatin Calcium (ATORVASTATIN CALCIUM) 40 Mg Tab, 1 TAB PO DAILY, #30 TAB 1 Refill Prov:XENIA DIALLO MD 03/03/23 Aspirin (Aspirin Low Dose) 81 Mg Tab, 81 MG PO DAILY, #30 TAB 1 Refill Prov:XENIA DIALLO MD 03/03/23 Furosemide (Furosemide) 40 Mg Tab, 1 TAB PO DAILY, #90 TAB 3 Refills Prov:SOPHY LOWRY MD 08/15/22 Isosorbide Mononitrate (Isosorbide Mononitrate Er) 30 Mg Tab, 1 TAB PO DAILY, #90 TAB 1 Refill Prov:SOPHY LOWRY MD 08/15/22 Carvedilol (COREG) 3.125 Mg Tab, 3.125 MG PO BID, #90 TAB Prov:SOPHY LOWRY MD 08/15/22 Reported Medications Ranolazine (Ranolazine ER) 500 Mg Tab, 1 TAB PO BID for 30 Days, #60 01/01/24 Fentanyl (Fentanyl) 25 Mcg/Hr Dis, 1 PATCH TD Q72HR for 15 Days, #5 01/01/24 Lorazepam (Lorazepam Intensol) 2 Mg/Ml Con, 0.25 ML PO Q6HR PRN for ANXIETY for 15 Days, #15 01/01/24 Mirtazapine (Mirtazapine Oral Disintegrating Tablet) 15 Mg Tab, 1 TAB PO DAILY PRN for POOR APPETITE for 30 Days, #30 01/01/24 Potassium Chloride (Klor-Con 8) 8 Meq Tab, 1 TAB PO BID for 30 Days, #60 01/01/24 Omeprazole (Omeprazole Dr) 20 Mg Cap, 1 CAP PO DAILY for 60 Days, #60 01/01/24 Lidocaine (Lidocaine) 4 % Pad, 4 % EX Q12H, PAD 03/02/23 Trazodone Hcl (Trazodone Hcl) 50 Mg Tab, 50 MG PO BIDPRN, MG 03/02/23 Nitroglycerin (NTROSTAT SUBLINGUAL) 0.4 Mg Sl, 0.4 MG SL PRN for CHEST PAIN, TAB *MAY REPEAT EVERY 5 MINUTES X 3 TOTAL IF NO RELIEF, INITIATE ANALGESIC THERAPY. NOTIFY PHYSICIAN *Do not crush. 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 She is known to have chronically elevated troponin. She is noncompliant with followups. Pacemaker (Medtronic) is slowly running out of battery. In October 2024, remaining longevity was 3 months. Patient Family History: FH: arthritis G8 MOTHER FH: breast cancer 19 CHILD FH: cancer G8 MOTHER Family history: Cardiovascular disease G8 MOTHER G8 SISTER Family history: Diabetes mellitus G8 MOTHER G8 SISTER Family history: Hypertension G8 MOTHER GI bleeding G8 FATHER Tumor 19 CHILD Alocohol: None Lives with: With family Review of Systems Constitutional: No symptom reported Pulmonary/Respiratory: Dyspnea, Cough Cardiovascular: Chest Pain All Other Systems 14 point review of system was performed. Relevant findings as per above and as per HPI. Otherwise negative. H&P Exam Vital Signs Vital Signs Date Time Temp Pulse Resp B/P (MAP) Pulse Ox O2 Delivery O2 Flow Rate FiO2 12/20/24 05:00 97.8 77 18 130/62 (84) 94 97.8 12/19/24 23:32 Room Air 0.0 12/19/24 23:32 21 General Appeara: Well developed Eye Exam: bilateral eye PERRL Mouth: Normal Inspection Pulmonary/Respiratory: Rhonci Cardiovascular/Chest: Normal Rhythm, Systolic murmur Peripheral Pulses: 2+ carotid (R), 2+ carotid (L), 2+ femoral (R), 2+ femoral (L), 2+ dorsalis pedis (R), 2+ dorsalis pedis (L), 2+ Radial (R), 2+ Radial (L) Abdominal Exam: Normal bowel sounds, Soft, No hepatospenomegaly Neuro/Mental St: Alert, Oriented Appearance: Appropriate appearance Eye contact/ Speech: Cooperative Labs/Xrays Labs Test 12/19/24 06:12 12/19/24 00:00 12/18/24 19:05 12/18/24 16:27 Range/Units White Blood Count 6.7 4.4-10.8 10^3/uL Red Blood Count 3.91 L 4.0-5.20 10^6/uL Hemoglobin 11.3 L 12.2-16.2 g/dL Hematocrit 34.2 #L 36.0-46.0 % Mean Corpuscular Volume 87.4 80.0-100.0 fL Mean Corpuscular Hemoglobin 29.0 28.0-32.0 pg Mean Corpuscular Hemoglobin Concent 33.2 32.0-36.0 g/dL Red Cell Distribution Width 15.3 H 11.8-14.3 % Platelet Count 262 140-450 10^3/uL Mean Platelet Volume 9.4 6.9-10.8 fL Neutrophils (%) (Auto) 78.9 37.0-80.0 % Lymphocytes (%) (Auto) 18.6 10.0-50.0 % Monocytes (%) (Auto) 2.4 0.0-12.0 % Eosinophils (%) (Auto) 0.0 0.0-7.0 % Basophils (%) (Auto) 0.1 0.0-2.0 % Neutrophils # (Auto) 5.3 1.6-8.6 10 ^3/uL Lymphocytes # (Auto) 1.3 0.4-5.4 10 ^3/uL Monocytes # (Auto) 0.2 0-1.3 10 ^3/uL Eosinophils # (Auto) 0 0-0.8 10 ^3/uL Basophils # (Auto) 0 0-0.2 10 ^3/uL Nucleated Red Blood Cells 0.1 % Sodium Level 140 136-145 mmol/L Potassium Level 4.2 3.5-5.1 mmol/L Chloride Level 106 98-107 mmol/L Carbon Dioxide Level 23 20-31 mmol/L Anion Gap 11 5-15 Blood Urea Nitrogen 11 9-23 mg/dL Creatinine 1.05 H 0.550-1.02 mg/dL Glomerular Filtration Rate Calc 52 >90 mL/min BUN/Creatinine Ratio 10.5 10.0-20.0 Serum Glucose 138 H 74-106 mg/dL Calcium Level 8.7 8.7-10.4 mg/dL Total Bilirubin 0.3 0.2-1.0 mg/dL Direct Bilirubin < 0.1 <0.3 mg/dL Aspartate Amino Transferase (AST) 15 13-40 U/L Alanine Aminotransferase (ALT) 10 7-40 U/L Alkaline Phosphatase 75 46-116 U/L Total Protein 6.9 5.7-8.2 g/dL Albumin 4.1 3.2-4.8 g/dL Urine Color Light-yellow Yellow Urine Clarity Clear Clear Urine pH 5.5 5.0-9.0 Urine Specific [place] 1.010 1.001-1.035 Urine Protein Negative Negative Urine Ketones Negative Negative Urine Blood Negative Negative /uL Urine Nitrite Negative Negative Urine Bilirubin Negative Negative Urine Urobilinogen Normal Negative mg/dL Urine Leukocyte Esterase Negative Negative /uL Urine RBC None seen 0 - 4 /hpf Urine Microscopic WBC < 1 0-5 /HPF Urine Squamous Epithelial Cells None seen <5 /hpf Urine Bacteria None seen None Seen /hpf Urine Hyaline Casts Few 0 - 2 /lpf Urine Mucus Few None Seen Urine Glucose Normal Normal mg/dL Urine Opiates Screen Neg NEGATIVE Urine Fentanyl Screen Neg NEGATIVE Urine Barbiturates Screen Neg NEGATIVE Urine Phencyclidine Screen Neg NEGATIVE Urine Amphetamines Screen Neg NEGATIVE Urine Benzodiazepines Screen Neg NEGATIVE Urine Cocaine Screen Neg NEGATIVE Urine Cannabinoids Screen Neg NEGATIVE Prothrombin Time 10.6 9.3-11.8 sec Prothrombin Time INR 1.00 0.9-1.15 Activated Partial Thromboplast Time 25.9 24.5-34.5 SEC Hemoglobin A1c 5.5 <5.7 % A1C Troponin I High Sensitivity 106 *H </=34 ng/L Vitamin B12 Level 497 211-911 pg/mL Vitamin D 25-Hydroxy 34.7 30.0-100 ng/mL Phosphorus Level 3.4 2.4-5.1 mg/dL Magnesium Level 2.2 1.6-2.6 mg/dL C-Reactive Protein High Sensitivity 0.32 <1.0 mg/dL Triglycerides Level 362 H < 150 mg/dL Cholesterol Level 259 H < 200 mg/dL LDL Cholesterol 170 H < 100 mg/dL HDL Cholesterol 47 40-59 mg/dL Lipase 36 12-53 U/L Test 12/18/24 15:29 12/18/24 15:28 Range/Units Blood Gas Specimen Type Arterial Blood Gas Sample Site Right radial Blood Gas Patient Temperature 37.0 Arterial Blood Date Drawn [id number] Arterial Blood pH 7.447 7.350-7.450 Arterial Blood Partial Pressure CO2 30.6 L 32.0-45.0 mmHg Arterial Blood Partial Pressure O2 82.2 L 83.0-108.0 mmHg Arterial Blood HCO3 20.6 L 21.0-28.0 mmol/L Arterial Blood Oxygen Saturation 96.4 94.0-98.0 % Arterial Blood Base Excess -2.3 L -2.0-3.0 mmol/L Arterial Blood Oxyhemoglobin 95.9 94.0-98.0 % Arterial Blood Carboxyhemoglobin 0.2 L 0.5-1.5 % Arterial Blood Methemoglobin 0.3 0.0-1.5 % Antonio Test Modified Blood Gas Total Hemoglobin 13.40 12.0-16.0 g/dL Blood Gas Modality Room air FiO2 % 21.0 D-Dimer, Quantitative 1.12 H 0.0-0.49 mg/L FEU B-Type Natriuretic Peptide 104.37 0-100 pg/mL Thyroid Stimulating Hormone (TSH) 3.04 0.55-4.78 uIU/mL Assessment/Plan Plan Patient is a 83-year-old female who presented with 1 day of shortness of breaths/cough/pleuritic chest pain. She is poor historian. She also mentions dizziness/vertigo for around 2 months. She also had some dysuria for 1 week. She denies any angina type of chest discomfort. Cardiology is involved for cardiac aspects of care. Patient is known to our practice from outside and before. Patient does have history of noncompliance with followups. Not in acute distress. Lying flat in bed. No JVD. Mucosa is pink and wet. No carotid bruit. Lungs are clear to auscultation. Cardiac: Regular, no thrill/gallop. Abdomen is soft. Extremities do not reveal edema. 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 She is known to have chronically elevated troponin. She is noncompliant with followups. Pacemaker (Medtronic) is slowly running out of battery. In October 2024, re maining longevity was 3 months. Echocardiogram of November 14, 2024 revealed ejection fraction of 60%, mild concentric left ventricular hypertrophy and moderate pulmonary insufficiency. Nuclear stress test of April 2022 did not reveal any ischemia/scar Left heart catheterization of February 2023 revealed BARBER [employer]GER of left main, patent SVG to LAD, ostial LCX with 80% lesion and patent PERALES to obtuse marginal territory D-dimer: 1.12 BNP: 104.32 Creatinine: 1.12 - 1.05 Potassium: 4.2 - 4.2 Troponin (high sensitive): 114 - 110 - 106 TSH: 3.04 LDL: 170 Urine drug screen: Nonrevealing Chest x-ray revealed: Venous Doppler of lower extremities revealed: CT angio of the lungs: EKG revealed atrial paced, ventricular sensed. Right bundle branch block Tele reveals sinus rhythm Patient is a 83-year-old female who presented with shortness of breath and pleuritic chest pain. Complains of cough also. Does have baseline history of COPD. Minimally elevated and flat number of troponin is present. She is known to have chronic elevated troponin. Presentation is not considered ACS. Increased troponin is considered to reflect demand physiology. D-dimer was elevated but pulmonary emboli was ruled out. COPD exacerbation Rule out pneumonia UTI Hypotension Polypharmacy Abnormal D-dimer Coronary artery disease, status post CABG History of CVA with left hemiparesis Depression/anxiety Dementia Hyperlipidemia Valvular heart disease and status post TAVR Cardiac suggestion for management: Manage on telemetry Follow-up electrolytes and kidney function tests and correct abnormalities Keep potassium above 4 and magnesium above 2 Management of COPD exacerbation as per primary team/Pulmonary Consider interrogation of the Medtronic pacemaker Further evaluation and management depends on the above and clinical course Thank you for consultation A total of 75 minutes was spent reviewing the patient record, examining the patient, making a diagnostic and therapeutic plan, discussing this plan with medical personnel, following up on diagnostic studies and following the patient for clinical stability excluding any and all procedures. At least 50% of this time was spent in direct, [id number] contact. Thank you for allowing me to participate in this patient's care. Further recommendations will depend on patient's clinical course. Please do not hesitate to contact me if you have any questions or concerns. This medical document was created using electronic medical record system with [employer] computerized dictation system. Although this document has been carefully reviewed, there may still be some phonetic and typographical errors. These ar eas are purely typographical due to the imperfection of the software programs, and do not reflect any compromise in the patient's medical care. Plan discussed with: Patient, Other (nurse) RAZ WONG MD Dec 20, 2024 07:26
[2024-12-20] MEDS: IOHEXOL 300 MG/ML 100ML BOTTLE IJ ONE (08:16)
[2024-12-20] MEDS ORDERED: methylPREDNISolone SOD SUCC 40 MG/ML VL IV SCH (09:00)
[2024-12-20] MEDS ORDERED: AZITHROMYCIN 250 MG TAB PO SCH (09:00)
[2024-12-20] MEDS: RANOLAZINE ER 500 MG TAB PO SCH (09:40)
[2024-12-20] MEDS: ENOXAPARIN SOD 40 MG/0.4 ML SYRINGE SC SCH (09:41)
[2024-12-20] MEDS: ISOSORBIDE MONONITRATE ER 60 MG TAB PO SCH (09:41)
[2024-12-20] MEDS: CARVEDILOL 3.125 MG TAB PO SCH (09:41)
--- NOTE | 2024-12-20 12:59 | DVHDSRES ---
Discharge Summary Date of Admission Resident Creating Document: JARRELL OLVERA RESIDENT Dec 19, 2024 at 00:28 Date of Discharge: Dec 20, 2024 Admitting Diagnosis Acute chest pain, rule out acute coronary syndrome Dysuria Dizziness Labs/Diagnostic Data: Laboratory Results Test 12/19/24 06:12 12/19/24 00:00 12/18/24 19:05 12/18/24 16:27 White Blood Count 6.7 10^3/uL (4.4-10.8) Red Blood Count 3.91 10^6/uL (4.0-5.20) Hemoglobin 11.3 g/dL (12.2-16.2) Hematocrit 34.2 % (36.0-46.0) Mean Corpuscular Volume 87.4 fL (80.0-100.0) Mean Corpuscular Hemoglobin 29.0 pg (28.0-32.0) Mean Corpuscular Hemoglobin Concent 33.2 g/dL (32.0-36.0) Red Cell Distribution Width 15.3 % (11.8-14.3) Platelet Count 262 10^3/uL (140-450) Mean Platelet Volume 9.4 fL (6.9-10.8) Neutrophils (%) (Auto) 78.9 % (37.0-80.0) Lymphocytes (%) (Auto) 18.6 % (10.0-50.0) Monocytes (%) (Auto) 2.4 % (0.0-12.0) Eosinophils (%) (Auto) 0.0 % (0.0-7.0) Basophils (%) (Auto) 0.1 % (0.0-2.0) Neutrophils # (Auto) 5.3 10 ^3/uL (1.6-8.6) Lymphocytes # (Auto) 1.3 10 ^3/uL (0.4-5.4) Monocytes # (Auto) 0.2 10 ^3/uL (0-1.3) Eosinophils # (Auto) 0 10 ^3/uL (0-0.8) Basophils # (Auto) 0 10 ^3/uL (0-0.2) Nucleated Red Blood Cells 0.1 % Sodium Level 140 mmol/L (136-145) Potassium Level 4.2 mmol/L (3.5-5.1) Chloride Level 106 mmol/L (98-107) Carbon Dioxide Level 23 mmol/L (20-31) Anion Gap 11 (5-15) Blood Urea Nitrogen 11 mg/dL (9-23) Creatinine 1.05 mg/dL (0.550-1.02) Glomerular Filtration Rate Calc 52 mL/min (>90) BUN/Creatinine Ratio 10.5 (10.0-20.0) Serum Glucose 138 mg/dL (74-106) Calcium Level 8.7 mg/dL (8.7-10.4) Total Bilirubin 0.3 mg/dL (0.2-1.0) Direct Bilirubin < 0.1 mg/dL (<0.3) Aspartate Amino Transferase (AST) 15 U/L (13-40) Alanine Aminotransferase (ALT) 10 U/L (7-40) Alkaline Phosphatase 75 U/L (46-116) Total Protein 6.9 g/dL (5.7-8.2) Albumin 4.1 g/dL (3.2-4.8) Urine Color Light-yellow (Yellow) Urine Clarity Clear (Clear) Urine pH 5.5 (5.0-9.0) Urine Specific [place] 1.010 (1.001-1.035) Urine Protein Negative (Negative) Urine Ketones Negative (Negative) Urine Blood Negative /uL (Negative) Urine Nitrite Negative (Negative) Urine Bilirubin Negative (Negative) Urine Urobilinogen Normal mg/dL (Negative) Urine Leukocyte Esterase Negative /uL (Negative) Urine RBC None seen /hpf (0 - 4) Urine Microscopic WBC < 1 /HPF (0-5) Urine Squamous Epithelial Cells None seen /hpf (<5) Urine Bacteria None seen /hpf (None Seen) Urine Hyaline Casts Few /lpf (0 - 2) Urine Mucus Few (None Seen) Urine Glucose Normal mg/dL (Normal) Urine Opiates Screen Neg (NEGATIVE) Urine Fentanyl Screen Neg (NEGATIVE) Urine Barbiturates Screen Neg (NEGATIVE) Urine Phencyclidine Screen Neg (NEGATIVE) Urine Amphetamines Screen Neg (NEGATIVE) Urine Benzodiazepines Screen Neg (NEGATIVE) Urine Cocaine Screen Neg (NEGATIVE) Urine Cannabinoids Screen Neg (NEGATIVE) Prothrombin Time 10.6 sec (9.3-11.8) Prothrombin Time INR 1.00 (0.9-1.15) Activated Partial Thromboplast Time 25.9 SEC (24.5-34.5) Hemoglobin A1c 5.5 % A1C (<5.7) Troponin I High Sensitivity 106 ng/L (</=34) Vitamin B12 Level 497 pg/mL (211-911) Vitamin D 25-Hydroxy 34.7 ng/mL (30.0-100) Phosphorus Level 3.4 mg/dL (2.4-5.1) Magnesium Level 2.2 mg/dL (1.6-2.6) C-Reactive Protein High Sensitivity 0.32 mg/dL (<1.0) Triglycerides Level 362 mg/dL (< 150) Cholesterol Level 259 mg/dL (< 200) LDL Cholesterol 170 mg/dL (< 100) HDL Cholesterol 47 mg/dL (40-59) Lipase 36 U/L (12-53) Test 12/18/24 15:29 12/18/24 15:28 Blood Gas Specimen Type Arterial Blood Gas Sample Site Right radial Blood Gas Patient Temperature 37.0 Arterial Blood Date Drawn [id number] Arterial Blood pH 7.447 (7.350-7.450) Arterial Blood Partial Pressure CO2 30.6 mmHg (32.0-45.0) Arterial Blood Partial Pressure O2 82.2 mmHg (83.0-108.0) Arterial Blood HCO3 20.6 mmol/L (21.0-28.0) Arterial Blood Oxygen Saturation 96.4 % (94.0-98.0) Arterial Blood Base Excess -2.3 mmol/L (-2.0-3.0) Arterial Blood Oxyhemoglobin 95.9 % (94.0-98.0) Arterial Blood Carboxyhemoglobin 0.2 % (0.5-1.5) Arterial Blood Methemoglobin 0.3 % (0.0-1.5) Antonio Test Modified Blood Gas Total Hemoglobin 13.40 g/dL (12.0-16.0) Blood Gas Modality Room air FiO2 % 21.0 D-Dimer, Quantitative 1.12 mg/L FEU (0.0-0.49) B-Type Natriuretic Peptide 104.37 pg/mL (0-100) Thyroid Stimulating Hormone (TSH) 3.04 uIU/mL (0.55-4.78) Other Laboratory Tests 12/19/24 06:12 Brief Hx & Hospital Course: This is in 83-year-old female with past medical history of hypertension, diabetes, open heart surgery (unsure about the surgical procedure), stroke, presented to the ER with chief complain of chest pain and dizziness. Pain is pressure-like, retrosternal, rating 8/10, radiating to the back, worsens with exertion. Her pain is associated with shortness of breath since 1 week which also worsens with exertion. She is also complaining of dizziness, which started 2 months back, dizziness is described as feeling of everything around her spinning, worsens with changing positions. She also has multiple other complaints including abdominal pain, nausea, vomiting, constipation, pain in her right arm and shoulder. Her right arm and shoulder pain has been worsening since last 1 week, pain is reproducible with palpation. Her abdominal pain has been intermittent for the past few months, burning, associated with nausea. She also complained of burning micturition and dysuria, since last 1 week. Urinalysis was negative, troponin I mild limited likely due to demand lead ischemia,, EKG no acute changes. Doppler study negative for DVT, CT angio negative for pulmonary embolism. Patient was treated conservatively. Patient is seen by leather shaver, no new recommendation. Pacemaker interrogation was done. Patient is being discharged home, no new medication ordered. Patient was advised to follow up with the primary care physician in 1 week and also to follow up with leather shaver in 1-2 week for further evaluation and care. Condition at Discharge: Stable Final Diagnosis/Problems List #Chest pain likely due to costochondral, ruled out ACS NSTEMI Type 2 likely demand let ischemia # pleuritic chest pain # costochondritis #NSTEMI probable type II Presyncope #Pacemaker in place #History of CAD with OK S/p CABG and coronary stenting #Valvular heart disease and status post TAVR # hyperlipidemia #COPD no exacerbation #Dysuria UTI #Rule out pulmonary embolism #Rule out DVT #Elevated D-dimer #GERD without alarm features #Hiatal hernia #History of stroke (20 years ago) without residual deficit #History of depression Discharge Disposition: Home Discharge Instruct/Medications Follow Up/Referral: Please follow up with the primary care physician in 1 week Please follow up with your leather shaver in 2-3 weeks as per recommendation Medications: Please resume home medication Scheduled Apixaban Base (Eliquis), 5 MG PO BID Aspirin (Aspirin Low Dose), 81 MG PO DAILY Atorvastatin Calcium (Atorvastatin Calcium), 1 TAB PO DAILY Azithromycin (Zithromax Tablet), 250 MG PO DAILY Carvedilol (Coreg), 3.125 MG PO BID Cetirizine Hcl (Kls Aller-Aditya), 10 MG PO DAILY, (Reported) Docusate Sodium (Colace), 100 MG PO DAILY, (Reported) Fentanyl (Fentanyl), 1 PATCH TD Q72HR, (Reported) Furosemide (Furosemide), 1 TAB PO DAILY Isosorbide Mononitrate (Isosorbide Mononitrate Er), 1 TAB PO DAILY Lidocaine (Lidocaine), 4 % EX Q12H, (Reported) Nitroglycerin (Ntrostat Sublingual), 0.4 MG SL PRN, (Reported) Omeprazole (Omeprazole Dr), 1 CAP PO DAILY, (Reported) Potassium Chloride (Klor-Con 8), 1 TAB PO BID, (Reported) Ranolazine (Ranolazine ER), 1 TAB PO BID, (Reported) Sertraline HCl (Sertraline Hydrochloride), 50 MG PO DAILY, (Reported) Trazodone Hcl (Trazodone Hcl), 50 MG PO BIDPRN, (Reported) Scheduled PRN Acetaminophen (Acetaminophen), 500 MG PO Q4HP PRN Hydrocodone-Acetaminophen (Hydrocodone Bitartrate/AC 5-325 mg), 1 TAB PO Q6H PRN for PAIN, (Reported) Ibuprofen Micronized (Ibuprofen), 600 MG PO Q6HP PRN Lorazepam (Lorazepam Intensol), 0.25 ML PO Q6HR PRN for ANXIETY, (Reported) Mirtazapine (Mirtazapine Oral Disintegrating Tablet), 1 TAB PO DAILY PRN for POOR APPETITE, (Reported) Discharge Statement: "Patient was advised to return to the ER or call 911 if any headaches, dizziness, shortness of breath, chest pain, abdominal pain, bleeding, fevers, or worsening of medical condition. Patient was counseled about treatment plan, medications, possible side effects, patientverbalized understanding. All questions were answered to the best of my ability. This discharge took greater then 30 minutes in planning, reviewing documentation, counseling the patient, and discussing with other team members." ASSESSMENT ASSESSMENT Assessment JARRELL OLVERA RESIDENT Dec 20, 2024 12:59
[2024-12-20] MEDS ORDERED: MELATONIN 5 MG TAB PO SCH (22:00)
== END 2024-12-20 18:30 | disposition home or self-care (01) | DRG 205 ==
LOC: EDBD 14:40 → ER 14:40 → OVERFLOW 12-19 00:28 → TELE-WESTW 12-19 02:50
PROVIDERS: ADMIT Student in an Organized Health Care Education/Training Program; ATTEND Student in an Organized Health Care Education/Training Program
PROC: 4B02XSZ Measurement of Cardiac Pacemaker, External Approach (ICD-10-PCS; principal; 2024-12-20)
DX: M94.0 Chondrocostal junction syndrome [Tietze] (principal); I21.A1 Myocardial infarction type 2; N39.0 Urinary tract infection, site not specified; K21.9 Gastro-esophageal reflux disease without esophagitis; F32.A Depression, unspecified; F41.9 Anxiety disorder, unspecified; E78.5 Hyperlipidemia, unspecified; I11.0 Hypertensive heart disease with heart failure; I25.10 Atherosclerotic heart disease of native coronary artery without angina pectoris; I50.9 Heart failure, unspecified; J44.9 Chronic obstructive pulmonary disease, unspecified; M81.0 Age-related osteoporosis without current pathological fracture; Z79.01 Long term (current) use of anticoagulants; Z79.899 Other long term (current) drug therapy; Z80.3 Family history of malignant neoplasm of breast; Z82.49 Family history of ischemic heart disease and other diseases of the circulatory system; Z83.3 Family history of diabetes mellitus; Z87.440 Personal history of urinary (tract) infections; Z90.49 Acquired absence of other specified parts of digestive tract; Z90.710 Acquired absence of both cervix and uterus; Z91.199 Patient's noncompliance with other medical treatment and regimen due to unspecified reason; Z95.0 Presence of cardiac pacemaker; Z95.1 Presence of aortocoronary bypass graft; Z95.2 Presence of prosthetic heart valve
CPT/HCPCS: 36415; 36600; 71045; 71275; 80048; 80053; 80061; 80307; 81001; 82248; 82306; 82607; 82805; 83036; 83690; 83735; 83880; 84100; 84443; 84484; 85025; 85379; 85610; 85730; 86141; 87086; 93005; 93970; 94640; 96374; 96375; G0378

== ENCOUNTER 2025-03-15 13:25 | Inpatient (IN) | payer MEDICAID ==
[~2025-03-15] VITALS: Ht 162.6 cm; Wt 62.6 kg
--- NOTE | 2025-03-15 15:07 | DVH ---
CHEST RADIOGRAPH INDICATION: weakness TECHNIQUE: XY CHEST PORTABLE Comparison: None FINDINGS: Left chest dual lead cardiac pacing device. The cardiac silhouette is unremarkable. The lungs demonstrate diffuse bilateral patchy airspace opacities. The pulmonary vasculature is prominent. There is no pleural effusion. There is no pneumothorax. 3 mm left lower lobe calcified nodule. 15 mm radiopaque density projecting over the right upper chest. IMPRESSION: Bilateral patchy airspace opacities and pulmonary vascular congestion. 15 mm radiopaque density projecting over the right upper chest.
[2025-03-15 15:37] LABS: Hematocrit 35.5 % (36.0-46.0); Hemoglobin 11.6 g/dL (12.2-16.2); Mean Corpuscular Hemoglobin 27.1 pg (28.0-32.0); Mean Corpuscular Volume 83.2 fL (80.0-100.0); Nucleated Red Blood Cells % 0.1 %
[2025-03-15 15:42] LABS: Chloride 103 mmol/L (98-107); Potassium 3.6 mmol/L (3.5-5.1); Sodium 141 mmol/L (136-145)
[2025-03-15 15:43] LABS: Anion Gap 12 (5-15); Calcium 9.0 mg/dL (8.7-10.4); Carbon Dioxide 26 mmol/L (20-31)
[2025-03-15 15:48] LABS: BUN/Creatinine Ratio 12.6 (10.0-20.0); Blood Urea Nitrogen 15 mg/dL (9-23); Glucose 98 mg/dL (74-106)
--- NOTE | 2025-03-15 15:49 | ED.PDOC ---
History of Present Illness HPI Comments This is a 84 year old female MIRIAM presenting to the ED with chief complaint of left sided chest pain that radiates into her left shoulder. Patient reports that she has been experiencing the pain with associated nasal congestion for the past 2 days. Patient relays that she has frequent anxiety attacks and believes she is currently experiencing one at this time. Patient denies any SOB, chest pain, N/V, abdominal pain, or headache. Chief Complaint: Dizziness Time Seen by MD: 15:45 Primary Care Provider: DENIES Reviewed Notes: Nurses Notes, Batterboard Setter Notes, Medications, Allergies Allergies: Coded Allergies: Sulfa Antibiotics (Verified Allergy, Unknown, 09/27/20) Tramadol (Verified Allergy, Unknown, ITCHING, 03/15/25) Home Meds Active Scripts Azithromycin (ZITHROMAX TABLET) 250 Mg Tb, 250 MG PO DAILY, #6 TAB take 2 tabs the first day, then 1 tab PO daily until finish Prov:RUT MAZARIEGOS MD 11/22/24 Acetaminophen (Acetaminophen) 500 Mg Tab, 500 MG PO Q4HP PRN, #30 TAB Prov:RAZ MCDANIEL PAC 06/28/24 Ibuprofen Micronized (Ibuprofen) 600 Mg Tab, 600 MG PO Q6HP PRN, #20 TAB Prov:RAZ MCDANIEL PAC 06/28/24 Apixaban Base (ELIQUIS) 5 Mg Tab, 5 MG PO BID, #60 TAB 0 Refills Prov:XENIA DIALLO MD 03/03/23 Atorvastatin Calcium (ATORVASTATIN CALCIUM) 40 Mg Tab, 1 TAB PO DAILY, #30 TAB 1 Refill Prov:XENIA DIALLO MD 03/03/23 Aspirin (Aspirin Low Dose) 81 Mg Tab, 81 MG PO DAILY, #30 TAB 1 Refill Prov:XENIA DIALLO MD 03/03/23 Furosemide (Furosemide) 40 Mg Tab, 1 TAB PO DAILY, #90 TAB 3 Refills Prov:SOPHY LOWRY MD 08/15/22 Isosorbide Mononitrate (Isosorbide Mononitrate Er) 30 Mg Tab, 1 TAB PO DAILY, #90 TAB 1 Refill Prov:SOPHY LOWRY MD 08/15/22 Carvedilol (COREG) 3.125 Mg Tab, 3.125 MG PO BID, #90 TAB Prov:SOPHY LOWRY MD 08/15/22 Reported Medications Ranolazine (Ranolazine ER) 500 Mg Tab, 1 TAB PO BID for 30 Days, #60 01/01/24 Fentanyl (Fentanyl) 25 Mcg/Hr Dis, 1 PATCH TD Q72HR for 15 Days, #5 01/01/24 Lorazepam (Lorazepam Intensol) 2 Mg/Ml Con, 0.25 ML PO Q6HR PRN for ANXIETY for 15 Days, #15 01/01/24 Mirtazapine (Mirtazapine Oral Disintegrating Tablet) 15 Mg Tab, 1 TAB PO DAILY PRN for POOR APPETITE for 30 Days, #30 01/01/24 Potassium Chloride (Klor-Con 8) 8 Meq Tab, 1 TAB PO BID for 30 Days, #60 01/01/24 Omeprazole (Omeprazole Dr) 20 Mg Cap, 1 CAP PO DAILY for 60 Days, #60 01/01/24 Lidocaine (Lidocaine) 4 % Pad, 4 % EX Q12H, PAD 03/02/23 Trazodone Hcl (Trazodone Hcl) 50 Mg Tab, 50 MG PO BIDPRN, MG 03/02/23 Nitroglycerin (NTROSTAT SUBLINGUAL) 0.4 Mg Sl, 0.4 MG SL PRN for CHEST PAIN, TAB *MAY REPEAT EVERY 5 MINUTES X 3 TOTAL IF NO RELIEF, INITIATE ANALGESIC THERAPY. NOTIFY PHYSICIAN *Do not crush. 03/02/23 Hydrocodone-Acetaminophen (Hydrocodone Bitartrate/AC 5-325 mg) 1 Tab Tab, 1 TAB PO Q6H PRN for PAIN, TAB 03/02/23 Docusate Sodium (Colace) 100 Mg Cap, 100 MG PO DAILY, CAP 03/02/23 Cetirizine Hcl (Kls Aller-Aditya) 10 Mg Tab, 10 MG PO DAILY, TAB 03/02/23 Sertraline HCl (Sertraline Hydrochloride) 50 Mg Tab, 50 MG PO DAILY, TAB 03/02/23 Information Source: Patient, Emergency Med Personnel Mode of Arrival: EMS Severity: Moderate Timing: Days Duration: Since onset Past Medical History PAST MEDICAL HISTORY: Anxiety, Arthritis, CAD, CHF, CVA, Depression, GERD, HTN, AL, UTI'S Surgical History: CABG, Cholecystectomy, Hysterectomy, Pacemaker, 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 BUMPER AND 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: 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 Family History Family History: Reviewed,noncontributory to illness Social History Smoker: Non-Smoker Alcohol: Denies ETOH Use Drugs: Denies Drug Use Lives In: Home Constitutional: denies: chills, diaphoresis, fatigue, fever, malaise, sweats, weakness, others EENTM: reports: nose congestion; denies: blurred vision, double vision, ear bleeding, ear discharge, ear drainage, ear pain, ear ringing, eye pain, eye redness, hearing loss, mouth pain, mouth swelling, nasal discharge, nose bleeding, nose pain, photophobia, tearing, throat pain, throat swelling, voice changes, others Respiratory: denies: cough, hemoptysis, orthopnea, SOB at rest, shortness of breath, SOB with excertion, stridor, wheezing, others Cardiovascular: denies: chest pain, dizzy spells, diaphoresis, Dyspnea on exertion, edema, irregular heart beat, left arm pain, lightheadedness, palpitations, PND, syncope, others Gastrointestinal: denies: abdomen distended, abdominal pain, blood streaked bowels, constipated, diarrhea, dysphagia, difficulty swallowing, hematemesis, melena, nausea, poor appetite, poor fluid intake, rectal bleeding, rectal pain, vomiting, others Genitourinary: denies: abnormal vagina bleeding, burning, dyspareunia, dysuria, flank pain, frequency, hematuria, incontinence, pain, , vagina discharge, urgency, others Neurological: denies: dizziness, fainting, headache, left sided numbness, left sided weakness, numbness, paresthesia, pre-existing deficit, right sided numbness, right sided weakness, seizure, speech problems, tingling, tremors, weakness, others Musculoskeletal: reports: others (Left shoulder pain); denies: back pain, gout, joint pain, joint swelling, muscle pain, muscle stiffness, neck pain Integumetry: denies: bruises, change in color, change in hair/nails, dryness, laceration, lesions, lumps, rash, wounds, others Allergic/Immunocompromised: denies: Difficulty Healing, Frequent Infections, Hives, Itching, others Hematologic/Lymphatic: denies: anemia, blood clots, easy bleeding, easy bruising, swollen glands, others Endocrine: denies: excessive hunger, excessive sweating, excessive thirst, excessive urination, flushing, intolerance to cold, intolerance to heat, unexplained weight gain, unexplained weight loss, others Psychiatric: reports: anxiety; denies: bipolar disorder, depression, hopeless, panic disorder, schizophrenia, sleepless, suicidal, others All Other Systems: Reviewed and Negative Physical Exam General Appearance: No Apparent Distress, Normal HEENT: Normal ENT Inspection, Pharynx Normal, TMs Normal Neck: Full Range of Motion, Non-Tender, Normal, Normal Inspection Respiratory: Chest Non-Tender, Lungs Clear, No Accessory Muscle Use, No Respiratory Distress, Normal Breath Sounds Cardiovascular: No Edema, No JVD, No Murmur, No Gallop, Normal Peripheral Pulses, Regular Rate/Rhythm Breast Exam: Deferred Gastrointestinal: No Organomegaly, Non Tender, No Pulsatile Mass, Normal Bowel Sounds, Soft Genitalia: Deferred Pelvic: Deferred Rectal: Deferred Extremities: No calf tenderness, Normal capillary refill, Normal inspection, N ormal range of motion, Non-tender, No pedal edema Musculoskeletal : Location: Left Extremity Location: Shoulder Apperance: Tenderness Neurologic: Alert, tool filer hand II-XII nml as Tested, No Motor Deficits, Normal Affect, Normal Mood, No Sensory Deficits Cerebellar Function: Normal Reflexes: Normal Skin: Dry, Normal Color, Warm Lymphatic: No Adenopathy Was a procedure done? Was a procedure done?: No Differential Dx Considerations may include: ACS, CVA, musculoskeletal strain, viral syndrome, X-Ray, Labs, Meds, VS Vital Signs Date Time Temp Pulse Resp B/P (MAP) Pulse Ox O2 Delivery O2 Flow Rate FiO2 03/15/25 15:46 99.4 78 16 135/75 (95) 95 99.4 03/15/25 14:41 72 20 124/62 (82) 97 03/15/25 13:30 99.5 103 18 108/60 96 99.5 Lab Test 03/15/25 16:23 03/15/25 15:07 Range/Units Troponin I High Sensitivity Pending 49 *H </=34 ng/L White Blood Count 15.6 H 4.4-10.8 10^3/uL Red Blood Count 4.27 4.0-5.20 10^6/uL Hemoglobin 11.6 L 12.2-16.2 g/dL Hematocrit 35.5 L 36.0-46.0 % Mean Corpuscular Volume 83.2 80.0-100.0 fL Mean Corpuscular Hemoglobin 27.1 L 28.0-32.0 pg Mean Corpuscular Hemoglobin Concent 32.6 32.0-36.0 g/dL Red Cell Distribution Width 15.8 H 11.8-14.3 % Platelet Count 259 140-450 10^3/uL Mean Platelet Volume 9.0 6.9-10.8 fL Neutrophils (%) (Auto) 79.2 37.0-80.0 % Lymphocytes (%) (Auto) 12.3 10.0-50.0 % Monocytes (%) (Auto) 7.0 0.0-12.0 % Eosinophils (%) (Auto) 1.3 0.0-7.0 % Basophils (%) (Auto) 0.2 0.0-2.0 % Neutrophils # (Auto) 12.4 H 1.6-8.6 10 ^3/uL Lymphocytes # (Auto) 1.9 0.4-5.4 10 ^3/uL Monocytes # (Auto) 1.1 0-1.3 10 ^3/uL Eosinophils # (Auto) 0.2 0-0.8 10 ^3/uL Basophils # (Auto) 0 0-0.2 10 ^3/uL Nucleated Red Blood Cells 0.1 % Sodium Level 141 136-145 mmol/L Potassium Level 3.6 3.5-5.1 mmol/L Chloride Level 103 98-107 mmol/L Carbon Dioxide Level 26 20-31 mmol/L Anion Gap 12 5-15 Blood Urea Nitrogen 15 9-23 mg/dL Creatinine 1.19 H 0.550-1.02 mg/dL Glomerular Filtration Rate Calc 45 >90 mL/min BUN/Creatinine Ratio 12.6 10.0-20.0 Serum Glucose 98 74-106 mg/dL Lactic Acid Level 1.3 0.4-2.0 mmol/L Calcium Level 9.0 8.7-10.4 mg/dL Time of 1ST Reevaluation: 16:44 Reevaluation 1ST: Unchanged Patient Education/Counseling: Diagnosis, Treatment Family Education/Counseling: No Family Present SEPSIS Sepsis Screen Date sepsis recognized/suspect: Mar 15, 2025 Time Sepsis recognized/suspect: 1330 Recent Procedure: No On Antibiotic Therapy: No Respiratory Rate >20: No Heart Rate >90: Yes Temp<36 C (96.8 F) or >38.3 C: No SBP <90 or MAP <65 mmHG: No New Acute Mental Status Change: No Is the patient on CPAP, BIPAP,: No Physician Orders Urinalysis (03/15/25 14:40) Chest Portable (03/15/25 14:40) Blood Culture (03/15/25 14:40) Troponin-I Hs (03/15/25 15:40) Troponin-I Hs (03/15/25 17:40) Electrocardigram (03/15/25 15:40) Electrocardigram (03/15/25 17:40) Lorazepam Tablet (Ativan Tablet) (03/15/25 16:45) Vital Signs Date Time Temp Pulse Resp B/P (MAP) Pulse Ox O2 Delivery O2 Flow Rate FiO2 03/15/25 15:46 99.4 78 16 135/75 (95) 95 99.4 03/15/25 14:41 72 20 124/62 (82) 97 03/15/25 13:30 99.5 103 18 108/60 96 99.5 Laboratory Tests Test 03/15/25 15:07 Lactic Acid Level 1.3 mmol/L (0.4-2.0) White Blood Count 15.6 10^3/uL (4.4-10.8) H Departure 1 Departure Time of Disposition: 16:39 ( High Complexity ProblemsAcute illness posing threat to life or bodily function (suspected ACS) High Complexity DataMultiple unique labsIndependent interpretation of X-ray and EKGDiscussion/coordination of care with admitting team High Risk of Morbidity/MortalityDecision regarding hospitalizationCritical care performedPotential for sudden deteriorationMEDICAL DECISION MAKING (HIGH COMPLEXITY LEVEL 5):The patient presents with acute chest pain highly concerning for acute coronary syndrome (ACS), an acute illness with potential for significant morbidity and mortality. Despite a normal initial diagnostic workup, ACSincluding unstable anginacannot be excluded and remains the leading concern.Data Reviewed / Independent Interpretation:I independently reviewed and interpreted all labs and imaging. CBC and BMP were within normal limits. High-sensitivity troponin was normal, but a single normal value does not exclude ACS. Chest X-ray was independently reviewed by me and demonstrated no acute cardiopulmonary abnormalities. I independently reviewed the EKG, which showed normal sinus rhythm without ischemic changes.Despite these benign findings, the patient continues to describe exertional and pressure-like chest pain radiating in a pattern consistent with possible ACS. Unstable angina may present with normal biomarkers and nondiagnostic EKGs, and therefore this diagnosis remains a high-risk, active consideration.Differential Diagnosis & Management:The differential included ACS/unstable angina, pulmonary embolism, aortic dissection, pneumothorax, arrhythmia, and esophageal or musculoskeletal etiologies. Given the symptom pattern and cardiac risk profile, ACS remains the most concerning and cannot be safely ruled out in the ED. Serial troponins, telemetry monitoring, and further cardiac evaluationincluding possible stress testing or cardiology consultationare medically necessary.Risk / Disposition:Due to the ongoing concern for evolving cardiac ischemia, the inability to exclude ACS at this stage, and the potential for rapid deterioration, I determined that inpatient admission is required for continued monitoring and further diagnostic evaluation. I discussed the case and plan of care with the admitting inpatient team. The patient understands and agrees with admission.CRITICAL CARE TIME: 36 MINUTESA total of 36 minutes of critical care time was provided, exclusive of separately billable procedures. Time was spent in high-intensity evaluation and management due to the risk of sudden clinical deterioration from suspected ACS. Activities included:Continuous cardiac monitoringSerial reassessment of vital signs and symptomsIndependent interpretation of EKG and imagingReview and integration of diagnostic dataCoordination of care and discussion with nursing and the admitting serviceDevelopment of treatment and monitoring planFrequent bedside reassessmentsCritical care services were medically necessary due to the immediate potential for life-threatening cardiac ischemia.) Impression: Primary Impression: Acute chest pain Additional Impression: Elevated troponin Disposition: ADMITTED INPATIENT Admit to: Tele Condition: Guarded Critical Care Note Critical Care Time?: Yes Stability Stability form required: No Heart Score Heart Score: Heart Score Response (Comments) Value History N/A 0 EKG N/A 0 Age N/A 0 Risk Factors N/A 0 Troponin N/A 0 Total 0 I personally scribed for COURTNEY ANDERSON MD ([email or web address]) on 03/15/25 at 15:49. Electronically submitted by Issa Mane ([email or web address]). COURTNEY ANDERSON MD Mar 15, 2025 15:49
--- NOTE | 2025-03-15 16:23 | ECG ---
[facility] Test Date: 2025-03-15 Test Time: 13:26:21 Pat Name: SHARA RAMIREZ [facility] ED Patient [facility]: [id number] Room: 0217T Gender: F Bumper Straightener: BRENDA : 1940 Requested By: COURTNEY ANDERSON Order Number: [id number] Reading MD: Bipin Goldsmith Measurements Intervals [place] Rate: 85 P: 0 VA: 142 QRS: -63 QRSD: 146 T: 96 QT: 386 QTc: 459 Interpretive Statements Atrial-paced rhythm Right bundle branch block LVH with IVCD and secondary repol abnrm Electronically Signed On 03-17-2025 15:26:30 PST by Bipin Goldsmith Please click the below link to view image of tracing.
[2025-03-15 17:24] LABS: Urine Protein, UAD TRACE (Negative)
[2025-03-15] MEDS: LORazepam 0.5 MG TAB PO ONE (18:14)
[2025-03-15 21:00] VITALS: BP 137/66; PULSE 77; RESP 19; TEMP 98.5; O2SAT 91
[2025-03-15] MEDS ORDERED: NITROGLYCERIN 0.4 MG SL TAB SL PRN (21:30)
[2025-03-15] MEDS: IPRATROPIUM BROM 0.5 MG/2.5ML INH SOL NEB SCH (22:14)
[2025-03-15] MEDS: ALBUTEROL SULF 2.5 MG/0.5ML(0.5%) NEB SOLN NEB SCH (22:14)
[2025-03-15 22:36] VITALS: BP 125/58; PULSE 74; RESP 18; TEMP 99.1; O2SAT 94
[2025-03-15] MEDS: DOXYCYCLINE 100MG/100ML 100 ML IV SCH (22:52)
[2025-03-15] MEDS: RANOLAZINE ER 500 MG TAB PO SCH (22:52)
[2025-03-15] MEDS: predniSONE 20 MG TAB PO SCH (22:52)
[2025-03-15] MEDS: APIXABAN 5 MG TAB PO SCH (22:53)
[2025-03-15 22:57] LABS: COVID19 ANTIGEN SOFIA FIA NEGATIVE (NEGATIVE)
[2025-03-16] VITALS (16 sets, daily range): BP systolic 109–144; BP diastolic 58–75; PULSE 69–84; RESP 15–19; TEMP 96.4–98.6; O2SAT 94–100
--- NOTE | 2025-03-16 01:52 | DVHHP2 ---
History of Present Illness History of Present Illness 83-year-old female with extensive past medical history including coronary artery disease with known chronic total occlusion of the left main coronary artery status post CABG with patent grafts, pacemaker with near end-of-life battery and poor outpatient follow-up, prior cerebrovascular accident, COPD, hypertension, hyperlipidemia, osteoporosis who presented with bilateral shoulder pain radiating to the retrosternal area. Patient reports this pain has been intermittent for some time without clear exertional component. She also endorses nasal congestion and cough for two days prior to presentation. She denies acute worsening of dyspnea, fever, chills, or hemoptysis. Given cardiac history, she was admitted for chest pain evaluation and ACS rule out. Serial troponins were negative and EKG showed no acute ischemic changes. Chest X-ray demonstrated bilateral perihilar and basilar opacities with pulmonary vascular congestion. She remained hemodynamically stable throughout evaluation. PMHx Coronary artery disease with chronic total occlusion of left main coronary artery status post CABG with patent grafts, pacemaker with battery nearing end of life, prior cerebrovascular accident, COPD, hypertension, hyperlipidemia, osteoporosis, prior COVID infection. PSHx CABG, PTCA, pacemaker placement,cholecystectomy, hysterectomy. Medications Reviewed. Allergies sulfa and tramadol Social History Former smoker, quit years ago. Denies alcohol or illicit drug use. Lives independently. Non-compliant with cardiology follow-up. ROS Negative except as noted in HPI. Review of Systems Allergies: Coded Allergies: Sulfa Antibiotics (Verified Allergy, Unknown, 09/27/20) Tramadol (Verified Allergy, Unknown, ITCHING, 03/15/25) Medications Current Medications Medications Dose Ordered Sig/Adrian Route Start Time Stop Time Status Last Admin Dose Admin Nitroglycerin 0.4 mg Q5MINP PRN SL 03/15/25 21:30 Ceftriaxone Sodium 50 ml @ 100 mls/hr DAILY@09 IV 03/15/25 22:00 03/15/25 22:52 100 MLS/HR Doxycycline Hyclate 100 ml @ 50 mls/hr Q12H IV 03/15/25 22:00 03/15/25 22:52 50 MLS/HR Albuterol 2.5 mg Q8HR NEB 03/15/25 22:00 03/15/25 22:14 2.5 MG Prednisone 40 mg DAILY PO 03/15/25 22:00 03/15/25 22:52 40 MG Ipratropium [place] 0.5 mg Q8HR NEB 03/15/25 22:00 03/15/25 22:14 0.5 MG Apixaban 5 mg BID PO 03/15/25 22:00 03/15/25 22:53 5 MG Ranolazine 500 mg BID PO 03/15/25 22:00 03/15/25 22:52 500 MG Exam Vital Signs Vital Signs Date Time Temp Pulse Resp B/P (MAP) Pulse Ox O2 Delivery O2 Flow Rate FiO2 03/15/25 22:36 99.1 74 18 125/58 94 0.0 99.1 03/15/25 22:25 Room Air* 21 Exam General: Elderly female, no acute distress. Cardiac: Regular rate and rhythm, pacemaker in place, no murmurs. Pulmonary: Diminished breath sounds bilaterally with mild expiratory wheezing, no crackles. Abdomen: Soft, non-tender, non-distended, well-healed surgical scars. Extremities: No lower extremity edema. Neuro: Alert and oriented, no focal deficits. Labs/Xrays Labs Test 03/15/25 22:00 03/15/25 18:38 03/15/25 16:35 03/15/25 15:07 Range/Units Influenza Type A Antigen Negative Negative Influenza Type B Antigen Negative Negative SARS-CoV-2 Antigen (Rapid) Negative NEGATIVE Troponin I High Sensitivity 41 *H </=34 ng/L Urine Color Yellow Yellow Urine Clarity Clear Clear Urine pH 7.0 5.0-9.0 Urine Specific [place] 1.016 1.001-1.035 Urine Protein Trace H Negative Urine Ketones Negative Negative Urine Blood Negative Negative /uL Urine Nitrite Negative Negative Urine Bilirubin Negative Negative Urine Urobilinogen Normal Negative mg/dL Urine Leukocyte Esterase 2+ Negative /uL Urine RBC 1 0 - 4 /hpf Urine Microscopic WBC 28 H 0-5 /HPF Urine Squamous Epithelial Cells Few <5 /hpf Urine Bacteria None seen None Seen /hpf Urine Glucose Normal Normal mg/dL White Blood Count 15.6 H 4.4-10.8 10^3/uL Red Blood Count 4.27 4.0-5.20 10^6/uL Hemoglobin 11.6 L 12.2-16.2 g/dL Hematocrit 35.5 L 36.0-46.0 % Mean Corpuscular Volume 83.2 80.0-100.0 fL Mean Corpuscular Hemoglobin 27.1 L 28.0-32.0 pg Mean Corpuscular Hemoglobin Concent 32.6 32.0-36.0 g/dL Red Cell Distribution Width 15.8 H 11.8-14.3 % Platelet Count 259 140-450 10^3/uL Mean Platelet Volume 9.0 6.9-10.8 fL Neutrophils (%) (Auto) 79.2 37.0-80.0 % Lymphocytes (%) (Auto) 12.3 10.0-50.0 % Monocytes (%) (Auto) 7.0 0.0-12.0 % Eosinophils (%) (Auto) 1.3 0.0-7.0 % Basophils (%) (Auto) 0.2 0.0-2.0 % Neutrophils # (Auto) 12.4 H 1.6-8.6 10 ^3/uL Lymphocytes # (Auto) 1.9 0.4-5.4 10 ^3/uL Monocytes # (Auto) 1.1 0-1.3 10 ^3/uL Eosinophils # (Auto) 0.2 0-0.8 10 ^3/uL Basophils # (Auto) 0 0-0.2 10 ^3/uL Nucleated Red Blood Cells 0.1 % Sodium Level 141 136-145 mmol/L Potassium Level 3.6 3.5-5.1 mmol/L Chloride Level 103 98-107 mmol/L Carbon Dioxide Level 26 20-31 mmol/L Anion Gap 12 5-15 Blood Urea Nitrogen 15 9-23 mg/dL Creatinine 1.19 H 0.550-1.02 mg/dL Glomerular Filtration Rate Calc 45 >90 mL/min BUN/Creatinine Ratio 12.6 10.0-20.0 Serum Glucose 98 74-106 mg/dL Lactic Acid Level 1.3 0.4-2.0 mmol/L Calcium Level 9.0 8.7-10.4 mg/dL SEPSIS Sepsis Screen Date sepsis recognized/suspect: Mar 15, 2025 Time Sepsis recognized/suspect: 2224 Recent Procedure: No On Antibiotic Therapy: Yes Respiratory Rate >20: No Heart Rate >90: No Temp<36 C (96.8 F) or >38.3 C: Yes SBP <90 or MAP <65 mmHG: No New Acute Mental Status Change: No Is the patient on CPAP, BIPAP,: No Physician Orders Admit (03/15/25 21:19) Nitroglycerin Sublingual (Ntrostat Subli (03/15/25 21:30) Oxygen By Nasal Cannula (03/15/25 21:19) Stat Ekg For Chest Pain (03/15/25 21:19) Notify Md Of Changes From Base (03/15/25 21:19) Waste Management Recycling Technician For 24 Hours (03/15/25 21:19) Emergency Dysrhythmia Protocol (03/15/25 21:19) Rhythm Strips Once Every Shift (03/15/25 21:19) Cardiac Diet-2gna,Lofat,Lochol (03/16/25 Breakfast) Ceftriaxone 1gm/50ml (Rocephin) (03/15/25 22:00) Doxycycline 100mg/100ml (Vibramycin) (03/15/25 22:00) Mrsa Screen (03/15/25 21:51) Assess Pacemaker Function (03/15/25 21:51) Albuterol Medneb (Ventolin Medneb) (03/15/25 22:00) Prednisone Tablet (03/15/25 22:00) Ipratropium Medneb (Atrovent Medneb) (03/15/25 22:00) Apixaban (Eliquis) (03/15/25 22:00) Ranolazine (Ranexa Er) (03/15/25 22:00) Vital Signs Date Time Temp Pulse Resp B/P (MAP) Pulse Ox O2 Delivery O2 Flow Rate FiO2 03/15/25 22:36 99.1 74 18 125/58 94 0.0 99.1 03/15/25 22:25 Room Air* 0 21 03/15/25 22:25 99.3 86 18 136/68 (90) 93 99.3 03/15/25 22:25 99.3 86 18 136/68 (90) 86 99.3 03/15/25 22:14 18 94 Room Air* 0 21 03/15/25 19:31 99.1 82 18 125/58 (80) 95 99.1 Laboratory Tests Test 03/15/25 15:07 Lactic Acid Level 1.3 mmol/L (0.4-2.0) White Blood Count 15.6 10^3/uL (4.4-10.8) H Medications Medications Dose Ordered Sig/Adrian Route Start Time Stop Time Status Last Admin Dose Admin Albuterol 2.5 mg Q8HR NEB 03/15/25 22:00 03/15/25 22:14 2.5 MG Apixaban 5 mg BID PO 03/15/25 22:00 03/15/25 22:53 5 MG Ceftriaxone Sodium 50 ml @ 100 mls/hr DAILY@09 IV 03/15/25 22:00 03/15/25 22:52 100 MLS/HR Doxycycline Hyclate 100 ml @ 50 mls/hr Q12H IV 03/15/25 22:00 03/15/25 22:52 50 MLS/HR Ipratropium [place] 0.5 mg Q8HR NEB 03/15/25 22:00 03/15/25 22:14 0.5 MG Lorazepam 0.5 mg ONCE ONCE PO 03/15/25 16:45 03/15/25 16:47 DC 03/15/25 18:14 0.5 MG Prednisone 40 mg DAILY PO 03/15/25 22:00 03/15/25 22:52 40 MG Ranolazine 500 mg BID PO 03/15/25 22:00 03/15/25 22:52 500 MG Assessment/Plan Assessment/Plan #Chest pain, rule out ACS #Coronary artery disease with chronic total occlusion of left main coronary artery status post CABG negative serial troponins and non-ischemic EKG; continue aspirin and statin, telemetry monitoring, no acute coronary intervention indicated. #Pacemaker with battery nearing end of life device interrogation ordered; emphasize need for close outpatient follow-up for generator replacement. #Chronic obstructive pulmonary disease with acute exacerbation Continue doxycycline and ceftriaxone , bronchodilator therapy, short course systemic steroids, monitor respiratory status. #Pneumonia rule out continue current antibiotics given COPD exacerbation, reassess need daily. #Hypertension Continue home antihypertensive regimen, monitor blood pressure. #Hyperlipidemia Continue statin therapy. #History of cerebrovascular accident Continue secondary prevention with antiplatelet and statin. Patient is on apixaban BID Case discussed with Dr Carbajal Full code Plan discussed with: Patient, Other (rn) My Orders Orders - ROSITA ZABALA Procedure Category Date Status Time Admit ADMIT 03/15/25 Transmitted 21:19 Nitroglycerin PHA 03/15/25 In Process Sublingual (Ntrostat 21:30 Oxygen By Nasal RT 03/15/25 Transmitted Cannula 21:19 Stat Ekg For Chest OMAR 03/15/25 In Process Pain 21:19 Notify Of Changes OMAR 03/15/25 In Process From Base 21:19 Waste Management Recycling Technician For OMAR 03/15/25 In Process 24 Hours 21:19 Emergency Dysrhythmia OMAR 03/15/25 In Process Protocol 21:19 Rhythm Strips Once OMAR 03/15/25 In Process Every Shift 21:19 Cardiac DIET 03/16/25 Transmitted Diet-2gna,Lofat,Lochol Breakfast Ceftriaxone 1gm/50ml PHA 03/15/25 In Process (Rocephin) 22:00 Doxycycline PHA 03/15/25 In Process 100mg/100ml 22:00 Mrsa Screen NATAN 03/15/25 In Process 21:51 Assess Pacemaker OMAR 03/15/25 In Process Function 21:51 Albuterol Medneb PHA 03/15/25 In Process (Ventolin Medneb) 22:00 Prednisone Tablet PHA 03/15/25 In Process 22:00 Ipratropium Medneb PHA 03/15/25 In Process (Atrovent Medneb) 22:00 Apixaban (Eliquis) PHA 03/15/25 In Process 22:00 Ranolazine (Ranexa Er) PHA 03/15/25 In Process 22:00 Date of Service: Mar 15, 2025 Billing Provider: ROBERT CARBAJAL MD Common Visit Codes: 13837-GUTGBOB INP/OBS CARE (HIGH) Secondary Visit Codes: 59466-WOBCHCDC CARE PLAN 30 MINUTES ROSITA ZABALA RESIDENT Mar 16, 2025 01:52
[2025-03-16 07:03] LABS: Hematocrit 30.9 % (36.0-46.0); Hemoglobin 10.0 g/dL (12.2-16.2); Mean Corpuscular Hemoglobin 27.0 pg (28.0-32.0); Mean Corpuscular Volume 83.0 fL (80.0-100.0); Nucleated Red Blood Cells % 0.0 %
[2025-03-16 07:06] LABS: Alanine Aminotransferase 39 U/L (7-40); Albumin 3.8 g/dL (3.2-4.8); Alkaline Phosphatase 90 U/L (46-116); Anion Gap 11 (5-15); BUN/Creatinine Ratio 15.1 (10.0-20.0); Bilirubin, Total 0.4 mg/dL (0.2-1.0); Blood Urea Nitrogen 16 mg/dL (9-23); Carbon Dioxide 25 mmol/L (20-31); Chloride 105 mmol/L (98-107); Potassium 3.9 mmol/L (3.5-5.1); Sodium 141 mmol/L (136-145); Total Protein 6.4 g/dL (5.7-8.2)
[2025-03-16 07:08] LABS: Calcium 8.6 mg/dL (8.7-10.4); Glucose 175 mg/dL (74-106)
[2025-03-16] MEDS: HYDROcodone-ACET 5/325MG TAB PO PRN (16:21)
--- NOTE | 2025-03-16 17:13 | DVHPN2 ---
Subjective Patient is complaining of intense shoulder pain she had a hydrocortisone injection in the past about a month ago. 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 Medications Current Medications Medications Dose Ordered Sig/Adrian Route Start Time Stop Time Status Last Admin Dose Admin Nitroglycerin 0.4 mg Q5MINP PRN SL 03/15/25 21:30 Ceftriaxone Sodium 50 ml @ 100 mls/hr DAILY@09 IV 03/15/25 22:00 03/16/25 11:23 100 MLS/HR Doxycycline Hyclate 100 ml @ 50 mls/hr Q12H IV 03/15/25 22:00 03/16/25 11:50 50 MLS/HR Albuterol 2.5 mg Q8HR NEB 03/15/25 22:00 03/16/25 14:10 2.5 MG Prednisone 40 mg DAILY PO 03/15/25 22:00 03/16/25 11:25 40 MG Ipratropium [place] 0.5 mg Q8HR NEB 03/15/25 22:00 03/16/25 14:10 0.5 MG Apixaban 5 mg BID PO 03/15/25 22:00 03/16/25 11:24 5 MG Ranolazine 500 mg BID PO 03/15/25 22:00 03/16/25 11:25 500 MG Aspirin 81 mg DAILY PO 03/16/25 10:00 03/16/25 11:24 81 MG Atorvastatin Calcium 40 mg HS PO 03/16/25 22:00 Acetaminophen/ Hydrocodone Bitart 1 tab Q4HPRN PRN PO 03/16/25 15:00 03/16/25 16:21 1 TAB Laboratory Results Laboratory Tests 03/16/25 05:04 Chemistry Test 03/16/25 05:04 Albumin 3.8 g/dL (3.2-4.8) Calcium Level 8.6 mg/dL (8.7-10.4) L Total Protein 6.4 g/dL (5.7-8.2) LFT Test 03/16/25 05:04 Alanine Aminotransferase (ALT) 39 U/L (7-40) Alkaline Phosphatase 90 U/L (46-116) Aspartate Amino Transferase (AST) 17 U/L (13-40) Total Bilirubin 0.4 mg/dL (0.2-1.0) Urinalysis Test 03/15/25 16:35 Urine Color Yellow (Yellow) Urine Clarity Clear (Clear) Urine pH 7.0 (5.0-9.0) Urine Specific [place] 1.016 (1.001-1.035) Urine Protein Trace (Negative) H Urine Ketones Negative (Negative) Urine Blood Negative /uL (Negative) Urine Nitrite Negative (Negative) Urine Bilirubin Negative (Negative) Urine Urobilinogen Normal mg/dL (Negative) Urine Leukocyte Esterase 2+ /uL (Negative) Urine RBC 1 /hpf (0 - 4) Urine Microscopic WBC 28 /HPF (0-5) H Urine Squamous Epithelial Cells Few /hpf (<5) Urine Bacteria None seen /hpf (None Seen) Urine Glucose Normal mg/dL (Normal) Microbiology Microbiology Date/Time Source Procedure Growth Status 03/15/25 22:00 Nose MRSA Screen - Final Complete 03/15/25 15:07 Blood Blood Culture - Preliminary NO GROWTH AFTER 24 HOURS OF INCUBATION. Resulted Assessment/Plan Assessment/Plan 84-year-old female with a known history of CAD status post CABG with a total occlusion of the left main coronary artery, status post pacemaker, chronic obstructive pulmonary disease, hypertension, dyslipidemia, chronic left shoulder pain presented to the hospital with the chest pain and shoulder pain found to have 1. Chest pain ruled out NE 2. Shoulder pain suspect frozen shoulder 3. CAD status post CABG, with a total occlusion of the left main coronary artery 4. Status post pacemaker 5. Hypertension 6. Dyslipidemia 7. History of CVA -continue aspirin statin, pain meds, obtain Cardiology and touch up painter hand consult. Patient's son is requesting left frozen shoulder some intrathecal injection. Plan discussed with: Patient, Son My Orders Orders - JEN MEANS MD Procedure Category Date Status Time Hydrocodone-Acet PHA 03/16/25 In Process 5/325mg Tab ([place] 15:00 * Pain Managment CONS 03/16/25 Verified Consult 17:08 Date of Service: Mar 16, 2025 Billing Provider: JEN MEANS MD Common Visit Codes: [id number] INP/OBS CARE(HIGH) JEN MEANS MD Mar 16, 2025 17:13
[2025-03-16] MEDS: MELATONIN 5 MG TAB PO ONE (20:59)
[2025-03-16] MEDS: ATORVASTATIN 20 MG TAB PO SCH (20:59)
[2025-03-17] VITALS (12 sets, daily range): BP systolic 103–134; BP diastolic 52–74; PULSE 70–92; RESP 16–20; TEMP 97.9–98.7; O2SAT 92–100
--- NOTE | 2025-03-17 09:46 | DVHINCON2 ---
Date of service: Mar 17, 2025 History of Present Illness HPI Patient is a 84-year-old female who presented to the hospital with few days of bilateral arm discomfort, nasal congestion, generalized weak feeling and occasional chest discomfort. Denies any exertional exacerbation of symptoms. He is found to have leukocytosis since admission. Presentation questions some type of URI/sepsis. Cardiology is involved for cardiac aspects of care. Patient is known to have chronically elevated troponin. Since admission, troponin was found to have been minimally elevated (remained flat). Comparing to November 2024, the level of troponin has actually decreased. Patient is known to have a pacemaker ([email or web address]) which is running out of battery. Arrangement has been made to change the pacemaker generator electively on March 24 2025. Home Meds Active Scripts Azithromycin (ZITHROMAX TABLET) 250 Mg Tb, 250 MG PO DAILY, #6 TAB take 2 tabs the first day, then 1 tab PO daily until finish Prov:RUT MAZARIEGOS MD 11/22/24 Acetaminophen (Acetaminophen) 500 Mg Tab, 500 MG PO Q4HP PRN, #30 TAB Prov:RAZ MCDANIEL PAC 06/28/24 Ibuprofen Micronized (Ibuprofen) 600 Mg Tab, 600 MG PO Q6HP PRN, #20 TAB Prov:RAZ MCDANIEL PAC 06/28/24 Apixaban Base (ELIQUIS) 5 Mg Tab, 5 MG PO BID, #60 TAB 0 Refills Prov:XENIA DIALLO MD 03/03/23 Atorvastatin Calcium (ATORVASTATIN CALCIUM) 40 Mg Tab, 1 TAB PO DAILY, #30 TAB 1 Refill Prov:XENIA DIALLO MD 03/03/23 Aspirin (Aspirin Low Dose) 81 Mg Tab, 81 MG PO DAILY, #30 TAB 1 Refill Prov:XENIA DIALLO MD 03/03/23 Furosemide (Furosemide) 40 Mg Tab, 1 TAB PO DAILY, #90 TAB 3 Refills Prov:SOPHY LOWRY MD 08/15/22 Isosorbide Mononitrate (Isosorbide Mononitrate Er) 30 Mg Tab, 1 TAB PO DAILY, #90 TAB 1 Refill Prov:SOPHY LOWRY MD 08/15/22 Carvedilol (COREG) 3.125 Mg Tab, 3.125 MG PO BID, #90 TAB Prov:SOPHY LOWRY MD 08/15/22 Reported Medications Ranolazine (Ranolazine ER) 500 Mg Tab, 1 TAB PO BID for 30 Days, #60 01/01/24 Fentanyl (Fentanyl) 25 Mcg/Hr Dis, 1 PATCH TD Q72HR for 15 Days, #5 01/01/24 Lorazepam (Lorazepam Intensol) 2 Mg/Ml Con, 0.25 ML PO Q6HR PRN for ANXIETY for 15 Days, #15 01/01/24 Mirtazapine (Mirtazapine Oral Disintegrating Tablet) 15 Mg Tab, 1 TAB PO DAILY PRN for POOR APPETITE for 30 Days, #30 01/01/24 Potassium Chloride (Klor-Con 8) 8 Meq Tab, 1 TAB PO BID for 30 Days, #60 01/01/24 Omeprazole (Omeprazole Dr) 20 Mg Cap, 1 CAP PO DAILY for 60 Days, #60 01/01/24 Lidocaine (Lidocaine) 4 % Pad, 4 % EX Q12H, PAD 03/02/23 Trazodone Hcl (Trazodone Hcl) 50 Mg Tab, 50 MG PO BIDPRN, MG 03/02/23 Nitroglycerin (NTROSTAT SUBLINGUAL) 0.4 Mg Sl, 0.4 MG SL PRN for CHEST PAIN, TAB *MAY REPEAT EVERY 5 MINUTES X 3 TOTAL IF NO RELIEF, INITIATE ANALGESIC THERAPY. NOTIFY PHYSICIAN *Do not crush. 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 She is known to have chronically elevated troponin. Pacemaker (Medtronic) is slowly running out of battery. Outpatient/elective arrangement has been made for pacemaker generator exchange on March 24, 2025 (to be performed by Dr. Javier in [facility]) Family History: No pertinent Hx Patient Family History: FH: arthritis G8 MOTHER FH: breast cancer 19 CHILD FH: cancer G8 MOTHER Family history: Cardiovascular disease G8 MOTHER G8 SISTER Family history: Diabetes mellitus G8 MOTHER G8 SISTER Family history: Hypertension G8 MOTHER GI bleeding G8 FATHER Tumor 19 CHILD Smoker: No Hx (Negative) Alocohol: None Drugs: None Lives with: With family Review of Systems Constitutional: Chills, Malaise Ears, Nose, & Throat: Nose discharge Eyes: No symptom reported Cardiovascular: Chest Pain Gastrointestinal: Abdominal Pain All Other Systems 14 point review of system was performed. Relevant findings as per above and as per HPI. Otherwise negative. H&P Exam Vital Signs Vital Signs Date Time Temp Pulse Resp B/P (MAP) Pulse Ox O2 Delivery O2 Flow Rate FiO2 03/17/25 08:11 74 18 99 Room Air* 0 21 03/17/25 05:00 98.0 130/74 (92) 98.0 General Appeara: Well developed Head Exam: Normal inspection Eye Exam: bilateral eye PERRL Pulmonary/Respiratory: Rhonci Cardiovascular/Chest: Normal inspection, Regular rate, Systolic murmur Peripheral Pulses: 2+ carotid (R), 2+ carotid (L), 2+ femoral (R), 2+ femoral (L) Abdominal Exam: Normal bowel sounds, Soft Neuro/Mental St: Alert, Oriented Appearance: Appropriate appearance Eye contact/ Speech: Cooperative Labs/Xrays Labs Test 03/16/25 05:04 03/15/25 22:00 03/15/25 18:38 03/15/25 16:35 Range/Units White Blood Count 14.9 H 4.4-10.8 10^3/uL Red Blood Count 3.72 L 4.0-5.20 10^6/uL Hemoglobin 10.0 L 12.2-16.2 g/dL Hematocrit 30.9 #L 36.0-46.0 % Mean Corpuscular Volume 83.0 80.0-100.0 fL Mean Corpuscular Hemoglobin 27.0 L 28.0-32.0 pg Mean Corpuscular Hemoglobin Concent 32.5 32.0-36.0 g/dL Red Cell Distribution Width 15.9 H 11.8-14.3 % Platelet Count 233 140-450 10^3/uL Mean Platelet Volume 9.3 6.9-10.8 fL Neutrophils (%) (Auto) 91.6 H 37.0-80.0 % Lymphocytes (%) (Auto) 6.5 L 10.0-50.0 % Monocytes (%) (Auto) 1.8 0.0-12.0 % Eosinophils (%) (Auto) 0.0 0.0-7.0 % Basophils (%) (Auto) 0.1 0.0-2.0 % Neutrophils # (Auto) 13.7 H 1.6-8.6 10 ^3/uL Lymphocytes # (Auto) 1.0 0.4-5.4 10 ^3/uL Monocytes # (Auto) 0.3 0-1.3 10 ^3/uL Eosinophils # (Auto) 0 0-0.8 10 ^3/uL Basophils # (Auto) 0 0-0.2 10 ^3/uL Nucleated Red Blood Cells 0.0 % Sodium Level 141 136-145 mmol/L Potassium Level 3.9 3.5-5.1 mmol/L Chloride Level 105 98-107 mmol/L Carbon Dioxide Level 25 20-31 mmol/L Anion Gap 11 5-15 Blood Urea Nitrogen 16 9-23 mg/dL Creatinine 1.06 H 0.550-1.02 mg/dL Glomerular Filtration Rate Calc 51 >90 mL/min BUN/Creatinine Ratio 15.1 10.0-20.0 Serum Glucose 175 H 74-106 mg/dL Calcium Level 8.6 L 8.7-10.4 mg/dL Total Bilirubin 0.4 0.2-1.0 mg/dL Aspartate Amino Transferase (AST) 17 13-40 U/L Alanine Aminotransferase (ALT) 39 7-40 U/L Alkaline Phosphatase 90 46-116 U/L Total Protein 6.4 5.7-8.2 g/dL Albumin 3.8 3.2-4.8 g/dL Influenza Type A Antigen Negative Negative Influenza Type B Antigen Negative Negative SARS-CoV-2 Antigen (Rapid) Negative NEGATIVE Troponin I High Sensitivity 41 *H </=34 ng/L Urine Color Yellow Yellow Urine Clarity Clear Clear Urine pH 7.0 5.0-9.0 Urine Specific [place] 1.016 1.001-1.035 Urine Protein Trace H Negative Urine Ketones Negative Negative Urine Blood Negative Negative /uL Urine Nitrite Negative Negative Urine Bilirubin Negative Negative Urine Urobilinogen Normal Negative mg/dL Urine Leukocyte Esterase 2+ Negative /uL Urine RBC 1 0 - 4 /hpf Urine Microscopic WBC 28 H 0-5 /HPF Urine Squamous Epithelial Cells Few <5 /hpf Urine Bacteria None seen None Seen /hpf Urine Glucose Normal Normal mg/dL Test 03/15/25 15:07 Range/Units Lactic Acid Level 1.3 0.4-2.0 mmol/L Microbiology Date/Time Source Procedure Growth Status 03/15/25 22:00 Nose MRSA Screen - Final Complete 03/15/25 15:07 Blood Blood Culture - Preliminary NO GROWTH AFTER 24 HOURS OF INCUBATION. Resulted Assessment/Plan Plan Patient is a 84-year-old female who presented to the hospital with few days of bilateral arm discomfort, nasal congestion, generalized weak feeling and occasional chest discomfort. Denies any exertional exacerbation of symptoms. He is found to have leukocytosis since admission. Presentation questions some type of URI/sepsis. Cardiology is involved for cardiac aspects of care. Patient is known to have chronically elevated troponin. Since admission, troponin was found to have been minimally elevated (remained flat). Comparing to November 2024, the level of troponin has actually decreased. Patient is known to have a pacemaker (Medtronic) which is running out of battery. Arrangement has been made to change the pacemaker generator electively on March 24 2025. Not in acute distress. No JVD. Mucosa is pink and wet. No carotid bruit. Lungs are clear to auscultation. Cardiac: Regular, no thrill/gallop. Abdomen is soft. Extremities do not reveal edema. 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 She is known to have chronically elevated troponin. Pacemaker (Medtronic) is slowly running out of battery. Outpatient/elective arrangement has been made for pacemaker generator exchange on March 24, 2025 (to be performed by Dr. Javier in [facility]) Echocardiogram of November 14, 2024 revealed ejection fraction of 60%, mild concentric left ventricular hypertrophy, non coronary cusp of aortic valve is calcified/non moving but there was no aortic stenosis, and moderate pulmonary insufficiency. 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 15 mm radiopaque density projecting over the right upper chest. EKG: Sinus rhythm, no specific ST-T changes Tele reveals sinus rhythm Patient is a 84-year-old female who presented with generalized weakness/bilateral shoulder/arm pain/nasal congestion and frequent anxiety at tacks. She is found to have leukocytosis. Presentation is in favor of sepsis/URI. Patient does have history of chronically elevated troponin. Troponin is also found to have minimally (less than prior presentations) flatly elevated. Cardiac-herrera, presentation is not considered ACS. Patient does have history of pacemaker implantation which is running out of battery. There has been arrangement done electively/as outpatient to have battery exchange by end of this year. Increased troponin is considered to reflect demand physiology. Has been kept on Eliquis as outpatient (history of DVT) Sepsis/URI/pneumonia UTI, history of Coronary artery disease, status post CABG History of CVA with left hemiparesis History of pacemaker Pacemaker, running out of battery Depression/anxiety Dementia Valvular heart disease and status post TAVR Cardiac suggestion for management: Manage on telemetry Follow-up electrolytes and kidney function tests and correct abnormalities Keep potassium above 4 and magnesium above 2 Request for pacemaker (Medtronic) interrogation Management of sepsis/pneumonia/UTI as per primary team Thank you for consultation Further evaluation and management depends on the above and clinical course A total of 75 minutes was spent reviewing the patient record, examining the patient, making a diagnostic and therapeutic plan, discussing this plan with medical personnel, following up on diagnostic studies and following the patient for clinical stability excluding any and all procedures. At least 50% of this time was spent in direct, [id number] contact. Thank you for allowing me to participate in this patient's care. Further recommendations will depend on patient's clinical course. Please do not hesitate to contact me if you have any questions or concerns. This medical document was created using electronic medical record system with [employer] computerized dictation system. Although this document has been carefully reviewed, there may still be some phonetic and typographical errors. These areas are purely typographical due to the imperfection of the software programs, and do not reflect any compromise in the patient's medical care. Plan discussed with: Patient, Other (nurse) RAZ WONG MD Mar 17, 2025 09:46
[2025-03-17 10:20] LABS: Hepatitis B Surface Antigen Negative (Negative); Hepatitis C Antibody Negative (Negative)
[2025-03-17] MEDS ORDERED: HYDR-4902 PO (15:57)
[2025-03-17] MEDS ORDERED: NALO4SPR2 (15:59)
--- NOTE | 2025-03-17 16:03 | DVHDS2 ---
Discharge Summary Date of Admission Mar 15, 2025 at 21:19 Date of Discharge: Mar 17, 2025 Labs/Diagnostic Data: Laboratory Results Test 03/16/25 05:04 03/15/25 22:00 03/15/25 18:38 03/15/25 16:35 White Blood Count 14.9 10^3/uL (4.4-10.8) Red Blood Count 3.72 10^6/uL (4.0-5.20) Hemoglobin 10.0 g/dL (12.2-16.2) Hematocrit 30.9 % (36.0-46.0) Mean Corpuscular Volume 83.0 fL (80.0-100.0) Mean Corpuscular Hemoglobin 27.0 pg (28.0-32.0) Mean Corpuscular Hemoglobin Concent 32.5 g/dL (32.0-36.0) Red Cell Distribution Width 15.9 % (11.8-14.3) Platelet Count 233 10^3/uL (140-450) Mean Platelet Volume 9.3 fL (6.9-10.8) Neutrophils (%) (Auto) 91.6 % (37.0-80.0) Lymphocytes (%) (Auto) 6.5 % (10.0-50.0) Monocytes (%) (Auto) 1.8 % (0.0-12.0) Eosinophils (%) (Auto) 0.0 % (0.0-7.0) Basophils (%) (Auto) 0.1 % (0.0-2.0) Neutrophils # (Auto) 13.7 10 ^3/uL (1.6-8.6) Lymphocytes # (Auto) 1.0 10 ^3/uL (0.4-5.4) Monocytes # (Auto) 0.3 10 ^3/uL (0-1.3) Eosinophils # (Auto) 0 10 ^3/uL (0-0.8) Basophils # (Auto) 0 10 ^3/uL (0-0.2) Nucleated Red Blood Cells 0.0 % Sodium Level 141 mmol/L (136-145) Potassium Level 3.9 mmol/L (3.5-5.1) Chloride Level 105 mmol/L (98-107) Carbon Dioxide Level 25 mmol/L (20-31) Anion Gap 11 (5-15) Blood Urea Nitrogen 16 mg/dL (9-23) Creatinine 1.06 mg/dL (0.550-1.02) Glomerular Filtration Rate Calc 51 mL/min (>90) BUN/Creatinine Ratio 15.1 (10.0-20.0) Serum Glucose 175 mg/dL (74-106) Calcium Level 8.6 mg/dL (8.7-10.4) Total Bilirubin 0.4 mg/dL (0.2-1.0) Aspartate Amino Transferase (AST) 17 U/L (13-40) Alanine Aminotransferase (ALT) 39 U/L (7-40) Alkaline Phosphatase 90 U/L (46-116) Total Protein 6.4 g/dL (5.7-8.2) Albumin 3.8 g/dL (3.2-4.8) Hepatitis B Surface Antigen Negative (Negative) Hepatitis C Antibody Negative (Negative) Influenza Type A Antigen Negative (Negative) Influenza Type B Antigen Negative (Negative) SARS-CoV-2 Antigen (Rapid) Negative (NEGATIVE) Troponin I High Sensitivity 41 ng/L (</=34) Urine Color Yellow (Yellow) Urine Clarity Clear (Clear) Urine pH 7.0 (5.0-9.0) Urine Specific Loa 1.016 (1.001-1.035) Urine Protein Trace (Negative) Urine Ketones Negative (Negative) Urine Blood Negative /uL (Negative) Urine Nitrite Negative (Negative) Urine Bilirubin Negative (Negative) Urine Urobilinogen Normal mg/dL (Negative) Urine Leukocyte Esterase 2+ /uL (Negative) Urine RBC 1 /hpf (0 - 4) Urine Microscopic WBC 28 /HPF (0-5) Urine Squamous Epithelial Cells Few /hpf (<5) Urine Bacteria None seen /hpf (None Seen) Urine Glucose Normal mg/dL (Normal) Test 03/15/25 15:07 Lactic Acid Level 1.3 mmol/L (0.4-2.0) Other Laboratory Tests 03/16/25 05:04 Brief Hx & Hospital Course: 84-year-old female with a known history of 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 Patient also has a known history of CAD status post CABG. Patient has stated that pacemaker may not be working maybe end of battery life. Cardiology was consulted pacemaker was interrogated patient is currently stable to be discharged. Patient will be given pain pills as well as p.o. antibiotics. Condition at Discharge: Stable Final Diagnosis/Problems List 84-year-old female with a known history of CAD status post CABG with a total occlusion of the left main coronary artery, status post pacemaker, chronic obstructive pulmonary disease, hypertension, dyslipidemia, chronic left shoulder pain presented to the hospital with the chest pain and shoulder pain found to have 1. Chest pain ruled out [place] 2. Shoulder pain suspect frozen shoulder 3. CAD status post CABG, with a total occlusion of the left main coronary artery 4. Status post pacemaker 5. Hypertension 6. Dyslipidemia 7. History of CVA 8. Suspected pneumonia Discharge Disposition: Home SNF Discharge Will this Physician continue t: No Discharge Instruct/Medications Diet: Cardiac 2g Na,low cholest Activity: See Comment Activity comment: No driving, no signing legal documents, no playing on machinery while on narcotics. Follow Up/Referral: Follow up with the PCP in 1-2 weeks Follow up with the buildings painter when 1-2 weeks. Medications: Resume home medication Doxycycline and pain pills as prescribed. New Medications: Naloxone HCl (Narcan) 4 Mg/0.1 Ml Spr 4 MG NA QUALITY COMPLIANCE MANAGER, #2 SPRAY Continued Medications: Acetaminophen (Acetaminophen) 500 Mg Tab 500 MG PO Q4HP PRN, #30 TAB Apixaban Base (Eliquis) 5 Mg Tab 5 MG PO BID, #60 TAB 0 Refills Aspirin (Aspirin Low Dose) 81 Mg Tab 81 MG PO DAILY, #30 TAB 1 Refill Atorvastatin Calcium (Atorvastatin Calcium) 40 Mg Tab 1 TAB PO DAILY, #30 TAB 1 Refill Carvedilol (Coreg) 3.125 Mg Tab 3.125 MG PO BID, #90 TAB Cetirizine Hcl (Kls Aller-Aditya) 10 Mg Tab 10 MG PO DAILY, TAB Docusate Sodium (Colace) 100 Mg Cap 100 MG PO DAILY, CAP Fentanyl (Fentanyl) 25 Mcg/Hr Dis 1 PATCH TD Q72HR for 15 Days, #5 Furosemide (Furosemide) 40 Mg Tab 1 TAB PO DAILY, #90 TAB 3 Refills Hydrocodone-Acetaminophen (Hydrocodone Bitartrate/AC 5-325 mg) 1 Tab Tab 1 TAB PO Q6H PRN for PAIN, #10 TAB (This prescription has been renewed) Ibuprofen Micronized (Ibuprofen) 600 Mg Tab 600 MG PO Q6HP PRN, #20 TAB Isosorbide Mononitrate (Isosorbide Mononitrate Er) 30 Mg Tab 1 TAB PO DAILY, #90 TAB 1 Refill Lidocaine (Lidocaine) 4 % Pad 4 % EX Q12H, PAD Lorazepam (Lorazepam Intensol) 2 Mg/Ml Con 0.25 ML PO Q6HR PRN for ANXIETY for 15 Days, #15 Mirtazapine (Mirtazapine Oral Disintegrating Tablet) 15 Mg Tab 1 TAB PO DAILY PRN for POOR APPETITE for 30 Days, #30 Nitroglycerin (Ntrostat Sublingual) 0.4 Mg Sl 0.4 MG SL PRN for CHEST PAIN, TAB *MAY REPEAT EVERY 5 MINUTES X 3 TOTAL IF NO RELIEF, INITIATE ANALGESIC THERAPY. NOTIFY PHYSICIAN *Do not crush. Omeprazole (Omeprazole Dr) 20 Mg Cap 1 CAP PO DAILY for 60 Days, #60 Potassium Chloride (Klor-Con 8) 8 Meq Tab 1 TAB PO BID for 30 Days, #60 Ranolazine (Ranolazine ER) 500 Mg Tab 1 TAB PO BID for 30 Days, #60 Sertraline HCl (Sertraline Hydrochloride) 50 Mg Tab 50 MG PO DAILY, TAB Trazodone Hcl (Trazodone Hcl) 50 Mg Tab 50 MG PO BIDPRN, MG Discontinued Medications: Azithromycin (Zithromax Tablet) 250 Mg Tb 250 MG PO DAILY, #6 TAB take 2 tabs the first day, then 1 tab PO daily until finish Scheduled Apixaban Base (Eliquis), 5 MG PO BID Aspirin (Aspirin Low Dose), 81 MG PO DAILY Atorvastatin Calcium (Atorvastatin Calcium), 1 TAB PO DAILY Azithromycin (Zithromax Tablet), 250 MG PO DAILY Carvedilol (Coreg), 3.125 MG PO BID Cetirizine Hcl (Kls Aller-Aditya), 10 MG PO DAILY, (Reported) Docusate Sodium (Colace), 100 MG PO DAILY, (Reported) Fentanyl (Fentanyl), 1 PATCH TD Q72HR, (Reported) Furosemide (Furosemide), 1 TAB PO DAILY Isosorbide Mononitrate (Isosorbide Mononitrate Er), 1 TAB PO DAILY Lidocaine (Lidocaine), 4 % EX Q12H, (Reported) Naloxone HCl (Narcan), 4 MG NA QUALITY COMPLIANCE MANAGER Nitroglycerin (Ntrostat Sublingual), 0.4 MG SL PRN, (Reported) Omeprazole (Omeprazole Dr), 1 CAP PO DAILY, (Reported) Potassium Chloride (Klor-Con 8), 1 TAB PO BID, (Reported) Ranolazine (Ranolazine ER), 1 TAB PO BID, (Reported) Sertraline HCl (Sertraline Hydrochloride), 50 MG PO DAILY, (Reported) Trazodone Hcl (Trazodone Hcl), 50 MG PO BIDPRN, (Reported) Scheduled PRN Acetaminophen (Acetaminophen), 500 MG PO Q4HP PRN Hydrocodone-Acetaminophen (Hydrocodone Bitartrate/AC 5-325 mg), 1 TAB PO Q6H PRN for PAIN Ibuprofen Micronized (Ibuprofen), 600 MG PO Q6HP PRN Lorazepam (Lorazepam Intensol), 0.25 ML PO Q6HR PRN for ANXIETY, (Reported) Mirtazapine (Mirtazapine Oral Disintegrating Tablet), 1 TAB PO DAILY PRN for POOR APPETITE, (Reported) Discharge Statement: "Patient was advised to return to the ER or call 911 if any headaches, dizziness, shortness of breath, chest pain, abdominal pain, bleeding, fevers, or worsening of medical condition. Patient was counseled about treatment plan, medications, possible side effects, patientverbalized understanding. All questions were answered to the best of my ability. 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 Chest pain ruled out [place] 2. Shoulder pain suspect frozen shoulder 3. CAD status post CABG, with a total occlusion of the left main coronary artery 4. Status post pacemaker 5. Hypertension 6. Dyslipidemia 7. History of CVA 8. Suspected pneumonia Date of Service: Mar 17, 2025 Billing Provider: JEN MEANS MD Common Visit Codes: 16653-ZFP/OBS DISCH DAY >30min JEN MEANS MD Mar 17, 2025 16:03
[2025-03-17] MEDS ORDERED: MECL-90 PO (16:56)
[2025-03-19] MEDS ORDERED: QUET150T16 PO (09:37)
[2025-03-19] MEDS ORDERED: CLOP75TA70 PO (09:37)
[2025-03-19] MEDS ORDERED: HYDR-4902 PO (09:41)
--- NOTE | 2025-03-22 09:58 | ECG ---
[facility] Test Date: 2025-03-16 Test Time: 13:28:47 Pat Name: SHARA RAMIREZ Department: Room: 0217T A Gender: F Software Quality Analyst: ASHLEY : 1940 Requested By: COURTNEY ANDERSON Order Number: [id number] Reading MD: Bipin Goldsmith Measurements Intervals Dorothy Rate: 73 P: 0 IL: 142 QRS: -51 QRSD: 143 T: -11 QT: 513 QTc: 566 Interpretive Statements Atrial-paced complexes Nonspecific IVCD with LAD Left ventricular hypertrophy Anterior Q waves, possibly due to LVH Electronically Signed On 03-27-2025 15:38:27 PST by Bipin Goldsmith Please click the below link to view image of tracing.
== END 2025-03-17 19:50 | disposition home or self-care (01) | DRG 557 ==
LOC: ER 13:25 → EDBD 13:25 → EDUNIT# 13:25 → OVERFLOW 21:19 → TELE-CENTR 21:20
PROVIDERS: ADMIT Internal Medicine; ATTEND Internal Medicine
DX: M75.02 Adhesive capsulitis of left shoulder (principal); J15.69 Pneumonia due to other Gram-negative bacteria; I69.354 Hemiplegia and hemiparesis following cerebral infarction affecting left non-dominant side; J44.0 Chronic obstructive pulmonary disease with (acute) lower respiratory infection; I50.9 Heart failure, unspecified; I11.0 Hypertensive heart disease with heart failure; Z79.01 Long term (current) use of anticoagulants; F03.94 Unspecified dementia, unspecified severity, with anxiety; Z95.2 Presence of prosthetic heart valve; J44.1 Chronic obstructive pulmonary disease with (acute) exacerbation; E78.5 Hyperlipidemia, unspecified; M81.0 Age-related osteoporosis without current pathological fracture; K21.9 Gastro-esophageal reflux disease without esophagitis; I25.10 Atherosclerotic heart disease of native coronary artery without angina pectoris; G89.29 Other chronic pain; Z88.2 Allergy status to sulfonamides; Z79.2 Long term (current) use of antibiotics; Z79.1 Long term (current) use of non-steroidal anti-inflammatories (NSAID); Z95.1 Presence of aortocoronary bypass graft; Z90.710 Acquired absence of both cervix and uterus; Z90.49 Acquired absence of other specified parts of digestive tract; Z88.5 Allergy status to narcotic agent; Z87.891 Personal history of nicotine dependence; Z79.899 Other long term (current) drug therapy; Z95.0 Presence of cardiac pacemaker; Z83.3 Family history of diabetes mellitus; Z82.49 Family history of ischemic heart disease and other diseases of the circulatory system; Z80.3 Family history of malignant neoplasm of breast; Z86.16 Personal history of COVID-19
CPT/HCPCS: 36415; 71045; 80048; 80053; 81001; 83605; 84484; 85025; 86803; 87040; 87081; 87340; 87426; 87804; 93005; 94640; 99291; G0378

== ENCOUNTER 2025-03-24 06:31 | Day surgery (SDC) | payer MEDICAID ==
[2025-03-19 10:39] LABS: INR 1.0 (0.9-1.15); Partial Thromboplastin Time 26.6 SEC (24.5-34.5); Prothrombin Time 10.6 sec (9.3-11.8)
[~2025-03-24] VITALS: Ht 162.6 cm; Wt 63.5 kg
[~2025-03-24 06:31] MED LIST changes: -APIX5TAB PO; -AZIT-185 PO; +CLOP75TA70 PO; -FENT25DI2 TD; +MECL-90 PO; +NALO4SPR2; +QUET150T16 PO
[2025-03-24] MEDS ORDERED: ceFAZolin 1GM/50ML 50 ML IV ONE (07:35)
[2025-03-24] MEDS ORDERED: VANCOMYCIN HCL 1000 MG VL ONE ×2 (08:38→08:39)
[2025-03-24] MEDS ORDERED: LIDOCAINE 2%HCL (LOCAL ANESTH.) INJ 20ML MDV ONE ×2 (08:38→08:46)
[2025-03-24] MEDS ORDERED: fentaNYL CITRATE 100 MCG/2 ML VL ONE (08:38)
[2025-03-24] MEDS ORDERED: MIDAZOLAM HCL 2MG/2ML 2ml VIAL (1mg/ml) ONE (08:38)
[2025-03-24] MEDS ORDERED: VANCOMYCIN 1GM/250ML KIT 250 ML IV ONE (09:23)
--- NOTE | 2025-03-24 18:10 | DVHOP2 ---
Operative Report 03/24/25 INDICATION: 1. Sick sinus syndrome 2. Symptomatic bradycardia, prior dual chamber pacemaker MDT, currently GREGG of generator, leads are compatible with MRI 3. Normal EF 4. Replacement of dual chamber pacemaker generator with MDT, whole system is MRI compatible per company PROCEDURES: 1. Implantation of dual chamber pacemaker generator, MDT. 2. Explantation of dual chamber pacemaker generator, MDT. 3. Fluoroscopy images and interpretation 4. Interrogation and programming of the device, 5. Conscious sedation with fentanyl and versed for 1 hour PROCEDURE IN DETAIL: After obtaining informed consent with explanation of risk, benefits, and alternatives, the patient agreed upon the planned procedure, replacement of dual pacemaker generator with MDT. Under standard fashion, local and systemic anesthetic, left deltopectoral area was prepped and draped. Left deltopectoral pocket was opened. The leads were attached to the new dual pacemaker generator. Pocket was irrigated with antibiotic solution. Antibiotic powder was poured into the pocket. The skin was closed in 2 layers and at the end was stapled. The device was programmed into DDDR at lower rate of 60 bpm. There was no immediate complication. CONCLUSION: Status post successful replacement of Dual pacemaker generator, LR 60 bpm TABATHA AGUIRRE MD Mar 24, 2025 18:10
== END 2025-03-24 12:30 | disposition home or self-care (01) ==
LOC: CATH 06:31
PROVIDERS: ATTEND Specialist
DX: Z45.010 Encounter for checking and testing of cardiac pacemaker pulse generator [battery] (principal); I49.5 Sick sinus syndrome; I50.9 Heart failure, unspecified; Z79.82 Long term (current) use of aspirin; Z79.899 Other long term (current) drug therapy; Z86.73 Personal history of transient ischemic attack (TIA), and cerebral infarction without residual deficits; Z95.1 Presence of aortocoronary bypass graft; Z90.710 Acquired absence of both cervix and uterus; Z95.5 Presence of coronary angioplasty implant and graft; Z87.01 Personal history of pneumonia (recurrent); Z88.0 Allergy status to penicillin; Z88.2 Allergy status to sulfonamides; Z88.5 Allergy status to narcotic agent; Z88.8 Allergy status to other drugs, medicaments and biological substances; Z82.61 Family history of arthritis; Z83.3 Family history of diabetes mellitus; Z80.8 Family history of malignant neoplasm of other organs or systems; Z80.9 Family history of malignant neoplasm, unspecified; Z80.3 Family history of malignant neoplasm of breast
CPT/HCPCS: 33228; 36415; 85610; 85730; C1785; J0690; J2250; J3010; J3373; J7030; 99152; 99153